=== PATIENT | male | born 1955 | race Caucasian/White ===

== ENCOUNTER 2016-11-12 13:46 | Inpatient (IN) | payer BC ==
[2016-11-12] VITALS (8 sets, daily range): BP systolic 92–170; BP diastolic 44–81; PULSE 72–101; RESP 16–20; TEMP 96.9–103.1; O2SAT 94–99
[~2016-11-12] VITALS: Ht 188 cm; Wt 92.4 kg
[~2016-11-12 13:46] MED LIST: ATEN50TA PO; GLIM2TAB PO; LISI10TA3 PO; LOVA20TA PO; METF500T PO
--- NOTE | 2016-11-12 14:11 | PD ---
HPI Chief Complaint: Skin Problem Time Seen by Provider: 13:58 Travel History International Travel<30 days: No Contact w/Intl Traveler<30days: No Traveled to known affect area: No History of Present Illness HPI This patient reports that 2 months ago he got a ulcer on the bottom of his right foot. Is trying to keep pressure off that so he started wearing boot. Unfortunately his boot rubbing against the side of his foot caused a breakdown. 4 days ago his right foot starting any hot red and swollen. He reports chills and fever subjectively. Moderately severe. No alleviating factors. He is type II diabetic not on insulin. PFSH Past Medical History Hx Anticoagulant Therapy: Yes Cardiovascular Problems: Yes (HTN ) High Cholesterol: Yes Diabetes: Yes Diminished Hearing: No Hypertension: Yes ?: Not Past Surgical History Ear Surgery: Yes (EYE LENS BILAT) Genitourinary Surgery: Yes (anal fissure x2) Other Surgery: Yes (CATERACT, RECTAL SURGERY X 2) Social History Alcohol Use: Yes (DAILY) Tobacco Use: Yes (OCC. CIGAR) Substance Use: No Allergies-Medications (Allergen,Severity, Reaction): Coded Allergies: *MDRO Multi-Drug Resistant Organism (Verified Adverse Reaction, Unknown, 02/24/16) MRSA elbow wound Reported Meds & Prescriptions Reported Meds & Active Scripts Active Reported Lisinopril 10 Mg Tab 10 Mg PO DAILY Glimepiride 2 Mg Tab 2 Mg PO BIDAC Metformin (Metformin HCl) 500 Mg Tab 500 Mg PO BIDPC With meals Atenolol 50 Mg Tab 50 Mg PO DAILY Review of Systems General / Constitutional: Positive: Fever, Chills Eyes: No: Visual changes HENT: No: Headaches Cardiovascular: No: Chest Pain or Discomfort Respiratory: No: Shortness of Breath Gastrointestinal: No: Abdominal Pain Genitourinary: No: Dysuria Musculoskeletal: Positive: Edema, Pain Skin: No Rash Neurologic: Positive: Sensory Disturbance, No: Weakness Psychiatric: No: Depression Endocrine: No: Polydipsia Hematologic/Lymphatic: No: Easy Bruising Physical Exam Narrative GENERAL: Well-nourished, well-developed patient with right foot swelling and redness. SKIN: Focused skin assessment reveals no rash and nodules. Skin is Warm and dry. HEAD: Atraumatic. Normocephalic. EYES: Pupils equal and round. No scleral icterus. No injection or drainage. ENT: No nasal bleeding or discharge. Mucous membranes pink and moist. NECK: Trachea midline. No JVD. CARDIOVASCULAR: Regular rate and rhythm. No murmur appreciated. RESPIRATORY: No accessory muscle use. Clear to auscultation. Breath sounds equal bilaterally. GASTROINTESTINAL: Abdomen soft, non-tender, nondistended. Hepatic and splenic margins not palpable. MUSCULOSKELETAL: No obvious deformities. No clubbing. No cyanosis. Patient has erythema and warmth and swelling over the dorsum of the right foot. Area of skin breakdown on the lateral aspect of the right foot. Also there is a ulcer underneath the metatarsal head. Serous drainage from that but no fluctuance or pus drainage. NEUROLOGICAL: Awake and alert. No obvious cranial nerve deficits. Motor grossly within normal limits. Normal speech. PSYCHIATRIC: Appropriate mood and affect; insight and judgment normal. Data Data Last Documented VS Vital Signs Date Time Temp Pulse Resp B/P Pulse Ox O2 Delivery O2 Flow Rate FiO2 11/12/16 14:50 102.7 97 16 163/81 96 Room Air Orders Iv Access Insert/Monitor (11/12/16 14:06) Complete Blood Count With Diff (11/12/16 14:06) Basic Metabolic Panel (Bmp) (11/12/16 14:06) Blood Glucose (11/12/16 14:06) Vancomycin Inj (Vancomycin Inj) (11/12/16 14:15) Foot, Limited (2vws) (11/12/16 ) Ondansetron Inj (Zofran Inj) (11/12/16 15:15) Acetaminophen (Tylenol) (11/12/16 15:15) Blood Culture (11/12/16 15:01) Prothrombin Time / Inr (Pt) (11/12/16 15:01) Act Partial Throm Time (Ptt) (11/12/16 15:01) Piperacil-Tazo 3.375 Gm Premix (Zosyn 3. (11/12/16 15:15) Admit Order (Ed Use Only) (11/12/16 15:14) Labs Laboratory Tests Test 11/12/16 14:43 White Blood Count 13.2 TH/MM3 Red Blood Count 3.58 MIL/MM3 Hemoglobin 11.2 GM/DL Hematocrit 32.7 % Mean Corpuscular Volume 91.4 FL Mean Corpuscular Hemoglobin 31.3 PG Mean Corpuscular Hemoglobin 34.2 % Concent Red Cell Distribution Width 12.1 % Platelet Count 367 TH/MM3 Mean Platelet Volume 7.9 FL Neutrophils (%) (Auto) 84.0 % Lymphocytes (%) (Auto) 5.3 % Monocytes (%) (Auto) 4.1 % Eosinophils (%) (Auto) 3.4 % Basophils (%) (Auto) 3.2 % Neutrophils # (Auto) 11.2 TH/MM3 Lymphocytes # (Auto) 0.7 TH/MM3 Monocytes # (Auto) 0.5 TH/MM3 Eosinophils # (Auto) 0.4 TH/MM3 Basophils # (Auto) 0.4 TH/MM3 CBC Comment DIFF FINAL Differential Comment Sodium Level 132 MEQ/L Potassium Level 4.3 MEQ/L Chloride Level 99 MEQ/L Carbon Dioxide Level 24.4 MEQ/L Anion Gap 9 MEQ/L Blood Urea Nitrogen 22 MG/DL Creatinine 1.40 MG/DL Estimat Glomerular Filtration 51 ML/MIN Rate Random Glucose 235 MG/DL Calcium Level 9.5 MG/DL [facility] Medical Decision Making Medical Screen Exam Complete: Yes Emergency Medical Condition: Yes Medical Record Reviewed: Yes Differential Diagnosis Diabetic foot infection, cellulitis, abscess Narrative Course I have reviewed the patient's electronic medical record. IV placed I gave him 1 g IV vancomycin CBC shows minimal leukocytosis and minimal anemia Metabolic profile shows nothing emergent, mild hyperglycemia I reviewed his right foot x-rays which show some bony destructive change at the fifth metatarsal head as well as suggestion of possible gas into issues. I also gave him a dose of IV Zosyn 2 blood cultures were drawn prior to antibiotic therapy Coagulation studies sent as well I gave him IV Zofran and a dose of Tylenol Temperature now 102 Patient will be requiring admission for IV antibiotics for diabetic foot infection with possible osteomyelitis of the fifth metatarsal head Call is placed to hospitalist to discuss Diagnosis Primary Impression: Diabetic infection of right foot Additional Impression: Osteomyelitis of ankle or foot, right, acute Admitting Information Admitting Physician Requests: Admit David Silva MD Nov 12, 2016 14:11
[2016-11-12] MEDS ORDERED: VANCOMYCIN INJ 1,000 MG in SODIUM CHLOR 0.9% 250 ML INJ 250 ML IV ONE (14:15)
--- NOTE | 2016-11-12 14:42 | RADRPT ---
EXAM DATE/TIME: 11/12/2016 14:16 [facility] COMPARISON: No previous studies available for comparison. INDICATIONS : Infected sores right foot MEDICAL HISTORY : Diabetes mellitus type II. SURGICAL HISTORY : None. ENCOUNTER: Initial ACUITY: 4 - 6 days PAIN SCORE: 4/10 LOCATION: Right foot FINDINGS: Patchy osteopenia and cortical thinning seen of the fifth metatarsal head. I believe there may be a s mall amount of gas within the fifth metatarsophalangeal joint. The surrounding soft tissues are swoll en. No acute bone destruction seen elsewhere. No fractures or subluxations. CONCLUSION: Early cortical destruction suspected of the fifth metatarsal head and potentially with some gas in th e fifth metatarsophalangeal joint concern for osteomyelitis/septic arthropathy. No definite acute bon y abnormality elsewhere.. Natalio Zhang MD on November 12, 2016 at 14:38 Board Certified Radiologist. This report was verified electronically.
[2016-11-12 15:01] LABS: POTASSIUM 4.3 MEQ/L (3.5-5.1)
[2016-11-12 15:05] LABS: AUTOMATED NEUTROPHIL # 11.2 TH/MM3 (1.8-7.7); BASOPHIL # 0.4 TH/MM3 (0-0.2); BASOPHIL % 3.2 % (0.0-2.0); BICARBONATE 24.4 MEQ/L (21.0-32.0); EOSINOPHIL # 0.4 TH/MM3 (0-0.4); EOSINOPHIL % 3.4 % (0.0-4.0); HEMATOCRIT 32.7 % (39.0-51.0); LYMPH % 5.3 % (9.0-44.0); LYMPHOCYTE # 0.7 TH/MM3 (1.0-4.8); MEAN CELL VOLUME 91.4 FL (80.0-100.0); MEAN CORPUSCULAR HEMOGLOBIN 31.3 PG (27.0-34.0); MEAN CORPUSCULAR HGB CONC 34.2 % (32.0-36.0); MONO % 4.1 % (0.0-8.0); PLATELET COUNT 367 TH/MM3 (150-450); RED BLOOD COUNT 3.58 MIL/MM3 (4.50-5.90); RED CELL DISTRIBUTION WIDTH 12.1 % (11.6-17.2); WHITE BLOOD COUNT 13.2 TH/MM3 (4.0-11.0)
[2016-11-12 15:11] LABS: HEMO FLAGS DIFF FINAL
[2016-11-12] MEDS ORDERED: ONDANSETRON HCL 4 MG/2 ML VIAL IVP ONE (15:15)
[2016-11-12] MEDS ORDERED: ACETAMINOPHEN 500 MG CPLT PO ONE (15:15)
[2016-11-12] MEDS ORDERED: PIPERACIL-TAZO 3.375 GM PREMIX 50 ML IV ONE ×2 (15:15→18:00)
[2016-11-12 15:23] LABS: APTT (PATIENT) 32.4 SEC (24.3-30.1); INTERNATIONAL NORMALIZED RATIO 0.9 RATIO; PROTHROMBIN TIME - PATIENT 10.3 SEC (9.8-11.6)
[2016-11-12] MEDS: SODIUM CHLOR 0.9% 1000 ML INJ 1,000 ML IV SCH (15:31)
[2016-11-12] MEDS ORDERED: Vancomycin Consult Pharmacy 1 EA OTHER SCH (15:45)
[2016-11-12] MEDS ORDERED: NALOXONE HCL 0.4 MG/ML AMP IV PRN (15:45)
[2016-11-12] MEDS ORDERED: DEXTROSE 50% IN WATER 50 ML VIAL(D50) IV PRN (15:45)
[2016-11-12] MEDS ORDERED: GLUCAGON 1 MG/ML VIAL OTHER PRN (15:45)
[2016-11-12] MEDS ORDERED: SODIUM CHLORIDE 0.9% FLUSH 10 ML FLUSH IV FLUSH PRN (15:45)
[2016-11-12] MEDS ORDERED: ONDANSETRON HCL 4 MG/2 ML VIAL IV PUSH ONE (16:00)
[2016-11-12] MEDS ORDERED: ACETAMINOPHEN 325 MG SUPP RECTAL ONE (16:00)
[2016-11-12] MEDS ORDERED: ACETAMINOPHEN 650 MG SUPP RECTAL ONE (16:00)
[2016-11-12] MEDS: INSULIN ASPART SUPPLEMENTAL SCALE SQ SCH ×2 (16:15→21:36)
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
[2016-11-12] MEDS ORDERED: VANCOMYCIN 1,000 MG/NS 250 ML IV ONE ×2 (17:00)
[2016-11-12] MEDS: GLIMEPIRIDE 2 MG TAB PO SCH (18:46)
--- NOTE | 2016-11-12 19:25 | MB ---
cc: JADEN LINK MD DATE OF CONSULTATION 11/12/[address] Ramos. REASON FOR CONSULTATION Infected diabetic foot ulcer. Likely osteo. HISTORY OF PRESENT ILLNESS This is a 61-year-old white male who has diabetes mellitus. The patient developed a blister at the underside of his right foot near the fifth toe approximately 2 months ago. He subsequently started wearing a boot to take the pressure of his foot. However he noted that the boot was rubbing against the side of his foot and it caused breakdown of the skin at the dorsal aspect of his right foot at the base of the fifth toe, and then he developed pain and redness and swelling. He also reported that he started getting fever and chills and nausea. He presented to emergency department and had temperature of 102.7 degrees earlier today. His white count was elevated at 13.2. An x-ray of the foot was performed and showed early cortical destruction suspected of the fifth metatarsal head and potentially with some gas in the fifth metatarsal phalangeal joint with concern for osteomyelitis and septic arthropathy. Currently the patient states that he feels a little better. His temperature however climbed to 103.1 degrees and on last measure approximately 1 hour ago it was 101 degrees. He tells me that he feels better now. Blood cultures were taken. Wound culture was also obtained. The results of these are pending. The patient has no other complaints. PAST MEDICAL HISTORY 1. Diabetes mellitus type 2. 2. Hypertension. ALLERGIES NO KNOWN DRUG ALLERGIES. MEDICATIONS 1. Vancomycin. 2. Piperacillin / tazobactam. 3. Tenormin. 4. Amaryl. 5. Supplemental sliding scale insulin. SOCIAL HISTORY The patient smokes cigars occasionally. Positive alcohol use daily. No illicit drugs. FAMILY HISTORY Noncontributory. REVIEW OF SYSTEMS Pertinent features mentioned in the history of present illness. Otherwise negative on 10-point review. PHYSICAL EXAMINATION GENERAL: This is a well-developed male who is in no acute distress. He is awake and alert and oriented. VITAL SIGNS: Vitals include temperature 101.3, BP 147/67, respirations 20, heart rate 96. HEENT: Head is atraumatic. Extraocular movements are grossly intact. Pupils reactive to light. No icterus. Oropharynx no visible lesions. NECK: Supple. No adenopathy. LUNGS: Clear breath sounds bilateral. However breath sounds are diminished. HEART: Regular rate and rhythm. No murmurs, rubs or gallops. ABDOMEN: Bowel sounds present, soft, no tenderness appreciated. RECTAL: Not performed. EXTREMITIES: The right foot has erythema at the base of the fifth toe where there is some superficial breakdown of skin at the dorsal aspect. The erythema extends to approximately mid foot at the lateral part of the foot. He also has an ulcer at the plantar aspect of the base of the fifth toe and it has purulent drainage and some bubbles visible on palpating the ulcerated area. The extremities have no edema. The other extremities have no clubbing or cyanosis or edema. SKIN: No rash. NEUROLOGIC: Nonfocal. PSYCHIATRIC: The patient is calm and pleasant and cooperative. LABORATORY DATA WBC 13.2, platelets 367, 84% neutrophils. Creatinine 1.40, BUN 22, sodium 132. IMPRESSION 1. Abscess of the right foot. 2. Cellulitis of the right foot. 3. Diabetic foot infection. 4. Probable osteomyelitis of the fifth metatarsal head. RECOMMENDATIONS 1. Continue the vancomycin. 2. Continue piperacillin. 3. Monitor wound culture. 4. Monitor blood cultures in this patient who had fever and chills and likely sepsis. 5. Incision and debridement to be determined by podiatry after their evaluation. 6. Monitor temperature. Thank you for this consultation. I will follow the patient's progress and make further recommendations upon followup. Jaden Link MD FD/KANWAL /6:04 PM /7:09 PM
[2016-11-12] MEDS ORDERED: MAGNESIUM HYDROXIDE SUSP 30 ML CUP PO PRN (21:00)
[2016-11-12] MEDS: DOCUSATE SODIUM 50 MG/SENNA 8.6 MG TAB PO SCH (21:00)
[2016-11-12] MEDS: HEPARIN SODIUM - SQ 10,000 UNITS/ML VIAL SQ SCH (21:30)
[2016-11-12] MEDS: SODIUM CHLORIDE 0.9% FLUSH 10 ML FLUSH IV FLUSH SCH (21:37)
[2016-11-12] MEDS ORDERED: ONDANSETRON HCL 4 MG/2 ML VIAL IVP PRN (22:00)
[2016-11-12] MEDS: PIPERACIL-TAZO 3.375 GM PREMIX 50 ML IV SCH (23:35)
[2016-11-13] VITALS: BP 92/44; PULSE 72; RESP 16; TEMP 96.9; O2SAT 97
[2016-11-13 04:00] VITALS: BP 111/56; PULSE 73; RESP 18; TEMP 96.5; O2SAT 95
[2016-11-13] MEDS: SODIUM CHLOR 0.9% 1000 ML INJ 1,000 ML IV SCH ×3 (04:11→20:47)
[2016-11-13] MEDS: GLIMEPIRIDE 2 MG TAB PO SCH ×2 (06:45→18:00)
[2016-11-13] MEDS: PIPERACIL-TAZO 3.375 GM PREMIX 50 ML IV SCH ×4 (06:45→23:34)
[2016-11-13] MEDS: INSULIN ASPART SUPPLEMENTAL SCALE SQ SCH ×4 (06:45→20:35)
[2016-11-13] MEDS: SODIUM CHLORIDE 0.9% FLUSH 10 ML FLUSH IV FLUSH SCH ×2 (07:49→20:37)
--- NOTE | 2016-11-13 08:26 | HHI.PR ---
Subjective History of Present Illness Patient have wound right foot Infectious disease input noted getting MRI of right foot on Antibiotic per ID Podiatry on board. Review of Systems Constitutional Constitutional: Fatigue, Weakness Integumentary Skin: Wounds Skin Remarks Right foot wound. Vitals/Results Intake & Output 11/12/16 11/12/16 11/13/16 15:00 23:00 07:00 Intake Total 199 ml Output Total 200 ml 0 ml Balance -200 ml 199 ml Intake IV Total 199 ml Output Urine Total 0 ml 0 ml Emesis 200 ml # Voids 1 # Bowel Movements 1 Vital Signs Vital Signs Date Time Temp Pulse Resp B/P Pulse Ox O2 Delivery O2 Flow Rate FiO2 11/13/16 04:00 96.5 73 18 111/56 95 11/13/16 00:00 96.9 72 16 92/44 97 11/12/16 23:37 96.9 72 16 92/44 11/12/16 22:00 98.8 91 20 105/56 94 11/12/16 20:00 98.8 91 20 105/56 94 11/12/16 17:00 101.3 96 20 147/67 95 11/12/16 15:49 103.1 11/12/16 15:22 101 18 170/75 98 Room Air 11/12/16 14:50 102.7 97 16 163/81 96 Room Air 11/12/16 13:50 99.1 95 18 149/67 99 CBC/BMP: 11/12/16 1443 11/12/16 1443 Lab Results Laboratory Tests Test 11/12/16 14:43 White Blood Count 13.2 TH/MM3 Red Blood Count 3.58 MIL/MM3 Hemoglobin 11.2 GM/DL Hematocrit 32.7 % Mean Corpuscular Volume 91.4 FL Mean Corpuscular Hemoglobin 31.3 PG Mean Corpuscular Hemoglobin 34.2 % Concent Red Cell Distribution Width 12.1 % Platelet Count 367 TH/MM3 Mean Platelet Volume 7.9 FL Neutrophils (%) (Auto) 84.0 % Lymphocytes (%) (Auto) 5.3 % Monocytes (%) (Auto) 4.1 % Eosinophils (%) (Auto) 3.4 % Basophils (%) (Auto) 3.2 % Neutrophils # (Auto) 11.2 TH/MM3 Lymphocytes # (Auto) 0.7 TH/MM3 Monocytes # (Auto) 0.5 TH/MM3 Eosinophils # (Auto) 0.4 TH/MM3 Basophils # (Auto) 0.4 TH/MM3 CBC Comment DIFF FINAL Differential Comment Prothrombin Time 10.3 SEC Prothromb Time International 0.9 RATIO Ratio Activated Partial 32.4 SEC Thromboplast Time Sodium Level 132 MEQ/L Potassium Level 4.3 MEQ/L Chloride Level 99 MEQ/L Carbon Dioxide Level 24.4 MEQ/L Anion Gap 9 MEQ/L Blood Urea Nitrogen 22 MG/DL Creatinine 1.40 MG/DL Estimat Glomerular Filtration 51 ML/MIN Rate Random Glucose 235 MG/DL Calcium Level 9.5 MG/DL Microbiology Microbiology 11/12/16 Aerobic Blood Culture, Received Pending 11/12/16 Anaerobic Blood Culture, Received Pending 11/12/16 Aerobic Blood Culture, Received Pending 11/12/16 Anaerobic Blood Culture, Received Pending 11/12/16 Gram Stain, Received Pending 11/12/16 Wound Culture, Received Pending Physical Exam General General Appearance: Well Developed, Well Nourished, No Acute Distress, Comfortable Eyes Eye Exam: Sclera White, Extraocular Movement Intact Throat Throat Exam: Oral Mucosa [place] & Moist, Oral Pharynx Normal Neck Neck Exam: Neck Supple, Trachea Midline Pulmonary Resp Exam: Clear Bilaterally, Breath Sounds Equal, No Distress Cardiology CV Exam: Regular, Normal Sinus Rhythm Gastrointestinal/Abdomen GI Exam: Soft, Non-Tender, Bowel Sounds Present Musculoskeletal MS Exam: Normal Tone Integumentary Skin Exam: Warm, Dry, Ulcer(s) Skin Remarks Right foot planter wound. Neurologic Neuro Exam: Alert, Awake, Oriented, Speech Clear, Moving All Extremities, No Focal Deficits Psychiatric Psych Exam: Appropriate Responses VTE Prophylaxis VTE Prophylaxis Meds: Heparin PUD Prophylasis PUD Prophylaxis: Protonix Assessment/Plan Assessment/Plan ASSESSMENT: 1. Cellulitis with infected ulcer in a patient with diabetes, likely osteomyelitis. 2. Uncontrolled diabetes. 3. Uncontrolled hypertension. PLAN: IV antibiotics. IV hydration. Sliding scale insulin coverage to manage insulin. Also manage sugar. Continue some of home medications. Monitor renal function. Monitor blood pressure and PRN medications for high blood pressure. Podiatry consultation. MRI of the right foot. Infectious disease input noted on Antibiotic per ID. recommendation. Blood cultures negative so far. Wound culture. Continue home medications as indicated. Further recommendations will follow as the patient progresses. Check CBC with diff CMP in AM. Discussed Condition with: Patient Iker Edmondson MD Nov 13, 2016 08:26
[2016-11-13 08:37] LABS: AUTOMATED NEUTROPHIL # 12.1 TH/MM3 (1.8-7.7); BASOPHIL % 0.3 % (0.0-2.0); EOSINOPHIL # 0.4 TH/MM3 (0-0.4); EOSINOPHIL % 2.8 % (0.0-4.0); HEMATOCRIT 30.2 % (39.0-51.0); LYMPH % 4.1 % (9.0-44.0); LYMPHOCYTE # 0.6 TH/MM3 (1.0-4.8); MEAN CELL VOLUME 90.8 FL (80.0-100.0); MEAN CORPUSCULAR HEMOGLOBIN 30.5 PG (27.0-34.0); MEAN CORPUSCULAR HGB CONC 33.6 % (32.0-36.0); MONO % 7.6 % (0.0-8.0); NEUT % 85.2 % (16.0-70.0); PLATELET COUNT 314 TH/MM3 (150-450); RED BLOOD COUNT 3.32 MIL/MM3 (4.50-5.90); WHITE BLOOD COUNT 14.2 TH/MM3 (4.0-11.0)
[2016-11-13] MEDS: HEPARIN SODIUM - SQ 10,000 UNITS/ML VIAL SQ SCH ×2 (08:37→20:37)
[2016-11-13] MEDS: DOCUSATE SODIUM 50 MG/SENNA 8.6 MG TAB PO SCH ×2 (08:37→20:37)
[2016-11-13 08:40] LABS: POTASSIUM 4.2 MEQ/L (3.5-5.1)
[2016-11-13 08:42] LABS: HEMO FLAGS DIFF FINAL
[2016-11-13 08:45] LABS: BICARBONATE 27.4 MEQ/L (21.0-32.0)
[2016-11-13] MEDS ORDERED: ATENOLOL 50 MG TAB PO SCH (09:00)
[2016-11-13 09:06] VITALS: BP_SYST 153; BP_SYST 158; BP_DIAS 105; BP_DIAS 71; PULSE 67; PULSE 80; RESP 16; TEMP 97.4; TEMP 97.7; O2SAT 97; O2SAT 99
[2016-11-13] MEDS ORDERED: GADODIAMIDE PF 287 MG/ML 5 ML VIAL (for RAD MRI) IV ONE (14:03)
--- NOTE | 2016-11-13 14:21 | RADRPT ---
EXAM DATE/TIME: 11/13/2016 13:06 [facility] COMPARISON: FOOT RIGHT LIMITED (2VWS), November 12, 2016, 14:16. INDICATIONS : Osteomyelitis. CONTRAST: 17 cc Omniscan (gadodiamide) IV MEDICAL HISTORY : Diabetes mellitus type 2. Hypertension. SURGICAL HISTORY : None. ENCOUNTER: Initial ACUITY: 2 months PAIN SCORE: 8/10 LOCATION: Right Forefoot by fifth toe. TECHNIQUE: Multiplanar, multisequence MRI examination was performed without contrast and after the intravenous a dministration of gadolinium. FINDINGS: BONE/CARTILAGE: Bone marrow edema with abnormal enhancement is identified involving the fifth proximal phalanx and th e fifth metatarsal. Destructive changes involving the distal fifth metatarsal are confirmed. There is focal cortical erosion and significant periarticular inflammation. TENDONS: The extensor tendons along the dorsum of the fifth metatarsal and phalanx is encased by inflammatory tissue. All other visualized tendons are intact. MISCELLANEOUS: Plantar aponeurosis is intact. Sinus tarsi is within normal limits. POST-CONTRAST: Significant soft tissue and bony enhancement is identified involving the proximal phalanx of the fift h toe and the fifth metatarsal. A complex fluid collection is identified along the dorsum of the fifth metatarsal. The collectio n extends from the metatarsal phalangeal joint to approximately the mid metatarsal shaft. It measures 4.7 cm in length by 2.1 and 2.4 cm in transverse dimension. Focal gas is identified within the colle ction. CONCLUSION: 1. Bone marrow edema, abnormal enhancement and destructive bone changes are identified in the fifth m etatarsal and proximal phalanx of the fifth toe indicative of osteomyelitis. 2. Organized complex abscess along the dorsum of the mid to distal fifth metatarsal. 3. Extensor tendon of the fifth toe is encased by inflammatory tissue. Malick Rosado MD on November 13, 2016 at 14:08 Board Certified Radiologist. This report was verified electronically.
[2016-11-13 16:00] VITALS: BP 157/69; PULSE 96; RESP 20; TEMP 98.3; O2SAT 97
[2016-11-13] MEDS ORDERED: VANCOMYCIN INJ 2,000 MG in SODIUM CHLORID 0.9% 500 ML INJ 500 ML IV SCH (17:00)
--- NOTE | 2016-11-13 18:38 | HHI.IDPN ---
Note Infectious Disease Note patient had some chills today. Feels better. Afebrile. Blood culture has group B strep. Wound culture pending. PAST MEDICAL HISTORY 1. Diabetes mellitus type 2. 2. Hypertension. ALLERGIES NO KNOWN DRUG ALLERGIES. ANTIBIOTICS 1. Vancomycin. 2. Piperacillin / tazobactam. OBJECTIVE: Vital Signs Date Time Temp Pulse Resp B/P Pulse Ox O2 Delivery O2 Flow Rate FiO2 11/13/16 16:00 98.3 96 20 157/69 97 11/13/16 09:06 97.7 80 16 153/71 97 11/13/16 04:00 96.5 73 18 111/56 95 11/13/16 00:00 96.9 72 16 92/44 97 11/12/16 23:37 96.9 72 16 92/44 11/12/16 22:00 98.8 91 20 105/56 94 11/12/16 20:00 98.8 91 20 105/56 94 Laboratory Tests Test 11/12/16 11/13/16 14:43 07:45 White Blood Count 13.2 TH/MM3 14.2 TH/MM3 Red Blood Count 3.58 MIL/MM3 3.32 MIL/MM3 Hemoglobin 11.2 GM/DL 10.1 GM/DL Hematocrit 32.7 % 30.2 % Mean Corpuscular Volume 91.4 FL 90.8 FL Mean Corpuscular Hemoglobin 31.3 PG 30.5 PG Mean Corpuscular Hemoglobin 34.2 % 33.6 % Concent Red Cell Distribution Width 12.1 % 12.0 % Platelet Count 367 TH/MM3 314 TH/MM3 Mean Platelet Volume 7.9 FL 7.9 FL Neutrophils (%) (Auto) 84.0 % 85.2 % Lymphocytes (%) (Auto) 5.3 % 4.1 % Monocytes (%) (Auto) 4.1 % 7.6 % Eosinophils (%) (Auto) 3.4 % 2.8 % Basophils (%) (Auto) 3.2 % 0.3 % Neutrophils # (Auto) 11.2 TH/MM3 12.1 TH/MM3 Lymphocytes # (Auto) 0.7 TH/MM3 0.6 TH/MM3 Monocytes # (Auto) 0.5 TH/MM3 1.1 TH/MM3 Eosinophils # (Auto) 0.4 TH/MM3 0.4 TH/MM3 Basophils # (Auto) 0.4 TH/MM3 0.0 TH/MM3 CBC Comment DIFF FINAL DIFF FINAL Differential Comment Laboratory Tests Test 11/12/16 11/13/16 14:43 07:45 Sodium Level 132 MEQ/L 137 MEQ/L Potassium Level 4.3 MEQ/L 4.2 MEQ/L Chloride Level 99 MEQ/L 102 MEQ/L Carbon Dioxide Level 24.4 MEQ/L 27.4 MEQ/L Anion Gap 9 MEQ/L 8 MEQ/L Blood Urea Nitrogen 22 MG/DL 24 MG/DL Creatinine 1.40 MG/DL 1.60 MG/DL Estimat Glomerular Filtration 51 ML/MIN 44 ML/MIN Rate Random Glucose 235 MG/DL 147 MG/DL Calcium Level 9.5 MG/DL 8.9 MG/DL Microbiology Date/Time Procedure Status Source Growth 11/12/16 14:45 Aerobic Blood Culture - Preliminary Resulted Blood Peripheral NO GROWTH IN 1 DAY 11/12/16 14:45 Anaerobic Blood Culture - Preliminary Resulted Blood Peripheral NO GROWTH IN 1 DAY 11/12/16 14:50 Aerobic Blood Culture - Preliminary Resulted Blood Peripheral NO GROWTH IN 1 DAY 11/12/16 14:50 Anaerobic Blood Culture - Preliminary Resulted Group B Beta Strep 11/12/16 16:39 Gram Stain - Final Resulted Wound Foot 11/12/16 16:39 Wound Culture - Preliminary Resulted Wound Foot IMAGING: Foot MRI 11/13/16 0000 Signed Impressions: Service Date/Time: Sunday, November 13, 2016 13:06 - CONCLUSION: 1. Bone marrow edema, abnormal enhancement and destructive bone changes are identified in the fifth metatarsal and proximal phalanx of the fifth toe indicative of osteomyelitis. 2. Organized complex abscess along the dorsum of the mid to distal fifth metatarsal. 3. Extensor tendon of the fifth toe is encased by inflammatory tissue. Malick Rosado MD Foot X-Ray 11/12/16 0000 Signed Impressions: Service Date/Time: Saturday, November 12, 2016 14:16 - CONCLUSION: Early cortical destruction suspected of the fifth metatarsal head and potentially with some gas in the fifth metatarsophalangeal joint concern for osteomyelitis/septic arthropathy. No definite acute bony abnormality elsewhere.. Natalio Zhang MD PHYSICAL EXAMINATION GENERAL: No acute distress. He is awake and alert and oriented. HEENT: No icterus. Oropharynx no visible lesions. NECK: Supple. No adenopathy. LUNGS: Clear breath sounds. HEART: Regular rate and rhythm. No murmurs, rubs or gallops. ABDOMEN: Bowel sounds present, soft, no tenderness. EXTREMITIES: The right foot has erythema at the base of the fifth toe where there is some superficial breakdown of skin at the dorsal aspect. The erythema extends to approximately mid foot at the lateral part of the foot. He also has an ulcer at the plantar aspect of the base of the fifth toe and it has purulent drainage and some bubbles visible on palpating the ulcerated area. The extremities have no edema. The other extremities have no clubbing or cyanosis or edema. SKIN: No rash. NEUROLOGIC: Nonfocal. PSYCHIATRIC: The patient is calm and pleasant and cooperative. IMPRESSION 1. Sepsis group B strep. 2. Abscess and osteo of the right foot. 3. Cellulitis of the right foot. 4. Diabetic foot infection. RECOMMENDATIONS 1. Stop vancomycin. 2. Continue piperacillin. 3. Monitor wound culture. 4. Incision and debridement to be determined by podiatry after their evaluation. Bg Bergeron MD Nov 13, 2016 18:38
[2016-11-13 20:00] VITALS: BP 136/60; PULSE 91; RESP 18; TEMP 101.4; O2SAT 93
[2016-11-13] MEDS: ACETAMINOPHEN 325 MG TAB PO PRN (20:36)
[2016-11-13] MEDS: ATENOLOL 25 MG TAB PO SCH (20:37)
[2016-11-14] VITALS (8 sets, daily range): BP systolic 155–178; BP diastolic 71–93; PULSE 64–89; RESP 16–20; TEMP 96.9–100.2; O2SAT 93–98
[2016-11-14 06:06] LABS: AUTOMATED NEUTROPHIL # 6.5 TH/MM3 (1.8-7.7); BASOPHIL # 0.1 TH/MM3 (0-0.2); BASOPHIL % 0.7 % (0.0-2.0); EOSINOPHIL # 0.3 TH/MM3 (0-0.4); EOSINOPHIL % 3.4 % (0.0-4.0); HEMATOCRIT 29.7 % (39.0-51.0); HEMO FLAGS DIFF FINAL; LYMPHOCYTE # 1.3 TH/MM3 (1.0-4.8); MEAN CELL VOLUME 91.7 FL (80.0-100.0); MEAN CORPUSCULAR HEMOGLOBIN 30.1 PG (27.0-34.0); MEAN CORPUSCULAR HGB CONC 32.8 % (32.0-36.0); MONO % 12.4 % (0.0-8.0); NEUT % 69.5 % (16.0-70.0); PLATELET COUNT 327 TH/MM3 (150-450); RED BLOOD COUNT 3.24 MIL/MM3 (4.50-5.90); RED CELL DISTRIBUTION WIDTH 12.1 % (11.6-17.2); WHITE BLOOD COUNT 9.4 TH/MM3 (4.0-11.0)
[2016-11-14] MEDS: PIPERACIL-TAZO 3.375 GM PREMIX 50 ML IV SCH ×4 (06:13→23:35)
[2016-11-14] MEDS: GLIMEPIRIDE 2 MG TAB PO SCH ×2 (06:13→16:00)
[2016-11-14 06:14] LABS: CHLORIDE 102 MEQ/L (98-107); POTASSIUM 3.7 MEQ/L (3.5-5.1); SODIUM (NA) 134 MEQ/L (136-145)
[2016-11-14 06:19] LABS: ANION GAP 8 MEQ/L (5-15); BICARBONATE 24.1 MEQ/L (21.0-32.0)
[2016-11-14] MEDS: SODIUM CHLOR 0.9% 1000 ML INJ 1,000 ML IV SCH ×2 (06:20→21:26)
[2016-11-14 06:41] LABS: ALKALINE PHOSPHATASE 127 U/L (45-117); ALT (GPT) 63 U/L (12-78); AST (GOT) 66 U/L (15-37); BLOOD UREA NITROGEN 24 MG/DL (7-18); GLOMERULAR FILTRATION RATE 41 ML/MIN (>89); TOTAL BILIRUBIN ADULT 0.4 MG/DL (0.2-1.0)
[2016-11-14] MEDS: DOCUSATE SODIUM 50 MG/SENNA 8.6 MG TAB PO SCH ×3 (07:57→21:24)
[2016-11-14] MEDS: INSULIN ASPART SUPPLEMENTAL SCALE SQ SCH ×4 (07:58→21:21)
[2016-11-14] MEDS: HEPARIN SODIUM - SQ 10,000 UNITS/ML VIAL SQ SCH ×2 (07:58→21:23)
[2016-11-14] MEDS: SODIUM CHLORIDE 0.9% FLUSH 10 ML FLUSH IV FLUSH SCH ×2 (07:58→21:25)
--- NOTE | 2016-11-14 08:31 | HHI.PR ---
Subjective History of Present Illness Patient have wound right foot Infectious disease input noted s/p MRI of right foot shows osteomylitis on Antibiotic per ID Podiatry on board. going for foot surgery today. d/w ANJALI Dugan. Wound culture...culture grows Group B beta strept. and Crystal Albican. Sepsis on admission blood culture grows Group B beta strept. Review of Systems Constitutional Constitutional: Fatigue, Weakness Integumentary Skin: Wounds Skin Remarks Right foot wound. Vitals/Results Intake & Output 11/13/16 11/13/16 11/14/16 15:00 23:00 07:00 Intake Total 875 ml 240 ml Balance 875 ml 240 ml Intake Oral 240 ml IV Total 875 ml # Voids 3 # Bowel Movements 1 Vital Signs Vital Signs Date Time Temp Pulse Resp B/P Pulse Ox O2 Delivery O2 Flow Rate FiO2 11/14/16 08:00 99.4 76 20 178/91 95 11/14/16 04:00 97.0 64 18 155/73 98 11/14/16 03:30 64 11/14/16 00:00 96.9 78 18 155/75 96 11/13/16 20:00 101.4 91 18 136/60 93 11/13/16 16:00 98.3 96 20 157/69 97 11/13/16 09:06 97.7 80 16 153/71 97 CBC/BMP: 11/14/16 0530 11/14/16 0530 Lab Results Laboratory Tests Test 11/14/16 05:30 White Blood Count 9.4 TH/MM3 Red Blood Count 3.24 MIL/MM3 Hemoglobin 9.8 GM/DL Hematocrit 29.7 % Mean Corpuscular Volume 91.7 FL Mean Corpuscular Hemoglobin 30.1 PG Mean Corpuscular Hemoglobin 32.8 % Concent Red Cell Distribution Width 12.1 % Platelet Count 327 TH/MM3 Mean Platelet Volume 7.7 FL Neutrophils (%) (Auto) 69.5 % Lymphocytes (%) (Auto) 14.0 % Monocytes (%) (Auto) 12.4 % Eosinophils (%) (Auto) 3.4 % Basophils (%) (Auto) 0.7 % Neutrophils # (Auto) 6.5 TH/MM3 Lymphocytes # (Auto) 1.3 TH/MM3 Monocytes # (Auto) 1.2 TH/MM3 Eosinophils # (Auto) 0.3 TH/MM3 Basophils # (Auto) 0.1 TH/MM3 CBC Comment DIFF FINAL Differential Comment Sodium Level 134 MEQ/L Potassium Level 3.7 MEQ/L Chloride Level 102 MEQ/L Carbon Dioxide Level 24.1 MEQ/L Anion Gap 8 MEQ/L Blood Urea Nitrogen 24 MG/DL Creatinine 1.70 MG/DL Estimat Glomerular Filtration 41 ML/MIN Rate Random Glucose 260 MG/DL Calcium Level 8.6 MG/DL Total Bilirubin 0.4 MG/DL Aspartate Amino Transf 66 U/L (AST/SGOT) Alanine Aminotransferase 63 U/L (ALT/SGPT) Alkaline Phosphatase 127 U/L Total Protein 6.7 GM/DL Albumin 2.2 GM/DL Microbiology Microbiology 11/14/16 Aerobic Blood Culture, Received Pending 11/14/16 Anaerobic Blood Culture, Received Pending 11/14/16 Aerobic Blood Culture, Received Pending 11/14/16 Anaerobic Blood Culture, Received Pending Physical Exam General General Appearance: Well Developed, Well Nourished, No Acute Distress, Comfortable Eyes Eye Exam: Sclera White, Extraocular Movement Intact Throat Throat Exam: Oral Mucosa [place] & Moist, Oral Pharynx Normal Neck Neck Exam: Neck Supple, Trachea Midline Pulmonary Resp Exam: Clear Bilaterally, Breath Sounds Equal, No Distress Cardiology CV Exam: Regular, Normal Sinus Rhythm Gastrointestinal/Abdomen GI Exam: Soft, Non-Tender, Bowel Sounds Present Musculoskeletal MS Exam: Normal Tone Integumentary Skin Exam: Warm, Dry, Ulcer(s) Skin Remarks Right foot planter wound. Neurologic Neuro Exam: Alert, Awake, Oriented, Speech Clear, Moving All Extremities, No Focal Deficits Psychiatric Psych Exam: Appropriate Responses VTE Prophylaxis VTE Prophylaxis Meds: Heparin PUD Prophylasis PUD Prophylaxis: Protonix Assessment/Plan Assessment/Plan ASSESSMENT: 1. Cellulitis with infected ulcer in a patient with diabetes, secondary to osteomyelitis. 2. Uncontrolled diabetes. 3. Uncontrolled hypertension...on home medicine. PLAN: IV antibiotics. IV hydration. Sliding scale insulin coverage to manage insulin. Also manage sugar. Continue some of home medications. Monitor renal function. Monitor blood pressure and PRN medications for high blood pressure. Podiatry input noted going for foot surgery. MRI of the right foot...shows osteomylitis. Infectious disease input noted on Antibiotic per ID. recommendation. Wound culture...culture grows Group B beta strept. and Crystal Albican. Continue home medications as indicated. Sepsis on admission blood culture grows Group B beta strept. Further recommendations will follow as the patient progresses. Check CBC with diff CMP in AM. Discussed Condition with: Patient Iker Edmondson MD Nov 14, 2016 08:31
[2016-11-14] MEDS: LISINOPRIL 10 MG TAB PO SCH (11:11)
[2016-11-14] MEDS ORDERED: PHENYLEPH/NS 1000 MCG/10 ML SYR IV ONE (12:00)
[2016-11-14] MEDS ORDERED: ONDANSETRON HCL 4 MG/2 ML VIAL IV PUSH ONE (12:00)
[2016-11-14] MEDS ORDERED: PROPOFOL 200 MG/20 ML AMP IV ONE (12:00)
[2016-11-14] MEDS ORDERED: LACTATED RINGER'S 1000 ML INJ 1,000 ML IV ONE (12:00)
[2016-11-14] MEDS ORDERED: NEOMYCIN/POLYMYXIN 1 ML G.U. IRRIGANT ONE (13:41)
[2016-11-14] MEDS ORDERED: BUPIVACAINE HCL PF 0.25% 30 ML VIAL ONE (13:42)
[2016-11-14] MEDS ORDERED: FAMOTIDINE 20 MG/2 ML VIAL ONE ×2 (16:20→16:24)
[2016-11-14] MEDS ORDERED: MIDAZOLAM HCL 2 MG/2 ML VIAL ONE (17:33)
[2016-11-14] MEDS ORDERED: fentaNYL CITRATE 250 MCG/5 ML AMP ONE (17:33)
--- NOTE | 2016-11-14 18:12 | RADRPT ---
EXAM DATE/TIME: 11/14/2016 17:53 [facility] COMPARISON: No previous studies available for comparison. INDICATIONS : Post op. MEDICAL HISTORY : Diabetes mellitus type II. Osteomyelitis. Hypertension. SURGICAL HISTORY : Right foot. ENCOUNTER: Initial ACUITY: 1 day PAIN SCORE: Non-responsive. LOCATION: Bilateral chest FINDINGS: Three view examination of the right foot demonstrates postoperative resection of the distal fifth met atarsal. No dislocation. No fractures are seen. CONCLUSION: 1. Postoperative resection of the distal fifth metatarsal. Timmy Hfof MD on November 14, 2016 at 17:59 Board Certified Radiologist. This report was verified electronically.
[2016-11-14] MEDS: ATENOLOL 25 MG TAB PO SCH (21:24)
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
[2016-11-15] VITALS (8 sets, daily range): BP systolic 119–185; BP diastolic 58–85; PULSE 76–93; RESP 18–20; TEMP 97.7–100.8; O2SAT 87–95
[2016-11-15] MEDS: SODIUM CHLOR 0.9% 1000 ML INJ 1,000 ML IV SCH ×2 (03:31→05:49)
[2016-11-15] MEDS: PIPERACIL-TAZO 3.375 GM PREMIX 50 ML IV SCH ×2 (05:50→12:10)
[2016-11-15] MEDS: GLIMEPIRIDE 2 MG TAB PO SCH ×3 (05:52→15:44)
[2016-11-15] MEDS: INSULIN ASPART SUPPLEMENTAL SCALE SQ SCH ×4 (06:33→21:00)
[2016-11-15 06:36] LABS: AUTOMATED NEUTROPHIL # 8.9 TH/MM3 (1.8-7.7); BASOPHIL % 0.4 % (0.0-2.0); EOSINOPHIL # 0.4 TH/MM3 (0-0.4); EOSINOPHIL % 3.2 % (0.0-4.0); HEMATOCRIT 28.9 % (39.0-51.0); HEMO FLAGS DIFF FINAL; LYMPH % 12.1 % (9.0-44.0); LYMPHOCYTE # 1.4 TH/MM3 (1.0-4.8); MEAN CELL VOLUME 90.3 FL (80.0-100.0); MEAN CORPUSCULAR HEMOGLOBIN 30.3 PG (27.0-34.0); MEAN CORPUSCULAR HGB CONC 33.5 % (32.0-36.0); MONO % 11.2 % (0.0-8.0); NEUT % 73.1 % (16.0-70.0); PLATELET COUNT 390 TH/MM3 (150-450)
[2016-11-15 06:44] LABS: CHLORIDE 103 MEQ/L (98-107); POTASSIUM 3.8 MEQ/L (3.5-5.1); SODIUM (NA) 137 MEQ/L (136-145)
[2016-11-15 06:50] LABS: ANION GAP 8 MEQ/L (5-15); BICARBONATE 25.9 MEQ/L (21.0-32.0)
[2016-11-15 07:00] LABS: ALKALINE PHOSPHATASE 132 U/L (45-117); ALT (GPT) 47 U/L (12-78); AST (GOT) 28 U/L (15-37); BLOOD UREA NITROGEN 16 MG/DL (7-18); GLOMERULAR FILTRATION RATE 47 ML/MIN (>89); TOTAL BILIRUBIN ADULT 0.6 MG/DL (0.2-1.0)
--- NOTE | 2016-11-15 08:29 | PQ ---
Physician Query Response Document PATIENT: DEIRDRE HERNANDEZ : 1955 ADMIT DATE: 11/12/2016 3:15 PM DISCH DATE: RESPONDING PROVIDER #: EAhmed QUERY TEXT: Sepsis Query Based on your medical judgement, can you further clarify the folowiin. Sepsis (SIRS due to an infection) 2. Sepsis with Organ Dysfunction 3. A localized Infection only 4. Another condition - please specify 5. Unable to determine - please explain. Depending on your selection above, please indicate one of the below if applicable: - Sepsis was present on Admission - Sepsis developed after admission The patient's Clinical Indicators include: diabetic foot ulcer w cellulitis abscess and osteo right foot PER ID SEPSIS GROUP B STREP T 102.7 HR 97 , WBC 13.2 Query created by: Lubna Powell on 11/14/2016 10:55 AM RESPONSE TEXT: Sepsis due to infection Electronically signed by: Iker Edmondson MD 11/15/2016 8:26 AM
--- NOTE | 2016-11-15 08:30 | HHI.PR ---
Subjective History of Present Illness Patient have wound right foot Infectious disease input noted s/p MRI of right foot shows osteomylitis on Antibiotic per ID Podiatry on board. S/P Right foot I&D, Right foot fifth metatarsal head amputation, Right foot wound closure. d/w ANJALI Dugan. Wound culture...culture grows Group B beta strept. and Crystal Albican. Sepsis on admission blood culture grows Group B beta strept. Review of Systems Constitutional Constitutional: Fatigue, Weakness Integumentary Skin: Wounds Skin Remarks Right foot wound. Vitals/Results Intake & Output 11/14/16 11/14/16 11/15/16 14:59 22:59 06:59 Intake Total 1713 ml 980 ml Output Total 350 ml 850 ml Balance 1363 ml 130 ml Intake Oral 300 ml 180 ml IV Total 863 ml 800 ml Other 550 ml Output Urine Total 350 ml 850 ml # Voids 3 # Bowel Movements 0 Vital Signs Vital Signs Date Time Temp Pulse Resp B/P Pulse Ox O2 Delivery O2 Flow Rate FiO2 11/15/16 08:00 100.1 84 18 148/71 95 11/15/16 04:00 99.9 80 20 185/79 90 11/15/16 00:30 87 21 11/15/16 00:00 93 Nasal Cannula 2.00 11/15/16 00:00 99.6 85 20 119/58 93 11/14/16 20:00 88 11/14/16 20:00 99.4 87 18 159/77 94 11/14/16 18:25 100.6 84 16 167/74 93 11/14/16 18:06 85 16 168/73 96 Room Air 11/14/16 17:45 85 16 171/72 96 11/14/16 17:30 100.2 95 16 146/63 100 Nasal Cannula 3 11/14/16 15:25 100.2 89 16 158/71 93 11/14/16 11:58 97.8 66 20 178/93 93 11/14/16 09:47 71 CBC/BMP: 11/15/16 0612 11/15/16 0612 Lab Results Laboratory Tests Test 11/15/16 06:12 White Blood Count 12.0 TH/MM3 Red Blood Count 3.20 MIL/MM3 Hemoglobin 9.7 GM/DL Hematocrit 28.9 % Mean Corpuscular Volume 90.3 FL Mean Corpuscular Hemoglobin 30.3 PG Mean Corpuscular Hemoglobin 33.5 % Concent Red Cell Distribution Width 12.0 % Platelet Count 390 TH/MM3 Mean Platelet Volume 7.5 FL Neutrophils (%) (Auto) 73.1 % Lymphocytes (%) (Auto) 12.1 % Monocytes (%) (Auto) 11.2 % Eosinophils (%) (Auto) 3.2 % Basophils (%) (Auto) 0.4 % Neutrophils # (Auto) 8.9 TH/MM3 Lymphocytes # (Auto) 1.4 TH/MM3 Monocytes # (Auto) 1.3 TH/MM3 Eosinophils # (Auto) 0.4 TH/MM3 Basophils # (Auto) 0.0 TH/MM3 CBC Comment DIFF FINAL Differential Comment Sodium Level 137 MEQ/L Potassium Level 3.8 MEQ/L Chloride Level 103 MEQ/L Carbon Dioxide Level 25.9 MEQ/L Anion Gap 8 MEQ/L Blood Urea Nitrogen 16 MG/DL Creatinine 1.50 MG/DL Estimat Glomerular Filtration 47 ML/MIN Rate Random Glucose 108 MG/DL Calcium Level 8.6 MG/DL Total Bilirubin 0.6 MG/DL Aspartate Amino Transf 28 U/L (AST/SGOT) Alanine Aminotransferase 47 U/L (ALT/SGPT) Alkaline Phosphatase 132 U/L Total Protein 7.0 GM/DL Albumin 2.4 GM/DL Microbiology Microbiology 11/14/16 Gram Stain, Received Pending 11/14/16 Wound Culture, Received Pending 11/14/16 Acid Fast Stain, Received Pending 11/14/16 Mycobacterial Culture, Received Pending 11/14/16 Fungal Smear, Received Pending 11/14/16 Fungal Culture, Received Pending Physical Exam General General Appearance: Well Developed, Well Nourished, No Acute Distress, Comfortable Eyes Eye Exam: Sclera White, Extraocular Movement Intact Throat Throat Exam: Oral Mucosa [place] & Moist, Oral Pharynx Normal Neck Neck Exam: Neck Supple, Trachea Midline Pulmonary Resp Exam: Clear Bilaterally, Breath Sounds Equal, No Distress Cardiology CV Exam: Regular, Normal Sinus Rhythm Gastrointestinal/Abdomen GI Exam: Soft, Non-Tender, Bowel Sounds Present Musculoskeletal MS Exam: Normal Tone Integumentary Skin Exam: Warm, Dry, Ulcer(s) Skin Remarks Right foot planter wound. Neurologic Neuro Exam: Alert, Awake, Oriented, Speech Clear, Moving All Extremities, No Focal Deficits Psychiatric Psych Exam: Appropriate Responses VTE Prophylaxis VTE Prophylaxis Meds: Heparin PUD Prophylasis PUD Prophylaxis: Protonix Assessment/Plan Assessment/Plan ASSESSMENT: 1. Cellulitis with infected ulcer in a patient with diabetes, secondary to osteomyelitis. 2. Uncontrolled diabetes. 3. Uncontrolled hypertension...on home medicine. PLAN S/P Right foot I & D Right foot fifth metatarsal head amputation Right foot wound closure IV antibiotics. IV hydration. Sliding scale insulin coverage to manage insulin. Also manage sugar. Continue some of home medications. Monitor renal function. Monitor blood pressure and PRN medications for high blood pressure. Podiatry input noted going for foot surgery. MRI of the right foot...shows osteomylitis. Infectious disease input noted on Antibiotic per ID. recommendation. Wound culture...culture grows Group B beta strept. and Crystal Albican. Continue home medications as indicated. Sepsis on admission blood culture grows Group B beta strept. Further recommendations will follow as the patient progresses. Check CBC with diff CMP in AM. Discussed Condition with: Patient Iker Edmondson MD Nov 15, 2016 08:30
[2016-11-15] MEDS: HEPARIN SODIUM - SQ 10,000 UNITS/ML VIAL SQ SCH ×2 (08:37→22:38)
[2016-11-15] MEDS: DOCUSATE SODIUM 50 MG/SENNA 8.6 MG TAB PO SCH ×2 (08:37→22:38)
[2016-11-15] MEDS: LISINOPRIL 10 MG TAB PO SCH (08:37)
[2016-11-15] MEDS: SODIUM CHLORIDE 0.9% FLUSH 10 ML FLUSH IV FLUSH SCH ×2 (08:37→21:00)
[2016-11-15] MEDS: ACETAMINOPHEN 325 MG TAB PO PRN (14:35)
--- NOTE | 2016-11-15 16:20 | MB ---
cc: BRI BURR DATE OF CONSULTATION 11/15/16 CHIEF COMPLAINT Right foot ulceration with cellulitis. HISTORY OF PRESENT ILLNESS Mr. Perry is a 61-year-old male patient with diabetic neuropathy. He states that he developed a blister underneath his right fifth digit approximately 2 months ago after walking on hot concrete. He obtained a Cam boot from a friend and was using that to ambulate but feels that this caused more issues as it was rubbing the side and the anterior aspect of the ankle. The patient noted increased redness and swelling and a temperature of 102.7 degrees and that is what prompted him to come to the emergency department where he was admitted and started on IV antibiotics. PAST MEDICAL HISTORY Includes diabetes mellitus, peripheral neuropathy and hypertension. ALLERGIES NO KNOWN DRUG ALLERGIES. MEDICATIONS Please see list. SOCIAL HISTORY The patient does drink alcohol on a daily basis but does not appear to have an addiction problem. No illicit drug use. Smokes cigars occasionally. He lives at home with a significant other and has a child in the nearby vicinity, an adult child. FAMILY HISTORY Noncontributory. VITAL SIGNS: T-max is 103.1, current temperature is 98.3, pulse 96, respiratory rate 20, blood pressure 157/69, pulse ox 97% O2 on room air. LABORATORY DATA White count is 14.3, hemoglobin 10.1, hematocrit 30.2, platelets 314, INR 0.9, sodium 137, chloride 102, carbon dioxide 27.4, BUN 24. Blood cultures, one tube is growing group B beta strep, the other is negative. Wound culture of the foot showed moderate white blood cells. IMAGING STUDIES X-rays negative for any gas in the soft tissues or cortical erosion. However, the MRI does show suspected osteomyelitis of the fifth digit as well as the distal 75% of the fifth metatarsal. There is also a large abscess noted on the MRI. PHYSICAL EXAMINATION DIRECTED EXAMINATION: On physical exam the patient does have palpable DP and PT pulses. Cap fill time is less than 3 seconds. Gross sensation is severely diminished. The left foot is unremarkable. The right foot has a plantar wound on the fifth metatarsal head, measuring 0.5 cm x 0.5 cm x 0.8 cm probing directed to bone and with copious amounts of purulent fluid draining from the wound. Dorsal laterally there is an area of ischemic tissue which has healed off what appears to be another possible wound. There is erythema to the lateral aspect of the foot extending to the level of the ankle. On the anterior aspect of the ankle there is a superficial abrasion. There is edema and malodor noted as well. ASSESSMENT/PLAN 1. Right fifth ray osteomyelitis with stage IV ulceration and cellulitis. - The patient strongly declined a partial fifth ray amputation at this time. He was agreeable to an I&D of the abscess and long-term outpatient IV antibiotics. He would like to exhaust this effort before agreeing to amputation of any bone. - We will plan for surgery tomorrow at 4:00 p.m. for an I&D and possible wound closure. - Patient will need repeat blood cultures in order to obtain a PICC line. - ID is following and I will try to obtain a bone biopsy intraoperatively to help guide their antibiotic choices. - Heel weightbearing only. - N.p.o. Sunday after 8:00 a.m. Thank you for this consultation. I look forward to helping in this patient's care. Bri AMADO/EO /8:18 PM /3:55 PM MTDFidelia
[2016-11-15] MEDS ORDERED: PHARMACY ORDERED LAB ONE (16:45)
--- NOTE | 2016-11-15 17:15 | HHI.IDPN ---
Note Infectious Disease Note Patient had some chills today. Feels better. Has low grade fever. Reports slight chill this am. Post resection partial 5th metatarsal head of right foot. Blood culture has group B strep. Wound culture has group B strep and ania. PAST MEDICAL HISTORY 1. Diabetes mellitus type 2. 2. Hypertension. ALLERGIES NO KNOWN DRUG ALLERGIES. ANTIBIOTICS Piperacillin / tazobactam. OBJECTIVE: Vital Signs Date Time Temp Pulse Resp B/P Pulse Ox O2 Delivery O2 Flow Rate FiO2 11/15/16 12:00 100.8 76 20 175/79 92 11/15/16 09:43 Nasal Cannula 2.00 11/15/16 08:00 94 Nasal Cannula 11/15/16 08:00 100.1 84 18 148/71 95 11/15/16 04:00 99.9 80 20 185/79 90 11/15/16 00:30 87 21 11/15/16 00:00 93 Nasal Cannula 2.00 11/15/16 00:00 99.6 85 20 119/58 93 11/14/16 20:00 88 11/14/16 20:00 99.4 87 18 159/77 94 11/14/16 18:25 100.6 84 16 167/74 93 11/14/16 18:06 85 16 168/73 96 Room Air 11/14/16 17:45 85 16 171/72 96 11/14/16 17:30 100.2 95 16 146/63 100 Nasal Cannula 3 11/14/16 11/14/16 11/15/16 15:00 23:00 07:00 Intake Total 1713 ml 980 ml Output Total 350 ml 850 ml Balance 1363 ml 130 ml Intake Oral 300 ml 180 ml IV Total 863 ml 800 ml Other 550 ml Output Urine Total 350 ml 850 ml # Voids 3 # Bowel Movements 0 Laboratory Tests Test 11/14/16 11/15/16 05:30 06:12 White Blood Count 9.4 TH/MM3 12.0 TH/MM3 Red Blood Count 3.24 MIL/MM3 3.20 MIL/MM3 Hemoglobin 9.8 GM/DL 9.7 GM/DL Hematocrit 29.7 % 28.9 % Mean Corpuscular Volume 91.7 FL 90.3 FL Mean Corpuscular Hemoglobin 30.1 PG 30.3 PG Mean Corpuscular Hemoglobin 32.8 % 33.5 % Concent Red Cell Distribution Width 12.1 % 12.0 % Platelet Count 327 TH/MM3 390 TH/MM3 Mean Platelet Volume 7.7 FL 7.5 FL Neutrophils (%) (Auto) 69.5 % 73.1 % Lymphocytes (%) (Auto) 14.0 % 12.1 % Monocytes (%) (Auto) 12.4 % 11.2 % Eosinophils (%) (Auto) 3.4 % 3.2 % Basophils (%) (Auto) 0.7 % 0.4 % Neutrophils # (Auto) 6.5 TH/MM3 8.9 TH/MM3 Lymphocytes # (Auto) 1.3 TH/MM3 1.4 TH/MM3 Monocytes # (Auto) 1.2 TH/MM3 1.3 TH/MM3 Eosinophils # (Auto) 0.3 TH/MM3 0.4 TH/MM3 Basophils # (Auto) 0.1 TH/MM3 0.0 TH/MM3 CBC Comment DIFF FINAL DIFF FINAL Differential Comment Laboratory Tests Test 11/14/16 11/15/16 05:30 06:12 Sodium Level 134 MEQ/L 137 MEQ/L Potassium Level 3.7 MEQ/L 3.8 MEQ/L Chloride Level 102 MEQ/L 103 MEQ/L Carbon Dioxide Level 24.1 MEQ/L 25.9 MEQ/L Anion Gap 8 MEQ/L 8 MEQ/L Blood Urea Nitrogen 24 MG/DL 16 MG/DL Creatinine 1.70 MG/DL 1.50 MG/DL Estimat Glomerular Filtration 41 ML/MIN 47 ML/MIN Rate Random Glucose 260 MG/DL 108 MG/DL Calcium Level 8.6 MG/DL 8.6 MG/DL Total Bilirubin 0.4 MG/DL 0.6 MG/DL Aspartate Amino Transf 66 U/L 28 U/L (AST/SGOT) Alanine Aminotransferase 63 U/L 47 U/L (ALT/SGPT) Alkaline Phosphatase 127 U/L 132 U/L Total Protein 6.7 GM/DL 7.0 GM/DL Albumin 2.2 GM/DL 2.4 GM/DL Microbiology Date/Time Procedure Status Source Growth 11/14/16 07:50 Aerobic Blood Culture - Preliminary Resulted Blood Peripheral NO GROWTH IN 1 DAY 11/14/16 07:50 Anaerobic Blood Culture - Preliminary Resulted Blood Peripheral NO GROWTH IN 1 DAY 11/14/16 08:00 Aerobic Blood Culture - Preliminary Resulted Blood Peripheral NO GROWTH IN 1 DAY 11/14/16 08:00 Anaerobic Blood Culture - Preliminary Resulted Blood Peripheral NO GROWTH IN 1 DAY 11/14/16 17:00 Gram Stain - Final Resulted Wound Foot 11/14/16 17:00 Wound Culture - Preliminary Resulted Group B Beta Strep 11/14/16 17:00 Acid Fast Stain Worksheet Wound Foot Pending 11/14/16 17:00 Mycobacterial Culture Worksheet Wound Foot Pending 11/14/16 17:00 Fungal Smear - Final Resulted Wound Foot NO FUNGAL ELEMENTS SEEN. 11/14/16 17:00 Fungal Culture Resulted Wound Foot Pending IMAGING: Foot MRI 11/13/16 0000 Signed Impressions: Service Date/Time: Sunday, November 13, 2016 13:06 - CONCLUSION: 1. Bone marrow edema, abnormal enhancement and destructive bone changes are identified in the fifth metatarsal and proximal phalanx of the fifth toe indicative of osteomyelitis. 2. Organized complex abscess along the dorsum of the mid to distal fifth metatarsal. 3. Extensor tendon of the fifth toe is encased by inflammatory tissue. Malick Rosado MD Foot X-Ray 11/12/16 0000 Signed Impressions: Service Date/Time: Saturday, November 12, 2016 14:16 - CONCLUSION: Early cortical destruction suspected of the fifth metatarsal head and potentially with some gas in the fifth metatarsophalangeal joint concern for osteomyelitis/septic arthropathy. No definite acute bony abnormality elsewhere.. Natalio Zhang MD PHYSICAL EXAMINATION GENERAL: No acute distress. He is awake and alert and oriented. HEENT: No icterus. Oropharynx no visible lesions. NECK: Supple. LUNGS: Clear decreased breath sounds. HEART: Regular rate and rhythm. No murmurs, rubs or gallops. ABDOMEN: Bowel sounds present, soft, no tenderness. EXTREMITIES: The right foot has surgical dressing in place. SKIN: No rash. NEUROLOGIC: Nonfocal. PSYCHIATRIC: The patient is calm and pleasant and cooperative. IMPRESSION 1. Sepsis group B strep. 2. Abscess and osteo of the right foot. GP B strep/Ania. 3. Cellulitis of the right foot. 4. Diabetic foot infection. 5. Acute vs chronic kidney disease. RECOMMENDATIONS 1. Change piperacillin/tazo to Ceftriaxone. 2. Add Diflucan PO for ania. 2. Monitor pathology of surgical bone specimen. 3. If he still has fever could be likely drug beta lactam antibiotic related. PIC line for IV antibiotics on discharge. If the bone pathology is positive he needs 6 weeks antibiotics. If the path is negative could give [address] Interiano will be following patient starting tomorrow for ID. Bg Bergeron MD Nov 15, 2016 17:15
[2016-11-15] MEDS: FLUCONAZOLE 200 MG TAB PO SCH (18:25)
[2016-11-15] MEDS: cefTRIAXone INJ 1,000 MG in SODIUM CHLORIDE 0.9% INJ 100 ML IV SCH (18:26)
[2016-11-15] MEDS: ATENOLOL 25 MG TAB PO SCH (22:36)
[2016-11-16] VITALS (10 sets, daily range): BP systolic 153–193; BP diastolic 67–89; PULSE 74–91; RESP 18–22; TEMP 97.3–100.4; O2SAT 90–95
[2016-11-16] MEDS: oxyCODONE/ACETAMINOPHEN 5 MG/325 MG TAB PO PRN ×2 (00:14→08:46)
[2016-11-16] MEDS: SODIUM CHLOR 0.9% 1000 ML INJ 1,000 ML IV SCH ×3 (00:38→19:31)
[2016-11-16 06:18] LABS: AUTOMATED NEUTROPHIL # 7.2 TH/MM3 (1.8-7.7); BASOPHIL # 0.1 TH/MM3 (0-0.2); BASOPHIL % 0.6 % (0.0-2.0); EOSINOPHIL # 0.5 TH/MM3 (0-0.4); EOSINOPHIL % 4.3 % (0.0-4.0); HEMATOCRIT 26.5 % (39.0-51.0); HEMO FLAGS DIFF FINAL; LYMPHOCYTE # 1.6 TH/MM3 (1.0-4.8); MEAN CELL VOLUME 90.6 FL (80.0-100.0); MEAN CORPUSCULAR HEMOGLOBIN 31.3 PG (27.0-34.0); MEAN CORPUSCULAR HGB CONC 34.5 % (32.0-36.0); MONO % 11.1 % (0.0-8.0); PLATELET COUNT 341 TH/MM3 (150-450); RED BLOOD COUNT 2.93 MIL/MM3 (4.50-5.90); RED CELL DISTRIBUTION WIDTH 12.1 % (11.6-17.2); WHITE BLOOD COUNT 10.6 TH/MM3 (4.0-11.0)
[2016-11-16 06:26] LABS: CHLORIDE 105 MEQ/L (98-107); POTASSIUM 3.3 MEQ/L (3.5-5.1); SODIUM (NA) 138 MEQ/L (136-145)
[2016-11-16 06:35] LABS: ALT (GPT) 43 U/L (12-78); ANION GAP 9 MEQ/L (5-15); AST (GOT) 30 U/L (15-37); BICARBONATE 23.8 MEQ/L (21.0-32.0); BLOOD UREA NITROGEN 15 MG/DL (7-18)
[2016-11-16 06:36] LABS: TOTAL BILIRUBIN ADULT 0.5 MG/DL (0.2-1.0)
[2016-11-16 06:38] LABS: ALKALINE PHOSPHATASE 160 U/L (45-117); GLOMERULAR FILTRATION RATE 51 ML/MIN (>89)
[2016-11-16] MEDS: INSULIN ASPART SUPPLEMENTAL SCALE SQ SCH ×4 (07:00→20:30)
--- NOTE | 2016-11-16 08:34 | HHI.PR ---
Subjective History of Present Illness Patient have wound right foot Infectious disease input noted s/p MRI of right foot shows osteomylitis on Antibiotic per ID Podiatry on board. S/P Right foot I & D, Right foot fifth metatarsal head amputation, Right foot wound closure. feel better no acute issue. Low potassium will replace and monitor. Review of Systems Constitutional Constitutional: Fatigue, Weakness Integumentary Skin: Wounds Skin Remarks Right foot wound. Vitals/Results Intake & Output 11/15/16 11/15/16 11/16/16 15:00 23:00 07:00 Intake Total 350 ml 120 ml 806 ml Output Total 1000 ml Balance 350 ml 120 ml -194 ml Intake Oral 350 ml 120 ml 480 ml IV Total 326 ml Output Urine Total 1000 ml # Voids 1 1 Vital Signs Vital Signs Date Time Temp Pulse Resp B/P Pulse Ox O2 Delivery O2 Flow Rate FiO2 11/16/16 08:27 97.6 87 19 165/85 90 11/16/16 04:00 98.7 74 20 153/67 93 11/16/16 00:00 100.4 91 22 183/84 92 11/15/16 20:45 90 Nasal Cannula 2.00 11/15/16 20:00 100.8 93 20 169/85 93 11/15/16 20:00 82 11/15/16 16:00 97.7 83 20 152/71 92 11/15/16 12:00 100.8 76 20 175/79 92 11/15/16 09:43 Nasal Cannula 2.00 CBC/BMP: 11/16/16 0550 11/16/16 0550 Lab Results Laboratory Tests Test 11/16/16 05:50 White Blood Count 10.6 TH/MM3 Red Blood Count 2.93 MIL/MM3 Hemoglobin 9.2 GM/DL Hematocrit 26.5 % Mean Corpuscular Volume 90.6 FL Mean Corpuscular Hemoglobin 31.3 PG Mean Corpuscular Hemoglobin 34.5 % Concent Red Cell Distribution Width 12.1 % Platelet Count 341 TH/MM3 Mean Platelet Volume 7.7 FL Neutrophils (%) (Auto) 69.0 % Lymphocytes (%) (Auto) 15.0 % Monocytes (%) (Auto) 11.1 % Eosinophils (%) (Auto) 4.3 % Basophils (%) (Auto) 0.6 % Neutrophils # (Auto) 7.2 TH/MM3 Lymphocytes # (Auto) 1.6 TH/MM3 Monocytes # (Auto) 1.2 TH/MM3 Eosinophils # (Auto) 0.5 TH/MM3 Basophils # (Auto) 0.1 TH/MM3 CBC Comment DIFF FINAL Differential Comment Sodium Level 138 MEQ/L Potassium Level 3.3 MEQ/L Chloride Level 105 MEQ/L Carbon Dioxide Level 23.8 MEQ/L Anion Gap 9 MEQ/L Blood Urea Nitrogen 15 MG/DL Creatinine 1.40 MG/DL Estimat Glomerular Filtration 51 ML/MIN Rate Random Glucose 83 MG/DL Calcium Level 8.0 MG/DL Total Bilirubin 0.5 MG/DL Aspartate Amino Transf 30 U/L (AST/SGOT) Alanine Aminotransferase 43 U/L (ALT/SGPT) Alkaline Phosphatase 160 U/L Total Protein 6.9 GM/DL Albumin 2.2 GM/DL Physical Exam General General Appearance: Well Developed, Well Nourished, No Acute Distress, Comfortable Eyes Eye Exam: Sclera White, Extraocular Movement Intact Throat Throat Exam: Oral Mucosa [place] & Moist, Oral Pharynx Normal Neck Neck Exam: Neck Supple, Trachea Midline Pulmonary Resp Exam: Clear Bilaterally, Breath Sounds Equal, No Distress Cardiology CV Exam: Regular, Normal Sinus Rhythm Gastrointestinal/Abdomen GI Exam: Soft, Non-Tender, Bowel Sounds Present Musculoskeletal MS Exam: Normal Tone Integumentary Skin Exam: Warm, Dry, Ulcer(s) Skin Remarks Right foot planter wound. Neurologic Neuro Exam: Alert, Awake, Oriented, Speech Clear, Moving All Extremities, No Focal Deficits Psychiatric Psych Exam: Appropriate Responses VTE Prophylaxis VTE Prophylaxis Meds: Heparin PUD Prophylasis PUD Prophylaxis: Protonix Assessment/Plan Assessment/Plan ASSESSMENT: 1. Cellulitis with infected ulcer in a patient with diabetes, secondary to osteomyelitis. 2. Uncontrolled diabetes. 3. Uncontrolled hypertension...on home medicine. 4. Leukocytosis resolved. PLAN S/P Right foot I & D Right foot fifth metatarsal head amputation Right foot wound closure IV antibiotics. IV hydration. Sliding scale insulin coverage to manage insulin. Also manage sugar. Continue some of home medications. Monitor renal function. Monitor blood pressure and PRN medications for high blood pressure. Podiatry input noted going for foot surgery. MRI of the right foot...shows osteomylitis. Infectious disease input noted on Antibiotic per ID. recommendation. Wound culture...culture grows Group B beta strept. and Crystal Albican. Continue home medications as indicated. Sepsis on admission blood culture grows Group B beta strept. Further recommendations will follow as the patient progresses. Low potassium will replace and monitor. Check CBC with diff CMP in AM. Discussed Condition with: Patient Iker Edmondson MD Nov 16, 2016 08:34
[2016-11-16] MEDS: LISINOPRIL 10 MG TAB PO SCH (08:45)
[2016-11-16] MEDS: HEPARIN SODIUM - SQ 10,000 UNITS/ML VIAL SQ SCH ×2 (08:45→20:24)
[2016-11-16] MEDS: FLUCONAZOLE 200 MG TAB PO SCH (08:45)
[2016-11-16] MEDS: DOCUSATE SODIUM 50 MG/SENNA 8.6 MG TAB PO SCH ×2 (08:45→20:24)
[2016-11-16] MEDS: GLIMEPIRIDE 2 MG TAB PO SCH ×2 (08:45→16:24)
[2016-11-16] MEDS: SODIUM CHLORIDE 0.9% FLUSH 10 ML FLUSH IV FLUSH SCH ×2 (09:00→20:24)
[2016-11-16] MEDS ORDERED: POTASSIUM CHLORIDE 10 MEQ CONTROLLED RELEASE TAB PO ONE (12:00)
[2016-11-16] MEDS: cefTRIAXone INJ 1,000 MG in SODIUM CHLORIDE 0.9% INJ 100 ML IV SCH (18:29)
--- NOTE | 2016-11-16 20:13 | PD.POD ---
Subjective Podiatric Problems s/p right foot I&D and 5th metatarsal head excision with partial wound closures. Pt states that he had been having fevers, but feels they have resolved. He denies any n/v/f/h/c/sob/pain. Past Med/Surg/Social History Social History Smoking Status: Former Smoker Objective Vital Signs Vital Signs Date Time Temp Pulse Resp B/P Pulse Ox O2 Delivery O2 Flow Rate FiO2 11/16/16 19:49 95 Nasal Cannula 2.00 11/16/16 16:22 97.3 79 19 193/88 95 11/16/16 12:19 99.1 80 19 174/79 91 11/16/16 09:00 95 Nasal Cannula 2.00 11/16/16 08:27 97.6 87 19 165/85 90 11/16/16 08:00 77 11/16/16 07:00 Nasal Cannula 2.00 11/16/16 04:00 98.7 74 20 153/67 93 11/16/16 00:00 100.4 91 22 183/84 92 11/15/16 20:45 90 Nasal Cannula 2.00 Coded Allergies: *MDRO Multi-Drug Resistant Organism (Verified Adverse Reaction, Unknown, 02/24/16) MRSA elbow wound Physical Exam Remarks Vasc/Bio/Neuro are unchanged Right foot plantar wound is now closed with well coapted sutures intact, no erythema, no drainage. Right foot dorsal incision is well coapted with sutures intact and central packing. Mild/mod serosanginous drainage. Erythema is decreased and only persists dorsally at the incision site. Mild malodor noted. No purulence seen. Assessment & Plan A/P 1) s/p right foot I&D, wound closures and met head excision -working with PT, heel WBing surgical shoe -daily packing and dressing change -pathology + for OM, PICC ordered, to see in AM -ok to d/c from podiatry standpoint once all arrangements are made Discharge Planning Will need 6 weeks of iv abx and HHC arranged prior to discharge. Bri Tate DPM Nov 16, 2016 20:13
--- NOTE | 2016-11-16 20:14 | HHI.FF ---
Face to Face Verification Diagnosis: (1) Osteomyelitis of ankle or foot, right, acute (2) Diabetic infection of right foot Home Health Nursing Order: Wound care and dressing changes (Daily dressing changes. 04/12 in plain packing to dorsal foot wound, adpatic to incision, secure with cast padding. ) I have seen patient Papi Perry on 11/16/16. My clinical findings support the need for the requested home health care services because: High risk of falls Infection w/ risk of complications I certify that my clinical findings support that this patient is homebound because: Unsafe to leave home unassisted Bri Tate DPM Nov 16, 2016 20:14
[2016-11-16] MEDS: ATENOLOL 25 MG TAB PO SCH (20:23)
[2016-11-17] VITALS (10 sets, daily range): BP systolic 161–190; BP diastolic 80–97; PULSE 62–81; RESP 16–20; TEMP 96.1–101.6; O2SAT 93–98
[2016-11-17] MEDS: oxyCODONE/ACETAMINOPHEN 5 MG/325 MG TAB PO PRN ×2 (04:22→22:12)
[2016-11-17] MEDS: SODIUM CHLOR 0.9% 1000 ML INJ 1,000 ML IV SCH ×2 (05:31→13:17)
[2016-11-17] MEDS: INSULIN ASPART SUPPLEMENTAL SCALE SQ SCH ×4 (06:04→21:06)
[2016-11-17 06:38] LABS: BASOPHIL % 0.4 % (0.0-2.0); EOSINOPHIL # 0.5 TH/MM3 (0-0.4); EOSINOPHIL % 5.6 % (0.0-4.0); HEMATOCRIT 26.5 % (39.0-51.0); HEMO FLAGS DIFF FINAL; LYMPH % 15.1 % (9.0-44.0); LYMPHOCYTE # 1.4 TH/MM3 (1.0-4.8); MEAN CELL VOLUME 90.3 FL (80.0-100.0); MEAN CORPUSCULAR HEMOGLOBIN 29.7 PG (27.0-34.0); MEAN CORPUSCULAR HGB CONC 32.9 % (32.0-36.0); MONO % 11.5 % (0.0-8.0); NEUT % 67.4 % (16.0-70.0); PLATELET COUNT 362 TH/MM3 (150-450); RED BLOOD COUNT 2.93 MIL/MM3 (4.50-5.90); RED CELL DISTRIBUTION WIDTH 12.2 % (11.6-17.2); WHITE BLOOD COUNT 8.9 TH/MM3 (4.0-11.0)
[2016-11-17 06:39] LABS: CHLORIDE 105 MEQ/L (98-107); POTASSIUM 3.8 MEQ/L (3.5-5.1); SODIUM (NA) 137 MEQ/L (136-145)
[2016-11-17 06:43] LABS: ANION GAP 8 MEQ/L (5-15); BICARBONATE 24.2 MEQ/L (21.0-32.0); BLOOD UREA NITROGEN 15 MG/DL (7-18)
[2016-11-17 06:46] LABS: ALT (GPT) 41 U/L (12-78)
[2016-11-17 06:47] LABS: AST (GOT) 28 U/L (15-37); GLOMERULAR FILTRATION RATE 56 ML/MIN (>89)
[2016-11-17 06:48] LABS: TOTAL BILIRUBIN ADULT 0.2 MG/DL (0.2-1.0)
[2016-11-17 06:49] LABS: ALKALINE PHOSPHATASE 158 U/L (45-117)
[2016-11-17] MEDS: GLIMEPIRIDE 2 MG TAB PO SCH ×2 (08:40→17:49)
[2016-11-17] MEDS: DOCUSATE SODIUM 50 MG/SENNA 8.6 MG TAB PO SCH ×2 (08:40→20:47)
[2016-11-17] MEDS: FLUCONAZOLE 200 MG TAB PO SCH (08:40)
[2016-11-17] MEDS: SODIUM CHLORIDE 0.9% FLUSH 10 ML FLUSH IV FLUSH SCH ×2 (08:40→22:23)
[2016-11-17] MEDS: LISINOPRIL 10 MG TAB PO SCH (08:40)
[2016-11-17] MEDS: HEPARIN SODIUM - SQ 10,000 UNITS/ML VIAL SQ SCH ×2 (08:42→21:01)
--- NOTE | 2016-11-17 11:10 | HHI.PR ---
Subjective History of Present Illness Patient have wound right foot Infectious disease input noted feel better no acute issue. getting PICC Line soon for retirement antibiotic. Low potassium resolved. Review of Systems Constitutional Constitutional: Fatigue, Weakness Integumentary Skin: Wounds Skin Remarks Right foot wound. Vitals/Results Intake & Output 11/16/16 11/16/16 11/17/16 15:00 23:00 07:00 Intake Total 640 ml 950 ml 1764 ml Balance 640 ml 950 ml 1764 ml Intake Oral 950 ml 480 ml IV Total 640 ml 1284 ml # Voids 4 3 # Bowel Movements 1 Vital Signs Vital Signs Date Time Temp Pulse Resp B/P Pulse Ox O2 Delivery O2 Flow Rate FiO2 11/17/16 08:24 96.7 80 19 189/97 97 11/17/16 08:18 74 11/17/16 08:00 97 Nasal Cannula 2.50 21 11/17/16 07:56 96 Nasal Cannula 2.50 11/17/16 04:00 99.3 80 18 161/80 93 11/17/16 00:00 101.6 81 20 163/87 93 11/16/16 20:25 78 11/16/16 20:00 99.6 79 18 189/89 92 11/16/16 19:49 95 Nasal Cannula 2.00 11/16/16 19:30 94 Nasal Cannula 2.00 11/16/16 16:22 97.3 79 19 193/88 95 11/16/16 12:19 99.1 80 19 174/79 91 CBC/BMP: 11/17/16 0540 11/17/16 0540 Lab Results Laboratory Tests Test 11/17/16 05:40 White Blood Count 8.9 TH/MM3 Red Blood Count 2.93 MIL/MM3 Hemoglobin 8.7 GM/DL Hematocrit 26.5 % Mean Corpuscular Volume 90.3 FL Mean Corpuscular Hemoglobin 29.7 PG Mean Corpuscular Hemoglobin 32.9 % Concent Red Cell Distribution Width 12.2 % Platelet Count 362 TH/MM3 Mean Platelet Volume 7.6 FL Neutrophils (%) (Auto) 67.4 % Lymphocytes (%) (Auto) 15.1 % Monocytes (%) (Auto) 11.5 % Eosinophils (%) (Auto) 5.6 % Basophils (%) (Auto) 0.4 % Neutrophils # (Auto) 6.0 TH/MM3 Lymphocytes # (Auto) 1.4 TH/MM3 Monocytes # (Auto) 1.0 TH/MM3 Eosinophils # (Auto) 0.5 TH/MM3 Basophils # (Auto) 0.0 TH/MM3 CBC Comment DIFF FINAL Differential Comment Sodium Level 137 MEQ/L Potassium Level 3.8 MEQ/L Chloride Level 105 MEQ/L Carbon Dioxide Level 24.2 MEQ/L Anion Gap 8 MEQ/L Blood Urea Nitrogen 15 MG/DL Creatinine 1.30 MG/DL Estimat Glomerular Filtration 56 ML/MIN Rate Random Glucose 109 MG/DL Calcium Level 8.1 MG/DL Total Bilirubin 0.2 MG/DL Aspartate Amino Transf 28 U/L (AST/SGOT) Alanine Aminotransferase 41 U/L (ALT/SGPT) Alkaline Phosphatase 158 U/L Total Protein 6.4 GM/DL Albumin 2.0 GM/DL Physical Exam General General Appearance: Well Developed, Well Nourished, No Acute Distress, Comfortable Eyes Eye Exam: Sclera White, Extraocular Movement Intact Throat Throat Exam: Oral Mucosa [place] & Moist, Oral Pharynx Normal Neck Neck Exam: Neck Supple, Trachea Midline Pulmonary Resp Exam: Clear Bilaterally, Breath Sounds Equal, No Distress Cardiology CV Exam: Regular, Normal Sinus Rhythm Gastrointestinal/Abdomen GI Exam: Soft, Non-Tender, Bowel Sounds Present Musculoskeletal MS Exam: Normal Tone Integumentary Skin Exam: Warm, Dry, Ulcer(s) Skin Remarks Right foot planter wound. Neurologic Neuro Exam: Alert, Awake, Oriented, Speech Clear, Moving All Extremities, No Focal Deficits Psychiatric Psych Exam: Appropriate Responses VTE Prophylaxis VTE Prophylaxis Meds: Heparin PUD Prophylasis PUD Prophylaxis: Protonix Assessment/Plan Assessment/Plan ASSESSMENT: 1. Cellulitis with infected ulcer in a patient with diabetes, secondary to osteomyelitis. 2. Uncontrolled diabetes. monitoring blood glucose. 3. Uncontrolled hypertension...on home medicine. monitoring BP. 4. Leukocytosis... resolved. PLAN S/P Right foot I & D Right foot fifth metatarsal head amputation Right foot wound closure IV antibiotics. IV hydration. Sliding scale insulin coverage to manage insulin. Also manage sugar. Continue some of home medications. Monitor renal function. Monitor blood pressure and PRN medications for high blood pressure. Podiatry input noted going for foot surgery. MRI of the right foot...shows osteomylitis. Infectious disease input noted on Antibiotic per ID. recommendation. Wound culture...culture grows Group B beta strept. and Crystal Albican. Sepsis on admission blood culture grows Group B beta strept. Low potassium resolved. 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 Further recommendations will follow as the patient progresses. Check CBC with diff CMP in AM. Discussed Condition with: Patient Iker Edmondson MD Nov 17, 2016 11:10
[2016-11-17] MEDS: cloNIDine HCL 0.1 MG TAB PO PRN ×2 (12:08→17:00)
[2016-11-17] MEDS: cefTRIAXone INJ 1,000 MG in SODIUM CHLORIDE 0.9% INJ 100 ML IV SCH (17:00)
--- NOTE | 2016-11-17 20:12 | HHI.IDPN ---
Subjective Subjective Remarks ID Xcover for Dr Reaves chart reviewed 62 yo with DFI, sepsis 2/2 DFI of R foot due to GBS and comfirmed osteomyelitis by path Feels better. no fever. sp Post resection partial 5th metatarsal head of right foot. Antibiotics CFTX Allergies: Coded Allergies: *MDRO Multi-Drug Resistant Organism (Verified Adverse Reaction, Unknown, 02/24/16) MRSA elbow wound Objective . Vital Signs Date Time Temp Pulse Resp B/P Pulse Ox O2 Delivery O2 Flow Rate FiO2 11/17/16 16:00 97.7 70 18 180/90 98 11/17/16 12:30 97.4 77 19 190/94 96 11/17/16 08:24 96.7 80 19 189/97 97 11/17/16 08:18 74 11/17/16 08:00 97 Nasal Cannula 2.50 21 11/17/16 07:56 96 Nasal Cannula 2.50 11/17/16 04:00 99.3 80 18 161/80 93 11/17/16 00:00 101.6 81 20 163/87 93 11/16/16 20:25 78 11/16/16 11/16/16 11/17/16 15:00 23:00 07:00 Intake Total 640 ml 950 ml 1764 ml Balance 640 ml 950 ml 1764 ml Intake Oral 950 ml 480 ml IV Total 640 ml 1284 ml # Voids 4 3 # Bowel Movements 1 . Laboratory Tests Test 11/16/16 11/17/16 05:50 05:40 White Blood Count 10.6 TH/MM3 8.9 TH/MM3 Red Blood Count 2.93 MIL/MM3 2.93 MIL/MM3 Hemoglobin 9.2 GM/DL 8.7 GM/DL Hematocrit 26.5 % 26.5 % Mean Corpuscular Volume 90.6 FL 90.3 FL Mean Corpuscular Hemoglobin 31.3 PG 29.7 PG Mean Corpuscular Hemoglobin 34.5 % 32.9 % Concent Red Cell Distribution Width 12.1 % 12.2 % Platelet Count 341 TH/MM3 362 TH/MM3 Mean Platelet Volume 7.7 FL 7.6 FL Neutrophils (%) (Auto) 69.0 % 67.4 % Lymphocytes (%) (Auto) 15.0 % 15.1 % Monocytes (%) (Auto) 11.1 % 11.5 % Eosinophils (%) (Auto) 4.3 % 5.6 % Basophils (%) (Auto) 0.6 % 0.4 % Neutrophils # (Auto) 7.2 TH/MM3 6.0 TH/MM3 Lymphocytes # (Auto) 1.6 TH/MM3 1.4 TH/MM3 Monocytes # (Auto) 1.2 TH/MM3 1.0 TH/MM3 Eosinophils # (Auto) 0.5 TH/MM3 0.5 TH/MM3 Basophils # (Auto) 0.1 TH/MM3 0.0 TH/MM3 CBC Comment DIFF FINAL DIFF FINAL Differential Comment Laboratory Tests Test 11/16/16 11/17/16 05:50 05:40 Sodium Level 138 MEQ/L 137 MEQ/L Potassium Level 3.3 MEQ/L 3.8 MEQ/L Chloride Level 105 MEQ/L 105 MEQ/L Carbon Dioxide Level 23.8 MEQ/L 24.2 MEQ/L Anion Gap 9 MEQ/L 8 MEQ/L Blood Urea Nitrogen 15 MG/DL 15 MG/DL Creatinine 1.40 MG/DL 1.30 MG/DL Estimat Glomerular Filtration 51 ML/MIN 56 ML/MIN Rate Random Glucose 83 MG/DL 109 MG/DL Calcium Level 8.0 MG/DL 8.1 MG/DL Total Bilirubin 0.5 MG/DL 0.2 MG/DL Aspartate Amino Transf 30 U/L 28 U/L (AST/SGOT) Alanine Aminotransferase 43 U/L 41 U/L (ALT/SGPT) Alkaline Phosphatase 160 U/L 158 U/L Total Protein 6.9 GM/DL 6.4 GM/DL Albumin 2.2 GM/DL 2.0 GM/DL Imaging Last Impressions Foot X-Ray 11/14/16 0000 Signed Impressions: Service Date/Time: Monday, November 14, 2016 17:53 - CONCLUSION: 1. Postoperative resection of the distal fifth metatarsal. Timmy Hoff MD Foot MRI 11/13/16 0000 Signed Impressions: Service Date/Time: Sunday, November 13, 2016 13:06 - CONCLUSION: 1. Bone marrow edema, abnormal enhancement and destructive bone changes are identified in the fifth metatarsal and proximal phalanx of the fifth toe indicative of osteomyelitis. 2. Organized complex abscess along the dorsum of the mid to distal fifth metatarsal. 3. Extensor tendon of the fifth toe is encased by inflammatory tissue. Malick Rosado MD Physical Exam GENERAL: No acute distress. He is awake and alert and oriented. HEENT: No icterus. Oropharynx no visible lesions. NECK: Supple. LUNGS: Clear decreased breath sounds. HEART: Regular rate and rhythm. No murmurs, rubs or gallops. ABDOMEN: Bowel sounds present, soft, no tenderness. EXTREMITIES: The right foot has dressing in place. Intact SKIN: No rash. NEUROLOGIC: Nonfocal. PSYCHIATRIC: The patient is calm and pleasant and cooperative. Assessment & Plan Remarks IMPRESSION 1. Sepsis group B strep 2/2 R foot DFI, osteo - repeat blood clx are negative 2. Abscess and osteo of the right foot. GP B strep/Ania. sp surgery 3. Cellulitis of the right foot. 4. Acute vs chronic kidney disease. RECOMMENDATIONS 1. Cont Ceftriaxone 2 gm 2. cont Diflucan PO for ania. 3. Pt needs 6 weeks antibiotics. Ok for PICC Nena Interiano MD Nov 17, 2016 20:12
[2016-11-17] MEDS: ATENOLOL 25 MG TAB PO SCH (22:12)
[2016-11-17] MEDS: cefTRIAXone INJ 2,000 MG in SODIUM CHLORIDE 0.9% INJ 100 ML IV SCH (22:23)
[2016-11-18 00:36] VITALS: BP 197/95; PULSE 60; RESP 16; TEMP 98.2; O2SAT 95
[2016-11-18 04:41] VITALS: BP 196/94; PULSE 64; RESP 14; TEMP 96.9; O2SAT 97
[2016-11-18] MEDS: GLIMEPIRIDE 2 MG TAB PO SCH ×2 (06:56→16:49)
[2016-11-18] MEDS: INSULIN ASPART SUPPLEMENTAL SCALE SQ SCH ×4 (07:00→22:30)
[2016-11-18 08:00] VITALS: BP 189/94; PULSE 70; RESP 17; TEMP 97.5; O2SAT 93; O2SAT 97
[2016-11-18] MEDS: SODIUM CHLORIDE 0.9% FLUSH 10 ML FLUSH IV FLUSH SCH ×2 (08:42→21:00)
[2016-11-18] MEDS: DOCUSATE SODIUM 50 MG/SENNA 8.6 MG TAB PO SCH ×2 (08:42→21:00)
[2016-11-18] MEDS: HEPARIN SODIUM - SQ 10,000 UNITS/ML VIAL SQ SCH ×2 (08:42→22:17)
[2016-11-18] MEDS: LISINOPRIL 10 MG TAB PO SCH (08:42)
[2016-11-18] MEDS: FLUCONAZOLE 200 MG TAB PO SCH (08:42)
[2016-11-18] MEDS: cloNIDine HCL 0.1 MG TAB PO PRN (08:42)
--- NOTE | 2016-11-18 11:07 | RADRPT ---
EXAM DATE/TIME: 11/18/2016 10:51 [facility] COMPARISON: CHEST SINGLE AP, March 15, 2015, 22:36. INDICATIONS : PICC line placement. Infection. MEDICAL HISTORY : None. SURGICAL HISTORY : None. ENCOUNTER: Subsequent ACUITY: 3 days PAIN SCORE: 4/10 LOCATION: Bilateral chest FINDINGS: A single AP erect portable view of the chest was obtained. The study is Midinspiratory with crowding of the lung vasculature and hazy opacity in both lungs. There is been interval placement of a right-s ided PICC line with the tip projected over the superior vena cava. The heart size is within normal li mits. The left costophrenic angle is not well-visualized. There are multiple overlying electrocardiog jair leads. CONCLUSION: 1. Interval placement of right-sided PICC line. 2. Midinspiratory exam chronic lung vasculature and hazy opacity in both lungs which may be artifactu al. 3. Left costophrenic angle is not well-visualized and may be blunted. This could indicate a small eff usion. Gualberto Wood MD on November 18, 2016 at 11:04 Board Certified Radiologist. This report was verified electronically.
--- NOTE | 2016-11-18 11:28 | HHI.PR ---
Subjective History of Present Illness Patient have wound right foot Infectious disease input noted feel better no acute issue. 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 ok to discharge home today with HHC if ok with ID. Review of Systems Constitutional Constitutional: Fatigue, Weakness Integumentary Skin: Wounds Skin Remarks Right foot wound. Vitals/Results Intake & Output 11/17/16 11/17/16 11/18/16 15:00 23:00 07:00 Intake Total 1000 ml 640 ml 100 ml Balance 1000 ml 640 ml 100 ml Intake Oral 300 ml 540 ml IV Total 700 ml 100 ml 100 ml # Voids 3 2 Vital Signs Vital Signs Date Time Temp Pulse Resp B/P Pulse Ox O2 Delivery O2 Flow Rate FiO2 11/18/16 10:55 Room Air 11/18/16 08:00 93 Nasal Cannula 2.00 11/18/16 08:00 97.5 70 17 189/94 97 11/18/16 04:41 96.9 64 14 196/94 97 11/18/16 00:36 98.2 60 16 197/95 95 11/17/16 20:18 96.1 65 16 190/88 97 11/17/16 20:00 62 11/17/16 20:00 Nasal Cannula 2.00 11/17/16 19:56 97 Nasal Cannula 2.00 11/17/16 16:00 97.7 70 18 180/90 98 11/17/16 12:30 97.4 77 19 190/94 96 CBC/BMP: 11/17/16 0540 11/17/16 0540 Physical Exam General General Appearance: Well Developed, Well Nourished, No Acute Distress, Comfortable Eyes Eye Exam: Sclera White, Extraocular Movement Intact Throat Throat Exam: Oral Mucosa [place] & Moist, Oral Pharynx Normal Neck Neck Exam: Neck Supple, Trachea Midline Pulmonary Resp Exam: Clear Bilaterally, Breath Sounds Equal, No Distress Cardiology CV Exam: Regular, Normal Sinus Rhythm Gastrointestinal/Abdomen GI Exam: Soft, Non-Tender, Bowel Sounds Present Musculoskeletal MS Exam: Normal Tone Integumentary Skin Exam: Warm, Dry, Ulcer(s) Skin Remarks Right foot planter wound. Neurologic Neuro Exam: Alert, Awake, Oriented, Speech Clear, Moving All Extremities, No Focal Deficits Psychiatric Psych Exam: Appropriate Responses VTE Prophylaxis VTE Prophylaxis Meds: Heparin PUD Prophylasis PUD Prophylaxis: Protonix Assessment/Plan Assessment/Plan ASSESSMENT: 1. Cellulitis with infected ulcer in a patient with diabetes, secondary to osteomyelitis. 2. Uncontrolled diabetes. monitoring blood glucose. 3. Uncontrolled hypertension...on home medicine. monitoring BP. 4. Leukocytosis... resolved. PLAN S/P Right foot I & D Right foot fifth metatarsal head amputation Right foot wound closure IV antibiotics. IV hydration. Sliding scale insulin coverage to manage insulin. Also manage sugar. Continue some of home medications. Monitor renal function. Monitor blood pressure and PRN medications for high blood pressure. Podiatry input noted going for foot surgery. MRI of the right foot...shows osteomylitis. Infectious disease input noted on Antibiotic per ID. recommendation. Wound culture...culture grows Group B beta strept. and Crystal Albican. Sepsis on admission blood culture grows Group B beta strept. Low potassium resolved. getting PICC Line soon for vermin exterminator antibiotic. ok to discharge home today with HHC if ok with ID. f/u with PCP/Podiatry/Infectious disease 1 week. Discussed Condition with: Patient Iker Edmondson MD Nov 18, 2016 11:28
[2016-11-18] MEDS ORDERED: SODIUM CHLORIDE 0.9% FLUSH 10 ML FLUSH IV FLUSH PRN (11:30)
--- NOTE | 2016-11-18 11:34 | HHI.FF ---
Face to Face Verification Diagnosis: (1) Diabetic infection of right foot (2) Osteomyelitis of ankle or foot, right, acute Physical Therapy Order: Evaluate and Treat, Improve ambulation Home Health Nursing Order: Medical education Medication education-adverse effect I have seen patient Papi Perry on 11/18/16. My clinical findings support the need for the requested home health care services because: Ltd mobility - disease progression Limited ability to care for self Infection w/ risk of complications Injectable med education/admin I certify that my clinical findings support that this patient is homebound because: Post-op weakness Iker Edmondson MD Nov 18, 2016 11:34
[2016-11-18 12:00] VITALS: BP 185/87; PULSE 74; RESP 19; TEMP 97.6; O2SAT 95
--- NOTE | 2016-11-18 12:35 | HHI.FF ---
Infusion Therapy Location of Infusion Therapy: Home Health Care IV Infusion Order Patient Information Patient Weight 95 kg Diagnosis: (1) Diabetic infection of right foot Coded Allergies: *MDRO Multi-Drug Resistant Organism (Verified Adverse Reaction, Unknown, 02/24/16) MRSA elbow wound Administer Medication Ceftriaxone 2 grams IV q 24 hours Start Treatment: Nov 18, 2016 Stop Treatment: Dec 30, 2016 Additional Information Venous access: PICC Line Additional Instructions [x] Peripheral flush and dressing changes per protocol [x] Implanted port and central line maintainer section: * Implanted port: 10 ml Normal Saline followed by 5 ml Heparin 100 units/ml Heparin flush after each use and monthly to maintain. [] May leave port accessed during therapy. [] May leave peripheral site accessed for duration of therapy. [x] If patient has SOB or respiratory distress, check oxygen saturation. If less than 90% or clinical signs of respiratory distress, administer oxygen at 2 L/min. via nasal cannula and notify physician. [x] Anaphylaxis/Reaction orders: * Stop infusion. * Keep IV line open with saline flush. * Notify physician. * Monitor vital signs every 15 minutes until symptoms resolve. * Check Oxygen saturation; Oxygen at 2 L/min. via nasal cannula if less than 90% or clinical signs of respiratory distress. * Administer diphenhydramine (Benadryl) 25 mg IV STAT, (unless patient has received as pre-med). May repeat once, if necessary. * Solu-Cortef 250 mg IVP over 30-60 seconds, use 100 mg vials for each dissolution. * Epinephrine (1mg/1 ml) 0.3 mg subcutaneously or IVP now with any signs of respiratory distress. * Check with physician for new additional pre-med orders if patient is re- challenged or re-treated. [x] May remove PICC line when treatment complete, after confirming with Physician. [x] If the patient is admitted to the hospital, the ED, or transferred via [facility] , complete transfer form including medication reconciliation order sheet. Laboratory Tests Weekly Labs: CBC w/diff, Creatinine, CRP, LFT's (Hepatic function test), SED Rate Nena Interiano MD Nov 18, 2016 12:35
--- NOTE | 2016-11-18 12:38 | HHI.PR ---
Addendum to Inpatient Note Additional Information cultures reviewed ania, not typically involved in those kind of infections and only present on uperficial culture, abscent on path specimen -likely represent colonisation - No need to con diflucan - cont 26 weeks of IV Rocephin dw Dr Ani gould RN OK to dc home with PICC, IV abx and HHC fu with claim clinician HHC form and IV Rocephin script filled out Nena Interiano MD Nov 18, 2016 12:38
[2016-11-18] MEDS ORDERED: EPIN1INJ21 SQ (12:40)
[2016-11-18] MEDS ORDERED: CEFT2INJ IM (12:40)
[2016-11-18] MEDS ORDERED: SOLU250I IV PUSH (12:40)
[2016-11-18] MEDS ORDERED: EPIN1INJ21 IV PUSH (12:40)
[2016-11-18 16:00] VITALS: BP 177/89; PULSE 69; RESP 18; TEMP 97.6; O2SAT 98
[2016-11-18 20:23] VITALS: BP 190/99; PULSE 79; RESP 14; TEMP 96.6; O2SAT 96
[2016-11-18] MEDS: cefTRIAXone INJ 2,000 MG in SODIUM CHLORIDE 0.9% INJ 100 ML IV SCH (22:15)
[2016-11-18] MEDS: ATENOLOL 25 MG TAB PO SCH (22:16)
[2016-11-18] MEDS: oxyCODONE/ACETAMINOPHEN 5 MG/325 MG TAB PO PRN (23:21)
[2016-11-19 00:23] VITALS: BP 180/80; PULSE 63; RESP 16; TEMP 97.6; O2SAT 92
[2016-11-19] MEDS: GLIMEPIRIDE 2 MG TAB PO SCH (06:16)
[2016-11-19] MEDS: INSULIN ASPART SUPPLEMENTAL SCALE SQ SCH ×2 (07:00→11:00)
[2016-11-19 08:00] VITALS: BP 178/92; PULSE 78; RESP 19; TEMP 97.8; O2SAT 97
[2016-11-19] MEDS: HEPARIN SODIUM - SQ 10,000 UNITS/ML VIAL SQ SCH (09:00)
[2016-11-19] MEDS ORDERED: SODIUM CHLORIDE 0.9% FLUSH 10 ML FLUSH IV FLUSH SCH (09:00)
[2016-11-19] MEDS: DOCUSATE SODIUM 50 MG/SENNA 8.6 MG TAB PO SCH (09:00)
[2016-11-19] MEDS: LISINOPRIL 10 MG TAB PO SCH (09:00)
[2016-11-19] MEDS: SODIUM CHLORIDE 0.9% FLUSH 10 ML FLUSH IV FLUSH SCH (09:00)
[2016-11-19] MEDS: FLUCONAZOLE 200 MG TAB PO SCH (09:00)
--- NOTE | 2016-11-19 11:44 | HHI.PR ---
Subjective History of Present Illness Patient have wound right foot Infectious disease input noted feel better no acute issue.s/p PICC Line today for exterminator antibiotic. ok to discharge home today. d/w ANJALI Dugan. Review of Systems Constitutional Constitutional: Fatigue, Weakness Integumentary Skin: Wounds Skin Remarks Right foot wound. Vitals/Results Intake & Output 11/18/16 11/18/16 11/19/16 15:00 23:00 07:00 Intake Total 100 ml Balance 100 ml IV Total 100 ml # Voids 2 1 Vital Signs Vital Signs Date Time Temp Pulse Resp B/P Pulse Ox O2 Delivery O2 Flow Rate FiO2 11/19/16 08:00 97.8 78 19 178/92 97 11/19/16 00:23 97.6 63 16 180/80 92 11/18/16 20:23 96.6 79 14 190/99 96 11/18/16 16:00 97.6 69 18 177/89 98 11/18/16 12:00 97.6 74 19 185/87 95 CBC/BMP: 11/17/16 0540 11/17/16 0540 Physical Exam General General Appearance: Well Developed, Well Nourished, No Acute Distress, Comfortable Eyes Eye Exam: Sclera White, Extraocular Movement Intact Throat Throat Exam: Oral Mucosa [place] & Moist, Oral Pharynx Normal Neck Neck Exam: Neck Supple, Trachea Midline Pulmonary Resp Exam: Clear Bilaterally, Breath Sounds Equal, No Distress Cardiology CV Exam: Regular, Normal Sinus Rhythm Gastrointestinal/Abdomen GI Exam: Soft, Non-Tender, Bowel Sounds Present Musculoskeletal MS Exam: Normal Tone Integumentary Skin Exam: Warm, Dry, Ulcer(s) Skin Remarks Right foot planter wound. Neurologic Neuro Exam: Alert, Awake, Oriented, Speech Clear, Moving All Extremities, No Focal Deficits Psychiatric Psych Exam: Appropriate Responses VTE Prophylaxis VTE Prophylaxis Meds: Heparin PUD Prophylasis PUD Prophylaxis: Protonix Assessment/Plan Assessment/Plan ASSESSMENT: 1. Cellulitis with infected ulcer in a patient with diabetes, secondary to osteomyelitis. 2. Uncontrolled diabetes. monitoring blood glucose. 3. Uncontrolled hypertension...on home medicine. monitoring BP. 4. Leukocytosis... resolved. PLAN S/P Right foot I & D Right foot fifth metatarsal head amputation Right foot wound closure IV antibiotics. IV hydration. Sliding scale insulin coverage to manage insulin. Also manage sugar. Continue some of home medications. Monitor renal function. Monitor blood pressure and PRN medications for high blood pressure. Podiatry input noted going for foot surgery. MRI of the right foot...shows osteomylitis. Infectious disease input noted on Antibiotic per ID. recommendation. Wound culture...culture grows Group B beta strept. and Crystal Albican. Sepsis on admission blood culture grows Group B beta strept. Low potassium resolved. getting PICC Line soon for exterminator antibiotic. ok to discharge home today with [facility]. f/u with PCP/Podiatry/Infectious disease 1 week. Discussed Condition with: Patient Iker Edmondson MD Nov 19, 2016 11:44
[2016-11-19 12:00] VITALS: BP_SYST 200; BP_SYST 203; BP_SYST 212; BP_DIAS 103; BP_DIAS 97; BP_DIAS 98; PULSE 69; RESP 18; TEMP 97.3; O2SAT 96
[2016-11-19] MEDS ORDERED: cefTRIAXone 2,000 MG/NS 100 ML IV ONE ×2 (13:00)
[2016-11-19] MEDS: cloNIDine HCL 0.1 MG TAB PO PRN (13:33)
== END 2016-11-19 14:35 | disposition home health service (06) | DRG 854 ==
LOC: PHED 13:46 → PHEDA 15:15 → PH3A 16:43
PROVIDERS: ADMIT Family Medicine; ATTEND Family Medicine
PROC: 0JBQ0ZZ Excision of Right Foot Subcutaneous Tissue and Fascia, Open Approach (ICD-10-PCS; 2016-11-14)
PROC: 0H9MXZX Drainage of Right Foot Skin, External Approach, Diagnostic (ICD-10-PCS; 2016-11-14)
PROC: 0Y6M0ZF Detachment at Right Foot, Partial 5th Ray, Open Approach (ICD-10-PCS; principal; 2016-11-14 16:29)
PROC: 02HV33Z Insertion of Infusion Device into Superior Vena Cava, Percutaneous Approach (ICD-10-PCS; 2016-11-18)
DX: A40.1 Sepsis due to streptococcus, group B (principal); L02.611 Cutaneous abscess of right foot; E11.42 Type 2 diabetes mellitus with diabetic polyneuropathy; M86.171 Other acute osteomyelitis, right ankle and foot; E11.621 Type 2 diabetes mellitus with foot ulcer; L03.115 Cellulitis of right lower limb; E11.69 Type 2 diabetes mellitus with other specified complication; E11.65 Type 2 diabetes mellitus with hyperglycemia; I10 Essential (primary) hypertension; L97.519 Non-pressure chronic ulcer of other part of right foot with unspecified severity; E11.628 Type 2 diabetes mellitus with other skin complications; Z72.0 Tobacco use; Z79.84 Long term (current) use of oral hypoglycemic drugs; Z86.14 Personal history of Methicillin resistant Staphylococcus aureus infection
CPT/HCPCS: 36569; 71010; 73620; 73630; 73720; 76937; 80048; 80053; 82948; 85025; 85610; 85730; 86403; 87015; 87040; 87070; 87102; 87116; 87184; 87186; 87205; 87206; 88304; 88307; 88311; 96374; 96375; A9579; J0696; J1642; J1644; J1815; J2250; J2370; J2405; J2543; J3010; J3370; J7030; J7040; J7050; J7120; L3260

== ENCOUNTER 2017-12-18 12:24 | Observation (INO) ==
[2017-12-18] MEDS ORDERED: Pantoprazole Inj 40 MG Vial IV.PUSH ONE (16:36)
--- NOTE | 2017-12-18 17:06 | ED ---
HPI General Chief Complaint: Recheck/Abnormal Lab/Rx Stated Complaint: Poss Blood Transfusion Time Seen by Provider: 12/18/17 16:04 Source: patient Mode of arrival: ambulatory Limitations: no limitations History of Present Illness HPI narrative: 62-year-old male the presents to the ED via private vehicle for evaluation of possible low hemoglobin. Per patient he has been having increased lowering of his hemoglobin for the past year. Per patient he was seen at [facility] and found to have a hemoglobin of 7.2. He was found to have a hematocrit positive as well. The time they started him on iron and recommended follow-up outpatient. Per patient he has an appointment with a GI doctor but not until January that their lives they can see him. He states that he has been compliant with iron since. Per patient he feels very tired with exertion. Per patient he feels very somnolent on occasion. He did has noted that he feels more pale. He has a history of a fistula that was repaired 2 last surgery 3 years ago. Per patient never got fixed and now is still draining. Per patient he has not noticed any blood on his stool. He denies any history of cancer. Per patient his primary care doctor evaluated him and found that he had a hemoglobin of 7.4 and recommended that he comes here for possible transfusion. He denies any pain alert and bloating to his abdomen. Per patient he has been taking a lot of Gas-X for this. Per patient his had diarrhea for about 6 months and he got better after starting the iron but now since yesterday's become more liquidy again. Pain per patient is 4 out of 10. Related Data Home Medications Medication Instructions Recorded Confirmed atenolol 12/06/17 glipizide 10 mg PO DAILY 12/06/17 12/18/17 lisinopril 12/06/17 lovastatin 12/06/17 metformin 500 mg PO BID 12/06/17 12/18/17 atenolol 50 mg PO DAILY 12/18/17 12/18/17 ferrous sulfate mg PO BID 12/18/17 glimepiride 2 mg PO QAM 12/18/17 12/18/17 lisinopril 10 mg PO DAILY 12/18/17 12/18/17 lovastatin 20 mg PO BID 12/18/17 12/18/17 Allergies Allergy/AdvReac Type Severity Reaction Status Date / Time No Known Allergies Allergy Verified 12/06/17 18:04 Review of Systems ROS: all other systems reviewed are negative [facility] Medical History Medical History Anal fissure and fistula (Acute) Diabetes (Acute) High cholesterol (Acute) Hyperlipidemia (Acute) Hypertension (Acute) Right foot infection (Acute) Social History Social History Substance History: No History of Abuse Second Hand Smoke Exposure: No Smoking Status: Never smoker Tobacco Type: Cigarettes How Often Do You Have a Drink Containing Alcohol: Never Recent Travel in [facility] within the Last 8 Weeks: No Recent Out of Country Travel within the Last 8 Weeks: No Immunization History Tetanus Immunization: Unsure Hx Influenza Vaccine This Season: No Exam Narrative Exam Narrative: GENERAL: Well appearing SKIN: Focused skin assessment warm/dry. HEAD: Atraumatic. Normocephalic. EYES: Pupils equal and round. No scleral icterus. No injection or drainage. Pale conjunctiva. ENT: No nasal bleeding or discharge. Mucous membranes pink and moist. Tongue is midline. No uvula deviation. NECK: Trachea midline. No JVD. CARDIOVASCULAR: Regular rate and rhythm. No murmur appreciated. RESPIRATORY: No accessory muscle use. Clear to auscultation. Breath sounds equal bilaterally. GASTROINTESTINAL: Abdomen soft, non-tender, nondistended. Hepatic and splenic margins not palpable. Rectal exam: The with female nurse present. Patient does have what appears to be a fistula that is leaking yellowish brownish discharge. Patient does appear to have no sign of hemorrhoids on the rectum itself. Rectum itself appears to be irritated. Hemoccult was done and was found to be positive for occult blood. Minimal however. Only some spots of the stool appear to come positive and blue. MUSCULOSKELETAL: No obvious deformities. No clubbing. No cyanosis. No edema. Full range of motion of the upper and lower extremities bilaterally. 2+ pulses bilaterally. NEUROLOGICAL: Awake and alert. No obvious cranial nerve deficits. Motor grossly within normal limits. Normal speech. PSYCHIATRIC: Appropriate mood and affect; insight and judgment normal. Procedures Hemaprompt Stool Procedural Steps Taken: specimen placed in appropriate test area, developer placed on specimen and control areas and controls appropriately positive and negative Hemaprompt Stool Result: positive Course Initial Documented Vital Signs Temperature 97.9 F 12/18/17 12:41 Pulse Rate 90 12/18/17 12:41 Respiratory Rate 17 12/18/17 12:41 Blood Pressure 122/58 L 12/18/17 12:41 Pulse Oximetry 100 12/18/17 12:41 Last Documented Vital Signs Temperature 97.9 F 12/18/17 12:41 Pulse Rate 94 H 12/18/17 12:45 Respiratory Rate 18 12/18/17 12:45 Blood Pressure 148/68 H 12/18/17 12:45 Pulse Oximetry 100 12/18/17 12:45 Medical Decision Making MDM Narrative Medical decision making narrative: 62-year-old male the presents to the ED for evaluation of low hemoglobin. Patient was properly examined and was found to have signs and symptoms consistent with appears to be anemia. The review the medical records. Patient did have positive Hemoccult as well as a low hemoglobin at that time. Patient was started on iron. He has not had any colonoscopies or EGDs ever. He is never really had any blood transfusions in the past. He states that he is very symptomatic and gets very exerted with any movement in on his physical exam does appear to be very pale. hemocult positive here. Labs and imaging order. Started on protonix. labs and imaging showed positive for 7.3 hemoglobin. Patient is symptomatic and pale. My attending Dr Arriola made aware of plan. He recommends admission for further evaluation and blood transfusion. 2 units per my attending. This was ordered. Case discussed with my Dr Eng who agrees with admission. Medical Screen Exam Complete: Yes Emergency Medical Condition: Yes Differential Diagnosis Differential Diagnosis: GI bleed versus symptomatic anemia versus anemia versus weakness Medical Records Medical records reviewed: Yes I reviewed the patient's medical records. Lab Data Lab results reviewed: Yes I reviewed the patient's lab results. Result diagrams: 12/18/17 16:41 12/18/17 16:41 Lab Results 12/18/17 12/18/17 12/18/17 Range/Units 16:41 16:41 16:41 WBC 11.6 H (4.0-11.0) th/mm3 RBC 2.87 L (4.50-5.90) mil/mm3 Hgb 7.3 L (13.0-17.0) gm/dL Hct 22.7 L (39.0-51.0) % MCV 79.0 L (80.0-100.0) fL MCH 25.4 L (27.0-34.0) pg MCHC 32.2 (32.0-36.0) % RDW 18.5 H (11.6-17.2) % Plt Count 531 H (150-450) th/mm3 MPV 7.1 (7.0-11.0) fL Neut % (Auto) 67.4 (16.0-70.0) % Lymph % (Auto) 14.4 (9.0-44.0) % [place] % (Auto) 12.2 H (0.0-8.0) % Eos % (Auto) 5.6 H (0.0-4.0) % Baso % (Auto) 0.4 (0.0-2.0) % Neut # (Auto) 7.8 H (1.8-7.7) th/mm3 Lymph # (Auto) 1.7 (1.0-4.8) th/mm3 [place] # (Auto) 1.4 H (0.0-0.9) th/mm3 Eos # (Auto) 0.7 H (0.0-0.4) th/mm3 Baso # (Auto) 0.1 (0.0-0.2) th/mm3 WBC Differential . Differential Comment Auto diff final PT (9.8-11.6) sec INR Ratio APTT (24.3-30.1) sec Sodium 137 (136-145) meq/L Potassium 4.2 (3.5-5.1) meq/L Chloride 106 (98-107) meq/L Carbon Dioxide 21.1 (21.0-32.0) meq/L Anion Gap 10 (5-15) meq/L BUN 24 H (7-18) mg/dL Creatinine 1.69 H (0.60-1.30) mg/dL Estimated GFR 41 L (>89) mL/min Random Glucose 136 H (74-106) mg/dL Calcium 8.7 (8.5-10.1) mg/dL Total Bilirubin 0.2 (0.2-1.0) mg/dL AST 10 L (15-37) U/L ALT 13 (12-78) U/L Alkaline Phosphatase 67 (45-117) U/L Total Protein 7.3 (6.4-8.2) g/dL Albumin 3.0 L (3.4-5.0) g/dL Blood Type O Negative Blood Type Recheck Required Antibody Screen Negative MTS Gel Crossmatch 12/18/17 12/18/17 Range/Units 16:41 16:45 WBC (4.0-11.0) th/mm3 RBC (4.50-5.90) mil/mm3 Hgb (13.0-17.0) gm/dL Hct (39.0-51.0) % MCV (80.0-100.0) fL MCH (27.0-34.0) pg MCHC (32.0-36.0) % RDW (11.6-17.2) % Plt Count (150-450) th/mm3 MPV (7.0-11.0) fL Neut % (Auto) (16.0-70.0) % Lymph % (Auto) (9.0-44.0) % Armstrong % (Auto) (0.0-8.0) % Eos % (Auto) (0.0-4.0) % Baso % (Auto) (0.0-2.0) % Neut # (Auto) (1.8-7.7) th/mm3 Lymph # (Auto) (1.0-4.8) th/mm3 [place] # (Auto) (0.0-0.9) th/mm3 Eos # (Auto) (0.0-0.4) th/mm3 Baso # (Auto) (0.0-0.2) th/mm3 WBC Differential Differential Comment PT 10.0 (9.8-11.6) sec INR 1.0 Ratio APTT 28.4 (24.3-30.1) sec Sodium (136-145) meq/L Potassium (3.5-5.1) meq/L Chloride (98-107) meq/L Carbon Dioxide (21.0-32.0) meq/L Anion Gap (5-15) meq/L BUN (7-18) mg/dL Creatinine (0.60-1.30) mg/dL Estimated GFR (>89) mL/min Random Glucose (74-106) mg/dL Calcium (8.5-10.1) mg/dL Total Bilirubin (0.2-1.0) mg/dL AST (15-37) U/L ALT (12-78) U/L Alkaline Phosphatase (45-117) U/L Total Protein (6.4-8.2) g/dL Albumin (3.4-5.0) g/dL Blood Type Blood Type Recheck Antibody Screen MTS Gel Crossmatch See Detail Discharge Plan Physicians Team ED Provider: Dave Arriola ED Midlevel Provider: Constantin Cevallos Primary Care Provider: Ryan Kuhn Rxs /Orders / Referrals /Forms Prescriptions: No Action metformin 500 mg Tablet 500 mg PO BID RF: 0 glipizide 10 mg Tablet 10 mg PO DAILY RF: 0 atenolol RF: 0 lisinopril RF: 0 lovastatin RF: 0 glimepiride 2 mg Tablet 2 mg PO QAM RF: 0 lisinopril 10 mg Tablet 10 mg PO DAILY RF: 0 lovastatin 20 mg Tablet 20 mg PO BID RF: 0 atenolol 50 mg Tablet 50 mg PO DAILY RF: 0 ferrous sulfate 250 mg (50 mg iron) tablet extended release PO BID RF: 0 Discharge Interventions Interventions: Vital Signs Last Done: 12/18/17 12:45 Status ED Status: With Doctor
[2017-12-18 17:11] LABS: Baso # (Auto) 0.1 th/mm3 (0.0-0.2); Baso % (Auto) 0.4 % (0.0-2.0); Eos # (Auto) 0.7 th/mm3 (0.0-0.4); Eos % (Auto) 5.6 % (0.0-4.0); Hematocrit 22.7 % (39.0-51.0); Hemoglobin 7.3 gm/dL (13.0-17.0); Lymph # (Auto) 1.7 th/mm3 (1.0-4.8); Lymph % (Auto) 14.4 % (9.0-44.0); Mean Corpuscular HGB Conc 32.2 % (32.0-36.0); Mean Corpuscular Hemoglobin 25.4 pg (27.0-34.0); Mean Platelet Volume 7.1 fL (7.0-11.0); Mono # (Auto) 1.4 th/mm3 (0.0-0.9); Mono % (Auto) 12.2 % (0.0-8.0); Neut # (Auto) 7.8 th/mm3 (1.8-7.7); Neut % (Auto) 67.4 % (16.0-70.0); Platelet Count 531 th/mm3 (150-450); Red Blood Count 2.87 mil/mm3 (4.50-5.90); Red Cell Distribution Width 18.5 % (11.6-17.2); White Blood Count 11.6 th/mm3 (4.0-11.0)
[2017-12-18 17:26] LABS: Activated Partial Thrombo Time 28.4 sec (24.3-30.1)
[2017-12-18 17:31] LABS: Anion Gap 10 meq/L (5-15); Aspartate Aminotransferase 10 U/L (15-37); Blood Urea Nitrogen 24 mg/dL (7-18); Calcium 8.7 mg/dL (8.5-10.1); Carbon Dioxide 21.1 meq/L (21.0-32.0); Chloride 106 meq/L (98-107); Glomerular Filtration Rate 41 mL/min (>89); Glucose,Random 136 mg/dL (74-106); Potassium 4.2 meq/L (3.5-5.1); Sodium 137 meq/L (136-145)
[2017-12-18 17:32] LABS: Alanine Aminotransferase 13 U/L (12-78)
[2017-12-18 17:34] LABS: Alkaline Phosphatase 67 U/L (45-117); Total Protein 7.3 g/dL (6.4-8.2)
[2017-12-18] MEDS ORDERED: Acetaminophen 325 MG Tablet PO PRN (19:33)
[2017-12-18] MEDS ORDERED: Bisacodyl 10 MG Supp RECTAL PRN (19:33)
[2017-12-18] MEDS: Senna/Docusate Sodium 8.6/50 MG Tablet PO SCH (20:47)
[2017-12-18] MEDS: Sod Chloride 0.9% Inj 1,000 ML IV.CONT SCH (21:24)
[2017-12-18] MEDS: Pantoprazole Inj 40 MG Vial IV.PUSH SCH (21:25)
[2017-12-18] MEDS: Atenolol 50 MG Tablet PO SCH (21:59)
[2017-12-18] MEDS: Glimepiride 2 MG Tablet PO SCH (22:01)
--- NOTE | 2017-12-18 22:33 | P.HPIM ---
History of Present Illness Primary Care Physician: Ryan Kuhn MD Chief Complaint: Anemia History of Present Illness: 62-year-old male with a history of hypertension, diabetes and hyperlipidemia presented to the ED after being told his hemoglobin was low outpatient. Patient states 1 week ago he had a hemoglobin of 7.4 and was placed on iron tablets, and had a recheck today of 7.3. Patient states he has never been referred to a GI doctor and is never had a colonoscopy or endoscopy before. He states he was Hemoccult +1 week ago but states he does not see any dark colored or blood in his stools. Per ER physician he was Hemoccult positive today. He denies any associated chest pain, shortness of breath, abdominal pain. Review of Systems All other systems reviewed negative except as stated in HPI PMF - History History Provided By: Patient - Medical History Medical History: Medical History (Last Reviewed 12/18/17 @ 22:26 by TESSA Hayward) High cholesterol Anal fissure and fistula Diabetes Hyperlipidemia Hypertension Right foot infection - Surgical History Surgical History: Surgical History (Last Reviewed 12/18/17 @ 22:26 by TESSA Hayward) H/O eye surgery H/O foot surgery - Family History Family History: Family History (Last Reviewed 12/18/17 @ 22:26 by TESSA [place]ward) Father Lung cancer - Social History I have reviewed the patient's Social History: Yes - Tobacco History Second Hand Smoke Exposure: No Tobacco Use In Past 30 Days: No Smoking Status: Never smoker Tobacco Type: Cigarettes - Alcohol History How Often Do You Have a Drink Containing Alcohol: Never - Substance Use History Substance History: No History of Abuse - Travel History Recent Travel in the [place] Within the Last 8 Weeks: No Recent Travel Out of the Country Within the Last 8 Weeks: No - Immunization History Tetanus Immunization: Unsure Hx Influenza Vaccine This Season: No Medications and Allergies Active Medications: Active Medications Acetaminophen (Tylenol) 650 mg PO Q4H PRN PRN Reason: Temp > 100.4 Al Hydroxide/Mg Hydroxide (Milk Of Magnesia Liq) 30 ml PO Q12H PRN PRN Reason: Mild Constipation Atenolol (Tenormin) 50 mg PO HS [facility] Last Admin: 12/18/17 21:59 Dose: 50 mg Bisacodyl (Dulcolax Supp) 10 mg RECTAL DAILY PRN PRN Reason: SEVERE CONSITIPATION Ferrous Sulfate (Ferrrous Sulfate Liq) 250 mg PO BID [facility] Glimepiride (Amaryl) 2 mg PO BID [facility] Last Admin: 12/18/17 22:01 Dose: 2 mg Sodium Chloride (Ns Inj) 1,000 mls @ 100 mls/hr IV.CONT .Q10H [facility] Last Admin: 12/18/17 21:24 Dose: 100 mls/hr Lactulose (Lactulose Liq) 30 ml PO DAILY PRN PRN Reason: SEVERE CONSITIPATION Lisinopril (Prinivil) 10 mg PO DAILY [facility] Last Admin: 12/18/17 21:59 Dose: 500 mg Ondansetron HCl (Zofran Inj) 4 mg IV.PUSH Q6H PRN PRN Reason: NAUSEA OR VOMITING Pantoprazole Sodium (Protonix Inj) 40 mg IV.PUSH Q12H [facility] Last Admin: 12/18/17 21:25 Dose: 40 mg Pravastatin Sodium (Pravachol) 20 mg PO [facility] Last Admin: 12/18/17 21:25 Dose: Not Given Senna/Docusate Sodium (Shazia-Colace) 1 tab PO BID [facility] Last Admin: 12/18/17 20:47 Dose: Not Given Sennosides (Senokot) 17.2 mg PO Q12H PRN PRN Reason: Moderate Constipation Allergies Allergy/AdvReac Type Severity Reaction Status Date / Time No Known Allergies Allergy Verified 12/18/17 20:06 Home Medications Medication Instructions Recorded Confirmed Type metformin 500 mg PO BID 12/06/17 12/18/17 History atenolol 50 mg PO HS 12/18/17 12/18/17 History ferrous sulfate 250 mg PO BID 12/18/17 12/18/17 History glimepiride 2 mg PO QAM 12/18/17 12/18/17 History lisinopril 10 mg PO DAILY 12/18/17 12/18/17 History lovastatin 20 mg PO BID 12/18/17 12/18/17 History Exam Vital signs: Vital Signs 12/18/17 12:41 12/18/17 12:45 12/18/17 19:26 Temperature 97.9 F Pulse Rate 90 94 H 89 Respiratory Rate 17 18 17 Blood Pressure 122/58 L 148/68 H 139/63 Pulse Oximetry 100 100 12/18/17 20:00 12/18/17 22:02 Temperature 98.5 F 98.7 F Pulse Rate 92 H 91 H Respiratory Rate 20 16 Blood Pressure 136/61 145/67 H Pulse Oximetry Intake & Output 12/18/17 12/18/17 12/19/17 06:59 18:59 06:59 Intake Total 0 / 0 Balance 0 / 0 Weight 84.368 kg Intake: Intake (Blood Product) Amt 0 / 0 Rbc As-3 Leukoreduced Unit 0 / 0 [id number] Other: Date of Last Bowel Movement 12/18/17 Narrative: GENERAL: This is a well-nourished, well-developed patient, in no apparent distress. SKIN: Warm, dry, intact, no ecchymosis or open lesions EYES: Pupils equal round and reactive, no scleral edema or drainage CARDIOVASCULAR: Regular rate and rhythm without murmurs, gallops, or rubs. RESPIRATORY: Clear to auscultation. Breath sounds equal bilaterally. No wheezes , rales, or rhonchi. GASTROINTESTINAL: Abdomen soft, non-tender, nondistended. Normal active bowel sounds MUSCULOSKELETAL: Extremities without clubbing, cyanosis, or edema. NEURO: Alert & Oriented x4 to person, place, time, situation. Moves all ext x4 Results - Labs CBC & Chem 7: 12/18/17 16:41 12/18/17 16:41 Labs: Short CBC 12/18/17 Range/Units 16:41 WBC 11.6 H (4.0-11.0) th/mm3 Hgb 7.3 L (13.0-17.0) gm/dL Hct 22.7 L (39.0-51.0) % Plt Count 531 H (150-450) th/mm3 BMP 12/18/17 16:41 Sodium 137 Potassium 4.2 Chloride 106 Carbon Dioxide 21.1 BUN 24 H Creatinine 1.69 H Calcium 8.7 Liver Function 12/18/17 Range/Units 16:41 Total Bilirubin 0.2 (0.2-1.0) mg/dL AST 10 L (15-37) U/L ALT 13 (12-78) U/L Alkaline Phosphatase 67 (45-117) U/L Albumin 3.0 L (3.4-5.0) g/dL Caprini VTE Risk Assessment Caprini VTE Risk Assessment: No/Low Risk (score <= 1) VTE Pharmacological Exception Reason: Active bleeding Caprini Risk Assessment Model: Point Value = 1 Point Value = 2 Point Value = 3 Point Value = 5 Age 41-60 Minor surgery BMI > 25 kg/m2 Swollen legs Varicose veins or History of unexplained or recurrent spontaneous Oral contraceptives or hormone replacement Sepsis (< 1 month) Serious lung disease, including pneumonia (< 1 month) Abnormal pulmonary function Acute myocardial infarction Congestive heart failure (< 1 month) History of inflammatory bowel disease Medical patient at bed rest Age 61-74 Arthroscopic surgery Major open surgery (> 45 min) Laparoscopic surgery (> 45 min) Malignancy Confined to bed (> 72 hours) Immobilizing plaster cast Central venous access Age >= 75 History of VTE Family history of VTE Factor V Leiden Prothrombin [id number] Lupus anticoagulant Anticardiolipin antibodies Elevated serum homocysteine Heparin-induced thrombocytopenia Other congenital or acquired thrombophilia Stroke (< 1 month) Elective arthroplasty Hip, pelvis, or leg fracture Acute spinal cord injury (< 1 month) Prophylaxis Regimen: Total Risk Factor Score Risk Level Prophylaxis Regimen 0-1 Low Early ambulation 2 Moderate Order ONE of the following: *Sequential Compression Device (SCD) *Heparin 5000 units SQ BID 3-4 Higher Order ONE of the following medications: *Heparin 5000 units SQ TID *Enoxaparin/Lovenox 40 mg SQ daily (WT < 150 kg, CrCl > 30 mL/min) *Enoxaparin/Lovenox 30 mg SQ daily (WT < 150 kg, CrCl > 10-29 mL/min) *Enoxaparin/Lovenox 30 mg SQ BID (WT < 150 kg, CrCl > 30 mL/min) AND/OR *Sequential Compression Device (SCD) 5 or more Highest Order ONE of the following medications: *Heparin 5000 units SQ TID (Preferred with Epidurals) *Enoxaparin/Lovenox 40 mg SQ daily (WT < 150 kg, CrCl > 30 mL/min) *Enoxaparin/Lovenox 30 mg SQ daily (WT < 150 kg, CrCl > 10-29 mL/min) *Enoxaparin/Lovenox 30 mg SQ BID (WT < 150 kg, CrCl > 30 mL/min) AND *Sequential Compression Device (SCD) Assessment and Plan - Plan Anemia, hemoglobin 7.3, RDW 18.5, likely iron deficiency, r/o GI bleed, Hemoccult positive 2 units packed cells ordered by ER physician Labs in a.m. Consult gastroenterology for evaluation Resume iron tablets PO Protonix IV BID Hypertension, chronic Resume atenolol p.o., monitor vitals Diabetes, chronic Resume glipizide, Accu-Cheks with sliding scale insulin Resume diabetic diet when no longer n.p.o. Hyperlipidemia, chronic Resume home medications DVT prophylaxis: SCDs, hold chemical due to possible GI bleed Discussed Condition With: Patient and RN
[2017-12-19] MEDS ORDERED: Glimepiride 2 MG Tablet PO SCH (07:00)
[2017-12-19 07:29] LABS: Baso # (Auto) 0.1 th/mm3 (0.0-0.2); Baso % (Auto) 0.6 % (0.0-2.0); Eos # (Auto) 0.6 th/mm3 (0.0-0.4); Eos % (Auto) 6.8 % (0.0-4.0); Hematocrit 26.9 % (39.0-51.0); Hemoglobin 8.7 gm/dL (13.0-17.0); Lymph # (Auto) 1.4 th/mm3 (1.0-4.8); Lymph % (Auto) 14.8 % (9.0-44.0); Mean Corpuscular HGB Conc 32.5 % (32.0-36.0); Mean Corpuscular Hemoglobin 26.7 pg (27.0-34.0); Mean Corpuscular Volume 82.2 fL (80.0-100.0); Mean Platelet Volume 7.3 fL (7.0-11.0); Mono # (Auto) 1.2 th/mm3 (0.0-0.9); Mono % (Auto) 12.5 % (0.0-8.0); Neut # (Auto) 6.1 th/mm3 (1.8-7.7); Neut % (Auto) 65.3 % (16.0-70.0); Platelet Count 426 th/mm3 (150-450); Red Blood Count 3.27 mil/mm3 (4.50-5.90); Red Cell Distribution Width 18.5 % (11.6-17.2); White Blood Count 9.4 th/mm3 (4.0-11.0)
[2017-12-19 07:52] LABS: Alanine Aminotransferase 13 U/L (12-78); Albumin 2.6 g/dL (3.4-5.0); Anion Gap 8 meq/L (5-15); Aspartate Aminotransferase 10 U/L (15-37); Blood Urea Nitrogen 21 mg/dL (7-18); Calcium 8.3 mg/dL (8.5-10.1); Carbon Dioxide 22.5 meq/L (21.0-32.0); Chloride 111 meq/L (98-107); Glomerular Filtration Rate 47 mL/min (>89); Glucose,Random 74 mg/dL (74-106); Potassium 4.3 meq/L (3.5-5.1); Sodium 141 meq/L (136-145)
[2017-12-19 07:54] LABS: Alkaline Phosphatase 65 U/L (45-117); Total Protein 6.8 g/dL (6.4-8.2)
[2017-12-19] MEDS: Lisinopril 10 MG Tablet PO SCH (08:33)
[2017-12-19] MEDS: Ferrrous Sulfate 300 MG/5 ML UDC PO SCH ×2 (08:33→20:44)
[2017-12-19] MEDS: Pantoprazole Inj 40 MG Vial IV.PUSH SCH ×2 (08:34→20:45)
[2017-12-19] MEDS: Senna/Docusate Sodium 8.6/50 MG Tablet PO SCH ×2 (08:35→20:44)
[2017-12-19] MEDS: Glimepiride 2 MG Tablet PO SCH ×2 (08:35→20:44)
[2017-12-19] MEDS ORDERED: Atenolol 50 MG Tablet PO SCH (09:00)
[2017-12-19] MEDS ORDERED: glipiZIDE 10 MG Tablet PO SCH (09:00)
--- NOTE | 2017-12-19 09:28 | P.CONGI ---
History of Present Illness Consult date: 12/19/17 Consult reason: anemia/heme (+) stools Chief complaint: Symptomatic anemia, GI bleed History of Present Illness: This is a 62 yo M who presented to the ER with complaints of worsening fatigue. Pt was seen at [facility] on December 06, diagnosed with anemia, discharged home on iron supplements and advised to follow up with paralegal secretary. Pt reports he has been taking the ferrous Sulfate as prescribed. Pt reports that his fatigue has been getting worse and that he has little energy to do things. Denies any shortness of breath with exertion, chest pain, and dizziness. Pt does report multiple GI symptoms. States that he has been having diarrhea for the past 6-7 months but that it has recently been improving since changing his diet about three weeks ago. He has been trying to eat more vegetables and stopped drinking soda. He still reports three BMs yesterday but states they are more formed. Denies any fecal incontinence or urgency. Denies hematochezia and melena. Denies nausea, vomiting, abdominal pain. Does report having bad heartburn for multiple months, was taking Tums as needed, but that this has been improving as well. Complaining of abdominal bloating after meals and more flatus. Denies unintentional weight loss, has lost 4 lbs since changing his diet. Has never had EGD or colonoscopy. States his father had some type of cancer, not colon but that it did originate in his GI tract. Denies ETOH, quit 2-3 weeks ago, was previously drinking one beer or glass of wine daily. Denies smoking and illicit drug use. Of note, takes Ibuprofen at night to help him sleep, states 2-3 pills a night. Denies taking blood thinners. Pt has history of anal fistula, previous surgery about 5 years ago, states the tract has not closed. <Leonor Wong - Last Filed: 12/19/17 09:29> Review of Systems Constitutional: Reports fatigue, Reports lack of energy, Denies chills, Denies fever(s) Cardiovascular: Denies chest pain Respiratory: Denies shortness of breath with activity Gastrointestinal: Reports bloating, Reports heartburn, Reports loose stools, Denies abdominal pain, Denies black, tarry stools, Denies bright, red blood in stools, Denies difficulty swallowing, Denies incontinent of stools, Denies nausea, Denies pain with swallowing, Denies vomiting <Leonor Wong - Last Filed: 12/19/17 09:29> PMFSH - History History Provided By: Patient - Medical History Medical History: Medical History (Last Reviewed 12/19/17 @ 08:47 by Ti Nye) High cholesterol Anal fissure and fistula Diabetes Hyperlipidemia Hypertension Right foot infection - Surgical History Surgical History: Surgical History (Last Reviewed 12/19/17 @ 08:48 by Ti Nye) H/O eye surgery H/O foot surgery - Family History Family History: Family History (Last Reviewed 12/18/17 @ 22:26 by TESSA Hayward) Father Lung cancer - Tobacco History Second Hand Smoke Exposure: No Tobacco Use In Past 30 Days: No Smoking Status: Never smoker Tobacco Type: Cigarettes - Alcohol History How Often Do You Have a Drink Containing Alcohol: Never - Substance Use History Substance History: No History of Abuse - Travel History Recent Travel in the [place] Within the Last 8 Weeks: No Recent Travel Out of the Country Within the Last 8 Weeks: No - Immunization History Tetanus Immunization: Unsure Hx Influenza Vaccine This Season: No <Leonor Wong - Last Filed: 12/19/17 09:29> - Medical History Medical History: Medical History (Last Reviewed 12/19/17 @ 08:47 by Ti Nye) High cholesterol Anal fissure and fistula Diabetes Hyperlipidemia Hypertension Right foot infection - Surgical History Surgical History: Surgical History (Last Reviewed 12/19/17 @ 08:48 by Ti Nye) H/O eye surgery H/O foot surgery - Family History Family History: Family History (Last Reviewed 12/18/17 @ 22:26 by TESSA Hayward) Father Lung cancer <Daryn Morin - Last Filed: 12/19/17 16:09> Medications and Allergies Active Medications: Active Medications Acetaminophen (Tylenol) 650 mg PO Q4H PRN PRN Reason: Temp > 100.4 Al Hydroxide/Mg Hydroxide (Milk Of Magnesia Liq) 30 ml PO Q12H PRN PRN Reason: Mild Constipation Atenolol (Tenormin) 50 mg PO HS [facility] Last Admin: 12/18/17 21:59 Dose: 50 mg Bisacodyl (Dulcolax Supp) 10 mg RECTAL DAILY PRN PRN Reason: SEVERE CONSITIPATION Ferrous Sulfate (Ferrrous Sulfate Liq) 250 mg PO BID [facility] Last Admin: 12/19/17 08:33 Dose: 250 mg Glimepiride (Amaryl) 2 mg PO BID [facility] Last Admin: 12/19/17 08:35 Dose: Not Given Sodium Chloride (Ns Inj) 1,000 mls @ 100 mls/hr IV.CONT .Q10H [facility] Last Infusion: 12/19/17 04:43 Dose: 100 mls/hr Lactulose (Lactulose Liq) 30 ml PO DAILY PRN PRN Reason: SEVERE CONSITIPATION Lisinopril (Prinivil) 10 mg PO DAILY [facility] Last Admin: 12/19/17 08:33 Dose: 10 mg [facility] Admin: 12/19/17 08:35 Dose: Not Given Ondansetron HCl (Zofran Inj) 4 mg IV.PUSH Q6H PRN PRN Reason: NAUSEA OR VOMITING Pantoprazole Sodium (Protonix Inj) 40 mg IV.PUSH Q12H [facility] Last Admin: 12/19/17 08:34 Dose: 40 mg Pravastatin Sodium (Pravachol) 20 mg PO [facility] Last Admin: 12/18/17 21:25 Dose: Not Given Senna/Docusate Sodium (Shazia-Colace) 1 tab PO BID [facility] Last Admin: 12/19/17 08:35 Dose: Not Given Sennosides (Senokot) 17.2 mg PO Q12H PRN PRN Reason: Moderate Constipation <Leonor Wong - Last Filed: 12/19/17 09:29> Active Medications: Active Medications Acetaminophen (Tylenol) 650 mg PO Q4H PRN PRN Reason: Temp > 100.4 Al Hydroxide/Mg Hydroxide (Milk Of Magnesia Liq) 30 ml PO Q12H PRN PRN Reason: Mild Constipation Atenolol (Tenormin) 50 mg PO [facility] Last Admin: 12/18/17 21:59 Dose: 50 mg Bisacodyl (Dulcolax Supp) 10 mg RECTAL DAILY PRN PRN Reason: SEVERE CONSITIPATION Ferrous Sulfate (Ferrrous Sulfate Liq) 250 mg PO BID [facility] Last Admin: 12/19/17 08:33 Dose: 250 mg Glimepiride (Amaryl) 2 mg PO BID [facility] Last Admin: 12/19/17 08:35 Dose: Not Given Sodium Chloride (Ns Inj) 1,000 mls @ 100 mls/hr IV.CONT .Q10H [facility] Last Admin: 12/19/17 15:52 Dose: Not Given Lactulose (Lactulose Liq) 30 ml PO DAILY PRN PRN Reason: SEVERE CONSITIPATION Lisinopril (Prinivil) 10 mg PO DAILY [facility] Last Admin: 12/19/17 08:33 Dose: 10 mg [facility] Admin: 12/19/17 08:35 Dose: Not Given Ondansetron HCl (Zofran Inj) 4 mg IV.PUSH Q6H PRN PRN Reason: NAUSEA OR VOMITING Pantoprazole Sodium (Protonix Inj) 40 mg IV.PUSH Q12H [facility] Last Admin: 12/19/17 08:34 Dose: 40 mg Pravastatin Sodium (Pravachol) 20 mg PO [facility] Last Admin: 12/18/17 21:25 Dose: Not Given Senna/Docusate Sodium (Shazia-Colace) 1 tab PO BID [facility] Last Admin: 12/19/17 08:35 Dose: Not Given Sennosides (Senokot) 17.2 mg PO Q12H PRN PRN Reason: Moderate Constipation <Daryn Morin A - Last Filed: 12/19/17 16:09> Allergies Allergy/AdvReac Type Severity Reaction Status Date / Time No Known Allergies Allergy Verified 12/18/17 20:06 Home Medications Medication Instructions Recorded Confirmed Type metformin 500 mg PO BID 12/06/17 12/18/17 History atenolol 50 mg PO HS 12/18/17 12/18/17 History ferrous sulfate 250 mg PO BID 12/18/17 12/18/17 History glimepiride 2 mg PO QAM 12/18/17 12/18/17 History lisinopril 10 mg PO DAILY 12/18/17 12/18/17 History lovastatin 20 mg PO BID 12/18/17 12/18/17 History Exam Vital signs: Vital Signs 12/18/17 12:41 12/18/17 12:45 12/18/17 19:26 Temperature 97.9 F Pulse Rate 90 94 H 89 Respiratory Rate 17 18 17 Blood Pressure 122/58 L 148/68 H 139/63 Pulse Oximetry 100 100 12/18/17 20:00 12/18/17 22:02 12/18/17 22:26 Temperature 98.5 F 98.7 F 98.8 F Pulse Rate 92 H 91 H 88 Respiratory Rate 20 16 15 Blood Pressure 136/61 145/67 H 142/67 H Pulse Oximetry 100 12/19/17 01:44 12/19/17 01:48 12/19/17 02:15 Temperature 98.7 F 98.7 F 99 F Pulse Rate 79 79 78 Respiratory Rate 15 15 15 Blood Pressure 125/59 L 125/59 L 121/58 L Pulse Oximetry 99 99 12/19/17 03:53 12/19/17 08:00 Temperature 98.3 F 98.4 F Pulse Rate 75 80 Respiratory Rate 20 16 Blood Pressure 132/62 148/67 H Pulse Oximetry 100 98 Intake & Output 12/18/17 12/19/17 12/19/17 18:59 06:59 18:59 Intake Total 600 / 600 Balance 600 / 600 Weight 84.368 kg Intake: IV 200 / 200 NS Inj 1,000 ML @ 100 mls/hr IV 200 / 200 .CONT .Q10H [facility] Rx#:[id number] Intake (Blood Product) Amt 400 / 400 Rbc As-3 Leukoreduced Unit 0 / 0 [id number] Rbc As-3 Leukoreduced Unit 400 / 400 [id number] Other: Date of Last Bowel Movement 12/18/17 - Constitutional no acute distress - Routine HEENT Exam Head: Present: normocephalic, atraumatic - Routine Respiratory Exam Absent: accessory muscle use - Routine Cardiovascular Exam Present: RRR - Routine Abdominal Exam Present: soft, normoactive bowel sounds. Absent: tenderness, distended - Routine Skin Exam Present: dry, warm - Routine Neurological Exam Present: alert, oriented X3 <Leonor Wong - Last Filed: 12/19/17 09:29> Vital signs: Vital Signs 12/18/17 19:26 12/18/17 20:00 12/18/17 22:02 Temperature 98.5 F 98.7 F Pulse Rate 89 92 H 91 H Respiratory Rate 17 20 16 Blood Pressure 139/63 136/61 145/67 H Pulse Oximetry 12/18/17 22:26 12/19/17 01:44 12/19/17 01:48 Temperature 98.8 F 98.7 F 98.7 F Pulse Rate 88 79 79 Respiratory Rate 15 15 15 Blood Pressure 142/67 H 125/59 L 125/59 L Pulse Oximetry 100 99 99 12/19/17 02:15 12/19/17 03:53 12/19/17 08:00 Temperature 99 F 98.3 F 98.4 F Pulse Rate 78 75 77 Respiratory Rate 15 20 16 Blood Pressure 121/58 L 132/62 148/67 H Pulse Oximetry 100 98 12/19/17 11:52 12/19/17 15:39 Temperature 98.6 F 98.2 F Pulse Rate 76 76 Respiratory Rate 16 16 Blood Pressure 123/57 L 159/70 H Pulse Oximetry 98 99 Intake & Output 12/18/17 12/19/17 12/19/17 18:59 06:59 18:59 Intake Total 600 / 600 800 / 800 Balance 600 / 600 800 / 800 Weight 84.368 kg Intake: IV 200 / 200 800 / 800 NS Inj 1,000 ML @ 100 mls/hr IV 200 / 200 800 / 800 .CONT .Q10H [facility] Rx#:[id number] Intake (Blood Product) Amt 400 / 400 Rbc As-3 Leukoreduced Unit 0 / 0 [id number] Rbc As-3 Leukoreduced Unit 400 / 400 [id number] Other: Date of Last Bowel Movement 12/18/17 12/19/17 <Daryn Morin - Last Filed: 12/19/17 16:09> Results - Labs CBC & Chem 7: 12/19/17 06:21 12/19/17 06:21 Labs: Laboratory Results - last 24 hr 12/18/17 12/18/17 12/18/17 16:41 16:41 16:41 WBC 11.6 H RBC 2.87 L Hgb 7.3 L Hct 22.7 L MCV 79.0 L MCH 25.4 L MCHC 32.2 RDW 18.5 H Plt Count 531 H MPV 7.1 Neut % (Auto) 67.4 Lymph % (Auto) 14.4 Guthrie % (Auto) 12.2 H Eos % (Auto) 5.6 H Baso % (Auto) 0.4 Neut # (Auto) 7.8 H Lymph # (Auto) 1.7 Guthrie # (Auto) 1.4 H Eos # (Auto) 0.7 H Baso # (Auto) 0.1 WBC Differential . Differential Comment Auto diff final PT INR APTT Sodium 137 Potassium 4.2 Chloride 106 Carbon Dioxide 21.1 Anion Gap 10 BUN 24 H Creatinine 1.69 H Estimated GFR 41 L POC Glucose Random Glucose 136 H Calcium 8.7 Total Bilirubin 0.2 AST 10 L ALT 13 Alkaline Phosphatase 67 Total Protein 7.3 Albumin 3.0 L Blood Type O Negative Blood Type Recheck Required Antibody Screen Negative MTS Gel Crossmatch 12/18/17 12/18/17 12/19/17 16:41 16:45 03:43 WBC RBC Hgb Hct MCV MCH MCHC RDW Plt Count MPV Neut % (Auto) Lymph % (Auto) Guthrie % (Auto) Eos % (Auto) Baso % (Auto) Neut # (Auto) Lymph # (Auto) Guthrie # (Auto) Eos # (Auto) Baso # (Auto) WBC Differential Differential Comment PT 10.0 INR 1.0 APTT 28.4 Sodium Potassium Chloride Carbon Dioxide Anion Gap BUN Creatinine Estimated GFR POC Glucose 88 Random Glucose Calcium Total Bilirubin AST ALT Alkaline Phosphatase Total Protein Albumin Blood Type Blood Type Recheck Antibody Screen MTS Gel Crossmatch See Detail 12/19/17 12/19/17 12/19/17 06:21 06:21 07:56 WBC 9.4 RBC 3.27 L Hgb 8.7 L Hct 26.9 L MCV 82.2 MCH 26.7 L MCHC 32.5 RDW 18.5 H Plt Count 426 MPV 7.3 Neut % (Auto) 65.3 Lymph % (Auto) 14.8 Guthrie % (Auto) 12.5 H Eos % (Auto) 6.8 H Baso % (Auto) 0.6 Neut # (Auto) 6.1 Lymph # (Auto) 1.4 Guthrie # (Auto) 1.2 H Eos # (Auto) 0.6 H Baso # (Auto) 0.1 WBC Differential . Differential Comment Auto diff final PT INR APTT Sodium 141 Potassium 4.3 Chloride 111 H Carbon Dioxide 22.5 Anion Gap 8 BUN 21 H Creatinine 1.51 H Estimated GFR 47 L POC Glucose 70 Random Glucose 74 Calcium 8.3 L Total Bilirubin 0.7 AST 10 L ALT 13 Alkaline Phosphatase 65 Total Protein 6.8 Albumin 2.6 L Blood Type Blood Type Recheck Antibody Screen MTS Gel Crossmatch <Leonor Wong - Last Filed: 12/19/17 09:29> - Labs CBC & Chem 7: 12/19/17 06:21 12/19/17 06:21 Labs: Laboratory Results - last 24 hr 12/18/17 12/18/17 12/18/17 16:41 16:41 16:41 WBC 11.6 H RBC 2.87 L Hgb 7.3 L Hct 22.7 L MCV 79.0 L MCH 25.4 L MCHC 32.2 RDW 18.5 H Plt Count 531 H MPV 7.1 Neut % (Auto) 67.4 Lymph % (Auto) 14.4 Guthrie % (Auto) 12.2 H Eos % (Auto) 5.6 H Baso % (Auto) 0.4 Neut # (Auto) 7.8 H Lymph # (Auto) 1.7 Guthrie # (Auto) 1.4 H Eos # (Auto) 0.7 H Baso # (Auto) 0.1 WBC Differential . Differential Comment Auto diff final PT INR APTT Sodium 137 Potassium 4.2 Chloride 106 Carbon Dioxide 21.1 Anion Gap 10 BUN 24 H Creatinine 1.69 H Estimated GFR 41 L POC Glucose Random Glucose 136 H Calcium 8.7 Total Bilirubin 0.2 AST 10 L ALT 13 Alkaline Phosphatase 67 Total Protein 7.3 Albumin 3.0 L Stl C.difficile Tox PCR St C. diff Tox Epid 027 Blood Type O Negative Blood Type Recheck Required Antibody Screen Negative MTS Gel Crossmatch 12/18/17 12/18/17 12/19/17 16:41 16:45 03:43 WBC RBC Hgb Hct MCV MCH MCHC RDW Plt Count MPV Neut % (Auto) Lymph % (Auto) Guthrie % (Auto) Eos % (Auto) Baso % (Auto) Neut # (Auto) Lymph # (Auto) G[place]rie # (Auto) Eos # (Auto) Baso # (Auto) WBC Differential Differential Comment PT 10.0 INR 1.0 APTT 28.4 Sodium Potassium Chloride Carbon Dioxide Anion Gap BUN Creatinine Estimated GFR POC Glucose 88 Random Glucose Calcium Total Bilirubin AST ALT Alkaline Phosphatase Total Protein Albumin Stl C.difficile Tox PCR St C. diff Tox Epid 027 Blood Type Blood Type Recheck Antibody Screen MTS Gel Crossmatch See Detail 12/19/17 12/19/17 12/19/17 06:21 06:21 07:56 WBC 9.4 RBC 3.27 L Hgb 8.7 L Hct 26.9 L MCV 82.2 MCH 26.7 L MCHC 32.5 RDW 18.5 H Plt Count 426 MPV 7.3 Neut % (Auto) 65.3 Lymph % (Auto) 14.8 Guthrie % (Auto) 12.5 H Eos % (Auto) 6.8 H Baso % (Auto) 0.6 Neut # (Auto) 6.1 Lymph # (Auto) 1.4 Guthrie # (Auto) 1.2 H Eos # (Auto) 0.6 H Baso # (Auto) 0.1 WBC Differential . Differential Comment Auto diff final PT INR APTT Sodium 141 Potassium 4.3 Chloride 111 H Carbon Dioxide 22.5 Anion Gap 8 BUN 21 H Creatinine 1.51 H Estimated GFR 47 L POC Glucose 70 Random Glucose 74 Calcium 8.3 L Total Bilirubin 0.7 AST 10 L ALT 13 Alkaline Phosphatase 65 Total Protein 6.8 Albumin 2.6 L Stl C.difficile Tox PCR St C. diff Tox Epid 027 Blood Type Blood Type Recheck Antibody Screen MTS Gel Crossmatch 12/19/17 12/19/17 13:01 13:19 WBC RBC Hgb Hct MCV MCH MCHC RDW Plt Count MPV Neut % (Auto) Lymph % (Auto) Guthrie % (Auto) Eos % (Auto) Baso % (Auto) Neut # (Auto) Lymph # (Auto) G[place]rie # (Auto) Eos # (Auto) Baso # (Auto) WBC Differential Differential Comment PT INR APTT Sodium Potassium Chloride Carbon Dioxide Anion Gap BUN Creatinine Estimated GFR POC Glucose 71 Random Glucose Calcium Total Bilirubin AST ALT Alkaline Phosphatase Total Protein Albumin Stl C.difficile Tox PCR Negative St C. diff Tox Epid 027 Negative Blood Type Blood Type Recheck Antibody Screen MTS Gel Crossmatch <Daryn Morin - Last Filed: 12/19/17 16:09> Assessment and Plan - Plan Assessment: - Anemia with Hemoccult positive stools GI symptoms: States that he has been having diarrhea for the past 6-7 months but that it has recently been improving since changing his diet about three weeks ago. He has been trying to eat more vegetables and stopped drinking soda. He still reports three BMs yesterday but states they are more formed. Denies any fecal incontinence or urgency. Does report having bad heartburn for multiple months, was taking Tums as needed, but that this has been improving as well. Complaining of abdominal bloating after meals and more flatus. Denies: unintentional weight loss, has lost 4 lbs since changing his diet. Denies nausea, vomiting, abdominal pain. Has never had EGD or colonoscopy. States his father had some type of cancer, not colon but that it did originate in his GI tract. Denies ETOH, quit 2-3 weeks ago, was previously drinking one beer or glass of wine daily. Denies smoking and illicit drug use. Of note, takes Ibuprofen at night to help him sleep, states 2-3 pills a night. Denies taking blood thinners. Pt has history of anal fistula, previous surgery about 5 years ago, states the tract has not closed. Plan: EGD/colonoscopy tomorrow Obtain consent Clear liquids today Golytely prep NPO after MN Monitor H/H Transfuse as needed Protonix Stool studies Further recommendations to follow Pt has been seen and examined by myself and Mikel Pro and this note is written on his behalf <Leonor Wong - Last Filed: 12/19/17 09:29> - Attending Attestation Seen and examined, plan as above. Discussed with him the need for EGD and Colonoscopy. Consent obtain for tomorrow. Will start bowel prep. Thank you for the consult. <Daryn Morin - Last Filed: 12/19/17 16:09>
[2017-12-19] MEDS: Sod Chloride 0.9% Inj 1,000 ML IV.CONT SCH ×2 (13:59→15:52)
[2017-12-19] MEDS ORDERED: PEG 3350/E-Lyte Soln 4000 ML Bottle PO ONE (16:00)
--- NOTE | 2017-12-19 17:42 | P.PN ---
Subjective Interval history: Patient is seen lying in bed eating a popsicle. He tells me he has not had any nausea or vomiting. He does still have a lot of stomach distention and bloating. No chest pain or shortness of breath. No fever or chills. He is urinating normally. Physical Exam Vital signs: Vital Signs 12/18/17 19:26 12/18/17 20:00 12/18/17 22:02 Temperature 98.5 F 98.7 F Pulse Rate 89 92 H 91 H Respiratory Rate 17 20 16 Blood Pressure 139/63 136/61 145/67 H Pulse Oximetry 12/18/17 22:26 12/19/17 01:44 12/19/17 01:48 Temperature 98.8 F 98.7 F 98.7 F Pulse Rate 88 79 79 Respiratory Rate 15 15 15 Blood Pressure 142/67 H 125/59 L 125/59 L Pulse Oximetry 100 99 99 12/19/17 02:15 12/19/17 03:53 12/19/17 08:00 Temperature 99 F 98.3 F 98.4 F Pulse Rate 78 75 77 Respiratory Rate 15 20 16 Blood Pressure 121/58 L 132/62 148/67 H Pulse Oximetry 100 98 12/19/17 11:52 12/19/17 15:39 Temperature 98.6 F 98.2 F Pulse Rate 76 76 Respiratory Rate 16 16 Blood Pressure 123/57 L 159/70 H Pulse Oximetry 98 99 Intake & Output 12/18/17 12/19/17 12/19/17 18:59 06:59 18:59 Intake Total 600 / 600 800 / 800 Balance 600 / 600 800 / 800 Weight 84.368 kg Intake: IV 200 / 200 800 / 800 NS Inj 1,000 ML @ 100 mls/hr IV 200 / 200 800 / 800 .CONT .Q10H [facility] Rx#:[id number] Intake (Blood Product) Amt 400 / 400 Rbc As-3 Leukoreduced Unit 0 / 0 [id number] Rbc As-3 Leukoreduced Unit 400 / 400 [id number] Other: Date of Last Bowel Movement 12/18/17 12/19/17 Narrative: GENERAL: Well-nourished, well-developed adult male in no obvious distress. SKIN: Warm and dry. HEAD: Atraumatic. Normocephalic. CARDIOVASCULAR: Regular rate and rhythm. RESPIRATORY: No accessory muscle use. Clear to auscultation. Breath sounds equal bilaterally. GASTROINTESTINAL: Abdomen soft, non-tender, distended. Positive bowel sounds. MUSCULOSKELETAL: Extremities without clubbing, cyanosis, or edema. No obvious deformities. NEUROLOGICAL: Awake and alert. No obvious cranial nerve deficits. Motor grossly within normal limits. Normal speech. PSYCHIATRIC: Appropriate mood and affect; insight and judgment good Results - Labs CBC & Chem 7: 12/19/17 06:21 12/19/17 06:21 Laboratory Results - last 24 hr 12/18/17 12/18/17 12/19/17 16:41 16:45 03:43 WBC RBC Hgb Hct MCV MCH MCHC RDW Plt Count MPV Neut % (Auto) Lymph % (Auto) Norman % (Auto) Eos % (Auto) Baso % (Auto) Neut # (Auto) Lymph # (Auto) [place] # (Auto) Eos # (Auto) Baso # (Auto) WBC Differential Differential Comment Sodium Potassium Chloride Carbon Dioxide Anion Gap BUN Creatinine Estimated GFR POC Glucose 88 Random Glucose Calcium Total Bilirubin AST ALT Alkaline Phosphatase Total Protein Albumin Stl C.difficile Tox PCR St C. diff Tox Epid 027 Blood Type O Negative Blood Type Recheck Required Antibody Screen Negative MTS Gel Crossmatch See Detail 12/19/17 12/19/17 12/19/17 06:21 06:21 07:56 WBC 9.4 RBC 3.27 L Hgb 8.7 L Hct 26.9 L MCV 82.2 MCH 26.7 L MCHC 32.5 RDW 18.5 H Plt Count 426 MPV 7.3 Neut % (Auto) 65.3 Lymph % (Auto) 14.8 Norman % (Auto) 12.5 H Eos % (Auto) 6.8 H Baso % (Auto) 0.6 Neut # (Auto) 6.1 Lymph # (Auto) 1.4 Norman # (Auto) 1.2 H Eos # (Auto) 0.6 H Baso # (Auto) 0.1 WBC Differential . Differential Comment Auto diff final Sodium 141 Potassium 4.3 Chloride 111 H Carbon Dioxide 22.5 Anion Gap 8 BUN 21 H Creatinine 1.51 H Estimated GFR 47 L POC Glucose 70 Random Glucose 74 Calcium 8.3 L Total Bilirubin 0.7 AST 10 L ALT 13 Alkaline Phosphatase 65 Total Protein 6.8 Albumin 2.6 L Stl C.difficile Tox PCR St C. diff Tox Epid 027 Blood Type Blood Type Recheck Antibody Screen MTS Gel Crossmatch 12/19/17 12/19/17 12/19/17 13:01 13:19 17:10 WBC RBC Hgb Hct MCV MCH MCHC RDW Plt Count MPV Neut % (Auto) Lymph % (Auto) Norman % (Auto) Eos % (Auto) Baso % (Auto) Neut # (Auto) Lymph # (Auto) Norman # (Auto) Eos # (Auto) Baso # (Auto) WBC Differential Differential Comment Sodium Potassium Chloride Carbon Dioxide Anion Gap BUN Creatinine Estimated GFR POC Glucose 71 101 Random Glucose Calcium Total Bilirubin AST ALT Alkaline Phosphatase Total Protein Albumin Stl C.difficile Tox PCR Negative St C. diff Tox Epid 027 Negative Blood Type Blood Type Recheck Antibody Screen MTS Gel Crossmatch Assessment and Plan - Plan Patient is a 62-year-old male with a past medical history of hypertension, diabetes and hyperlipidemia who presented to the emergency room after having a low hemoglobin of 7.4 outpatient. He was being treated with p.o. iron. Hemoccult positive in ED. No history of prior colonoscopy or endoscopy. Anemia, hemoglobin 7.3, RDW 18.5, likely iron deficiency, r/o GI bleed, Hemoccult positive 2 units packed cells given in ED Consult gastroenterology for evaluation -planned EGD and colonoscopy 12/20. Resume iron tablets PO Protonix IV BID Hypertension, chronic Resume atenolol p.o., monitor vitals Diabetes, chronic Resume glipizide, Accu-Cheks with sliding scale insulin Resume diabetic diet when no longer n.p.o. Hyperlipidemia, chronic Resume home medications DVT prophylaxis: SCDs, hold chemical due to possible GI bleed
[2017-12-19] MEDS: Atenolol 50 MG Tablet PO SCH (20:45)
[2017-12-20] MEDS: Sod Chloride 0.9% Inj 1,000 ML IV.CONT SCH (01:45)
[2017-12-20 07:33] LABS: Baso % (Auto) 0.4 % (0.0-2.0); Eos # (Auto) 0.5 th/mm3 (0.0-0.4); Eos % (Auto) 4.7 % (0.0-4.0); Hematocrit 27.1 % (39.0-51.0); Hemoglobin 8.5 gm/dL (13.0-17.0); Lymph % (Auto) 9.2 % (9.0-44.0); Mean Corpuscular HGB Conc 31.6 % (32.0-36.0); Mean Corpuscular Volume 82.4 fL (80.0-100.0); Mean Platelet Volume 7.4 fL (7.0-11.0); Mono # (Auto) 1.3 th/mm3 (0.0-0.9); Mono % (Auto) 12.1 % (0.0-8.0); Neut # (Auto) 7.7 th/mm3 (1.8-7.7); Neut % (Auto) 73.6 % (16.0-70.0); Platelet Count 414 th/mm3 (150-450); Red Blood Count 3.29 mil/mm3 (4.50-5.90); Red Cell Distribution Width 18.9 % (11.6-17.2); White Blood Count 10.5 th/mm3 (4.0-11.0)
[2017-12-20] MEDS ORDERED: Dextrose 5%/NaCl 0.9% Inj 1,000 ML IV.CONT SCH (07:45)
[2017-12-20 07:58] LABS: Alanine Aminotransferase 11 U/L (12-78); Albumin 2.5 g/dL (3.4-5.0); Alkaline Phosphatase 57 U/L (45-117); Anion Gap 11 meq/L (5-15); Aspartate Aminotransferase 10 U/L (15-37); Blood Urea Nitrogen 14 mg/dL (7-18); Carbon Dioxide 21.4 meq/L (21.0-32.0); Chloride 112 meq/L (98-107); Glomerular Filtration Rate 60 mL/min (>89); Glucose,Random 52 mg/dL (74-106); Potassium 3.4 meq/L (3.5-5.1); Sodium 144 meq/L (136-145); Total Protein 6.1 g/dL (6.4-8.2)
[2017-12-20] MEDS: Glimepiride 2 MG Tablet PO SCH ×2 (09:01→20:37)
[2017-12-20] MEDS: Senna/Docusate Sodium 8.6/50 MG Tablet PO SCH ×2 (09:02→20:37)
[2017-12-20] MEDS: Ferrrous Sulfate 300 MG/5 ML UDC PO SCH ×2 (09:12→20:36)
[2017-12-20] MEDS: Pantoprazole Inj 40 MG Vial IV.PUSH SCH ×2 (09:13→20:35)
[2017-12-20] MEDS: Lisinopril 10 MG Tablet PO SCH (09:13)
[2017-12-20] MEDS ORDERED: Dextrose 50% in Water Syringe 50 ML ONE (13:28)
[2017-12-20] MEDS: WATER IV.SIG SCH ×4 (13:35→16:00)
[2017-12-20] MEDS: LACTATED RINGER S IV.SIG SCH ×4 (13:35→16:00)
[2017-12-20] MEDS: DEXTROSE 50% IV.SIG SCH ×4 (13:35→16:00)
[2017-12-20] MEDS ORDERED: Metoprolol Tartrate 25 MG Tablet PO ONE (14:38)
[2017-12-20] MEDS ORDERED: Chlorhexidine Gluconate 2% 1 Pack (2 Cloths) TOPICAL ONE (14:38)
[2017-12-20] MEDS ORDERED: Sodium Chlor 0.9% Inj 500 ML IV.SIG SCH (15:00)
--- NOTE | 2017-12-20 15:25 | GIPROC ---
[facility] [address] [facility]. [facility] [place], [address] EGD PROCEDURE REPORT EXAM DATE: 12/20/2017 PATIENT NAME: Papi Perry MR #: [id number] BIRTHDATE: 1955 ATTENDING: Daryn Morin MD ORDER #: [id number] DIRECTOR OF ARCHITECTURE: Alice Chaidez and Mirian Pena STATUS: inpatient INDICATIONS: The patient is a 62 yr old male here for an EGD due to anemia and occult blood positive PROCEDURE PERFORMED: EGD w/ biopsy MEDICATIONS: None and Per Anesthesia. TOPICAL ANESTHETIC: none CONSENT: The patient understands the risks and benefits of the procedure and understands that these risks include, but are not limited to: sedation, allergic reaction, infection, perforation and/or bleeding. Alternative means of evaluation and treatment include, among others: physical exam, x-rays, and/or surgical intervention. The patient elects to proceed with this endoscopic procedure. medical equipment was checked for proper function. Hand hygiene and appropriate measures for infection prevention was taken. After the risks, benefits and alternatives of the procedure were thoroughly explained, Informed consent was verified, confirmed and timeout was successfully executed by the treatment team. The patient was anesthetized with topical anesthesia and the EC-3490Li (Pedi C) endoscope was introduced through the mouth and advanced to the second portion of the duodenum. Retroflexion was performed and was normal The gastroscope was then slowly withdrawn and removed. ESOPHAGUS: The esophagus was otherwise normal. STOMACH: Multiple small round and shallow erosions were found in the gastric antrum. A biopsy was performed using cold forceps. Sample sent for histology. DUODENUM: The duodenal mucosa appeared normal in the 2nd part of the duodenum and duodenal bulb. ADVERSE EVENTS: There were no complications. IMPRESSIONS: 1. The esophagus was otherwise normal 2. Multiple small erosions were found in the gastric antrum; biopsy was performed 3. Normal duodenal mucosa in the 2nd part of the duodenum and duodenal bulb 4. Retroflexion was performed and was normal RECOMMENDATIONS: 1. Await biopsy results. Biopsy results will not be ready for 7-10 days. If you don't hear from us in two weeks, call our office for biopsy results. 2. Continue PPI PATIENT CONDITION: stable DISPOSITION: Observation REPEAT EXAM: NONE Daryn Morin MD eSigned: Daryn Morin MD 12/20/2017 3:24 PM cc: PATIENT NAME: Papi Perry MR#: [id number]
--- NOTE | 2017-12-20 15:33 | GIPROC ---
[facility] [address] [facility]. [facility], [address] SIGMOIDOSCOPY PROCEDURE REPORT EXAM DATE: 12/20/2017 PATIENT NAME: Papi Perry MR #: [id number] BIRTHDATE: 1955 ENDOSCOPIST: Daryn Morin MD ORDER #: [id number] BLENDING KETTLE TENDER: Mirian Pena and Alice Chaidez STATUS: inpatient INDICATIONS: The patient is a 62 yr old male here for a colonoscopy due to anemia, non-specific and heme-positive stool PROCEDURE PERFORMED: Sigmoidoscopy, biopsy MEDICATIONS: None and Per Anesthesia. PREP QUALITY: poor PREP TYPE:GoLytely ESTIMATED BLOOD LOSS: None CONSENT: The patient understands the risks and benefits of the procedure and understands that these risks include, but are not limited to: sedation, allergic reaction, infection, perforation and/or bleeding. Alternative means of evaluation and treatment include, among others: physical exam, x-rays, and/or surgical intervention. The patient elects to proceed with this endoscopic procedure. medical equipment was checked for proper function. Hand hygiene and appropriate measures for infection prevention was taken. After the risks, benefits and alternatives of the procedure were thoroughly explained, Informed consent was verified, confirmed and timeout was successfully executed by the treatment team. A digital exam revealed no abnormalities of the rectum The Pentax EC-3490Li endoscope was introduced through the anus and advanced to the sigmoid colon. The instrument was then slowly withdrawn as the colon was fully examined. COLON FINDINGS: A circumferential smooth and ulcerated mass was found in the sigmoid colon. Multiple biopsies were performed using cold forceps. Retroflexion was not performed due to a narrow rectal vault The scope was then completely withdrawn from the patient and the procedure terminated. PROCEDURE WITHDRAWAL TIME:8minutes ADVERSE EVENTS: There were no complications. IMPRESSIONS: Circumferential mass was found in the sigmoid colon; 22 CM from anal verge, multiple biopsies were performed using cold forceps, scope could not pass beyond that secondary to lesion size and poor prep. RECOMMENDATIONS: Await biopsy results. Biopsy results will not be ready for 7-10 days. If you don't hear from us in two weeks, call our office for results. RECALL: Colonoscopy, pending biopsy results Daryn Morin MD eSigned: Daryn Morin MD 12/20/2017 3:33 PM cc:
--- NOTE | 2017-12-20 17:21 | P.PN ---
Subjective Interval history: Patient is seen lying in bed waiting for procedure. No overnight changes. Continues to have abdominal bloating and discomfort. No nausea or vomiting. No chest pain or shortness of breath. Physical Exam Vital signs: Vital Signs 12/19/17 20:00 12/20/17 00:00 12/20/17 08:23 Temperature 97.7 F 98.2 F Pulse Rate 85 85 87 Respiratory Rate 16 16 20 Blood Pressure 158/71 H 128/69 140/77 Pulse Oximetry 100 98 100 12/20/17 08:59 12/20/17 12:00 12/20/17 15:33 Temperature 98.1 F 99.0 F 98.0 F Pulse Rate 76 73 Respiratory Rate 18 16 Blood Pressure 167/70 H 117/58 L Pulse Oximetry 99 Intake & Output 12/19/17 12/20/17 12/20/17 18:59 06:59 18:59 Intake Total 1760 / 1760 3000 / 3000 900 / 900 Balance 1760 / 1760 3000 / 3000 900 / 900 Weight 84.368 kg Intake: IV 800 / 800 1000 / 1000 600 / 600 NS Inj 1,000 ML @ 100 mls/hr IV 800 / 800 1000 / 1000 600 / 600 .CONT .Q10H [facility] Rx#:[id number] Oral 960 / 960 1999 / 1999 Anesthesia Amount 300 / 300 Other: # Voids 4 Date of Last Bowel Movement 12/19/17 12/19/17 # Bowel Movements 3 Narrative: GENERAL: Well-nourished, well-developed adult male in no obvious distress. SKIN: Warm and dry. HEAD: Atraumatic. Normocephalic. CARDIOVASCULAR: Regular rate and rhythm. RESPIRATORY: No accessory muscle use. Clear to auscultation. Breath sounds equal bilaterally. GASTROINTESTINAL: Abdomen soft, non-tender, distended. Positive bowel sounds. MUSCULOSKELETAL: Extremities without clubbing, cyanosis, or edema. No obvious deformities. NEUROLOGICAL: Awake and alert. No obvious cranial nerve deficits. Motor grossly within normal limits. Normal speech. PSYCHIATRIC: Appropriate mood and affect; insight and judgment good Results - Labs CBC & Chem 7: 12/20/17 06:45 12/20/17 06:45 Laboratory Results - last 24 hr 12/20/17 12/20/17 12/20/17 06:38 06:45 06:45 WBC 10.5 RBC 3.29 L Hgb 8.5 L Hct 27.1 L MCV 82.4 MCH 26.0 L MCHC 31.6 L RDW 18.9 H Plt Count 414 MPV 7.4 Neut % (Auto) 73.6 H Lymph % (Auto) 9.2 [place] % (Auto) 12.1 H Eos % (Auto) 4.7 H Baso % (Auto) 0.4 Neut # (Auto) 7.7 Lymph # (Auto) 1.0 [place] # (Auto) 1.3 H Eos # (Auto) 0.5 H Baso # (Auto) 0.0 WBC Differential . Differential Comment Auto diff final Sodium 144 Potassium 3.4 L D Chloride 112 H Carbon Dioxide 21.4 Anion Gap 11 BUN 14 Creatinine 1.22 Estimated GFR 60 L POC Glucose 60 L Random Glucose 52 L Calcium 8.0 L Total Bilirubin 0.4 AST 10 L ALT 11 L Alkaline Phosphatase 57 Total Protein 6.1 L D Albumin 2.5 L 12/20/17 12/20/17 12/20/17 11:49 13:22 14:20 WBC RBC Hgb Hct MCV MCH MCHC RDW Plt Count MPV Neut % (Auto) Lymph % (Auto) [place] % (Auto) Eos % (Auto) Baso % (Auto) Neut # (Auto) Lymph # (Auto) [place] # (Auto) Eos # (Auto) Baso # (Auto) WBC Differential Differential Comment Sodium Potassium Chloride Carbon Dioxide Anion Gap BUN Creatinine Estimated GFR POC Glucose 62 L 55 L 70 Random Glucose Calcium Total Bilirubin AST ALT Alkaline Phosphatase Total Protein Albumin 12/20/17 12/20/17 12/20/17 15:46 16:05 16:52 WBC RBC Hgb Hct MCV MCH MCHC RDW Plt Count MPV Neut % (Auto) Lymph % (Auto) [place] % (Auto) Eos % (Auto) Baso % (Auto) Neut # (Auto) Lymph # (Auto) [place]ill # (Auto) Eos # (Auto) Baso # (Auto) WBC Differential Differential Comment Sodium Potassium Chloride Carbon Dioxide Anion Gap BUN Creatinine Estimated GFR POC Glucose 69 62 L 88 Random Glucose Calcium Total Bilirubin AST ALT Alkaline Phosphatase Total Protein Albumin Assessment and Plan - Plan Patient is a 62-year-old male with a past medical history of hypertension, diabetes and hyperlipidemia who presented to the emergency room after having a low hemoglobin of 7.4 outpatient. He was being treated with p.o. iron. Hemoccult positive in ED. No history of prior colonoscopy or endoscopy. Anemia, hemoglobin 7.3, RDW 18.5, likely iron deficiency, r/o GI bleed, Hemoccult positive 2 units packed cells given in ED Consult gastroenterology for evaluation -; EGD done 12/20 showed gastritis. Colonoscopy done 12/20 showed sigmoid mass; biopsy sent; unable to evaluate remainder of colon due to poor prep and inability to get past mass. Resume iron tablets PO Protonix IV BID Hypertension, chronic Resume atenolol p.o., monitor vitals Diabetes, chronic Resume glipizide, Accu-Cheks with sliding scale insulin Resume diabetic diet when no longer n.p.o. Hyperlipidemia, chronic Resume home medications DVT prophylaxis: SCDs, hold chemical due to possible GI bleed Discharge planning: Will discharge when cleared by GI
[2017-12-20] MEDS: Atenolol 50 MG Tablet PO SCH (20:36)
[2017-12-20 21:13] VITALS: RESP 16
--- NOTE | 2017-12-21 07:55 | ECG ---
Date Performed: 12/20/2017 Time Performed: 14:10:28 PTAGE: 62 years EKG: Sinus rhythm NORMAL ECG Since the PREVIOUS TRACING , no significant change noted PREVIOUS TRACIN02/24/2016 13.01 DOCTOR: Fish Interiano Interpretating Date/Time 12/21/2017 07:53:21
[2017-12-21 08:12] VITALS: BP 144/66; PULSE 82; TEMP 98; O2SAT 97
--- NOTE | 2017-12-21 08:13 | P.PNGI ---
Subjective Interval history: Patient is awake resting in the bed states he is hungry and has no nausea or vomiting states normal soft BM this a.m. no diarrhea discussed again the results of his EGD and colonoscopy, no abdominal pain <Elizabeth Ervin - Last Filed: 12/21/17 09:10> Physical Exam Vital signs: Vital Signs 12/20/17 08:23 12/20/17 08:59 12/20/17 12:00 Temperature 98.1 F 99.0 F Pulse Rate 87 76 Respiratory Rate 20 18 Blood Pressure 140/77 167/70 H Pulse Oximetry 100 99 12/20/17 15:33 12/20/17 16:00 12/20/17 20:00 Temperature 98.0 F 98.7 F 98.2 F Pulse Rate 73 74 65 Respiratory Rate 16 18 16 Blood Pressure 117/58 L 167/75 H 114/53 L Pulse Oximetry 100 99 12/21/17 00:00 12/21/17 03:56 Temperature 99.1 F 98.5 F Pulse Rate 84 71 Respiratory Rate 16 16 Blood Pressure 135/63 131/63 Pulse Oximetry 98 99 Intake & Output 12/20/17 12/21/17 12/21/17 18:59 06:59 18:59 Intake Total 1100 / 1100 1170 / 1170 Balance 1100 / 1100 1170 / 1170 Intake: IV 600 / 600 1050 / 1050 D5W/Normal Saline Inj 1,000 ML 1000 / 1000 @ 75 mls/hr IV.CONT .[id number] [facility] Rx#:[id number] NS Inj 1,000 ML @ 100 mls/hr IV 600 / 600 .CONT .Q10H [facility] Rx#:[id number] Oral 200 / 200 120 / 120 Anesthesia Amount 300 / 300 Other: # Voids 1 Date of Last Bowel Movement 12/19/17 - Constitutional no acute distress (Pale) - Routine HEENT Exam Head: Present: normocephalic ENT: Present: mucous membranes moist - Routine Neck Exam Present: supple - Routine Respiratory Exam Present: accessory muscle use (Even, unlabored) - Routine Cardiovascular Exam Present: S1, S2 - Routine Abdominal Exam Present: soft (Round, no obvious distention soft bowel sounds) - Routine Skin Exam Present: intact, pallor <Elizabeth Ervin - Last Filed: 12/21/17 09:10> Vital signs: Vital Signs 12/20/17 15:33 12/20/17 16:00 12/20/17 20:00 Temperature 98.0 F 98.7 F 98.2 F Pulse Rate 73 74 65 Respiratory Rate 16 18 16 Blood Pressure 117/58 L 167/75 H 114/53 L Pulse Oximetry 100 99 12/21/17 00:00 12/21/17 03:56 12/21/17 08:00 Temperature 99.1 F 98.5 F 98.0 F Pulse Rate 84 71 82 Respiratory Rate 16 16 16 Blood Pressure 135/63 131/63 144/66 H Pulse Oximetry 98 99 97 Intake & Output 12/20/17 12/21/17 12/21/17 18:59 06:59 18:59 Intake Total 1100 / 1100 1170 / 1170 Balance 1100 / 1100 1170 / 1170 Intake: IV 600 / 600 1050 / 1050 D5W/Normal Saline Inj 1,000 ML 1000 / 1000 @ 75 mls/hr IV.CONT .[id number] [facility] Rx#:[id number] NS Inj 1,000 ML @ 100 mls/hr IV 600 / 600 .CONT .Q10H [facility] Rx#:[id number] Oral 200 / 200 120 / 120 Anesthesia Amount 300 / 300 Other: # Voids 1 Date of Last Bowel Movement 12/19/17 12/19/17 <Daryn Morin A - Last Filed: 12/21/17 13:34> Results - Labs CBC & Chem 7: 12/20/17 06:45 12/20/17 06:45 Laboratory Results - last 24 hr 12/20/17 12/20/17 12/20/17 11:49 13:22 14:20 POC Glucose 62 L 55 L 70 12/20/17 12/20/17 12/20/17 15:46 16:05 16:52 POC Glucose 69 62 L 88 12/20/17 12/20/17 12/21/17 18:41 23:24 00:24 POC Glucose 121 H 74 106 12/21/17 12/21/17 06:34 07:29 POC Glucose 89 76 <Elizabeth Ervin - Last Filed: 12/21/17 09:10> - Labs CBC & Chem 7: 12/20/17 06:45 12/20/17 06:45 Laboratory Results - last 24 hr 12/20/17 12/20/17 12/20/17 14:20 15:46 16:05 POC Glucose 70 69 62 L 12/20/17 12/20/17 12/20/17 16:52 18:41 23:24 POC Glucose 88 121 H 74 12/21/17 12/21/17 12/21/17 00:24 06:34 07:29 POC Glucose 106 89 76 Microbiology 12/19/17 13:19 Stool Enteric Pathogens (PCR) - Final <Daryn Morin - Last Filed: 12/21/17 13:34> Assessment and Plan - Plan Assessment: - Anemia with Hemoccult positive stools GI symptoms: States that he has been having diarrhea for the past 6-7 months but that it has recently been improving since changing his diet about three weeks ago. He has been trying to eat more vegetables and stopped drinking soda. He still reports three BMs yesterday but states they are more formed. Denies any fecal incontinence or urgency. Does report having bad heartburn for multiple months, was taking Tums as needed, but that this has been improving as well. Complaining of abdominal bloating after meals and more flatus. Denies: unintentional weight loss, has lost 4 lbs since changing his diet. Denies nausea, vomiting, abdominal pain. Has never had EGD or colonoscopy. States his father had some type of cancer, not colon but that it did originate in his GI tract. Denies ETOH, quit 2-3 weeks ago, was previously drinking one beer or glass of wine daily. Denies smoking and illicit drug use. Of note, takes Ibuprofen at night to help him sleep, states 2-3 pills a night. Denies taking blood thinners. Pt has history of anal fistula, previous surgery about 5 years ago, states the tract has not closed. 12/21/17, S/P EKG/Colonoscopy on 12/20/2017. Findings include esophagus normal Multiple small erosions were found in the gastric antrum, Normal duodenal mucosa in the 2nd part of the duodenum and duodenal bulb Circumferential mass was found in the sigmoid colon; 22 CM from anal verge, multiple biopsies were performed using cold forceps, scope could not pass beyond that secondary to lesion size and poor prep. Stool studies show C. difficile negative. Other stool studies are pending Discussed with patient again the findings of his EGD and colonoscopy and the need to follow up with GI in the office in approximately 2 weeks for results of biopsies if we have not received before than patient will need further evaluation after biopsies are complete.. Discussed with patient the need for bowel regimen stool softeners and/or MiraLAX as needed to make sure he has a bowel movement every 1-3 days. Discussed no greasy fatty foods, and monitor eating late at night. Patient is hungry this a.m. and is planning to eat solid soft diabetic food. Patient is stable from a GI standpoint. Plan: Diet diabetic and increased hydration as tolerated Avoid NSAIDs Monitor for any acute rectal bleeding or hematemesis Await biopsy results monitor labs and transfuse as needed Protonix Patient was seen per myself and Dr. Morin, note was written on his behalf <Elizabeth Ervin - Last Filed: 12/21/17 09:10> - Attending Attestation Agree with above assessment and plan. Will need as outpatient follow up. <Daryn Morin - Last Filed: 12/21/17 13:34>
[2017-12-21] MEDS: Ferrrous Sulfate 300 MG/5 ML UDC PO SCH (08:56)
[2017-12-21] MEDS: Lisinopril 10 MG Tablet PO SCH (08:57)
[2017-12-21] MEDS: Senna/Docusate Sodium 8.6/50 MG Tablet PO SCH (08:57)
--- NOTE | 2017-12-21 09:14 | P.PN ---
Subjective Interval history: Patient is seen lying in bed. His daughter is at bedside. Patient tells me he is ready to go home. He has not had any nausea or vomiting. He did have an episode of diarrhea. He has been tolerating solid food and is in fact hungry right now. Discussed results of colonoscopy including the finding of a mass and stressed the importance of follow-up with GI-he and his daughter indicated understanding. Physical Exam Vital signs: Vital Signs 12/20/17 12:00 12/20/17 15:33 12/20/17 16:00 Temperature 99.0 F 98.0 F 98.7 F Pulse Rate 76 73 74 Respiratory Rate 18 16 18 Blood Pressure 167/70 H 117/58 L 167/75 H Pulse Oximetry 99 100 12/20/17 20:00 12/21/17 00:00 12/21/17 03:56 Temperature 98.2 F 99.1 F 98.5 F Pulse Rate 65 84 71 Respiratory Rate 16 16 16 Blood Pressure 114/53 L 135/63 131/63 Pulse Oximetry 99 98 99 12/21/17 08:00 Temperature 98.0 F Pulse Rate 82 Respiratory Rate 16 Blood Pressure 144/66 H Pulse Oximetry 97 Intake & Output 12/20/17 12/21/17 12/21/17 18:59 06:59 18:59 Intake Total 1100 / 1100 1170 / 1170 Balance 1100 / 1100 1170 / 1170 Intake: IV 600 / 600 1050 / 1050 D5W/Normal Saline Inj 1,000 ML 1000 / 1000 @ 75 mls/hr IV.CONT .[id number] [facility] Rx#:[id number] NS Inj 1,000 ML @ 100 mls/hr IV 600 / 600 .CONT .Q10H [facility] Rx#:[id number] Oral 200 / 200 120 / 120 Anesthesia Amount 300 / 300 Other: # Voids 1 Date of Last Bowel Movement 12/19/17 Narrative: GENERAL: Well-nourished, well-developed adult male in no obvious distress. SKIN: Warm and dry. HEAD: Atraumatic. Normocephalic. CARDIOVASCULAR: Regular rate and rhythm. RESPIRATORY: No accessory muscle use. Clear to auscultation. Breath sounds equal bilaterally. GASTROINTESTINAL: Abdomen soft, non-tender, distended. Positive bowel sounds. MUSCULOSKELETAL: Extremities without clubbing, cyanosis, or edema. No obvious deformities. NEUROLOGICAL: Awake and alert. No obvious cranial nerve deficits. Motor grossly within normal limits. Normal speech. PSYCHIATRIC: Appropriate mood and affect; insight and judgment good Results - Labs CBC & Chem 7: 12/20/17 06:45 12/20/17 06:45 Laboratory Results - last 24 hr 12/20/17 12/20/17 12/20/17 11:49 13:22 14:20 POC Glucose 62 L 55 L 70 12/20/17 12/20/17 12/20/17 15:46 16:05 16:52 POC Glucose 69 62 L 88 12/20/17 12/20/17 12/21/17 18:41 23:24 00:24 POC Glucose 121 H 74 106 12/21/17 12/21/17 06:34 07:29 POC Glucose 89 76 Assessment and Plan - Plan Patient is a 62-year-old male with a past medical history of hypertension, diabetes and hyperlipidemia who presented to the emergency room after having a low hemoglobin of 7.4 outpatient. He was being treated with p.o. iron. Hemoccult positive in ED. No history of prior colonoscopy or endoscopy. Anemia, hemoglobin 7.3, RDW 18.5, likely iron deficiency, r/o GI bleed, Hemoccult positive 2 units packed cells given in ED Consult gastroenterology for evaluation -; EGD done 12/20 showed gastritis. Colonoscopy done 12/20 showed sigmoid mass; biopsy sent; unable to evaluate remainder of colon due to poor prep and inability to get past mass. Patient to follow-up outpatient. Resume iron tablets PO; continue stool softeners daily and laxatives as needed. Protonix IV BID Hypertension, chronic Resume atenolol p.o., monitor vitals Diabetes, chronic Resume glipizide, Accu-Cheks with sliding scale insulin Resume diabetic diet when no longer n.p.o. Hyperlipidemia, chronic Resume home medications DVT prophylaxis: SCDs, hold chemical due to possible GI bleed Discharge planning: Will discharge when cleared by GI
--- NOTE | 2017-12-21 09:15 | P.DS ---
Date of admission: 12/18/17 18:03 Primary care physician: Ryan Kuhn MD Attending physician on discharge: Chung Mcelroy Anticipated date of discharge: 12/21/17 Brief History from admission: 62-year-old male with a history of hypertension, diabetes and hyperlipidemia presented to the ED after being told his hemoglobin was low outpatient. Patient states 1 week ago he had a hemoglobin of 7.4 and was placed on iron tablets, and had a recheck today of 7.3. Patient states he has never been referred to a GI doctor and is never had a colonoscopy or endoscopy before. He states he was Hemoccult +1 week ago but states he does not see any dark colored or blood in his stools. Per ER physician he was Hemoccult positive today. He denies any associated chest pain, shortness of breath, abdominal pain. DS: Diagnosis - Discharge Diagnosis (1) Colonic mass Status: Acute (2) GI bleed Status: Acute (3) Symptomatic anemia Status: Acute DS: Summary Hospital Course: Patient is a 62-year-old male with a past medical history of hypertension, diabetes and hyperlipidemia who presented to the emergency room after having a low hemoglobin of 7.4 outpatient. He was being treated with p.o. iron. Hemoccult positive in ED. No history of prior colonoscopy or endoscopy. 2 units packed cells given in ED. Consult gastroenterology for evaluation. EGD done 12/20 showed gastritis. Colonoscopy done 12/20 showed sigmoid mass; biopsy sent; unable to evaluate remainder of colon due to poor prep and inability to get past mass. Patient to follow-up outpatient. Resume iron tablets PO; continue stool softeners daily and laxatives as needed. - Time Spent with Patient Total time spent providing and/or coordinating discharge services: Less than 30 minutes Exam Vital signs: Vital Signs 12/20/17 12:00 12/20/17 15:33 12/20/17 16:00 Temperature 99.0 F 98.0 F 98.7 F Pulse Rate 76 73 74 Respiratory Rate 18 16 18 Blood Pressure 167/70 H 117/58 L 167/75 H Pulse Oximetry 99 100 12/20/17 20:00 12/21/17 00:00 12/21/17 03:56 Temperature 98.2 F 99.1 F 98.5 F Pulse Rate 65 84 71 Respiratory Rate 16 16 16 Blood Pressure 114/53 L 135/63 131/63 Pulse Oximetry 99 98 99 12/21/17 08:00 Temperature 98.0 F Pulse Rate 82 Respiratory Rate 16 Blood Pressure 144/66 H Pulse Oximetry 97 Intake & Output 12/20/17 12/21/17 12/21/17 18:59 06:59 18:59 Intake Total 1100 / 1100 1170 / 1170 Balance 1100 / 1100 1170 / 1170 Intake: IV 600 / 600 1050 / 1050 D5W/Normal Saline Inj 1,000 ML 1000 / 1000 @ 75 mls/hr IV.CONT .[id number] [facility] Rx#:[id number] NS Inj 1,000 ML @ 100 mls/hr IV 600 / 600 .CONT .Q10H [facility] Rx#:[id number] Oral 200 / 200 120 / 120 Anesthesia Amount 300 / 300 Other: # Voids 1 Date of Last Bowel Movement 12/19/17 Narrative: GENERAL: Well-nourished, well-developed adult male in no obvious distress. SKIN: Warm and dry. HEAD: Atraumatic. Normocephalic. CARDIOVASCULAR: Regular rate and rhythm. RESPIRATORY: No accessory muscle use. Clear to auscultation. Breath sounds equal bilaterally. GASTROINTESTINAL: Abdomen soft, non-tender, distended. Positive bowel sounds. MUSCULOSKELETAL: Extremities without clubbing, cyanosis, or edema. No obvious deformities. NEUROLOGICAL: Awake and alert. No obvious cranial nerve deficits. Motor grossly within normal limits. Normal speech. PSYCHIATRIC: Appropriate mood and affect; insight and judgment good Results Procedures completed during hospitalization: EGD 12/20/17 -IMPRESSIONS: 1. The esophagus was otherwise normal 2. Multiple small erosions were found in the gastric antrum; biopsy was performed 3. Normal duodenal mucosa in the 2nd part of the duodenum and duodenal bulb 4. Retroflexion was performed and was normal COLONOSCOPY 12/20/17 -IMPRESSIONS: Circumferential mass was found in the sigmoid colon; 22 CM from anal verge, multiple biopsies were performed using cold forceps, scope could not pass beyond that secondary to lesion size and poor prep. Pending studies at discharge: Pending at discharge 12/20/17 16:33 Surgical [PTH] Urgent Labs on day of discharge: Labs from last 24 hours 12/21/17 12/21/17 12/21/17 07:29 06:34 00:24 POC Glucose 76 89 106 12/20/17 12/20/17 12/20/17 23:24 18:41 16:52 POC Glucose 74 121 H 88 12/20/17 12/20/17 12/20/17 16:05 15:46 14:20 POC Glucose 62 L 69 70 12/20/17 12/20/17 13:22 11:49 POC Glucose 55 L 62 L Discharge Plan - Discharge Disposition Patient Disposition: 01 Discharge Home - Discharge Condition Condition: Stable - Discharge Order Discharge Orders: Discharge Order (Routine); Ordered 12/21/17 Ordered By: Clarisa Adler - Physicians Team Primary Care Provider: Ryan Kuhn Attending Provider: Chung Mcelroy Other Providers: Daryn Morin MD
== END 2017-12-21 10:43 | disposition home or self-care (01) ==
LOC: NEDA 12:24 → NEPE 12:24 → NEPGCP 20:18
PROVIDERS: ADMIT Hospitalist; ATTEND Hospitalist
PROC: COLONOS (2017-12-20 14:55)
PROC: PANENDO (2017-12-20 14:55)

== ENCOUNTER 2018-01-25 21:10 | Inpatient (IN) ==
--- NOTE | 2018-01-25 23:24 | ED ---
HPI General Chief Complaint: Abdominal Pain Stated Complaint: dr cárdenas Time Seen by Provider: 01/25/18 22:55 Source: patient and family Mode of arrival: ambulatory Limitations: no limitations History of Present Illness HPI narrative: Patient is a 62-year-old male presenting to the emergency department for evaluation of abdominal bloating, pain and constipation. Patient states he has a colonic mass, he was advised to return to the emergency department by his colorectal surgeon Dr. Girard if his symptoms began to worsen. Patient was diagnosed with this mass 2 weeks ago. He is supposed to have surgery on 28 January. He denies any nausea, vomiting, fever, chills. Past medical history significant for type 2 diabetes, hypertension, anemia, anal fistula. Patient reports his pain is a 3 out of 10. Pain is worse when the gas bubbles move around. MD complaint: Reports abdominal pain Onset (ago): week(s) Pain Consistency: colicky Location: Reports diffuse Severity: mild Quality: Reports fullness Relieving factors: nothing Exacerbating factors: eating Context: Reports history of similar episodes Associated symptoms: Reports constipation Treatments prior to arrival: Reports other (Miralax) Related Data Home Medications Medication Instructions Recorded Confirmed metformin 500 mg PO BID 12/06/17 01/25/18 atenolol 50 mg PO HS 12/18/17 01/25/18 ferrous sulfate 250 mg PO BID 12/18/17 01/25/18 glimepiride 2 mg PO BID 12/18/17 01/25/18 lisinopril 10 mg PO DAILY 12/18/17 01/25/18 lovastatin 20 mg PO DAILY 12/18/17 01/25/18 Allergies Allergy/AdvReac Type Severity Reaction Status Date / Time No Known Allergies Allergy Verified 01/25/18 21:36 Review of Systems ROS: all other systems reviewed are negative [facility] Medical History Medical History Anal fissure and fistula (Acute) Diabetes (Acute) High cholesterol (Acute) Hyperlipidemia (Acute) Hypertension (Acute) Malignant tumor of sigmoid colon (Acute) Right foot infection (Acute) Stage 3 chronic kidney disease (Acute) Surgical History Surgical History H/O eye surgery (Acute) H/O foot surgery (Acute) Family History Family History Father Lung cancer Social History Social History Substance History: No History of Abuse Second Hand Smoke Exposure: No Smoking Status: Former smoker Tobacco Type: Cigarettes How Often Do You Have a Drink Containing Alcohol: Never Recent Travel in [facility] within the Last 8 Weeks: No Recent Out of Country Travel within the Last 8 Weeks: No Immunization History Tetanus Immunization: Unsure Exam Narrative Exam Narrative: GENERAL: Well-developed, well-nourished, alert male. Resting comfortably in no acute distress. SKIN: Focused skin assessment warm/dry. HEAD: Atraumatic. Normocephalic. EYES: Pupils equal and round. No scleral icterus. No injection or drainage. ENT: No nasal bleeding or discharge. Mucous membranes pink and moist. NECK: Trachea midline. No JVD. CARDIOVASCULAR: Regular rate and rhythm. No murmur appreciated. RESPIRATORY: No accessory muscle use. Clear to auscultation. Breath sounds equal bilaterally. GASTROINTESTINAL: Abdomen distended, mildly tender, hyperactive bowel sounds throughout. Hepatic and splenic margins not palpable. MUSCULOSKELETAL: No obvious deformities. No clubbing. No cyanosis. No edema. NEUROLOGICAL: Awake and alert. No obvious cranial nerve deficits. Motor grossly within normal limits. Normal speech. PSYCHIATRIC: Appropriate mood and affect; insight and judgment normal. Course Consultations Consultation #1: Spoke with Dr. Jordan. 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 Time: 00:45 Initial Documented Vital Signs Temperature 98.4 F 01/25/18 21:29 Pulse Rate 89 01/25/18 21:29 Respiratory Rate 16 01/25/18 21:29 Blood Pressure 142/75 H 01/25/18 21:29 Pulse Oximetry 98 01/25/18 21:29 Last Documented Vital Signs Temperature 98.4 F 01/25/18 21:29 Pulse Rate 80 01/25/18 23:10 Respiratory Rate 18 01/25/18 23:10 Blood Pressure 159/65 H 01/25/18 23:10 Pulse Oximetry 96 01/25/18 23:11 Medical Decision Making JULIUS Attestation JULIUS supervised visit: Yes Attestation: The history, exam, and medical decision-making in the associated mid-level provider note were completed with my assistance. I reviewed and agree with the findings presented. I attest that I had a [id number] encounter with the patient on the same day, and personally performed and documented my assessment and findings in the medical record. *My assessment and Findings: 62-year-old man, recent diagnosis of partially obstructing circumferential distal colon mass. Seen by Dr. Ortega. Due for surgery in the next 2-3 days. Comes back in with worsening pain cramping loose stools. Will repeat exam, CT , discussed with colorectal surgery, likely admission. MDM Narrative Medical Screen Exam Complete: Yes Emergency Medical Condition: Yes Differential Diagnosis Differential Diagnosis: Obstruction versus worsening tumor burden versus metabolic abnormality versus other Medical Records Medical records reviewed: Yes I reviewed the patient's medical records. Lab Data Lab results reviewed: Yes I reviewed the patient's lab results. Result diagrams: 01/25/18 23:19 01/25/18 23:19 Lab Results 01/25/18 01/25/18 01/25/18 Range/Units 23:19 23:19 23:19 WBC 9.3 (4.0-11.0) th/mm3 RBC 3.22 L (4.50-5.90) mil/mm3 Hgb 8.5 L (13.0-17.0) gm/dL Hct 26.4 L (39.0-51.0) % MCV 82.0 (80.0-100.0) fL MCH 26.5 L (27.0-34.0) pg MCHC 32.3 (32.0-36.0) % RDW 19.5 H (11.6-17.2) % Plt Count 331 (150-450) th/mm3 MPV 7.6 (7.0-11.0) fL Prelim Diff (Auto) Slide review pending Neut % (Auto) 60.7 (16.0-70.0) % Lymph % (Auto) 16.3 (9.0-44.0) % Rowan % (Auto) 12.3 H (0.0-8.0) % Eos % (Auto) 10.0 H (0.0-4.0) % Baso % (Auto) 0.7 (0.0-2.0) % Neut # (Auto) 5.7 (1.8-7.7) th/mm3 Lymph # (Auto) 1.5 (1.0-4.8) th/mm3 Rowan # (Auto) 1.1 H (0.0-0.9) th/mm3 Eos # (Auto) 0.9 H (0.0-0.4) th/mm3 Baso # (Auto) 0.1 (0.0-0.2) th/mm3 WBC Differential . Diff Scan Auto diff confirmed Differential Comment . Platelet Estimate Normal (Normal) Platelet Morphology Normal (Normal) Ovalocytes 1+ H (None) Acanthocytes (Spur) Occ H (None) Keratocytes Occ H (None) PT 10.6 (9.8-11.6) sec INR 1.0 Ratio APTT 30.8 H (24.3-30.1) sec Sodium 136 (136-145) meq/L Potassium 4.0 (3.5-5.1) meq/L Chloride 103 (98-107) meq/L Carbon Dioxide 25.4 (21.0-32.0) meq/L Anion Gap 8 (5-15) meq/L BUN 20 H (7-18) mg/dL Creatinine 1.56 H (0.60-1.30) mg/dL Estimated GFR 45 L (>89) mL/min Random Glucose 136 H (74-106) mg/dL Calcium 8.0 L (8.5-10.1) mg/dL Magnesium 2.0 (1.5-2.5) mg/dL Total Bilirubin 0.2 (0.2-1.0) mg/dL AST 15 (15-37) U/L ALT 17 (12-78) U/L Alkaline Phosphatase 68 (45-117) U/L Total Protein 6.9 (6.4-8.2) g/dL Albumin 2.8 L (3.4-5.0) g/dL Discharge Plan Discharge Disposition Patient Disposition: 30 Still Patient Physicians Team ED Provider: Dave Arriola ED Midlevel Provider: Mirlande Olsen Primary Care Provider: Ryan Kuhn Attending Provider: Natalio Ortega Discharge Interventions Interventions: Vital Signs Last Done: 01/25/18 23:10 Status ED Status: Admitted Patient
[2018-01-25 23:33] LABS: Baso # (Auto) 0.1 th/mm3 (0.0-0.2); Baso % (Auto) 0.7 % (0.0-2.0); Eos # (Auto) 0.9 th/mm3 (0.0-0.4); Hematocrit 26.4 % (39.0-51.0); Hemoglobin 8.5 gm/dL (13.0-17.0); Lymph # (Auto) 1.5 th/mm3 (1.0-4.8); Lymph % (Auto) 16.3 % (9.0-44.0); Mean Corpuscular HGB Conc 32.3 % (32.0-36.0); Mean Corpuscular Hemoglobin 26.5 pg (27.0-34.0); Mean Platelet Volume 7.6 fL (7.0-11.0); Mono # (Auto) 1.1 th/mm3 (0.0-0.9); Mono % (Auto) 12.3 % (0.0-8.0); Neut # (Auto) 5.7 th/mm3 (1.8-7.7); Neut % (Auto) 60.7 % (16.0-70.0); Platelet Count 331 th/mm3 (150-450); Red Blood Count 3.22 mil/mm3 (4.50-5.90); Red Cell Distribution Width 19.5 % (11.6-17.2); White Blood Count 9.3 th/mm3 (4.0-11.0)
[2018-01-25 23:40] LABS: Activated Partial Thrombo Time 30.8 sec (24.3-30.1); Prothrombin Time 10.6 sec (9.8-11.6)
[2018-01-25 23:49] LABS: Albumin 2.8 g/dL (3.4-5.0); Anion Gap 8 meq/L (5-15); Aspartate Aminotransferase 15 U/L (15-37); Blood Urea Nitrogen 20 mg/dL (7-18); Carbon Dioxide 25.4 meq/L (21.0-32.0); Chloride 103 meq/L (98-107); Glomerular Filtration Rate 45 mL/min (>89); Glucose,Random 136 mg/dL (74-106); Sodium 136 meq/L (136-145)
[2018-01-25 23:50] LABS: Alanine Aminotransferase 17 U/L (12-78)
[2018-01-25 23:52] LABS: Alkaline Phosphatase 68 U/L (45-117); Total Protein 6.9 g/dL (6.4-8.2)
[2018-01-26 00:31] LABS: Acanthocytes Occ; Ovalocytes 1+; Platelet Estimate Normal (Normal); Platelet Morphology Normal (Normal)
[2018-01-26] MEDS ORDERED: Morphine Inj 4 MG/ML Vial IV.PUSH PRN (00:36)
--- NOTE | 2018-01-26 01:07 | CT ---
EXAM DATE: 01/26/2018 12:36 AM EDT AGE/SEX: 62 years / Male INDICATIONS: Abdominal pain and distention. CLINICAL DATA: This is the patient's initial encounter. Patient reports that signs and symptoms have been present for 1 day and indicates a pain score of 7/10. MEDICAL/SURGICAL HISTORY: Diabetes. Hypertension. Malignant tumor of the sigmoid colon. Chroni c kidney disease. None. ORAL CONTRAST: No oral contrast ingested. RADIATION DOSE: 7.31 CTDI (mGy) COMPARISON: [facility] [place], CT ABDOMEN & PELVIS W CONTRAST, 01/11/2018. . TECHNIQUE: Multiple contiguous axial images were obtained through the abdomen and pelvis following b olus infusion of 80 ml Omnipaque 350 (iohexol) nonionic water-soluble contrast as a single exam dos e. No oral contrast ingested. Using automated exposure control and adjustment of the mA and/or kV ac cording to patient size, radiation dose was kept as low as reasonably achievable to obtain optimal di agnostic quality images. DICOM format image data is available electronically for review and comparis on. FINDINGS: Lower Lungs: The visualized lower lungs are clear. Liver: The liver has a homogeneous density with the exception of a 3.5 cm low-density lesion towards the central dome of the liver. Cholelithiasis. There is no dilation of the biliary tree. There are so me lymph nodes within the karina hepatis region. Spleen: Homogeneous density without enlargement. Pancreas: Unremarkable without mass or calcification. Kidneys: Normal in size and shape. No evidence of mass or hydronephrosis. Adrenal Glands: Unremarkable. Aorta: The aorta and proximal iliac vessels are grossly unremarkable without aneurysmal dilation. Bowel/Mesentery: Gaseous distention of the colon. There is an area of wall thickening within the sig moid colon with possible narrowing. Prominent lymph node in the right lower quadrant mesentery measur es 2.9 x 2.1 cm. Lymph node is also seen distal to the bifurcation as seen on previous study measurin g 3.3 x 2.2 cm. Abdominal Wall: Intact. Retroperitoneum: No evidence of adenopathy in the retrocrural, para-aortic, or deep pelvic regions. Bladder: Contours are smooth. Reproductive Organs: No abnormal masses or calcifications seen. Inguinal: The inguinal region is unremarkable without evidence of adenopathy. Bony Structures: Unremarkable. CONCLUSION: 1. Wall thickening and narrowing of the sigmoid colon with partial obstruction. This is consistent w ith malignancy. 2. Metastatic lymphadenopathy in the retroperitoneum and mesentery. 3. Cholelithiasis. Electronically signed by: Gregg Ludwig MD 01/26/2018 1:06 AM EDT
[2018-01-26] MEDS: KCL 20 mEq/D5W/LR Inj 1,000 ML IV.CONT SCH ×3 (09:00→20:38)
[2018-01-26] MEDS: Lisinopril 10 MG Tablet PO SCH (09:05)
[2018-01-26] MEDS ORDERED: Magnesium Citrate Liq 300 ML Bottle PO ONE ×2 (12:22→20:00)
[2018-01-26] MEDS ORDERED: Dextrose 50% in Water 50 ML Vial IV.PUSH PRN (12:23)
--- NOTE | 2018-01-26 12:33 | P.PNCS ---
Subjective Interval history: Pt admitted this AM with worsening diarrhea and bloating. Not much pain. Objective Result Diagrams: 01/25/18 23:19 01/25/18 23:19 Objective Remarks: Abd: soft,mild colonic distention,non tender Assessment and Plan - Plan Slow Bowel prep IVs CLD Follow blood glucose
--- NOTE | 2018-01-26 12:55 | MH ---
cc: Natalio Ortega MD DATE OF ADMISSION: 01/26/2018 CHIEF COMPLAINT: Increasing diarrhea and abdominal discomfort. HISTORY OF PRESENT ILLNESS: This patient is known to me for the last 2 weeks. I saw him on 01/10/2018 in my office and he was referred to me with a near-obstructing sigmoid colon carcinoma. Subsequent CT scan showed what appeared to be a liver metastasis 3.4 cm in diameter in the right lobe of the liver. He also had multiple areas of adenopathy as well as a wall thickening with the sigmoid colon carcinoma. He also was found to have cholelithiasis. We attempted to get the patient scheduled for surgery; however, he did not have insurance and was trying to obtain patient assistance. Nevertheless, he was tentatively scheduled for surgery on 01/28/2018. He came to the emergency department last evening with worsening distention and diarrhea. PAST MEDICAL HISTORY, FAMILY HISTORY, SOCIAL HISTORY, REVIEW OF SYSTEMS: Otherwise negative. PHYSICAL EXAMINATION: GENERAL: Well-developed, well-nourished male, in no acute distress. SKIN: Warm and dry. HEENT: Extraocular muscles intact. NECK: Supple. CHEST: Clear. HEART: S1, S2 was heard. No murmurs or gallops. ABDOMEN: Mildly distended, but very soft, nontender. No masses. RECTAL: Exam was not repeated today. EXTREMITIES: Range of motion within normal limits. NEUROLOGIC: Grossly normal. IMPRESSION: Sigmoid colon carcinoma with high-grade narrowing and near obstruction. PLAN: We are planning on a slow to 2-day bowel prep since he is in the hospital and surgery on 01/28/2018. We are planning on a sigmoid colectomy, low anterior resection with anastomosis if possible. I think that there is about a 20% chance of a diverting colostomy or ileostomy based on the high-grade obstruction. I went over all the risks, benefits, and alternatives of the surgery with him previously, but I have reviewed them again today. MD NOHEMI Lopez/dali , 12:22 PM , 12:27 PM
[2018-01-26] MEDS: Insulin NovoLIN Regular Correctional Sugar Inj SQ SCH (18:01)
[2018-01-26] MEDS: Atenolol 50 MG Tablet PO SCH (20:37)
[2018-01-27] MEDS: Insulin NovoLIN Regular Correctional Sugar Inj SQ SCH ×4 (00:51→18:00)
[2018-01-27] MEDS: KCL 20 mEq/D5W/LR Inj 1,000 ML IV.CONT SCH ×2 (04:56→09:00)
[2018-01-27] MEDS ORDERED: PEG 3350/E-Lyte Soln 4000 ML Bottle PO ONE (07:07)
--- NOTE | 2018-01-27 07:34 | P.PNCS ---
Subjective Interval history: Continues with loose brown BMs. Will start Colyte today. Surgery 2 PM tomorrow Objective Result Diagrams: 01/25/18 23:19 01/25/18 23:19 Objective Remarks: Abd: soft,mild colonic distention,non tender. Unchanged Assessment and Plan - Plan Slow Bowel prep IVs CLD. NPO after MN Follow blood glucose
[2018-01-27] MEDS: Lisinopril 10 MG Tablet PO SCH (08:02)
[2018-01-27 11:28] LABS: Hematocrit 32.1 % (39.0-51.0); Hemoglobin 10.4 gm/dL (13.0-17.0); Mean Corpuscular HGB Conc 32.5 % (32.0-36.0); Mean Corpuscular Hemoglobin 26.3 pg (27.0-34.0); Mean Platelet Volume 8.3 fL (7.0-11.0); Platelet Count 396 th/mm3 (150-450); Red Blood Count 3.96 mil/mm3 (4.50-5.90); Red Cell Distribution Width 19.9 % (11.6-17.2); White Blood Count 9.5 th/mm3 (4.0-11.0)
[2018-01-27 11:58] LABS: Calcium 9.1 mg/dL (8.5-10.1); Carbon Dioxide 32.3 meq/L (21.0-32.0); Potassium 5.2 meq/L (3.5-5.1)
[2018-01-27] MEDS: Atenolol 50 MG Tablet PO SCH (20:42)
[2018-01-28] MEDS ORDERED: Chlorhexidine Gluconate 2% 1 Pack (2 Cloths) TOPICAL ONE (00:39)
[2018-01-28] MEDS ORDERED: Sodium Chlor 0.9% Inj 500 ML IV.SIG SCH (01:00)
[2018-01-28] MEDS: Insulin NovoLIN Regular Correctional Sugar Inj SQ SCH ×4 (03:05→18:49)
[2018-01-28] MEDS: Lisinopril 10 MG Tablet PO SCH (08:59)
--- NOTE | 2018-01-28 13:42 | P.PNCS ---
Subjective Interval history: Pt seen preop. Fairly good prep. Feels like fluid remains, but only liquid stool now. Objective Result Diagrams: 01/27/18 10:35 01/27/18 10:35 Objective Remarks: Abd: soft, no distention. Assessment and Plan - Plan Sigmoid colectomy,LAR if possible. Colostomy or Ileostomy only if needed.Intra op colonoscopy, and possible anal fistulotomy of chronic anal fistula. Risks,benefits and alternatives discussed with patient numerous times.
[2018-01-28] MEDS ORDERED: Phenylephrine/NS 1000 MCG/10ML Syringe IV.PUSH ONE (13:49)
[2018-01-28] MEDS ORDERED: Lidocaine PF 1% Inj 5 ML Syringe OTHER ONE (13:49)
[2018-01-28] MEDS ORDERED: Labetalol HCl Inj 100 MG/20 ML Vial IV.CONT ONE (13:49)
[2018-01-28] MEDS ORDERED: ceFAZolin 2 GM Premix Inj 2 GM/50 ML PIGGYBACK IV.SIG ONE (14:27)
--- NOTE | 2018-01-28 16:42 | ECG ---
Date Performed: 01/28/2018 Time Performed: 07:54:41 PTAGE: 62 years EKG: Sinus rhythm Since the previous tracing, no significant change noted NORMAL ECG PREVIOUS TRACING : 12/20/2017 14.10 DOCTOR: Keisha Gee Interpretating Date/Time 01/28/2018 16:39:00
[2018-01-28] MEDS ORDERED: fentaNYL Citrate Inj 100 MCG/2 ML Ampul ONE ×3 (16:53→17:50)
[2018-01-28] MEDS ORDERED: Potassium Chlor 20 mEq Premix 20 MEQ/100 ML PIGGYBACK IV.SIG PRN (17:29)
[2018-01-28] MEDS ORDERED: Potassium Chlor 40 mEq Premix 40 MEQ/100 ML PIGGYBACK IV.SIG PRN (17:29)
[2018-01-28] MEDS ORDERED: Zolpidem Tartrate 5 MG Tablet PO PRN (17:31)
[2018-01-28] MEDS ORDERED: Naloxone Inj 0.4 MG/ML Vial IV.PUSH PRN (17:38)
[2018-01-28] MEDS ORDERED: Morphine Inj 4 MG/ML Vial ONE (17:51)
[2018-01-28] MEDS ORDERED: Sugammadex Inj 200 MG/2 ML Vial IV.PUSH ONE (17:51)
[2018-01-28] MEDS ORDERED: *morphine SULFATE 10 MG/ML PERIprocedure ONLY ONE ×2 (17:52→18:01)
[2018-01-28] MEDS ORDERED: *Ondansetron Inj 4 MG/2 ML Vial PERIprocedural Use ONLY ONE (17:53)
[2018-01-28] MEDS: KCL 20 mEq/D5W/LR Inj 1,000 ML IV.CONT SCH (18:00)
[2018-01-28] MEDS ORDERED: Morphine Inj 30 MG/30 ML PCA.VIAL PCA ONE (18:02)
[2018-01-28 18:16] LABS: Baso # (Auto) 0.1 th/mm3 (0.0-0.2); Baso % (Auto) 0.4 % (0.0-2.0); Eos # (Auto) 0.3 th/mm3 (0.0-0.4); Eos % (Auto) 1.9 % (0.0-4.0); Hematocrit 35.9 % (39.0-51.0); Hemoglobin 11.9 gm/dL (13.0-17.0); Lymph # (Auto) 1.1 th/mm3 (1.0-4.8); Lymph % (Auto) 7.4 % (9.0-44.0); Mean Corpuscular Hemoglobin 26.8 pg (27.0-34.0); Mean Corpuscular Volume 81.2 fL (80.0-100.0); Mono # (Auto) 0.6 th/mm3 (0.0-0.9); Mono % (Auto) 3.9 % (0.0-8.0); Neut # (Auto) 12.7 th/mm3 (1.8-7.7); Neut % (Auto) 86.4 % (16.0-70.0); Platelet Count 354 th/mm3 (150-450); Red Blood Count 4.43 mil/mm3 (4.50-5.90); Red Cell Distribution Width 18.4 % (11.6-17.2); White Blood Count 14.7 th/mm3 (4.0-11.0)
[2018-01-28] MEDS ORDERED: *HYDROmorphone PF Inj 1 MG/ML Ampul PERIprocedural Use ONLY ONE (18:18)
[2018-01-28 18:47] LABS: Carbon Dioxide 25.9 meq/L (21.0-32.0); Potassium 4.3 meq/L (3.5-5.1)
[2018-01-28] MEDS: Morphine Inj 30 MG/30 ML PCA.VIAL PCA PRN (18:52)
[2018-01-28 19:01] LABS: Total Protein 5.6 g/dL (6.4-8.2)
--- NOTE | 2018-01-28 19:35 | MP ---
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 OPERATIVE PROCEDURE: 1. Sigmoid colectomy with low anterior resection. 2. Small bowel resection with anastomosis. 3. Intraoperative colonoscopy. 4. Anal fistulotomy. ANESTHESIA: General endotracheal. SURGEON: Natalio Ortega MD FUR TAILOR: Ernesto Montalvo MD ESTIMATED BLOOD LOSS: 50 mL. OPERATING TIME: 2 hours and 40 minutes. OPERATIVE FINDINGS: This patient was referred to me a couple of weeks ago with a near obstructing sigmoid colon carcinoma. He came into the emergency department about 3 days ago with increasing symptoms of bloating, diarrhea, distention. These symptoms have been chronic for weeks to a month to months. Nevertheless, we were able to do a slow bowel prep over the last couple of days and he had brown fluid draining with no particulate matter. At surgery, he was found to have a 3-4 cm liver metastasis in the right lobe of the liver just to the right of the falciform ligament up at the level of the diaphragm on the dome of the right lobe. No other metastases were palpated. The gallbladder was palpably normal, as was the stomach. The small bowel was all dilated mainly with air. It was edematous. The distal ileum just above the ileocecal valve was stuck down to the tumor, as was another loop of ileum just above this and they were both resected en bloc with the sigmoid. After the specimen was opened, it was noted that there was a large ileosigmoid fistula present. Also, the patient had a lot of adenopathy right distal to the takeoff of the inferior mesenteric artery vessels. The colon was chronically dilated and the descending colon, transverse colon, ascending colon were full of air. There was some fluid present. This was aspirated clean at colonoscopy during the case. The sigmoid colon was chronically dilated and edematous as well. Therefore, a resection was done with a colorectal anastomosis using a 33 EEA and a small bowel resection was done in the distal ileum. Because of the edematous nature of the bowel and the chronic dilation, we decided to do a diverting ileostomy above all of the anastomoses. OPERATIVE TECHNIQUE: The patient was placed on the table in the supine position. After adequate general endotracheal anesthesia, the legs were placed in the perineal lithotomy position and the abdomen and perineum were prepped and draped in the usual manner. A transverse infraumbilical skin incision was made and carried down through the subcutaneous tissue and the rectus muscles and the peritoneal cavity was entered with the above-mentioned findings. There was a small amount of ascites present in the abdomen and this was aspirated free. The cecum was mobilized up out of the abdominal cavity, but the terminal ileum was tethered to the tumor. Therefore, the terminal ileum was divided with an Ethicon ANNA green staple height stapler. Next, the bowel proximal to these 2 attachments to the sigmoid colon cancer was divided as well and the small bowel mesentery was clamped, cut and ligated. Next, the sigmoid colon was mobilized and the inferior mesenteric artery was clamped, cut and doubly ligated with 0 Vicryl ligatures and then the sigmoid and rectum were fully mobilized down into the pelvis toward the pelvic floor. There was a large amount of fibrosis right under the inferior mesenteric vessels up out of the true pelvis, but this was peeled off of the upper part of the sacrum and felt to be cleanly removed. Both ureters were identified and protected at all times. The rectum was then cleared of its mesorectum in the upper portion with electrocautery and then the pursestring stapling device was placed and the rectum was divided. A point was chosen in the upper sigmoid colon and the mesocolon was clamped, cut and ligated after clamping, cutting and ligating the inferior mesenteric vein. The pursestring suturing device was placed on the sigmoid colon and the anvil of the 33 EEA was placed in the proximal bowel and the pursestring was tied. Dr. Montalvo then went below, placed the EEA instrument transanally and the distal pursestring was tied and the EEA was connected, closed and fired, creating the circular anastomosis. Dr. Montalvo then did an intraoperative colonoscopy, aspirating the air and fluid from the colon. The prep was not excellent, but there were no lesions seen in the proximal colon. We then opened the corners of the proximal and distal small bowel and both the colon and the small bowel were decompressed with suction and then the anastomosis along the antimesenteric border of the small bowel was done with an Ethicon ANNA 70 green staple height stapler. The enterotomy was closed with a TX 60 green staple height stapler and the mesentery was approximated with running 3-0 Vicryl suture. An mesenteric opening was made proximal to this for the loop ileostomy and a stoma site was made in the right upper quadrant in the mid portion of the rectus muscle. The small bowel was brought out through this site. The abdominal cavity was irrigated thoroughly with 4 liters of saline solution and aspirated dry. Dr. Ritter duenas tested the anastomosis with air insufflation with the colonoscope in the rectum with saline solution in the pelvis and no air leaks were identified. The blood supply was excellent. There was no tension on the anastomosis. A drain was placed through a separate stab wound in the right lower quadrant and placed in the retrorectal space and the abdominal cavity was closed in layers using double-stranded #1 PDS for the posterior rectus sheath. The rectus muscle layer was irrigated thoroughly with a liter of saline solution and the anterior rectus sheath was closed with double-stranded #1 PDS as well. The subcutaneous tissue was irrigated thoroughly with a liter of saline solution, aspirated dry and the skin was closed with running 3-0 Vicryl subcuticular suture and a dressing was applied. The ileostomy was matured with interrupted 3-0 Vicryl sutures in a end Livia manner and a 57 mm appliance was applied. Next, the anal fistulotomy was done in the posterior portion of the anal canal by placing a probe in the anal fistula in the posterior midline and the internal opening was identified and the fistulotomy was done with electrocautery. There was a small accessory tract next to this which was excised and granulation tissue was cleaned out. Next, Monsel solution was placed and dressings were applied. Sponge, needle and instrument counts were reported as correct. The estimated blood loss was 50 mL for the whole procedure. The patient tolerated the procedure well and left the operating room in good condition. MD NOHEMI Lopez/jarad , 06:01 PM , 06:15 PM
[2018-01-28] MEDS: ceFAZolin 2 GM Premix Inj 2 GM/50 ML PIGGYBACK IV.SIG SCH (20:11)
[2018-01-28] MEDS: Atenolol 50 MG Tablet PO SCH (20:12)
[2018-01-29] MEDS: Insulin NovoLIN Regular Correctional Sugar Inj SQ SCH ×4 (00:03→19:50)
[2018-01-29] MEDS: KCL 20 mEq/D5W/LR Inj 1,000 ML IV.CONT SCH ×2 (00:15→05:26)
[2018-01-29] MEDS: ceFAZolin 2 GM Premix Inj 2 GM/50 ML PIGGYBACK IV.SIG SCH ×2 (05:24→13:14)
[2018-01-29 05:47] LABS: Baso % (Auto) 0.1 % (0.0-2.0); Eos % (Auto) 0.1 % (0.0-4.0); Hematocrit 39.2 % (39.0-51.0); Hemoglobin 12.5 gm/dL (13.0-17.0); Lymph # (Auto) 0.4 th/mm3 (1.0-4.8); Lymph % (Auto) 2.6 % (9.0-44.0); Mean Corpuscular HGB Conc 31.8 % (32.0-36.0); Mean Corpuscular Hemoglobin 26.3 pg (27.0-34.0); Mean Corpuscular Volume 82.8 fL (80.0-100.0); Mean Platelet Volume 8.4 fL (7.0-11.0); Mono # (Auto) 1.1 th/mm3 (0.0-0.9); Mono % (Auto) 7.7 % (0.0-8.0); Neut # (Auto) 12.5 th/mm3 (1.8-7.7); Neut % (Auto) 89.5 % (16.0-70.0); Platelet Count 353 th/mm3 (150-450); Red Blood Count 4.73 mil/mm3 (4.50-5.90); Red Cell Distribution Width 18.7 % (11.6-17.2); White Blood Count 13.9 th/mm3 (4.0-11.0)
[2018-01-29] MEDS: Morphine Inj 30 MG/30 ML PCA.VIAL PCA PRN (05:58)
[2018-01-29 06:20] LABS: Calcium 7.6 mg/dL (8.5-10.1); Potassium 4.3 meq/L (3.5-5.1)
[2018-01-29] MEDS: Lisinopril 10 MG Tablet PO SCH (09:53)
[2018-01-29] MEDS: Pantoprazole Inj 40 MG Vial IV.PUSH SCH (09:56)
--- NOTE | 2018-01-29 14:37 | P.DIET ---
Nutritional Evaluation Type of nutrition evaluation: initial Nutrition screening: Weight Loss > 10 lbs Subjective Subjective Comments: PO intake of full lquids today: B- 50%, L-25% Objective - Diagnosis Obstructing Large Bowel Malignancy - Objective Body Mass Index: 25.6 % IBW: 106 (IBW = 178#) Energy Needs - Lower Range (kCal/kg): 25 Energy Needs - Upper Range (kCal/kg): 30 Lower Limit kCal/kg (kCals): 2,143 Upper Limit kCal/kg (kCals): 2,571 Lower Limit Protein Factor (Grams per Kg): 1.0 Upper Limit Protein Factor (Grams per Kg): 1.5 Lower Protein Needs (Protein): 86 Upper Protein Needs (Protein): 129 Fluid Factor (ml/kg): 30 Estimated Fluid Needs (ml): 2,571 Dietitian Reviewed in Medical Record: Current diet, Curent medications, Intake & Output, Labs, Medical history Diet Order: Full Liquid Objective Comments: GLU 302 Assessment Assessment: Pt is s/p sigmoid colectomy, low anterior resection, ileostomy, intra-operative colonoscopy and fistulotomy (01/28) and diet has been advanced as far as a full liquid diet. RD will monitor diet advance and assess the need of supplements. Recommendations: Diet advance per Surgery Recommend [address] following Dietitian to Monitor: Lab values, Glucose level, Intake & Output, Diet tolerance , Weight change, PO Intake, Diet advancement, Medical course
--- NOTE | 2018-01-29 15:05 | P.PNWCN ---
Wound Care Nurse Consult Description: Consult for New Ostomy Teaching RUQ ileostomy teaching. Communicated with: Patient Viraj RN Recommendation: Empty pouch of effluent when 1/3-1/2 full Change wafer and pouch Q3-5D and PRN for leaking Use 2 1/4" moldable wafer and pouch Additional information: Patient seen on [facility] for ostomy assessment and teaching. Bowel Diversion Stoma - Bowel Stoma Right Lower Abdomen Stoma Edema: Yes Stoma Appearance: Protruding, Round (red, moist, functioning ) Collection Device: Two-piece, Moldable Wafer Drainage Description: Liquid, Brown Wafer Size: 2 1/4 Moldable - Additional Information Additional Information: Appointment for Sunday to meet with patient and his daughter for further teaching and to answer any questions they may have.
--- NOTE | 2018-01-29 16:32 | P.PNCS ---
Subjective Colorectal Surgery Post Op Day #: 1 Interval history: Pt moving well. Pain controlled. No N or V. No BMs Objective Result Diagrams: 01/29/18 03:35 01/29/18 03:35 Objective Remarks: Abd: soft, dressing dry, stoma pink. Assessment and Plan - Plan Transfer to [address] [place] [address]. CLD today,FLD tomorrow OOB in chair Decrease IVs
[2018-01-29] MEDS: Atenolol 50 MG Tablet PO SCH (21:00)
[2018-01-30] MEDS: Insulin NovoLIN Regular Correctional Sugar Inj SQ SCH ×4 (00:21→16:59)
[2018-01-30 06:14] LABS: Baso % (Auto) 0.2 % (0.0-2.0); Eos # (Auto) 0.2 th/mm3 (0.0-0.4); Eos % (Auto) 1.2 % (0.0-4.0); Hematocrit 35.7 % (39.0-51.0); Hemoglobin 11.7 gm/dL (13.0-17.0); Lymph # (Auto) 1.2 th/mm3 (1.0-4.8); Mean Corpuscular HGB Conc 32.6 % (32.0-36.0); Mean Corpuscular Hemoglobin 26.9 pg (27.0-34.0); Mean Corpuscular Volume 82.3 fL (80.0-100.0); Mean Platelet Volume 8.3 fL (7.0-11.0); Mono # (Auto) 1.4 th/mm3 (0.0-0.9); Mono % (Auto) 10.3 % (0.0-8.0); Neut # (Auto) 10.5 th/mm3 (1.8-7.7); Neut % (Auto) 79.3 % (16.0-70.0); Platelet Count 382 th/mm3 (150-450); Red Blood Count 4.34 mil/mm3 (4.50-5.90); Red Cell Distribution Width 18.8 % (11.6-17.2); White Blood Count 13.2 th/mm3 (4.0-11.0)
[2018-01-30 06:52] LABS: Calcium 8.2 mg/dL (8.5-10.1); Carbon Dioxide 32.5 meq/L (21.0-32.0); Potassium 4.6 meq/L (3.5-5.1)
[2018-01-30] MEDS: Pantoprazole Inj 40 MG Vial IV.PUSH SCH (08:35)
[2018-01-30] MEDS: Lisinopril 10 MG Tablet PO SCH (08:36)
--- NOTE | 2018-01-30 08:42 | P.PNCS ---
Subjective Colorectal Surgery Post Op Day #: 2 Interval history: No N or V. Stooling Objective Result Diagrams: 01/30/18 04:58 01/30/18 04:58 Objective Remarks: Abd: soft, dressing dry, stoma pink,some mild ischemia but viable Assessment and Plan - Plan Transfer to [address] [place] [address]. FLD D/C [employer]IDENT Reve law and dressing
[2018-01-30] MEDS: KCL 20 mEq/D5W/LR Inj 1,000 ML IV.CONT SCH (10:06)
--- NOTE | 2018-01-30 11:32 | P.PNWCN ---
Wound Care Nurse Consult Description: Consult for New Ostomy Teaching RUQ ileostomy teaching. Communicated with: Patient ANJALI Hernandez Recommendation: Empty pouch of effluent when 1/3-1/2 full Change wafer and pouch Q3-5D and PRN for leaking Use 2 1/4" moldable wafer and pouch Additional information: Patient seen earlier this morning around 0900 for ostomy assessment, teaching, and to answer patient questions. Bowel Diversion Stoma - Bowel Stoma Right Upper Abdomen Stoma Edema: Yes Stoma Diameter: 38 (mm) Stoma Appearance: Protruding, Round (red, moist, functioning) Collection Device: Two-piece, Moldable Wafer Drainage Description: Liquid, Brown Wafer Size: 2 1/4 Moldable Shazia-Stomal Surrounding Tissue Sensation Description: No Symptoms - Additional Information Additional Information: Late entry. Patient seen earlier this morning for ostomy assessment and teaching. Patient had questions regarding supplies, output, changing appliances, showering, diet, surgery, skin care, noises, all of which were answered or deferred to Dr Ortega for follow up. Supplies were ordered for patient to go home with upon discharge which is pending for tomorrow January 31 or the . Either way, patient will be followed up on by commercial attache prior to discharge for appliance change. Verbal consent was obtained for patient to receive a starter kit from [facility].
--- NOTE | 2018-01-30 15:54 | P.PNWCN ---
Wound Care Nurse Consult Description: Consult for New Ostomy Teaching RUQ ileostomy teaching. Communicated with: Patient Patient brother at bedside that flew in from [place] Recommendation: Empty pouch of effluent when 1/3-1/2 full Change wafer and pouch Q3-5D and PRN for leaking Use 2 1/4" moldable wafer and pouch Additional information: Patient seen on 2nd floor [facility] for delivery of supplies ordered. Met patients brother who had questions regarding ileostomy that were answered at this time. Communicated to Serena GONZALES, who will be seeing patient on , for follow up of patients needs prior to discharge. Some of the supplies ordered for patient to go home with were not available from [facility]. Other supplies were then ordered for patient to take home upon discharge. Bowel Diversion Stoma - Additional Information Additional Information: Patient will be seen on prior to discharge for ostomy appliance change with teaching.
[2018-01-30] MEDS: Atenolol 50 MG Tablet PO SCH (20:58)
[2018-01-30 22:58] LABS: % Iron Saturation 10.4 % (20-50); Carcinoembryonic Antigen 3.7 ng/mL (0.2-5.0); Folate 15.5 ng/mL (3.1-17.5)
[2018-01-31] MEDS: Insulin NovoLIN Regular Correctional Sugar Inj SQ SCH ×5 (00:13→23:47)
--- NOTE | 2018-01-31 06:57 | MB ---
cc: Wendy Ho MD,Natalio Kuhn Dr. DATE: 01/30/2018 REASON FOR CONSULTATION: Consult requested by Dr. Ortega for evaluation and management of colon cancer. HISTORY OF PRESENT ILLNESS: Papi is a pleasant 62-year-old male. He is under the care of primary physician, Dr. Kuhn. The patient states that last month he was found to have severe anemia with hemoglobin around 7. He was advised to go to the emergency room for blood transfusion. On 12/18/2017, patient came to the emergency room and his hemoglobin was 7.3. He had received 2 units of blood transfusion. GI was consulted. He underwent colonoscopy. A sigmoid mass was noted. The chip person was unable to pass the scope beyond the sigmoid mass. The pathology report showed a tubular adenoma with severe glandular dysplasia. The patient was discharged to home. He subsequently was referred to colorectal surgeon, Dr. Ortega. The patient came into the emergency room on 01/11/2018, for abdominal pain. He had a CT scan of the abdomen and pelvis, which showed partial colonic obstruction related to distal colonic mass. Also, extensive metastatic lymphadenopathy noted in the pelvic and abdominal area and also to the liver. The patient was discharged to home and was advised to followup with Dr. Ortega. The patient came back to the emergency room last week, 01/25/2018, complaining of abdominal pain again. He was complaining of severe constipation and abdominal bloating. A CT scan of the abdomen and pelvis was done and that showed wall thickening and narrowing of the sigmoid colon with partial obstruction. Also, metastatic lymphadenopathy noted in the retroperitoneum and mesentery. There is also a solitary 3.5 cm isolated liver metastasis noted. The patient was admitted to Dr. Ortega's service. The patient underwent surgery 2 days ago on 01/28/2018. 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 He underwent sigmoid colectomy with low anterior resection, small bowel resection with anastomosis, and intraoperative colonoscopy. He also had anal fistulectomy by Dr. Ortega. He also has a diverting ileostomy. I have been asked to see the patient for further evaluation. The patient has tolerated the surgery well. He has ileostomy bag, which is functioning well. The patient is complaining of anorexia, unknown weight loss. He says that he has been anemic for quite some time. He had a blood transfusion last month. The rest of the review of systems is negative. PAST MEDICAL HISTORY: Diabetes mellitus, hypercholesterolemia, hypertension. PAST SURGICAL HISTORY: Cataract, foot surgery, anal fistula surgery twice at [facility]. He could not remember the name of the surgeon. ALLERGIES: None. MEDICATIONS: Prior to coming to the hospital are atenolol, metformin, lisinopril. FAMILY HISTORY: Father from kidney cancer. Mother is alive with no history of cancer. The patient has 1 brother, no sister, 1 son, and 1 daughter, all alive and well. SOCIAL HISTORY: The patient is . He lives by himself. Does not smoke cigarettes. Occasionally drinks alcohol. 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 He has been exposed to chemicals. He has been working in that capacity since 1976. PHYSICAL EXAMINATION: GENERAL: Reveals a well-developed, well-nourished, white male in no apparent distress. VITAL SIGNS: Temperature 97.6, heart rate is 68, blood pressure is 155/75. HEENT: PERRLA. EOMI, anicteric. No oral lesions noted. NECK: No lymphadenopathy noted. LUNGS: Clear. No wheezing, rhonchi, or rales. CARDIOVASCULAR: Regular rate and rhythm. ABDOMEN: Soft, tender from recent surgery. A diverting ileostomy bag noted in the right lower quadrant. EXTREMITIES: No pedal edema. NEUROLOGIC: Awake, alert, oriented x 3. SKIN: No significant lesions are noted. ASSESSMENT: 1. Sigmoid colon cancer with metastasis to retroperitoneal, mesenteric, and karina hepatis lymph nodes. Also, he has a solitary liver metastasis. This is stage IV colon cancer. 2. Anemia, most likely due to iron deficiency from gastrointestinal bleeding. 3. History of anal fistula, status post surgery twice before. He underwent anal fistulectomy 2 days ago when he was operated for colon cancer. 4. Diabetes mellitus. 5. Hypertension. 6. Hypercholesterolemia. PLAN: I have reviewed his available records and had an extensive discussion with the patient and his daughter regarding the pathology report. We discussed that he has invasive moderately differentiated adenocarcinoma of the sigmoid colon. The cancer has perforated through the small intestinal wall and involving the paul-intestinal soft tissue. One out of 22 pericolonic lymph nodes are positive for metastatic adenocarcinoma. The resection margins are negative. The tumor extends to within less than 1 mm of the colonic radial resection margin in the area of small intestinal perforation. The size of the tumor is 7 cm in the sigmoid colon. Macroscopic tumor perforation was noted. It is moderately differentiated grade 2 cancer. The tumor directly invades to adjacent structures such as small intestine. There was no lymphovascular invasion noted. There is no perineural invasion noted. There were tumor deposits noted as well. He has T4b pN1a M1, stage IV colon cancer. We discussed diagnosis, staging, natural history, and treatment of colon cancer. I have recommended palliative chemotherapy with Avastin and FOLFOX as an outpatient. We discussed that the chemotherapy will be given once every 2 weeks. After completion of 12 cycles, we will assess the liver metastasis. Given that he has solitary liver metastasis and if he has any residual disease left behind after 12 cycles, we will see if he would be a candidate for any local therapy such as microwave ablation or radiofrequency ablation or cryoablation or TACE procedure or stereotactic radiosurgery. Multiple options are available once he completes the systemic palliative chemotherapy. I advised the patient that once he is discharged to home, then he needs to come to the office where I will arrange him for the chemotherapy. We will start chemotherapy 3-4 weeks from the surgery, which was done 2 days ago. His daughter was tearful when she heard that he has stage IV colon cancer. I tried to sympathize with them and reassure her that we will do our best to get him better. I will check CEA, iron studies, B12, and folate. Further recommendations based on his hospital stay. Thank you, Dr. Ortega, for asking my opinion. MD BHAVIK Jaime/marti , 12:11 AM , 12:38 AM ARTIE
[2018-01-31] MEDS ORDERED: Hold Metfromin until further notice OTHER ONE (09:46)
[2018-01-31] MEDS: Lisinopril 10 MG Tablet PO SCH (09:58)
[2018-01-31] MEDS: Pantoprazole Inj 40 MG Vial IV.PUSH SCH (10:03)
--- NOTE | 2018-01-31 11:10 | CT ---
EXAM DATE: 01/31/2018 10:19 AM EDT AGE/SEX: 62 years / Male INDICATIONS: Rule out metastasis from colon. CLINICAL DATA: This is the patient's initial encounter. Patient reports that signs and symptoms have been present for 1 day and indicates a pain score of 4/10. MEDICAL/SURGICAL HISTORY: Hypertension. Diabetes. Malignant tumor of sigmoid colon, chronic kidney disease. . Tumor of sigmoid colon removed. RADIATION DOSE: 8.29 CTDI (mGy) COMPARISON: [facility], CT ABDOMEN & PELVIS W CONTRAST, 01/26/2018. . TECHNIQUE: Multiple contiguous axial images were obtained through the chest during bolus infusion of 75 ml Omnipaque 350 (iohexol) nonionic water-soluble contrast as a single exam dose. Images were obtained in suspended respiration using multiple row detector helical technique. Using automated exp osure control and adjustment of the mA and/or kV according to patient size, radiation dose was kept a s low as reasonably achievable to obtain optimal diagnostic quality images. DICOM format image data is available electronically for review and comparison. FINDINGS: Lungs: The lungs are symmetrically aerated. No infiltrates or nodular densities are seen. Mediastinum: There is good visualization of the great vessels of the middle mediastinum. No evidenc e of mediastinal or hilar adenopathy/mass. Pleurae: No evidence of focal thickening or pleural effusion. Axillae: Unremarkable. Bony Structures: Unremarkable. Miscellaneous: Pneumoperitoneum in this patient that underwent laparotomy 01/28/2018. See the CT the abdomen or pelvis reported separately on 01/26/2018.. CONCLUSION: 1. Pneumoperitoneum in this patient that is postoperative. 2. No CT evidence to suggest metastatic disease to the chest. Electronically signed by: Vincent Kamara MD 01/31/2018 11:08 AM EDT
--- NOTE | 2018-01-31 13:13 | P.PNONC ---
Subjective Interval history: Patient feels better Denies any new complaint Objective Vital Signs/Intake & Output: Vital Signs 01/30/18 15:40 01/30/18 15:43 01/30/18 20:45 Temperature 97.6 F 97.2 F L Pulse Rate 68 64 Respiratory Rate 18 16 18 Blood Pressure 155/75 H 174/78 H Pulse Oximetry 100 99 01/30/18 23:03 01/31/18 00:05 01/31/18 03:08 Temperature 97.9 F Pulse Rate 63 Respiratory Rate 18 18 16 Blood Pressure 149/74 H Pulse Oximetry 100 01/31/18 04:50 01/31/18 08:28 01/31/18 11:14 Temperature 97.7 F 97.8 F Pulse Rate 69 89 Respiratory Rate 18 16 Blood Pressure 172/87 H 163/78 H Pulse Oximetry 99 98 99 01/31/18 12:16 Temperature 98.5 F Pulse Rate 77 Respiratory Rate Blood Pressure 125/72 Pulse Oximetry 97 Intake & Output 01/30/18 01/31/18 01/31/18 18:59 06:59 18:59 Intake Total 4130 / 4130 1310 / 1310 1010 / 1010 Output Total 2029 Balance 2099 / 2099 1285 / 1285 1010 / 1010 Weight 78.7 kg Intake: IV 3170 / 3170 1010 / 1010 1010 / 1010 KCl Inj 20 MEQ In LR 1000 mL 2019 1010 / 1010 1010 / 1010 Inj 1,000 ML @ 75 mls/hr IV. CONT .[id number] [facility] Rx#:[id number] Oral 960 / 960 300 / 300 Output: Urine 950 / 950 Stool Amount (Stoma) 1050 / 1050 Right Upper Abdomen 1050 / 1050 Wound Drainage # 1 Right Lower Abdomen CRISTIANA Drain Other: Date of Last Bowel Movement 01/29/18 Result Diagrams: 01/30/18 04:58 01/30/18 04:58 Laboratory Results: Laboratory Results - last 24 hr 01/30/18 01/30/18 01/31/18 16:46 21:49 00:03 POC Glucose 133 H 137 H Iron 20 L TIBC 193 L % Saturation 10.4 L Ferritin 57 Carcinoembryonic Ag 3.7 Vitamin B12 467 Folate 15.5 01/31/18 01/31/18 05:19 11:33 POC Glucose 117 H 245 H Iron TIBC % Saturation Ferritin Carcinoembryonic Ag Vitamin B12 Folate Imaging Studies: Impressions Chest CT 01/31/18 00:00 CONCLUSION: 1. Pneumoperitoneum in this patient that is postoperative. 2. No CT evidence to suggest metastatic disease to the chest. Medications: Active Medications Generic Name Dose Route Start Last Admin Trade Name Freq PRN Reason Stop Dose Admin Hydrocodone Bitart/Acetaminophen 1 tab 01/28/18 17:31 01/31/18 06:34 [place] 5/325 PO 1 tab Q4H PRN Administration PAIN SCALE 1 TO 4 Hydrocodone Bitart/Acetaminophen 2 tab 01/28/18 17:31 01/30/18 15:07 [place] 5/325 PO 2 tab Q4H PRN Administration PAIN SCALE 5 TO 10 Alvimopan 12 mg 01/29/18 09:00 01/31/18 09:55 Entereg PO 02/04/18 21:01 12 mg BID CHHAYA Administration Atenolol 50 mg 01/26/18 21:00 01/30/18 20:58 Tenormin PO 50 mg HS CHHAYA Administration Enalaprilat 1.25 mg 01/28/18 17:31 01/30/18 04:14 Vasotec Inj IV.PUSH 1.25 mg Q4H PRN Administration SBP > 160 mmHg Sodium Chloride 500 mls @ 30 mls/hr 01/28/18 01:00 01/30/18 10:07 Ns Inj IV.SIG Not Given .Q10H CHHAYA Potassium Chloride 20 meq/ 1,010 mls @ 75 mls/hr 01/29/18 09:00 01/31/18 09: 56 Lactated Ringer's IV.CONT 125 mls/hr .[id number] CHHAYA Administration Insulin Human Regular 0 units 01/26/18 18:00 01/31/18 12:18 Novolin R Correctional Sugar Inj SQ 10 units Q6HR CHHAYA Administration Protocol Lisinopril 10 mg 01/26/18 09:00 01/31/18 09:58 Prinivil PO 10 mg DAILY CHHAYA Administration Metoclopramide HCl 5 mg 01/28/18 18:00 01/31/18 12:23 Reglan Inj IV.PUSH 5 mg Q6HR CHHAYA Administration Protocol Pantoprazole Sodium 40 mg 01/29/18 09:00 01/31/18 10:03 Protonix Inj IV.PUSH 40 mg DAILY CHHAYA Administration Pravastatin Sodium 20 mg 01/26/18 09:00 01/31/18 09:55 Pravachol PO 20 mg DAILY CHHAYA Administration Sodium Chloride 2 ml 01/28/18 21:00 01/31/18 10:03 Ns Flush IV.FLUSH Not Given BID CHHAYA Objective Remarks: GENERAL: Well-nourished, well-developed patient. SKIN: Warm and dry. HEAD: Normocephalic. EYES: No scleral icterus. No injection or drainage. NECK: Supple, trachea midline. No JVD or lymphadenopathy. LYMPHATIC: No adenopathy. CARDIOVASCULAR: Regular rate and rhythm without murmurs. RESPIRATORY: Breath sounds equal bilaterally. No accessory muscle use. GASTROINTESTINAL: Abdomen soft, non-tender, nondistended. Ileostomy bag EXTREMITIES: No cyanosis, or edema. MUSCULOSKELETAL: Adequate muscle tone. NEUROLOGICAL: No obvious focal deficit. Awake, alert, and oriented x3. PSYCHIATRIC: Appropriate mood and affect; insight and judgment normal. Assessment/Plan - Plan I have again discussed with the patient regarding the colon cancer. His brother wants to talk to me over the phone which I did it, I have answer his questions Case discussed with Dr. Jordan.. Agreed to get CAT scan of the chest with IV contrast to evaluate for any lung metastasis. CEA is normal Patient is okay to be discharged from my standpoint I will see the patient next week in my office and will arrange for the chemotherapy. My nurse practitioner Lindsay will make arrangement for appointment next week Sign off on the case and available as needed
--- NOTE | 2018-01-31 14:22 | P.PNCS ---
Subjective Colorectal Surgery Post Op Day #: 3 Interval history: Doing well.CT chest normal.Will D/C tomorrow and check Creatinine since IV contrast given Objective Result Diagrams: 01/30/18 04:58 01/30/18 04:58 Objective Remarks: Abd: soft, dressing dry, stoma pink,some mild ischemia but viable. Drain removed by me Assessment and Plan - Plan Transfer to [address] [place] [address]. Diabetic diet. D/C in AM
--- NOTE | 2018-01-31 16:52 | P.PNWCN ---
Wound Care Nurse Consult Description: Patient seen for follow up of new ileostomy teaching Communicated with: ANJALI Collazo [facility] and patient Recommendation: Empty pouch of effluent when 1/3-1/2 full Change wafer and pouch Q3-5D and PRN for leaking Use 2 1/4" moldable wafer and pouch Has one piece on right now from coloplast with drainable spout closure. Patient instructed to change ostomy appliance if burning or tingling sensation is felt to peristomal skin, which could indicate a leak. Bowel Diversion Stoma - Additional Information Additional Information: Patient was seen today for follow up ostomy teaching and illeostomy appliance change. Assisted patient with step by step verbal instruction and hands on instruction when needed with ostomy appliance change. Patient changed appliance to one piece from Coloplast with drainable spout. Patient instructed on all supplies left in room.Stoma is dark red in color, well protruding and measures 1 1/2 inches or 38 mm in diameter.Emptied 50 ml of brown/ green liquid effluent from pouch before changing appliance.
[2018-01-31] MEDS: Atenolol 50 MG Tablet PO SCH (20:55)
[2018-02-01] MEDS: Insulin NovoLIN Regular Correctional Sugar Inj SQ SCH (05:26)
[2018-02-01] MEDS: Lisinopril 10 MG Tablet PO SCH (08:39)
[2018-02-01] MEDS: Pantoprazole Inj 40 MG Vial IV.PUSH SCH (08:39)
--- NOTE | 2018-02-01 09:45 | P.DCO ---
- Diagnosis (1) Colonic mass Status: Acute - Case Management Consult Yes - Certification I have seen patient Papi Perry on 02/01/18. My clinical findings support the need for the requested home health care services because: Limited mobility due to disease progression, Deconditioned with increased weakness I certify that my clinical findings support that this patient is homebound because: Post-op weakness, Unsafe to leave home unassisted (stoma care)
[2018-02-01 10:47] VITALS: BP 157/78; PULSE 63; RESP 18; TEMP 98.2; O2SAT 99
--- NOTE | 2018-02-01 16:38 | P.PNCS ---
Subjective Colorectal Surgery Post Op Day #: 4 Interval history: afebrile, VSS UO good alisson PO Objective Result Diagrams: 01/30/18 04:58 01/30/18 04:58 Objective Remarks: Abd: soft, dressing dry, stoma pink,some mild ischemia but viable. Drain removed by me wound dry Assessment and Plan - Assessment (1) Colonic mass Code(s): K63.9 - Disease of intestine, unspecified Status: Acute - Plan Diabetic diet. D/C in AM - home health prn RT Dr Ortega 1 - 2 weeks
== END 2018-02-01 11:00 | disposition home health service (06) ==
LOC: NEPE 21:10 → NEDA 01-26 00:36 → N06 01-26 02:10 → HCIS 01-28 17:52 → HCPC 01-28 20:14 → HCIS 01-30 11:11
PROVIDERS: ADMIT Colon & Rectal Surgery; ATTEND Colon & Rectal Surgery

== ENCOUNTER 2018-02-21 10:22 | Inpatient (IN) ==
[2018-02-21] MEDS ORDERED: Sod Chloride 0.9% Inj 1,000 ML IV.SIG ONE ×2 (11:05→12:35)
--- NOTE | 2018-02-21 11:15 | ED ---
HPI General Chief complaint: Abdominal Pain Stated complaint: Medical Time Seen by Provider: 02/21/18 10:59 Source: patient and old records reviewed Mode of arrival: ambulatory Limitations: no limitations History of Present Illness HPI narrative: The patient is a 62-year-old male status post colon resection due to malignant neoplasm of the sigmoid colon and Ileostomy presenting with complaint of discomfort around the stoma and multiple other complaints that include feeling generalized malaise weakness poor appetite loss of weight. Patient's daughter is with him and reports that he has been feeling very weak. Denies fever or chills. No nausea or vomiting. There is no increased output from the Ileostomy at this time Onset (ago): day(s) (1) Treatments prior to arrival: Reports none Related Data Home Medications Medication Instructions Recorded Confirmed metformin 500 mg PO BID 12/06/17 02/21/18 atenolol 50 mg PO HS 12/18/17 02/21/18 ferrous sulfate 250 mg PO BID 12/18/17 02/21/18 glimepiride 2 mg PO BID 12/18/17 02/21/18 lisinopril 10 mg PO DAILY 12/18/17 02/21/18 lovastatin 20 mg PO DAILY 12/18/17 02/21/18 oxycodone-acetaminophen 1 tab PO Q4-6H PRN 02/21/18 02/21/18 Previous Rx's Medication Instructions Recorded hydrocodone-acetaminophen 1 tab PO Q4H PRN tab 01/31/18 Allergies Allergy/AdvReac Type Severity Reaction Status Date / Time No Known Allergies Allergy Verified 02/21/18 10:25 Review of Systems Constitutional Reports body ache(s), Reports fatigue, Denies fever(s), Denies headache(s), Reports malaise, Reports poor appetite, Reports weakness and Reports weight loss PMFSH Medical History Medical History Anal fissure and fistula (Acute) Diabetes (Acute) High cholesterol (Acute) Hyperlipidemia (Acute) Hypertension (Acute) Malignant tumor of sigmoid colon (Acute) Right foot infection (Acute) Stage 3 chronic kidney disease (Acute) Surgical History Surgical History H/O eye surgery (Acute) H/O foot surgery (Acute) Family History Family History Father Lung cancer Social History Social History Substance History: No History of Abuse Second Hand Smoke Exposure: No Smoking Status: Former smoker Tobacco Type: Cigarettes How Often Do You Have a Drink Containing Alcohol: Never Recent Travel in [facility] within the Last 8 Weeks: No Recent Out of Country Travel within the Last 8 Weeks: No Immunization History Tetanus Immunization: Unsure Exam Narrative Exam Narrative: GENERAL: Alert and oriented in no distress. SKIN: Focused skin assessment warm/dry. Poor turgor HEAD: Atraumatic. Normocephalic. EYES: Pupils equal and round. No scleral icterus. No injection or drainage. ENT: No nasal bleeding or discharge. Mucous membranes dry NECK: Trachea midline. No JVD. CARDIOVASCULAR: Regular rate and rhythm. No murmur appreciated. RESPIRATORY: No accessory muscle use. Clear to auscultation. Breath sounds equal bilaterally. GASTROINTESTINAL: Abdomen soft, non-tender, nondistended. Skin irritation around the stoma. No signs of cellulitis. No rebound tenderness. No peritoneal signs. Hepatic and splenic margins not palpable. Ileostomy bag with minimal stool. MUSCULOSKELETAL: No obvious deformities. No clubbing. No cyanosis. No edema. NEUROLOGICAL: Awake and alert. No obvious cranial nerve deficits. Motor grossly within normal limits. Normal speech. PSYCHIATRIC: Appropriate mood and affect; insight and judgment normal. Course Reevaluation(s) Reevaluation #1: Glucose is trending down again we will repeat the dose of D50. Time: 13:31 Initial Documented Vital Signs Temperature 97.2 F L 02/21/18 10:23 Pulse Rate 68 02/21/18 10:23 Respiratory Rate 20 02/21/18 10:23 Blood Pressure 95/61 L 02/21/18 10:23 Pulse Oximetry 100 02/21/18 10:23 Last Documented Vital Signs Temperature 98.2 F 02/22/18 12:00 Pulse Rate 90 02/22/18 14:00 Respiratory Rate 20 02/22/18 14:00 Blood Pressure 159/78 H 02/22/18 14:00 Pulse Oximetry 100 02/22/18 14:00 Critical Care Time Critical Care Time: Yes Total Critical Care Time: 45 Attestation: Aggregate critical care time was 45 minutes. Time to perform other separately billable procedures was not included in the critical care time. My time did not include minutes spent treating any other patients simultaneously or on activities that did not directly contribute to the patient's treatment. The services I provided to this patient were to treat and/or prevent clinically significant deterioration that could result in: I provided critical care services requiring my management, as noted below: Chart data review, documentation time, medication orders and management, vital sign assessments/reviewing monitor data, ordering and reviewing lab tests, ordering and interpreting/reviewing x-rays and diagnostic studies, care of the patient and discussion of the patient with the admitting physicians. Medical Decision Making MDM Narrative Medical decision making narrative: Patient with a hyperkalemia of 7.6 and a markedly elevated creatinine over 6 likely from severe dehydration secondary to high output ileostomy. Treated with insulin and D50. No laxatives were used due to diarrhea. Patient was hydrated. Hemodynamically stable in the ED. Had several episodes of hypoglycemia that were dressed with D50. Dr Ortega was consulted and saw and evaluated the patient at bedside. Medical Screen Exam Complete: Yes Emergency Medical Condition: Yes Lab Data Result diagrams: 02/22/18 05:52 02/22/18 05:52 Lab Results 02/21/18 02/21/18 02/21/18 Range/Units 11:20 11:20 11:20 WBC 17.2 H (4.0-11.0) th/mm3 RBC 4.56 (4.50-5.90) mil/mm3 Hgb 12.3 L (13.0-17.0) gm/dL Hct 38.0 L (39.0-51.0) % MCV 83.3 (80.0-100.0) fL MCH 26.9 L (27.0-34.0) pg MCHC 32.3 (32.0-36.0) % RDW 18.6 H (11.6-17.2) % Plt Count 415 (150-450) th/mm3 MPV 8.5 (7.0-11.0) fL Neut % (Auto) 84.9 H (16.0-70.0) % Lymph % (Auto) 5.3 L (9.0-44.0) % [place] % (Auto) 8.7 H (0.0-8.0) % Eos % (Auto) 0.9 (0.0-4.0) % Baso % (Auto) 0.2 (0.0-2.0) % Neut # (Auto) 14.6 H (1.8-7.7) th/mm3 Lymph # (Auto) 0.9 L (1.0-4.8) th/mm3 [place] # (Auto) 1.5 H (0.0-0.9) th/mm3 Eos # (Auto) 0.2 (0.0-0.4) th/mm3 Baso # (Auto) 0.0 (0.0-0.2) th/mm3 WBC Differential . Differential Comment Auto diff final Sodium 132 L (136-145) meq/L Potassium 7.6 H* (3.5-5.1) meq/L Chloride 101 (98-107) meq/L Carbon Dioxide 16.7 L (21.0-32.0) meq/L Anion Gap 14 (5-15) meq/L BUN 87 H (7-18) mg/dL Creatinine 6.56 H (0.60-1.30) mg/dL Estimated GFR 9 L (>89) mL/min POC Glucose (68-110) mg/dl Random Glucose 42 L* (74-106) mg/dL Lactic Acid 1.4 (0.4-2.0) mmol/L Calcium 9.7 (8.5-10.1) mg/dL Magnesium 2.7 H (1.5-2.5) mg/dL Total Bilirubin 0.3 (0.2-1.0) mg/dL AST 33 (15-37) U/L ALT 61 (12-78) U/L Alkaline Phosphatase 217 H (45-117) U/L Troponin I Less than 0.02 L (0.02-0.05) ng/mL C-Reactive Protein 9.60 H (0.00-0.30) mg/dL Total Protein 8.6 H (6.4-8.2) g/dL Albumin 3.2 L (3.4-5.0) g/dL Lipase 508 H (73-393) U/L Urine Color (Yellw/Straw) Urine Clarity (Clear) Urine pH (5.0-8.5) Ur Specific [place] (1.002-1.035) Urine Protein (Neg-Trace) mg/dL Urine Glucose (UA) (Negative) mg/dL Urine Ketones (Negative) mg/dL Urine Occult Blood (Negative) Urine Nitrate (Negative) Urine Bilirubin (Negative) Urine Urobilinogen (Less than 2) mg/dL Ur Leukocyte Esterase (Negative) Urine RBC (0-3) /hpf Urine WBC (0-5) /hpf Urine WBC Clumps (None) Ur Squamous Epith Cells (0-5) /hpf Urine Bacteria (None) /hpf Hyaline Casts (0-3) /lpf Urine Mucus (Occasional) /lpf Micro UA Comment Ur Microscopic Review Urine Culture Comments Nasal Screen MRSA (PCR) (Negative) 02/21/18 02/21/18 02/21/18 Range/Units 14:35 16:32 19:30 WBC (4.0-11.0) th/mm3 RBC (4.50-5.90) mil/mm3 Hgb (13.0-17.0) gm/dL Hct (39.0-51.0) % MCV (80.0-100.0) fL MCH (27.0-34.0) pg MCHC (32.0-36.0) % RDW (11.6-17.2) % Plt Count (150-450) th/mm3 MPV (7.0-11.0) fL Neut % (Auto) (16.0-70.0) % Lymph % (Auto) (9.0-44.0) % [place] % (Auto) (0.0-8.0) % Eos % (Auto) (0.0-4.0) % Baso % (Auto) (0.0-2.0) % Neut # (Auto) (1.8-7.7) th/mm3 Lymph # (Auto) (1.0-4.8) th/mm3 [place] # (Auto) (0.0-0.9) th/mm3 Eos # (Auto) (0.0-0.4) th/mm3 Baso # (Auto) (0.0-0.2) th/mm3 WBC Differential Differential Comment Sodium 136 (136-145) meq/L Potassium 6.7 H* D (3.5-5.1) meq/L Chloride 111 H D (98-107) meq/L Carbon Dioxide 16.5 L (21.0-32.0) meq/L Anion Gap 9 (5-15) meq/L BUN 81 H (7-18) mg/dL Creatinine 5.38 H (0.60-1.30) mg/dL Estimated GFR 11 L (>89) mL/min POC Glucose (68-110) mg/dl Random Glucose 43 L* (74-106) mg/dL Lactic Acid (0.4-2.0) mmol/L Calcium 8.4 L D (8.5-10.1) mg/dL Magnesium (1.5-2.5) mg/dL Total Bilirubin (0.2-1.0) mg/dL AST (15-37) U/L ALT (12-78) U/L Alkaline Phosphatase (45-117) U/L Troponin I (0.02-0.05) ng/mL C-Reactive Protein (0.00-0.30) mg/dL Total Protein (6.4-8.2) g/dL Albumin (3.4-5.0) g/dL Lipase (73-393) U/L Urine Color Yellow (Yellw/Straw) Urine Clarity Cloudy H (Clear) Urine pH 5.0 (5.0-8.5) Ur Specific [place] 1.012 (1.002-1.035) Urine Protein 30 H (Neg-Trace) mg/dL Urine Glucose (UA) Negative (Negative) mg/dL Urine Ketones Negative (Negative) mg/dL Urine Occult Blood Small H (Negative) Urine Nitrate Negative (Negative) Urine Bilirubin Negative (Negative) Urine Urobilinogen Less than 2 (Less than 2) mg/dL Ur Leukocyte Esterase Large H (Negative) Urine RBC 11 H (0-3) /hpf Urine WBC 143 H (0-5) /hpf Urine WBC Clumps Few H (None) Ur Squamous Epith Cells 2 (0-5) /hpf Urine Bacteria Few H (None) /hpf Hyaline Casts 27 (0-3) /lpf Urine Mucus Few H (Occasional) /lpf Micro UA Comment Culture indicated Ur Microscopic Review Not Reportable Urine Culture Comments Culture indicated Nasal Screen MRSA (PCR) Not detected (Negative) 11/15/18 11/15/18 11/15/18 Range/Units 20:50 22:26 22:51 WBC (4.0-11.0) th/mm3 RBC (4.50-5.90) mil/mm3 Hgb (13.0-17.0) gm/dL Hct (39.0-51.0) % MCV (80.0-100.0) fL MCH (27.0-34.0) pg MCHC (32.0-36.0) % RDW (11.6-17.2) % Plt Count (150-450) th/mm3 MPV (7.0-11.0) fL Neut % (Auto) (16.0-70.0) % Lymph % (Auto) (9.0-44.0) % [place] % (Auto) (0.0-8.0) % Eos % (Auto) (0.0-4.0) % Baso % (Auto) (0.0-2.0) % Neut # (Auto) (1.8-7.7) th/mm3 Lymph # (Auto) (1.0-4.8) th/mm3 [place] # (Auto) (0.0-0.9) th/mm3 Eos # (Auto) (0.0-0.4) th/mm3 Baso # (Auto) (0.0-0.2) th/mm3 WBC Differential Differential Comment Sodium 139 (136-145) meq/L Potassium 6.6 H* (3.5-5.1) meq/L Chloride 114 H (98-107) meq/L Carbon Dioxide 16.2 L (21.0-32.0) meq/L Anion Gap 9 (5-15) meq/L BUN 72 H (7-18) mg/dL Creatinine 4.60 H (0.60-1.30) mg/dL Estimated GFR 13 L (>89) mL/min POC Glucose 57 L 54 L (68-110) mg/dl Random Glucose 65 L (74-106) mg/dL Lactic Acid (0.4-2.0) mmol/L Calcium 8.1 L (8.5-10.1) mg/dL Magnesium (1.5-2.5) mg/dL Total Bilirubin (0.2-1.0) mg/dL AST (15-37) U/L ALT (12-78) U/L Alkaline Phosphatase (45-117) U/L Troponin I (0.02-0.05) ng/mL C-Reactive Protein (0.00-0.30) mg/dL Total Protein (6.4-8.2) g/dL Albumin (3.4-5.0) g/dL Lipase (73-393) U/L Urine Color (Yellw/Straw) Urine Clarity (Clear) Urine pH (5.0-8.5) Ur Specific [place] (1.002-1.035) Urine Protein (Neg-Trace) mg/dL Urine Glucose (UA) (Negative) mg/dL Urine Ketones (Negative) mg/dL Urine Occult Blood (Negative) Urine Nitrate (Negative) Urine Bilirubin (Negative) Urine Urobilinogen (Less than 2) mg/dL Ur Leukocyte Esterase (Negative) Urine RBC (0-3) /hpf Urine WBC (0-5) /hpf Urine WBC Clumps (None) Ur Squamous Epith Cells (0-5) /hpf Urine Bacteria (None) /hpf Hyaline Casts (0-3) /lpf Urine Mucus (Occasional) /lpf Micro UA Comment Ur Microscopic Review Urine Culture Comments Nasal Screen MRSA (PCR) (Negative) 02/21/18 02/22/18 02/22/18 Range/Units 23:13 00:30 03:56 WBC (4.0-11.0) th/mm3 RBC (4.50-5.90) mil/mm3 Hgb (13.0-17.0) gm/dL Hct (39.0-51.0) % MCV (80.0-100.0) fL MCH (27.0-34.0) pg MCHC (32.0-36.0) % RDW (11.6-17.2) % Plt Count (150-450) th/mm3 MPV (7.0-11.0) fL Neut % (Auto) (16.0-70.0) % Lymph % (Auto) (9.0-44.0) % [place] % (Auto) (0.0-8.0) % Eos % (Auto) (0.0-4.0) % Baso % (Auto) (0.0-2.0) % Neut # (Auto) (1.8-7.7) th/mm3 Lymph # (Auto) (1.0-4.8) th/mm3 [place] # (Auto) (0.0-0.9) th/mm3 Eos # (Auto) (0.0-0.4) th/mm3 Baso # (Auto) (0.0-0.2) th/mm3 WBC Differential Differential Comment Sodium 140 (136-145) meq/L Potassium 6.7 H* (3.5-5.1) meq/L Chloride 116 H (98-107) meq/L Carbon Dioxide 15.4 L (21.0-32.0) meq/L Anion Gap 9 (5-15) meq/L BUN 69 H (7-18) mg/dL Creatinine 4.24 H (0.60-1.30) mg/dL Estimated GFR 14 L (>89) mL/min POC Glucose 162 H 81 (68-110) mg/dl Random Glucose 67 L (74-106) mg/dL Lactic Acid (0.4-2.0) mmol/L Calcium 8.2 L (8.5-10.1) mg/dL Magnesium (1.5-2.5) mg/dL Total Bilirubin (0.2-1.0) mg/dL AST (15-37) U/L ALT (12-78) U/L Alkaline Phosphatase (45-117) U/L Troponin I (0.02-0.05) ng/mL C-Reactive Protein (0.00-0.30) mg/dL Total Protein (6.4-8.2) g/dL Albumin (3.4-5.0) g/dL Lipase (73-393) U/L Urine Color (Yellw/Straw) Urine Clarity (Clear) Urine pH (5.0-8.5) Ur Specific [place] (1.002-1.035) Urine Protein (Neg-Trace) mg/dL Urine Glucose (UA) (Negative) mg/dL Urine Ketones (Negative) mg/dL Urine Occult Blood (Negative) Urine Nitrate (Negative) Urine Bilirubin (Negative) Urine Urobilinogen (Less than 2) mg/dL Ur Leukocyte Esterase (Negative) Urine RBC (0-3) /hpf Urine WBC (0-5) /hpf Urine WBC Clumps (None) Ur Squamous Epith Cells (0-5) /hpf Urine Bacteria (None) /hpf Hyaline Casts (0-3) /lpf Urine Mucus (Occasional) /lpf Micro UA Comment Ur Microscopic Review Urine Culture Comments Nasal Screen MRSA (PCR) (Negative) 02/22/18 02/22/18 02/22/18 Range/Units 05:52 05:52 09:18 WBC 8.0 D (4.0-11.0) th/mm3 RBC 3.67 L (4.50-5.90) mil/mm3 Hgb 9.9 L D (13.0-17.0) gm/dL Hct 30.2 L (39.0-51.0) % MCV 82.1 (80.0-100.0) fL MCH 26.9 L (27.0-34.0) pg MCHC 32.7 (32.0-36.0) % RDW 18.8 H (11.6-17.2) % Plt Count 262 D (150-450) th/mm3 MPV 8.9 (7.0-11.0) fL Neut % (Auto) 71.5 H (16.0-70.0) % Lymph % (Auto) 11.0 (9.0-44.0) % [place] % (Auto) 14.3 H (0.0-8.0) % Eos % (Auto) 3.0 (0.0-4.0) % Baso % (Auto) 0.2 (0.0-2.0) % Neut # (Auto) 5.7 (1.8-7.7) th/mm3 Lymph # (Auto) 0.9 L (1.0-4.8) th/mm3 [place] # (Auto) 1.1 H (0.0-0.9) th/mm3 Eos # (Auto) 0.2 (0.0-0.4) th/mm3 Baso # (Auto) 0.0 (0.0-0.2) th/mm3 WBC Differential . Differential Comment Auto diff final Sodium 141 (136-145) meq/L Potassium 6.1 H (3.5-5.1) meq/L Chloride 114 H (98-107) meq/L Carbon Dioxide 16.8 L (21.0-32.0) meq/L Anion Gap 10 (5-15) meq/L BUN 62 H (7-18) mg/dL Creatinine 3.80 H (0.60-1.30) mg/dL Estimated GFR 16 L (>89) mL/min POC Glucose 138 H (68-110) mg/dl Random Glucose 102 (74-106) mg/dL Lactic Acid (0.4-2.0) mmol/L Calcium 8.1 L (8.5-10.1) mg/dL Magnesium (1.5-2.5) mg/dL Total Bilirubin 0.3 (0.2-1.0) mg/dL AST 21 (15-37) U/L ALT 40 (12-78) U/L Alkaline Phosphatase 159 H (45-117) U/L Troponin I (0.02-0.05) ng/mL C-Reactive Protein (0.00-0.30) mg/dL Total Protein 6.6 D (6.4-8.2) g/dL Albumin 2.4 L D (3.4-5.0) g/dL Lipase (73-393) U/L Urine Color (Yellw/Straw) Urine Clarity (Clear) Urine pH (5.0-8.5) Ur Specific [place] (1.002-1.035) Urine Protein (Neg-Trace) mg/dL Urine Glucose (UA) (Negative) mg/dL Urine Ketones (Negative) mg/dL Urine Occult Blood (Negative) Urine Nitrate (Negative) Urine Bilirubin (Negative) Urine Urobilinogen (Less than 2) mg/dL Ur Leukocyte Esterase (Negative) Urine RBC (0-3) /hpf Urine WBC (0-5) /hpf Urine WBC Clumps (None) Ur Squamous Epith Cells (0-5) /hpf Urine Bacteria (None) /hpf Hyaline Casts (0-3) /lpf Urine Mucus (Occasional) /lpf Micro UA Comment Ur Microscopic Review Urine Culture Comments Nasal Screen MRSA (PCR) (Negative) 02/22/18 02/22/18 Range/Units 11:48 18:27 WBC (4.0-11.0) th/mm3 RBC (4.50-5.90) mil/mm3 Hgb (13.0-17.0) gm/dL Hct (39.0-51.0) % MCV (80.0-100.0) fL MCH (27.0-34.0) pg MCHC (32.0-36.0) % RDW (11.6-17.2) % Plt Count (150-450) th/mm3 MPV (7.0-11.0) fL Neut % (Auto) (16.0-70.0) % Lymph % (Auto) (9.0-44.0) % [place] % (Auto) (0.0-8.0) % Eos % (Auto) (0.0-4.0) % Baso % (Auto) (0.0-2.0) % Neut # (Auto) (1.8-7.7) th/mm3 Lymph # (Auto) (1.0-4.8) th/mm3 [place] # (Auto) (0.0-0.9) th/mm3 Eos # (Auto) (0.0-0.4) th/mm3 Baso # (Auto) (0.0-0.2) th/mm3 WBC Differential Differential Comment Sodium (136-145) meq/L Potassium (3.5-5.1) meq/L Chloride (98-107) meq/L Carbon Dioxide (21.0-32.0) meq/L Anion Gap (5-15) meq/L BUN (7-18) mg/dL Creatinine (0.60-1.30) mg/dL Estimated GFR (>89) mL/min POC Glucose 217 H 332 H (68-110) mg/dl Random Glucose (74-106) mg/dL Lactic Acid (0.4-2.0) mmol/L Calcium (8.5-10.1) mg/dL Magnesium (1.5-2.5) mg/dL Total Bilirubin (0.2-1.0) mg/dL AST (15-37) U/L ALT (12-78) U/L Alkaline Phosphatase (45-117) U/L Troponin I (0.02-0.05) ng/mL C-Reactive Protein (0.00-0.30) mg/dL Total Protein (6.4-8.2) g/dL Albumin (3.4-5.0) g/dL Lipase (73-393) U/L Urine Color (Yellw/Straw) Urine Clarity (Clear) Urine pH (5.0-8.5) Ur Specific Etters (1.002-1.035) Urine Protein (Neg-Trace) mg/dL Urine Glucose (UA) (Negative) mg/dL Urine Ketones (Negative) mg/dL Urine Occult Blood (Negative) Urine Nitrate (Negative) Urine Bilirubin (Negative) Urine Urobilinogen (Less than 2) mg/dL Ur Leukocyte Esterase (Negative) Urine RBC (0-3) /hpf Urine WBC (0-5) /hpf Urine WBC Clumps (None) Ur Squamous Epith Cells (0-5) /hpf Urine Bacteria (None) /hpf Hyaline Casts (0-3) /lpf Urine Mucus (Occasional) /lpf Micro UA Comment Ur Microscopic Review Urine Culture Comments Nasal Screen MRSA (PCR) (Negative) Imaging Data Radiologist's impression: Abdomen/Bladder Ultrasound 02/21/18 14:39 CONCLUSION: 1. Right lower pole renal cyst measuring 1.6 x 1.4 x 1.6 cm. 2. Echogenic kidneys consistent with probable medical renal disease. 3. No solid mass or hydronephrosis. ECG Data Attestation: I personally reviewed and interpreted this ECG as follows: Interpretation: EKG obtained at 11:30 AM revealed sinus rhythm with a ventricular rate of 63 bpm MA interval 183 ms QTC of 371 ms. Normal axis. Nonspecific ST-T wave abnormalities. Peak T waves on precordial leads. no signs of acute ischemia Discharge Plan Discharge Disposition Patient Disposition: 30 Still Patient Discharge Condition Condition: Serious Discharge Details Diagnosis: Acute hyperkalemia, Acute dehydration, DAMON (acute kidney injury) Physicians Team ED Provider: Trey Mays Primary Care Provider: UNKNOWN, Attending Provider: Foster Kelly Other Providers: Natalio Ortega Abdul Status ED Status: Left Department Discharge Information Discharge Date/Time: 02/21/18 19:41
[2018-02-21 11:37] LABS: Baso % (Auto) 0.2 % (0.0-2.0); Eos # (Auto) 0.2 th/mm3 (0.0-0.4); Eos % (Auto) 0.9 % (0.0-4.0); Hemoglobin 12.3 gm/dL (13.0-17.0); Lymph # (Auto) 0.9 th/mm3 (1.0-4.8); Lymph % (Auto) 5.3 % (9.0-44.0); Mean Corpuscular HGB Conc 32.3 % (32.0-36.0); Mean Corpuscular Hemoglobin 26.9 pg (27.0-34.0); Mean Corpuscular Volume 83.3 fL (80.0-100.0); Mean Platelet Volume 8.5 fL (7.0-11.0); Mono # (Auto) 1.5 th/mm3 (0.0-0.9); Mono % (Auto) 8.7 % (0.0-8.0); Neut # (Auto) 14.6 th/mm3 (1.8-7.7); Neut % (Auto) 84.9 % (16.0-70.0); Platelet Count 415 th/mm3 (150-450); Red Blood Count 4.56 mil/mm3 (4.50-5.90); Red Cell Distribution Width 18.6 % (11.6-17.2); White Blood Count 17.2 th/mm3 (4.0-11.0)
[2018-02-21 12:17] LABS: Alanine Aminotransferase 61 U/L (12-78); Albumin 3.2 g/dL (3.4-5.0); Alkaline Phosphatase 217 U/L (45-117); Anion Gap 14 meq/L (5-15); Aspartate Aminotransferase 33 U/L (15-37); Blood Urea Nitrogen 87 mg/dL (7-18); Calcium 9.7 mg/dL (8.5-10.1); Carbon Dioxide 16.7 meq/L (21.0-32.0); Chloride 101 meq/L (98-107); Glomerular Filtration Rate 9 mL/min (>89); Lipase 508 U/L (73-393); Magnesium 2.7 mg/dL (1.5-2.5); Sodium 132 meq/L (136-145); Total Protein 8.6 g/dL (6.4-8.2)
[2018-02-21 12:29] LABS: Potassium 7.6 meq/L (3.5-5.1)
[2018-02-21 12:30] LABS: Glucose,Random 42 mg/dL (74-106)
--- NOTE | 2018-02-21 13:19 | P.HP ---
History of Present Illness Primary Care Physician: UNKNOWN Chief Complaint: Abdominal Pain History of Present Illness: This is a pleasant 62 y/o Male with status post colon resection due to malignant neoplasm of the sigmoid colon and colostomy presenting with complaint of discomfort around the stoma and multiple other complaints that include feeling generalized malaise weakness poor appetite loss of weight. Patient's daughter is with him and reports that he has been feeling very weak. Denies fever or chills. No nausea or vomiting. There is no increase of the colostomy output, he has DM II, Hypertension, Iron deficiency anemia, Hyperlipidemia, Chronic pain syndrome. ECG sinus rhythm, Seen in Emergency room in the presence of nurse and ER physician, the patient is stable with chills, no fever, his potassium level 7.6, given Dextrose 50 grams and insulin, also giving Kayexalate IV fluids and following BMP at 1600 hours. Review of Systems All other systems reviewed negative except as stated in [facility] - History History Provided By: Patient - Medical History Medical History: Medical History (Last Reviewed 02/21/18 @ 10:24 by Cydney Jenkins) Anal fissure and fistula Diabetes High cholesterol Hyperlipidemia Hypertension Malignant tumor of sigmoid colon Right foot infection Stage 3 chronic kidney disease - Surgical History Surgical History: Surgical History (Last Reviewed 02/21/18 @ 10:24 by Cydney Jenkins) H/O eye surgery H/O foot surgery - Family History Family History: Family History (Last Reviewed 01/25/18 @ 23:26 by TESSA Andres) Father Lung cancer - Tobacco History Second Hand Smoke Exposure: No Tobacco Use In Past 30 Days: No Smoking Status: Former smoker Tobacco Type: Cigarettes - Alcohol History How Often Do You Have a Drink Containing Alcohol: Never - Substance Use History Substance History: No History of Abuse - Travel History Recent Travel in the [place] Within the Last 8 Weeks: No Recent Travel Out of the Country Within the Last 8 Weeks: No - Immunization History Tetanus Immunization: Unsure Medications and Allergies Allergies Allergy/AdvReac Type Severity Reaction Status Date / Time No Known Allergies Allergy Verified 02/21/18 10:25 Home Medications Medication Instructions Recorded Confirmed Type metformin 500 mg PO BID 12/06/17 02/21/18 History atenolol 50 mg PO HS 12/18/17 02/21/18 History ferrous sulfate 250 mg PO BID 12/18/17 02/21/18 History glimepiride 2 mg PO BID 12/18/17 02/21/18 History lisinopril 10 mg PO DAILY 12/18/17 02/21/18 History lovastatin 20 mg PO DAILY 12/18/17 02/21/18 History oxycodone-acetaminophen 1 tab PO Q4-6H PRN 02/21/18 02/21/18 History Exam Vital signs: Vital Signs 02/21/18 10:23 02/21/18 10:57 Temperature 97.2 F L Pulse Rate 68 62 Respiratory Rate 20 14 Blood Pressure 95/61 L 102/52 L Pulse Oximetry 100 99 Intake & Output 02/20/18 02/21/18 02/21/18 18:59 06:59 18:59 Weight 72.575 kg Narrative: GENERAL: Cachectic, well-developed patient, in no apparent distress. CARDIOVASCULAR: Regular rate and rhythm without murmurs, gallops, or rubs. RESPIRATORY: Clear to auscultation. Breath sounds equal bilaterally. No wheezes , rales, or rhonchi. GASTROINTESTINAL: Abdomen soft, non-tender, nondistended. Normal active bowel sounds MUSCULOSKELETAL: Extremities without clubbing, cyanosis, or edema. NEURO: Alert & Oriented x4 to person, place, time, situation. Moves all ext x4 Results - Labs CBC & Chem 7: 02/21/18 11:20 02/21/18 11:20 Labs: Laboratory Results - last 24 hr 02/21/18 02/21/18 02/21/18 11:20 11:20 11:20 WBC 17.2 H RBC 4.56 Hgb 12.3 L Hct 38.0 L MCV 83.3 MCH 26.9 L MCHC 32.3 RDW 18.6 H Plt Count 415 MPV 8.5 Neut % (Auto) 84.9 H Lymph % (Auto) 5.3 L Bartholomew % (Auto) 8.7 H Eos % (Auto) 0.9 Baso % (Auto) 0.2 Neut # (Auto) 14.6 H Lymph # (Auto) 0.9 L Bartholomew # (Auto) 1.5 H Eos # (Auto) 0.2 Baso # (Auto) 0.0 WBC Differential . Differential Comment Auto diff final Sodium 132 L Potassium 7.6 H* Chloride 101 Carbon Dioxide 16.7 L Anion Gap 14 BUN 87 H Creatinine 6.56 H Estimated GFR 9 L Random Glucose 42 L* Lactic Acid 1.4 Calcium 9.7 Magnesium 2.7 H Total Bilirubin 0.3 AST 33 ALT 61 Alkaline Phosphatase 217 H Troponin I Less than 0.02 L C-Reactive Protein 9.60 H Total Protein 8.6 H Albumin 3.2 L Lipase 508 H Caprini VTE Risk Assessment Caprini VTE Risk Assessment: Moderate/High Risk (score >= 2) Caprini Risk Assessment Model: Point Value = 1 Point Value = 2 Point Value = 3 Point Value = 5 Age 41-60 Minor surgery BMI > 25 kg/m2 Swollen legs Varicose veins or History of unexplained or recurrent spontaneous Oral contraceptives or hormone replacement Sepsis (< 1 month) Serious lung disease, including pneumonia (< 1 month) Abnormal pulmonary function Acute myocardial infarction Congestive heart failure (< 1 month) History of inflammatory bowel disease Medical patient at bed rest Age 61-74 Arthroscopic surgery Major open surgery (> 45 min) Laparoscopic surgery (> 45 min) Malignancy Confined to bed (> 72 hours) Immobilizing plaster cast Central venous access Age >= 75 History of VTE Family history of VTE Factor V Leiden Prothrombin [id number] Lupus anticoagulant Anticardiolipin antibodies Elevated serum homocysteine Heparin-induced thrombocytopenia Other congenital or acquired thrombophilia Stroke (< 1 month) Elective arthroplasty Hip, pelvis, or leg fracture Acute spinal cord injury (< 1 month) Prophylaxis Regimen: Total Risk Factor Score Risk Level Prophylaxis Regimen 0-1 Low Early ambulation 2 Moderate Order ONE of the following: *Sequential Compression Device (SCD) *Heparin 5000 units SQ BID 3-4 Higher Order ONE of the following medications: *Heparin 5000 units SQ TID *Enoxaparin/Lovenox 40 mg SQ daily (WT < 150 kg, CrCl > 30 mL/min) *Enoxaparin/Lovenox 30 mg SQ daily (WT < 150 kg, CrCl > 10-29 mL/min) *Enoxaparin/Lovenox 30 mg SQ BID (WT < 150 kg, CrCl > 30 mL/min) AND/OR *Sequential Compression Device (SCD) 5 or more Highest Order ONE of the following medications: *Heparin 5000 units SQ TID (Preferred with Epidurals) *Enoxaparin/Lovenox 40 mg SQ daily (WT < 150 kg, CrCl > 30 mL/min) *Enoxaparin/Lovenox 30 mg SQ daily (WT < 150 kg, CrCl > 10-29 mL/min) *Enoxaparin/Lovenox 30 mg SQ BID (WT < 150 kg, CrCl > 30 mL/min) AND *Sequential Compression Device (SCD) Assessment and Plan - Plan 1. 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 status post sigmoid Colectomy with Low anterior resection, Small bowel resection with anastomosis, intraoperative colonoscopy Anal Fistulotomy, by Doctor Natalio Ortega and Doctor Ernesto Montalvo, He was discharged on Post operative day #4, followed by master lay out specialist Doctor Sisi Ho, his relatives asking for his primary managing team asked for Doctor Ortega and Doctor Ho. 2. Weakness the patient is not been eating and drinking properly, giving IV fluids and will continue diet as tolerated add Protein shakes. following specialist recommendations. 3. DM II on hold Home medicines, patient will continue Regular diet at this time due to hypoglycemia. 4. Hypertension controlled will continue home medicines once blood pressure starts to increase 5. Iron deficiency anemia by history 6. Hyperlipidemia to continue Home medicines. 7. Chronic pain syndrome continue home pain medicines. 8. Acute Kidney Injury probable pre renal asked for renal US and following on IV fluids, get new BMP at 1600 hours now 9. Hyperkalemia probable artifact due to Hypovolemia, patient dehydrated and with Hypoglycemia will follow with IV fluids started on Dextrose 5% in NS and following closely. DVT prophylaxis with Heparin Code Status: Full code. Discussed Condition With: Patient and ER physician Discharge Planning: once cleared by specialists.
[2018-02-21] MEDS ORDERED: Acetaminophen 325 MG Tablet PO PRN (13:20)
[2018-02-21] MEDS ORDERED: Dextrose 5%/NaCl 0.9% Inj 1,000 ML IV.CONT SCH (13:30)
[2018-02-21] MEDS ORDERED: Sodium Chloride 0.9% 2 ML Flush PRN IV.FLUSH (14:05)
[2018-02-21] MEDS ORDERED: Bisacodyl 10 MG Supp RECTAL PRN (15:00)
[2018-02-21] MEDS ORDERED: Sodium Polystyrene Sulfonate/Sorbitol Liq 15 GM/60 ML UDC PO ONE (15:00)
[2018-02-21] MEDS ORDERED: Sod Chloride 0.9% Inj 1,000 ML IV.SIG SCH (15:40)
[2018-02-21 15:44] LABS: Bacteria,Urine Few /hpf; Bilirubin,Urine Negative (Negative); Clarity,Urine Cloudy (Clear); Color,Urine Yellow (Yellw/Straw); Glucose,Urine (UA) Negative (Negative); Hyaline Casts,Urine 27 /lpf (0-3); Leukocyte Esterase,Urine Large (Negative); Mucus,Urine Few /lpf (Occasional); Nitrite,Urine Negative (Negative); Specific Gravity,Urine 1.012 (1.002-1.035); Squamous Epithelial Cell,Urine 2 /hpf (0-5)
--- NOTE | 2018-02-21 15:44 | US ---
EXAM DATE: 02/21/2018 3:37 PM EST AGE/SEX: 62 years / Male INDICATIONS: Acute kidney injury. CLINICAL DATA: This is the patient's initial encounter. Patient reports that signs and symptoms have been present for 1 day and indicates a pain score of 0/10. MEDICAL/SURGICAL HISTORY: Diabetes. Hypercholesterolemia. Hypertension. Malignant tumor of t he sigmoid colon. Anal fissure and fistula. Chronic kidney disease - Stage III Colon resection. Ey e surgery. Foot surgery. COMPARISON: [facility] [place] PELVIS W CONTRAST, 01/26/2018. . MEASUREMENTS: Right Kidney:__11.6 x 6.2 x 6.4 cm Left Kidney:__10.9 x 5.1 x 6.8 cm FINDINGS: Right Kidney: Increased echotexture. No solid mass or hydronephrosis. Simple cyst is noted within the lower pole of the right kidney measuring 1.6 x 1.4 x 1.6 cm. Left Kidney: Increased echotexture. No solid mass or hydronephrosis. Bladder: Within normal limits given the degree of distension. Other: None. CONCLUSION: 1. Right lower pole renal cyst measuring 1.6 x 1.4 x 1.6 cm. 2. Echogenic kidneys consistent with probable medical renal disease. 3. No solid mass or hydronephrosis. Electronically signed by: Faraz Shelley MD 02/21/2018 3:42 PM EST
[2018-02-21] MEDS: Insulin NovoLOG Aspart Correctional Sugar Inj SQ SCH ×2 (16:18→22:49)
[2018-02-21] MEDS: Dextrose 5%/NaCl 0.9% Inj 1,000 ML IV.CONT SCH ×3 (16:35→22:50)
--- NOTE | 2018-02-21 18:01 | MB ---
cc: Natalio Ortega MD, John T MD Sanchez Delacruz, Guillermo MD Papandreou, Stavros D DO DATE: 02/21/2018 CHIEF COMPLAINT: Nausea, vomiting, weakness, dehydration. HISTORY OF PRESENT ILLNESS: This patient is well known to me. I saw him with a near obstructing lesion of his sigmoid colon. The patient did not have any insurance, but presented to the hospital about 3 weeks ago with partial obstruction of his sigmoid colon. He underwent a semi-emergent sigmoid colectomy with a diverting loop ileostomy on 01/28/2018. Postoperatively, he did well. He went home from the hospital in 4 days' time on 02/01/2018. I saw him in the office about a week later, on 02/07/2018, and he was doing well. I saw him with his brother. I counseled him about measuring his ileostomy outputs and he did so, but did not seem that he was having high output from his ileostomy. Apparently, he became more weak yesterday and then developed nausea, vomiting and we instructed him to go to the emergency department for probable dehydration. He presented to the emergency department and his blood pressure was 95/61, his pulse was 68, his temperature was 97.2, respiratory rate was 20 per minute. He was 100% saturated on room air. The patient was given 2 immediate liters of saline solution in the emergency department. LABORATORY DATA: Showed that his white blood cell count was elevated at 17,200, his hemoglobin 12.3, hematocrit 38. His chemistries showed that his sodium was decreased at 132, potassium was elevated at 7.6, chloride was 101 and total CO2 was 16.7. BUN was elevated to 87, creatinine to 6.56. His glucose was decreased at 42; however, he was awake and alert. His magnesium was elevated at 2.7. Alkaline phosphatase, lipase, albumin, and protein were all elevated due to volume contraction. The patient tells me that he is nonoliguric that he is urinating a lot of urine every day, and he is not having any pain other than peristomal pain from irritation. He has not had home health nursing since he went home because of lack of insurance. However, I was following him in the office and try to instruct him on appliance usage and possibilities of dehydration. His brother Nino was helping him, but he left about 2 weeks ago and the patient was being assisted by his daughter. Past medical history, family history, social history, review of systems otherwise negative. PHYSICAL EXAMINATION: GENERAL: Well-developed, well-nourished male complaining of nausea. SKIN: Warm and dry. HEENT: Extraocular muscles intact. Mouth is dry. Mucous membranes are all dry. NECK: Supple. CHEST: Clear. CARDIOVASCULAR: S1, S2 is heard. No murmurs or gallops. ABDOMEN: Flat, soft, nontender, no masses. He is cutting his ileostomy appliance much too wide and therefore he has peristomal skin irritation. This present appliance needs to be changed at this time. I discussed it with nursing. We will consult enterostomal nursing; if they cannot change and I will have the nurses in the emergency department change it. RECTAL: Exam was not done. EXTREMITIES: Range of motion with intervention. NEUROLOGIC: Grossly normal. IMPRESSION: Profound dehydration from high outputs from his ileostomy. PLAN: He has gotten 2 liters of fluid and his present IV is running at 125 an hour. I have taken the liberty of increasing the IV to 500 mL an hour for the next 8 hours and then decreasing it to 250 mL. I am taking the liberty of stopping his laxatives that were ordered. Specifically, the senna, milk of magnesia and Dulcolax. He also was ordered Kayexalate because of his high potassium, but with an ileostomy, I have also discontinued this. Also, I am going to hold his lactulose, as he does not need further diarrhea. His potassium should improve with hydration as well as insulin usage. I have discussed this with the ER physician and also his nurses. Also discussed with the patient and his daughter, as well as his brother in [place]. I will continue to follow with you. If you have questions or concerns, please contact me. MD NOHEMI Lopez/orly , 04:30 PM , 04:52 PM
[2018-02-21 18:08] LABS: Calcium 8.4 mg/dL (8.5-10.1); Carbon Dioxide 16.5 meq/L (21.0-32.0)
[2018-02-21 18:26] LABS: Potassium 6.7 meq/L (3.5-5.1)
[2018-02-21] MEDS: Heparin - SQ 10,000 UNITS/ML Vial SQ SCH (19:18)
[2018-02-21] MEDS ORDERED: Ferrous Sulfate 325 MG Tablet PO SCH (21:00)
[2018-02-21 21:54] LABS: Calcium 8.1 mg/dL (8.5-10.1); Carbon Dioxide 16.2 meq/L (21.0-32.0)
[2018-02-21 22:09] LABS: Potassium 6.6 meq/L (3.5-5.1)
[2018-02-21] MEDS: Sodium Chloride 0.9% 2 ML Flush BID IV.FLUSH SCH (22:49)
[2018-02-21] MEDS ORDERED: Dextrose 50% in Water 50 ML Vial IV.PUSH PRN (23:21)
[2018-02-22 01:04] LABS: Calcium 8.2 mg/dL (8.5-10.1); Carbon Dioxide 15.4 meq/L (21.0-32.0)
[2018-02-22 01:09] LABS: Potassium 6.7 meq/L (3.5-5.1)
[2018-02-22] MEDS ORDERED: Sodium Polystyrene Sulfonate/Sorbitol Liq 15 GM/60 ML UDC PO ONE ×2 (01:25→09:32)
[2018-02-22] MEDS ORDERED: Dextrose 50% in Water 50 ML Vial IV.PUSH ONE (01:25)
[2018-02-22] MEDS ORDERED: Calcium Gluconate Inj 1 GM in Sodium Chlor 0.9% Inj 100 ML IV.SIG ONE (01:25)
[2018-02-22] MEDS: Dextrose 5%/NaCl 0.45% Inj 1,000 ML IV.CONT SCH ×5 (01:41→20:28)
[2018-02-22] MEDS: Dextrose 5%/NaCl 0.9% Inj 1,000 ML IV.CONT SCH (02:00)
[2018-02-22] MEDS: Insulin NovoLOG Aspart Correctional Sugar Inj SQ SCH ×5 (03:58→22:04)
[2018-02-22] MEDS ORDERED: Chlorhexidine Gluconate 2% 1 Pack (2 Cloths) TOPICAL PRN (04:00)
[2018-02-22] MEDS: Heparin - SQ 10,000 UNITS/ML Vial SQ SCH ×2 (06:04→18:00)
[2018-02-22] MEDS: Chlorhexidine Gluconate 2% 1 Pack (2 Cloths) TOPICAL SCH (06:04)
[2018-02-22 07:06] LABS: Baso % (Auto) 0.2 % (0.0-2.0); Eos # (Auto) 0.2 th/mm3 (0.0-0.4); Hematocrit 30.2 % (39.0-51.0); Hemoglobin 9.9 gm/dL (13.0-17.0); Lymph # (Auto) 0.9 th/mm3 (1.0-4.8); Mean Corpuscular HGB Conc 32.7 % (32.0-36.0); Mean Corpuscular Hemoglobin 26.9 pg (27.0-34.0); Mean Corpuscular Volume 82.1 fL (80.0-100.0); Mean Platelet Volume 8.9 fL (7.0-11.0); Mono # (Auto) 1.1 th/mm3 (0.0-0.9); Mono % (Auto) 14.3 % (0.0-8.0); Neut # (Auto) 5.7 th/mm3 (1.8-7.7); Neut % (Auto) 71.5 % (16.0-70.0); Platelet Count 262 th/mm3 (150-450); Red Blood Count 3.67 mil/mm3 (4.50-5.90); Red Cell Distribution Width 18.8 % (11.6-17.2)
[2018-02-22 07:52] LABS: Alanine Aminotransferase 40 U/L (12-78); Albumin 2.4 g/dL (3.4-5.0); Alkaline Phosphatase 159 U/L (45-117); Anion Gap 10 meq/L (5-15); Aspartate Aminotransferase 21 U/L (15-37); Blood Urea Nitrogen 62 mg/dL (7-18); Calcium 8.1 mg/dL (8.5-10.1); Carbon Dioxide 16.8 meq/L (21.0-32.0); Chloride 114 meq/L (98-107); Glomerular Filtration Rate 16 mL/min (>89); Glucose,Random 102 mg/dL (74-106); Potassium 6.1 meq/L (3.5-5.1); Sodium 141 meq/L (136-145); Total Protein 6.6 g/dL (6.4-8.2)
[2018-02-22] MEDS: Sodium Chloride 0.9% 2 ML Flush BID IV.FLUSH SCH ×2 (09:27→22:00)
--- NOTE | 2018-02-22 09:33 | P.PN ---
Subjective Interval history: This is a pleasant 62 y/o Male with status post colon resection due to malignant neoplasm of the sigmoid colon and colostomy presenting with complaint of discomfort around the stoma and multiple other complaints that include feeling generalized malaise weakness poor appetite loss of weight. Patient's daughter is with him and reports that he has been feeling very weak. Denies fever or chills. No nausea or vomiting. There is no increase of the colostomy output, he has DM II, Hypertension, Iron deficiency anemia, Hyperlipidemia, Chronic pain syndrome. ECG sinus rhythm, Seen in Emergency room in the presence of nurse and ER physician, the patient is stable with chills, no fever, his potassium level 7.6, given Dextrose 50 grams and insulin, also giving Kayexalate IV fluids and following BMP at 1600 hours. 02/22: Seen in intensive care unit, already seen by Colon and rectal capacity management specialist, improving his condition at this time with his Daughter, Potassium still elevated, recommend to give at least one dose of Kayexalate to improve his Potassium level. not decreasing as supposed with IV fluids, continue high rate of IV fluids as recommended by Doctor Ortega. high ostomy output as per his Primary specialist. Physical Exam Vital signs: Vital Signs 02/21/18 10:23 02/21/18 10:57 02/21/18 13:20 Temperature 97.2 F L Pulse Rate 68 62 84 Respiratory Rate 20 14 20 Blood Pressure 95/61 L 102/52 L 110/56 L Pulse Oximetry 100 99 100 02/21/18 18:51 02/21/18 20:00 02/21/18 20:34 Temperature 98.7 F 98.4 F Pulse Rate 84 79 75 Respiratory Rate 17 16 15 Blood Pressure 105/53 L 134/61 Pulse Oximetry 99 99 02/21/18 21:00 02/21/18 21:30 02/21/18 22:00 Temperature Pulse Rate 79 78 74 Respiratory Rate 15 17 16 Blood Pressure 129/60 116/57 L 117/56 L Pulse Oximetry 100 98 100 02/21/18 22:30 02/21/18 23:00 02/21/18 23:30 Temperature Pulse Rate 78 81 83 Respiratory Rate 26 H 31 H 19 Blood Pressure 123/71 127/85 145/66 H Pulse Oximetry 100 100 100 02/22/18 00:00 02/22/18 00:01 02/22/18 00:30 Temperature 97.4 F L Pulse Rate 96 H 88 80 Respiratory Rate 46 H 24 16 Blood Pressure 126/77 126/57 L Pulse Oximetry 91 L 100 98 02/22/18 01:00 02/22/18 01:13 02/22/18 01:31 Temperature Pulse Rate 80 77 76 Respiratory Rate 20 17 16 Blood Pressure 98/54 L 138/59 L Pulse Oximetry 97 100 100 02/22/18 02:00 02/22/18 03:00 02/22/18 03:04 Temperature Pulse Rate 78 80 79 Respiratory Rate 30 H 20 17 Blood Pressure 145/94 H 94/57 L Pulse Oximetry 100 100 99 02/22/18 04:00 02/22/18 05:00 Temperature 98.7 F Pulse Rate 79 78 Respiratory Rate 21 18 Blood Pressure Pulse Oximetry 100 100 Intake & Output 02/21/18 02/22/18 02/22/18 18:59 06:59 18:59 Intake Total 5000 / 5000 1240 / 1240 Output Total 50 / 50 2160 / 2160 Balance 4950 / 4950 -920 / -920 Weight 72.575 kg 81.1 kg Intake: IV 5000 / 5000 1000 / 1000 D5W/1/2 NS Inj 1,000 ML @ 250 1000 / 1000 mls/hr IV.CONT .Q4H [facility] Rx#: [id number] D5W/Normal Saline Inj 1,000 ML 2000 / 2000 @ 500 mls/hr IV.CONT .Q2H [facility] Rx#:[id number] NS Inj 1,000 ML @ 1000 mls/hr 3000 / 3000 IV.SIG BOLUS [facility] Rx#:[id number] Oral 240 / 240 Output: Urine 50 / 50 1850 / 1850 Stool 60 / 60 Stool Amount (Stoma) 250 / 250 Pre-Hospital: 250 / 250 Other: Date of Last Bowel Movement 02/22/18 # Bowel Movements 2 Weight On Admission 79.5 kg Narrative: GENERAL: well-developed patient, in no apparent distress. CARDIOVASCULAR: Regular rate and rhythm without murmurs, gallops, or rubs. RESPIRATORY: Clear to auscultation. Breath sounds equal bilaterally. No wheezes , rales, or rhonchi. GASTROINTESTINAL: Abdomen soft, non-tender, nondistended. Ostomy in place. MUSCULOSKELETAL: Extremities without clubbing, cyanosis, or edema. NEURO: Alert & Oriented x4 to person, place, time, situation. Moves all ext x4 Results - Labs CBC & Chem 7: 02/22/18 05:52 02/22/18 05:52 Laboratory Results - last 24 hr 02/21/18 02/21/18 02/21/18 11:20 11:20 11:20 WBC 17.2 H RBC 4.56 Hgb 12.3 L Hct 38.0 L MCV 83.3 MCH 26.9 L MCHC 32.3 RDW 18.6 H Plt Count 415 MPV 8.5 Neut % (Auto) 84.9 H Lymph % (Auto) 5.3 L [place] % (Auto) 8.7 H Eos % (Auto) 0.9 Baso % (Auto) 0.2 Neut # (Auto) 14.6 H Lymph # (Auto) 0.9 L [place] # (Auto) 1.5 H Eos # (Auto) 0.2 Baso # (Auto) 0.0 WBC Differential . Differential Comment Auto diff final Sodium 132 L Potassium 7.6 H* Chloride 101 Carbon Dioxide 16.7 L Anion Gap 14 BUN 87 H Creatinine 6.56 H Estimated GFR 9 L POC Glucose Random Glucose 42 L* Lactic Acid 1.4 Calcium 9.7 Magnesium 2.7 H Total Bilirubin 0.3 AST 33 ALT 61 Alkaline Phosphatase 217 H Troponin I Less than 0.02 L C-Reactive Protein 9.60 H Total Protein 8.6 H Albumin 3.2 L Lipase 508 H Urine Color Urine Clarity Urine pH Ur Specific [place] Urine Protein Urine Glucose (UA) Urine Ketones Urine Occult Blood Urine Nitrate Urine Bilirubin Urine Urobilinogen Ur Leukocyte Esterase Urine RBC Urine WBC Urine WBC Clumps Ur Squamous Epith Cells Urine Bacteria Hyaline Casts Urine Mucus Micro UA Comment Ur Microscopic Review Urine Culture Comments Nasal Screen MRSA (PCR) 02/21/18 02/21/18 02/21/18 14:35 16:32 19:30 WBC RBC Hgb Hct MCV MCH MCHC RDW Plt Count MPV Neut % (Auto) Lymph % (Auto) [place] % (Auto) Eos % (Auto) Baso % (Auto) Neut # (Auto) Lymph # (Auto) [place] # (Auto) Eos # (Auto) Baso # (Auto) WBC Differential Differential Comment Sodium 136 Potassium 6.7 H* D Chloride 111 H D Carbon Dioxide 16.5 L Anion Gap 9 BUN 81 H Creatinine 5.38 H Estimated GFR 11 L POC Glucose Random Glucose 43 L* Lactic Acid Calcium 8.4 L D Magnesium Total Bilirubin AST ALT Alkaline Phosphatase Troponin I C-Reactive Protein Total Protein Albumin Lipase Urine Color Yellow Urine Clarity Cloudy H Urine pH 5.0 Ur Specific [place] 1.012 Urine Protein 30 H Urine Glucose (UA) Negative Urine Ketones Negative Urine Occult Blood Small H Urine Nitrate Negative Urine Bilirubin Negative Urine Urobilinogen Less than 2 Ur Leukocyte Esterase Large H Urine RBC 11 H Urine WBC 143 H Urine WBC Clumps Few H Ur Squamous Epith Cells 2 Urine Bacteria Few H Hyaline Casts 27 Urine Mucus Few H Micro UA Comment Culture indicated Ur Microscopic Review Not Reportable Urine Culture Comments Culture indicated Nasal Screen MRSA (PCR) Not detected 02/21/18 02/21/18 02/21/18 20:50 22:26 22:51 WBC RBC Hgb Hct MCV MCH MCHC RDW Plt Count MPV Neut % (Auto) Lymph % (Auto) [place] % (Auto) Eos % (Auto) Baso % (Auto) Neut # (Auto) Lymph # (Auto) [place] # (Auto) Eos # (Auto) Baso # (Auto) WBC Differential Differential Comment Sodium 139 Potassium 6.6 H* Chloride 114 H Carbon Dioxide 16.2 L Anion Gap 9 BUN 72 H Creatinine 4.60 H Estimated GFR 13 L POC Glucose 57 L 54 L Random Glucose 65 L Lactic Acid Calcium 8.1 L Magnesium Total Bilirubin AST ALT Alkaline Phosphatase Troponin I C-Reactive Protein Total Protein Albumin Lipase Urine Color Urine Clarity Urine pH Ur Specific [place] Urine Protein Urine Glucose (UA) Urine Ketones Urine Occult Blood Urine Nitrate Urine Bilirubin Urine Urobilinogen Ur Leukocyte Esterase Urine RBC Urine WBC Urine WBC Clumps Ur Squamous Epith Cells Urine Bacteria Hyaline Casts Urine Mucus Micro UA Comment Ur Microscopic Review Urine Culture Comments Nasal Screen MRSA (PCR) 02/21/18 02/22/18 02/22/18 23:13 00:30 03:56 WBC RBC Hgb Hct MCV MCH MCHC RDW Plt Count MPV Neut % (Auto) Lymph % (Auto) [place] % (Auto) Eos % (Auto) Baso % (Auto) Neut # (Auto) Lymph # (Auto) [place] # (Auto) Eos # (Auto) Baso # (Auto) WBC Differential Differential Comment Sodium 140 Potassium 6.7 H* Chloride 116 H Carbon Dioxide 15.4 L Anion Gap 9 BUN 69 H Creatinine 4.24 H Estimated GFR 14 L POC Glucose 162 H 81 Random Glucose 67 L Lactic Acid Calcium 8.2 L Magnesium Total Bilirubin AST ALT Alkaline Phosphatase Troponin I C-Reactive Protein Total Protein Albumin Lipase Urine Color Urine Clarity Urine pH Ur Specific [place] Urine Protein Urine Glucose (UA) Urine Ketones Urine Occult Blood Urine Nitrate Urine Bilirubin Urine Urobilinogen Ur Leukocyte Esterase Urine RBC Urine WBC Urine WBC Clumps Ur Squamous Epith Cells Urine Bacteria Hyaline Casts Urine Mucus Micro UA Comment Ur Microscopic Review Urine Culture Comments Nasal Screen MRSA (PCR) 02/22/18 02/22/18 02/22/18 05:52 05:52 09:18 WBC 8.0 D RBC 3.67 L Hgb 9.9 L D Hct 30.2 L MCV 82.1 MCH 26.9 L MCHC 32.7 RDW 18.8 H Plt Count 262 D MPV 8.9 Neut % (Auto) 71.5 H Lymph % (Auto) 11.0 [place] % (Auto) 14.3 H Eos % (Auto) 3.0 Baso % (Auto) 0.2 Neut # (Auto) 5.7 Lymph # (Auto) 0.9 L [place] # (Auto) 1.1 H Eos # (Auto) 0.2 Baso # (Auto) 0.0 WBC Differential . Differential Comment Auto diff final Sodium 141 Potassium 6.1 H Chloride 114 H Carbon Dioxide 16.8 L Anion Gap 10 BUN 62 H Creatinine 3.80 H Estimated GFR 16 L POC Glucose 138 H Random Glucose 102 Lactic Acid Calcium 8.1 L Magnesium Total Bilirubin 0.3 AST 21 ALT 40 Alkaline Phosphatase 159 H Troponin I C-Reactive Protein Total Protein 6.6 D Albumin 2.4 L D Lipase Urine Color Urine Clarity Urine pH Ur Specific [place] Urine Protein Urine Glucose (UA) Urine Ketones Urine Occult Blood Urine Nitrate Urine Bilirubin Urine Urobilinogen Ur Leukocyte Esterase Urine RBC Urine WBC Urine WBC Clumps Ur Squamous Epith Cells Urine Bacteria Hyaline Casts Urine Mucus Micro UA Comment Ur Microscopic Review Urine Culture Comments Nasal Screen MRSA (PCR) - Imaging Impressions Abdomen/Bladder Ultrasound 02/21/18 14:39 CONCLUSION: 1. Right lower pole renal cyst measuring 1.6 x 1.4 x 1.6 cm. 2. Echogenic kidneys consistent with probable medical renal disease. 3. No solid mass or hydronephrosis. - Procedures None Assessment and Plan - Plan 1. 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 status post sigmoid Colectomy with Low anterior resection, Small bowel resection with anastomosis, intraoperative colonoscopy Anal Fistulotomy, by Doctor Natalio Ortega and Doctor Ernesto Montalvo, He was discharged on Post operative day #4, followed by content specialist Doctor Sisi Ho, his relatives asking for his primary managing team asked for Doctor Ortega and Doctor Ho. Improved his abdominal pain today. 2. Weakness the patient is not been eating and drinking properly, giving IV fluids and will continue diet as tolerated Forming Machine Tender to follow. 3. DM II on hold Home medicines, patient will continue Regular diet at this time due to hypoglycemia. continue sliding scale continue Hydration with Dextrose due to hypoglycemia. 4. Hypertension Uncontrolled re started Home medicines and Clonidine as needed for Hypertension. 5. Iron deficiency anemia by history 6. Hyperlipidemia to continue Home medicines. 7. Chronic pain syndrome continue home pain medicines. 8. Acute Kidney Injury Improving on IV fluids. Kidney Ultrasound 1. Right lower pole renal cyst measuring 1.6 x 1.4 x 1.6 cm. 2. Echogenic kidneys consistent with probable medical renal disease. 3. No solid mass or hydronephrosis. 9. Hyperkalemia probable artifact due to Hypovolemia, patient dehydrated and with Hypoglycemia will follow with IV fluids started on Dextrose 5% in NS and following closely. given Kayexalate due to that continue elevated even given one dose. DVT prophylaxis with Heparin Code Status: Full code. Discussed Condition With: Patient, his nurse Miss Joya and his Daughter Discharge Planning: once cleared by specialists.
--- NOTE | 2018-02-22 15:09 | ECG ---
Date Performed: 02/21/2018 Time Performed: 11:30:06 PTAGE: 62 years EKG: Sinus rhythm NORMAL ECG PREVIOUS TRACING : 01/28/2018 07.54 Compared to previous tracing, the patient has developed yulia e peaking of the T-waves with narrow base. Hyperkalenia shoul be excluded clinically. There is otherw ise no serial change. DOCTOR: Keisha Gee Interpretating Date/Time 02/22/2018 15:08:14
--- NOTE | 2018-02-22 16:53 | P.PNCS ---
Subjective Interval history: No N or V. Loose stools after Kayexalate. Feels better Objective Result Diagrams: 02/22/18 05:52 02/22/18 05:52 Objective Remarks: Abd: benign. Stoma with loose stools Assessment and Plan - Plan Stable. Improving Would recommend no more Kayexalate. K+ at 6.1 is not critical. Will come down slowly with hydration and Insulin.Will worsen Bicarb losses with further high outputs from Ileostomy. Continue hydration with D5.45%. Will decrease to 150/hr. Pt has received 9-10 liters thus far. Transfer to floor when K+ normal.
--- NOTE | 2018-02-22 18:35 | P.PNWCN ---
Wound Care Nurse Consult Description: Received Ostomy teaching consult from Doctor Ortega Communicated with: ANJALI Joya Mario Recommendation: 1.Please encrust peristomal skin during appliance changes as follows: Cleanse Peristomal skin with warm water and soft cloths gently and pat dry. Apply stoma powder to peristomal skin and wipe off excess Spay with Cavilon skin barrier film repeat one time. 2.Seal any creases around the stoma that would allow for leaks with rolanda seal. Apply 1 3/[address] ost[address] and hold pressure for 30 to 60 seconds for better adhesion to skin. 3.Change for leaks or every 3 to 5 days. 4. Empty ostomy pouch when /3 to 1/2 full. Bowel Diversion Stoma - Bowel Stoma Right Lower Abdomen Stoma Edema: No Loop Supporting [place]: No Collection Device: Two-piece Drainage Description: Liquid, Brown Wafer Size: 1 3/4 Moldable 45mm Shazia-Stomal Surrounding Tissue Sensation Description: Painful - Additional Information Additional Information: Patient given ostomy resource guide for obtaining supplies. Patient does not want ostomy appliance changed at this time.He has had multiple changes and this appliance has been on for 24 hours. Supplies were left in patient's room for encrusting for peristomal skin irritation and break down also rolanda seal or coloplast barrer ring was left at bedside to seal leaks before next appliance is applied.
--- NOTE | 2018-02-22 19:02 | MB ---
cc: Wendy Ho MD DATE: 02/22/2018 REASON FOR CONSULTATION: Consult requested by the hospitalists for evaluation and management of colon cancer. HISTORY OF PRESENT ILLNESS: Papi is a 62-year-old male. He was evaluated by me last month, about 3 weeks ago, when he underwent surgery for near obstructive colon cancer with liver metastasis. The patient had a diverting ileostomy. He had a sigmoid colon resection, small bowel resection with anastomosis. He also had an anal fistulectomy by Dr. Ortega and Dr. Montalvo. I saw the patient in the hospital. I had recommended palliative chemotherapy as an outpatient. He was given an appointment to come to our office. The patient states that he does have an appointment with me for next week. However, he came into the hospital complaining of not feeling well. He was complaining of abdominal pain, especially near the ileostomy bag site. He was also complaining of a poor appetite, weight loss. The blood workup showed hyperkalemia. The patient was given insulin, glucose and Kayexalate. Subsequently, the patient had massive diarrhea during the Kayexalate. His potassium has improved. The patient is in the intensive care unit. I have been asked to see the patient for further evaluation. The patient is complaining of extreme weakness, fatigue. His ileostomy bag was changed today. He is being evaluated by Dr. Ortega. The rest of the review of systems is negative. PAST MEDICAL HISTORY: Diabetes mellitus, hypercholesterolemia, hypertension. PAST SURGICAL HISTORY: Cataract, foot surgery, anal fistula surgery and sigmoid colon resection with diverting ileostomy. ALLERGIES: NONE. MEDICATIONS: 1. Atenolol. 2. Metformin. 3. Lisinopril. FAMILY HISTORY: Father from kidney cancer. Mother is alive with no cancer. He has 1 brother, no sisters, 1 son and 1 daughter, all alive and well. SOCIAL HISTORY: The patient is . He does not smoke cigarettes. Occasionally drinks alcohol. 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 PHYSICAL EXAMINATION: GENERAL: This is an elderly, cachectic-appearing white male in no apparent distress. VITAL SIGNS: Temperature 98.2, heart rate 83, blood pressure 124/68, O2 saturation 100%. HEENT: Bitemporal wasting noted. NECK: No lymphadenopathy. LUNGS: Clear. No wheezing, rhonchi or rales. CARDIOVASCULAR: Regular rate and rhythm. ABDOMEN: Soft. Diffuse tenderness noted. Ileostomy bag, which was just changed. EXTREMITIES: No pedal edema. NEUROLOGIC: Awake, alert and oriented x 3. SKIN: No significant lesions noted. ASSESSMENT: 1. Sigmoid colon cancer with liver metastasis. 2. Hyperkalemia. 3. Severe diarrhea from Kayexalate. 4. Acute renal failure with a creatinine of 6.56 due to probably high output in ileostomy and unable to eat or drink fluid. PLAN: I have reviewed his available records and I have discussed with the patient regarding his blood test results. The patient came in with acute renal failure and hyperkalemia with a potassium of 7.6. The patient had received insulin, glucose, Kayexalate and hydration. His potassium is coming down and now it is 6.1. His creatinine is also improving and now it is 3.8. On admission, it was 6.56. His stool is negative for C. diff. We discussed that he is not a candidate for chemotherapy at this point. He has acute renal failure. He is unable to eat or drink that much. His appetite is poor. He gets very liquid stools in the bag. He has not had any solid stool as yet. He understands that he has a diverting ileostomy. He is wondering whether this could be reversed. I will discuss with Dr. Ortega whether he is a candidate for reversal of the ileostomy now or a little bit later. It is going to be very difficult to give him palliative chemotherapy, which can cause severe diarrhea as well. He understands the risks involved. I will wait for him to get better and will discuss with Dr. Ortega. Thank you for asking my opinion. MD BHAVIK Jaime/jarad , 06:03 PM , 06:22 PM ARTIE
[2018-02-22] MEDS: Atenolol 50 MG Tablet PO SCH (20:28)
[2018-02-23] MEDS: Dextrose 5%/NaCl 0.45% Inj 1,000 ML IV.CONT SCH ×2 (03:10→09:08)
[2018-02-23] MEDS: Insulin NovoLOG Aspart Correctional Sugar Inj SQ SCH ×5 (03:41→20:41)
[2018-02-23] MEDS: Heparin - SQ 10,000 UNITS/ML Vial SQ SCH ×2 (03:42→15:55)
[2018-02-23] MEDS: Chlorhexidine Gluconate 2% 1 Pack (2 Cloths) TOPICAL SCH (07:18)
[2018-02-23] MEDS: Sodium Chloride 0.9% 2 ML Flush BID IV.FLUSH SCH ×2 (09:08→20:40)
--- NOTE | 2018-02-23 10:06 | P.PNONC ---
Subjective Interval history: Afebrile Reports making plenty of urine Denies any abdominal pain Work with physical therapy yesterday Objective Vital Signs/Intake & Output: Vital Signs 02/22/18 11:00 02/22/18 12:00 02/22/18 12:08 Temperature 98.2 F Pulse Rate 81 83 97 H Respiratory Rate 29 H 19 24 Blood Pressure 124/68 Pulse Oximetry 100 100 98 02/22/18 12:30 02/22/18 13:00 02/22/18 13:01 Temperature Pulse Rate 82 87 94 H Respiratory Rate 14 21 30 H Blood Pressure 137/63 165/74 H Pulse Oximetry 100 100 99 02/22/18 13:30 02/22/18 14:00 02/22/18 14:30 Temperature Pulse Rate 83 90 84 Respiratory Rate 21 20 17 Blood Pressure 150/69 H 159/78 H 167/72 H Pulse Oximetry 100 100 100 02/22/18 15:00 02/22/18 15:30 02/22/18 16:00 Temperature Pulse Rate 84 90 93 H Respiratory Rate 33 H 17 31 H Blood Pressure 188/79 H 147/65 H Pulse Oximetry 100 100 99 02/22/18 16:30 02/22/18 17:00 02/22/18 17:30 Temperature Pulse Rate 85 88 86 Respiratory Rate 20 27 H 23 Blood Pressure 162/70 H 165/76 H 161/72 H Pulse Oximetry 100 100 100 02/22/18 18:00 02/22/18 18:30 02/22/18 19:00 Temperature Pulse Rate 86 85 84 Respiratory Rate 23 17 17 Blood Pressure 160/70 H 156/68 H 154/65 H Pulse Oximetry 100 100 98 02/22/18 19:30 02/22/18 20:00 02/22/18 20:01 Temperature 98.7 F Pulse Rate 93 H 93 H 92 H Respiratory Rate 19 26 H 22 Blood Pressure 159/70 H 152/68 H Pulse Oximetry 98 98 99 02/22/18 20:30 02/22/18 21:00 02/22/18 21:30 Temperature Pulse Rate 91 H 84 82 Respiratory Rate 34 H 24 19 Blood Pressure 134/63 139/63 141/64 H Pulse Oximetry 99 98 99 02/22/18 22:00 02/22/18 22:30 02/22/18 23:00 Temperature Pulse Rate 81 74 80 Respiratory Rate 24 18 18 Blood Pressure 145/67 H 154/65 H 138/61 Pulse Oximetry 99 98 97 02/22/18 23:30 02/23/18 00:00 02/23/18 00:30 Temperature 98.7 F Pulse Rate 76 75 70 Respiratory Rate 20 20 18 Blood Pressure 136/60 133/58 L 130/60 Pulse Oximetry 97 99 98 02/23/18 01:00 02/23/18 01:30 02/23/18 02:00 Temperature Pulse Rate 68 64 68 Respiratory Rate 20 18 17 Blood Pressure 138/79 121/63 129/58 L Pulse Oximetry 100 100 99 02/23/18 02:30 02/23/18 03:00 02/23/18 03:30 Temperature Pulse Rate 67 73 67 Respiratory Rate 17 23 22 Blood Pressure 141/61 H 144/65 H 152/66 H Pulse Oximetry 99 100 98 02/23/18 04:00 02/23/18 04:30 02/23/18 05:00 Temperature 99.0 F Pulse Rate 62 65 68 Respiratory Rate 20 16 18 Blood Pressure 156/66 H 154/67 H 168/76 H Pulse Oximetry 99 100 100 02/23/18 05:30 02/23/18 06:00 02/23/18 06:30 Temperature Pulse Rate 65 73 71 Respiratory Rate 20 18 18 Blood Pressure 165/69 H 137/60 147/63 H Pulse Oximetry 100 99 99 Intake & Output 02/22/18 02/23/18 02/23/18 18:59 06:59 18:59 Intake Total 1999 3654 / 3654 Output Total 2790 / 2790 Balance 1999 864 / 864 Weight 183 lb 13.848 oz Intake: IV 1999 2454 / 2454 D5W/1/2 NS Inj 1,000 ML @ 150 1999 2454 / 2454 mls/hr IV.CONT .Q6H40M [facility] Rx#: [id number] Oral 1200 / 1200 Output: Urine 2450 / 2450 Stool 100 / 100 Stool Amount (Stoma) 240 / 240 Pre-Hospital: 240 / 240 Other: Date of Last Bowel Movement 02/22/18 02/22/18 # Bowel Movements 2 Result Diagrams: 02/22/18 05:52 02/23/18 14:21 Laboratory Results: Laboratory Results - last 24 hr 02/21/18 02/22/18 02/22/18 14:35 11:48 18:27 POC Glucose 217 H 332 H Urine Color Yellow Urine Clarity Cloudy H Urine pH 5.0 Ur Specific Cunningham 1.012 Urine Protein 30 H Urine Glucose (UA) Negative Urine Ketones Negative Urine Occult Blood Small H Urine Nitrate Negative Urine Bilirubin Negative Urine Urobilinogen Less than 2 Ur Leukocyte Esterase Large H Urine RBC 11 H Urine WBC 143 H Urine WBC Clumps Few H Ur Squamous Epith Cells 2 Urine Bacteria Few H Hyaline Casts 27 Urine Mucus Few H Micro UA Comment Culture indicated Urine Culture Comments Culture indicated 02/22/18 02/23/18 02/23/18 22:01 03:34 08:54 POC Glucose 276 H 269 H 169 H Urine Color Urine Clarity Urine pH Ur Specific Cunningham Urine Protein Urine Glucose (UA) Urine Ketones Urine Occult Blood Urine Nitrate Urine Bilirubin Urine Urobilinogen Ur Leukocyte Esterase Urine RBC Urine WBC Urine WBC Clumps Ur Squamous Epith Cells Urine Bacteria Hyaline Casts Urine Mucus Micro UA Comment Urine Culture Comments Culture Results: Microbiology 02/21/18 14:35 Urine Culture - Preliminary Clean Catch Urine gram negative rods 02/21/18 11:20 Aerobic Blood Culture - Preliminary Blood - Peripheral No growth in 1 day Anaerobic Blood Culture - Preliminary No growth in 1 day 02/21/18 11:30 Aerobic Blood Culture - Preliminary Blood - Peripheral No growth in 1 day Anaerobic Blood Culture - Preliminary No growth in 1 day Medications: Active Medications Generic Name Dose Route Start Last Admin Trade Name Freq PRN Reason Stop Dose Admin Hydrocodone Bitart/Acetaminophen 1 tab 02/21/18 16:00 02/22/18 22:05 Holden 5/325 PO 1 tab Q4H PRN Administration Pain Scale 1 To 4 Atenolol 50 mg 02/22/18 21:00 02/22/18 20:28 Tenormin PO 50 mg HS CHHAYA Administration Chlorhexidine Gluconate 3 pack 02/22/18 04:00 02/23/18 07:18 Chlorhexidine 2% Cloth TOPICAL 02/27/18 03:59 Not Given DAILY@0400 [facility] Heparin Sodium (Porcine) 5,000 units 02/21/18 16:00 02/23/18 03:42 Heparin Inj SQ 5,000 units Q12H [facility] Administration Dextrose/Sodium Chloride 1,000 mls @ 150 mls/hr 02/22/18 02:00 02/23/18 09:08 D5w/1/2 Ns Inj IV.CONT Not Given .Q6H40M [facility] Insulin Aspart 0 unit 02/21/18 17:00 02/23/18 09:07 Novolog Insulin Correctional Sugar Inj SQ 1 unit 08,12,17,21,03 CHHAYA Administration Protocol Pravastatin Sodium 20 mg 02/22/18 09:00 02/23/18 09:08 Pravachol PO 20 mg DAILY CHHAYA Administration Sodium Chloride 2 ml 02/21/18 21:00 02/23/18 09:08 Ns Flush IV.FLUSH 2 ml BID CHHAYA Administration Objective Remarks: GENERAL: Older male resting in bed in no acute distress SKIN: Warm and dry. HEAD: Normocephalic. EYES: No scleral icterus. No injection or drainage. NECK: Supple, trachea midline. No JVD or lymphadenopathy. CARDIOVASCULAR: Regular rate and rhythm without murmurs. RESPIRATORY: Breath sounds equal bilaterally. No accessory muscle use. GASTROINTESTINAL: Abdomen soft, nontender. Ileostomy to right lower quadrant with liquid brown stool noted. Stoma pink. EXTREMITIES: No cyanosis, or edema. MUSCULOSKELETAL: Adequate muscle tone. NEUROLOGICAL: No obvious focal deficit. Awake, alert, and oriented x3. Assessment/Plan - Plan 62-year-old male who was recently diagnosed with metastatic colon cancer with liver metastasis. He has a diverting ileostomy. He had a sigmoid colon resection, small bowel resection with anastomosis. He also had anal fistulectomy by Dr. Ortega and Dr. Montalvo. Recommendation is for palliative chemotherapy from our standpoint. He has appointment next week in our office. Unfortunately he developed abdominal pain, poor appetite and was admitted with acute renal failure. His creatinine was 6.56 on admission. Hematology/ oncology was consulted for recommendations. 1. Continue supportive care. The patient will follow up in clinic once discharged. Palliative chemotherapy will be on hold until he has recovered from the acute renal failure. We did review that the palliative chemotherapy side effect would also likely include diarrhea which will need to be monitored closely. Continue to follow kidney function.
--- NOTE | 2018-02-23 10:09 | P.PNCS ---
Subjective Interval history: afebrile, VSS UO good alisson PO Objective Result Diagrams: 02/22/18 05:52 02/22/18 05:52 Objective Remarks: Abd: benign. Stoma with loose stools Assessment and Plan - Plan Stable. Improving Would recommend no more Kayexalate. K+ at 6.1 is not critical. Will come down slowly with hydration and Insulin.Will worsen Bicarb losses with further high outputs from Ileostomy. Continue hydration with D5.45%. Will decrease to 75/hr. Pt has received 9-10 liters thus far. Transfer to floor when K+ normal.
--- NOTE | 2018-02-23 13:44 | P.PN ---
Subjective Interval history: This is a pleasant 62 y/o Male with status post colon resection due to malignant neoplasm of the sigmoid colon and colostomy presenting with complaint of discomfort around the stoma and multiple other complaints that include feeling generalized malaise weakness poor appetite loss of weight. Patient's daughter is with him and reports that he has been feeling very weak. Denies fever or chills. No nausea or vomiting. There is no increase of the colostomy output, he has DM II, Hypertension, Iron deficiency anemia, Hyperlipidemia, Chronic pain syndrome. ECG sinus rhythm, Seen in Emergency room in the presence of nurse and ER physician, the patient is stable with chills, no fever, his potassium level 7.6, given Dextrose 50 grams and insulin, also giving Kayexalate IV fluids and following BMP at 1600 hours. 02/22: Seen in intensive care unit, already seen by Colon and rectal rheumatology specialist, improving his condition at this time with his Daughter, Potassium still elevated, recommend to give at least one dose of Kayexalate to improve his Potassium level. not decreasing as supposed with IV fluids, continue high rate of IV fluids as recommended by Doctor Shannon. high ostomy output as per his Primary specialist. 02/23: Seen in his bedroom stable asked for BMP stat and discussed with nurse to get it soon, he was transferred by Ariel rectal surgeon to the Medical and surgical floor. no nausea, vomit or diarrhea. Physical Exam Vital signs: Vital Signs 02/22/18 14:00 02/22/18 14:30 02/22/18 15:00 Temperature Pulse Rate 90 84 84 Respiratory Rate 20 17 33 H Blood Pressure 159/78 H 167/72 H 188/79 H Pulse Oximetry 100 100 100 02/22/18 15:30 02/22/18 16:00 02/22/18 16:30 Temperature Pulse Rate 90 93 H 85 Respiratory Rate 17 31 H 20 Blood Pressure 147/65 H 162/70 H Pulse Oximetry 100 99 100 02/22/18 17:00 02/22/18 17:30 02/22/18 18:00 Temperature Pulse Rate 88 86 86 Respiratory Rate 27 H 23 23 Blood Pressure 165/76 H 161/72 H 160/70 H Pulse Oximetry 100 100 100 02/22/18 18:30 02/22/18 19:00 02/22/18 19:30 Temperature Pulse Rate 85 84 93 H Respiratory Rate 17 17 19 Blood Pressure 156/68 H 154/65 H 159/70 H Pulse Oximetry 100 98 98 02/22/18 20:00 02/22/18 20:01 02/22/18 20:30 Temperature 98.7 F Pulse Rate 93 H 92 H 91 H Respiratory Rate 26 H 22 34 H Blood Pressure 152/68 H 134/63 Pulse Oximetry 98 99 99 02/22/18 21:00 02/22/18 21:30 02/22/18 22:00 Temperature Pulse Rate 84 82 81 Respiratory Rate 24 19 24 Blood Pressure 139/63 141/64 H 145/67 H Pulse Oximetry 98 99 99 02/22/18 22:30 02/22/18 23:00 02/22/18 23:30 Temperature Pulse Rate 74 80 76 Respiratory Rate 18 18 20 Blood Pressure 154/65 H 138/61 136/60 Pulse Oximetry 98 97 97 02/23/18 00:00 02/23/18 00:30 02/23/18 01:00 Temperature 98.7 F Pulse Rate 75 70 68 Respiratory Rate 20 18 20 Blood Pressure 133/58 L 130/60 138/79 Pulse Oximetry 99 98 100 02/23/18 01:30 02/23/18 02:00 02/23/18 02:30 Temperature Pulse Rate 64 68 67 Respiratory Rate 18 17 17 Blood Pressure 121/63 129/58 L 141/61 H Pulse Oximetry 100 99 99 02/23/18 03:00 02/23/18 03:30 02/23/18 04:00 Temperature 99.0 F Pulse Rate 73 67 62 Respiratory Rate 23 22 20 Blood Pressure 144/65 H 152/66 H 156/66 H Pulse Oximetry 100 98 99 02/23/18 04:30 02/23/18 05:00 02/23/18 05:30 Temperature Pulse Rate 65 68 65 Respiratory Rate 16 18 20 Blood Pressure 154/67 H 168/76 H 165/69 H Pulse Oximetry 100 100 100 02/23/18 06:00 02/23/18 06:30 02/23/18 07:00 Temperature Pulse Rate 73 71 66 Respiratory Rate 18 18 16 Blood Pressure 137/60 147/63 H 150/63 H Pulse Oximetry 99 99 99 02/23/18 07:30 02/23/18 08:00 02/23/18 08:02 Temperature 98.2 F Pulse Rate 69 71 70 Respiratory Rate 19 24 19 Blood Pressure 145/59 H 145/108 H 158/73 H Pulse Oximetry 99 100 100 02/23/18 08:30 02/23/18 09:00 02/23/18 09:56 Temperature Pulse Rate 56 L 80 79 Respiratory Rate 16 19 16 Blood Pressure 177/82 H 158/71 H 179/79 H Pulse Oximetry 100 100 100 02/23/18 10:00 02/23/18 10:30 02/23/18 10:31 Temperature Pulse Rate 72 63 Respiratory Rate 17 16 Blood Pressure 162/76 H 203/79 H Pulse Oximetry 100 99 02/23/18 12:00 Temperature 98.3 F Pulse Rate 71 Respiratory Rate 18 Blood Pressure 169/76 H Pulse Oximetry 99 Intake & Output 02/22/18 02/23/18 02/23/18 18:59 06:59 18:59 Intake Total 1999 3654 / 3654 546 / 546 Output Total 2790 / 2790 1150 / 1150 Balance 1999 864 / 864 -604 / -604 Weight 83.4 kg Intake: IV 1999 2454 / 2454 546 / 546 D5W/1/2 NS Inj 1,000 ML @ 75 1999 2454 / 2454 546 / 546 mls/hr IV.CONT .[id number] [facility] Rx# :[id number] Oral 1200 / 1200 Output: Urine 2450 / 2450 800 / 800 Stool 100 / 100 Stool Amount (Stoma) 240 / 240 350 / 350 Pre-Hospital: 240 / 240 Right Lower Abdomen 350 / 350 Other: Date of Last Bowel Movement 02/22/18 02/22/18 02/22/18 # Bowel Movements 2 Narrative: GENERAL: well-developed patient, in no apparent distress. CARDIOVASCULAR: Regular rate and rhythm without murmurs, gallops, or rubs. RESPIRATORY: Clear to auscultation. Breath sounds equal bilaterally. No wheezes , rales, or rhonchi. GASTROINTESTINAL: Abdomen soft, non-tender, nondistended. Ostomy in place. MUSCULOSKELETAL: Extremities without clubbing, cyanosis, or edema. NEURO: Alert & Oriented x4 to person, place, time, situation. Moves all ext x4 Results - Labs CBC & Chem 7: 02/22/18 05:52 02/22/18 05:52 Laboratory Results - last 24 hr 02/22/18 02/22/18 02/23/18 18:27 22:01 03:34 POC Glucose 332 H 276 H 269 H 02/23/18 02/23/18 08:54 13:27 POC Glucose 169 H 236 H Microbiology 02/21/18 11:20 Blood - Peripheral Aerobic Blood Culture - Preliminary No growth in 2 days 02/21/18 11:20 Blood - Peripheral Anaerobic Blood Culture - Preliminary No growth in 2 days 02/21/18 11:30 Blood - Peripheral Aerobic Blood Culture - Preliminary No growth in 2 days 02/21/18 11:30 Blood - Peripheral Anaerobic Blood Culture - Preliminary No growth in 2 days 02/21/18 14:35 Clean Catch Urine Urine Culture - Final Enterobacter cloacae Klebsiella pneumoniae - Imaging Abdomen/Bladder Ultrasound 02/21/18 14:39 CONCLUSION: 1. Right lower pole renal cyst measuring 1.6 x 1.4 x 1.6 cm. 2. Echogenic kidneys consistent with probable medical renal disease. 3. No solid mass or hydronephrosis. - Procedures None Assessment and Plan - Plan 1. 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 status post sigmoid Colectomy with Low anterior resection, Small bowel resection with anastomosis, intraoperative colonoscopy Anal Fistulotomy, by Doctor Natalio Ortgea and Doctor Ernesto Montalvo, He was discharged on Post operative day #4, followed by travel specialist Doctor Sisi Ho, his relatives asking for his primary managing team asked for Doctor Ortega and Doctor Ho. Improved his abdominal pain 2. Weakness the patient is not been eating and drinking properly, giving IV fluids and will continue diet as tolerated It Support Analyst to follow. 3. DM II on hold Home medicines, patient will continue Regular diet at this time due to hypoglycemia. continue sliding scale at this time with high blood sugar level removed D5 and continued on low 75 ml per hour of IV fluids as per Colon and rectal surgery. 4. Hypertension Uncontrolled re started Home medicines and Clonidine as needed for Hypertension. 5. Iron deficiency anemia by history 6. Hyperlipidemia to continue Home medicines. 7. Chronic pain syndrome continue home pain medicines. 8. Acute Kidney Injury Improving on IV fluids. Kidney Ultrasound 1. Right lower pole renal cyst measuring 1.6 x 1.4 x 1.6 cm. 2. Echogenic kidneys consistent with probable medical renal disease. 3. No solid mass or hydronephrosis. awaiting BMP for today 9. Hyperkalemia probable artifact due to Hypovolemia, patient dehydrated and with Hypoglycemia will follow with IV fluids started on Dextrose 5% in NS and following closely. given Kayexalate due to that continue elevated even given one dose. DVT prophylaxis with Heparin Code Status: Full code. Discussed Condition With: Patient and Nurse Miss Donaldson Discharge Planning: once cleared by specialists.
[2018-02-23 15:16] LABS: Calcium 8.1 mg/dL (8.5-10.1); Carbon Dioxide 22.4 meq/L (21.0-32.0); Potassium 5.6 meq/L (3.5-5.1)
[2018-02-23] MEDS: Sod Chloride 0.9% Inj 1,000 ML IV.CONT SCH (15:52)
[2018-02-23] MEDS: Atenolol 50 MG Tablet PO SCH (20:40)
[2018-02-24] MEDS: Insulin NovoLOG Aspart Correctional Sugar Inj SQ SCH ×5 (03:10→21:00)
[2018-02-24] MEDS: Sod Chloride 0.9% Inj 1,000 ML IV.CONT SCH ×2 (03:15→17:25)
[2018-02-24] MEDS: Chlorhexidine Gluconate 2% 1 Pack (2 Cloths) TOPICAL SCH (03:15)
[2018-02-24] MEDS: Heparin - SQ 10,000 UNITS/ML Vial SQ SCH ×2 (03:16→17:25)
[2018-02-24 07:48] LABS: Calcium 8.3 mg/dL (8.5-10.1); Carbon Dioxide 20.9 meq/L (21.0-32.0); Potassium 5.7 meq/L (3.5-5.1)
[2018-02-24] MEDS: Sodium Chloride 0.9% 2 ML Flush BID IV.FLUSH SCH ×2 (08:46→21:00)
--- NOTE | 2018-02-24 09:14 | P.DIET ---
Nutritional Evaluation Type of nutrition evaluation: initial Nutrition consult regarding: Diet Evaluation Nutrition screening: [facility] [place] (colon cancer) Objective - Diagnosis hyperkalemia, renal failure, pancreatitis - Objective Body Mass Index: 25.1 % IBW: 104 (IBW= 178lb) Body Weight Used for Calculations: Actual Energy Needs - Lower Range (kCal/kg): 22 Energy Needs - Upper Range (kCal/kg): 28 Lower Limit kCal/kg (kCals): 1,844 Upper Limit kCal/kg (kCals): 2,346 Lower Limit Protein Factor (Grams per Kg): 1.1 Upper Limit Protein Factor (Grams per Kg): 1.3 Lower Protein Needs (Protein): 92 Upper Protein Needs (Protein): 109 Dietitian Reviewed in Medical Record: Current diet, Curent medications, Intake & Output, Labs, Medical history Diet Order: regular adult Oral Diet Intake Amount: Good 75-90% Objective Comments: PMH: anal fissure and fistula, DM, high chol, HLD, HTN, malignant tumor of sigmoid colon, R foot infection s/p colon resection Labs: BUN 19, Cr 1.58, GFR 44, POC glucose 113, random glucose 135, Ca+ 8.3 Assessment Assessment: Pt has good UOP, no GI symptoms. Pt consuming around 75% of most meals and tolerating well. RD to recommend Glucerna TID as PO supplement. Monitor renal labs and PO intake. Labs reviewed, dietitian following. Recommendations: 1.RD to recommend Glucerna TID as PO supplement 2. Monitor renal labs and PO intake 3. Dietitian following Dietitian to Monitor: Lab values, Renal labs, Supplement acceptance, Intake & Output, PO Intake
--- NOTE | 2018-02-24 09:32 | P.PN ---
Subjective Interval history: This is a pleasant 62 y/o Male with status post colon resection due to malignant neoplasm of the sigmoid colon and colostomy presenting with complaint of discomfort around the stoma and multiple other complaints that include feeling generalized malaise weakness poor appetite loss of weight. Patient's daughter is with him and reports that he has been feeling very weak. Denies fever or chills. No nausea or vomiting. There is no increase of the colostomy output, he has DM II, Hypertension, Iron deficiency anemia, Hyperlipidemia, Chronic pain syndrome. ECG sinus rhythm, Seen in Emergency room in the presence of nurse and ER physician, the patient is stable with chills, no fever, his potassium level 7.6, given Dextrose 50 grams and insulin, also giving Kayexalate IV fluids and following BMP at 1600 hours. 02/22: Seen in intensive care unit, already seen by Colon and rectal neurosurgery spine physician, improving his condition at this time with his Daughter, Potassium still elevated, recommend to give at least one dose of Kayexalate to improve his Potassium level. not decreasing as supposed with IV fluids, continue high rate of IV fluids as recommended by Doctor Shannon. high ostomy output as per his Primary specialist. 02/23: Seen in his bedroom stable asked for BMP stat and discussed with nurse to get it soon, he was transferred by [place] rectal surgeon to the Medical and surgical floor. 02/24: Stable in his bedroom, no new issues reported, improving condition awaiting for his primary surgeon for discharge. Physical Exam Vital signs: Vital Signs 02/23/18 09:56 02/23/18 10:00 02/23/18 10:30 Temperature Pulse Rate 79 72 63 Respiratory Rate 16 17 16 Blood Pressure 179/79 H 162/76 H Pulse Oximetry 100 100 99 02/23/18 10:31 02/23/18 12:00 02/23/18 16:00 Temperature 98.3 F 98.3 F Pulse Rate 71 64 Respiratory Rate 18 18 Blood Pressure 203/79 H 169/76 H 184/77 H Pulse Oximetry 99 99 02/23/18 16:12 02/23/18 20:00 02/24/18 00:00 Temperature 98.5 F 97.8 F Pulse Rate 84 71 Respiratory Rate 18 18 18 Blood Pressure 166/77 H 169/73 H Pulse Oximetry 99 100 02/24/18 08:00 Temperature 98.0 F Pulse Rate 68 Respiratory Rate 17 Blood Pressure 160/71 H Pulse Oximetry 99 Intake & Output 02/23/18 02/24/18 02/24/18 18:59 06:59 18:59 Intake Total 2446 / 2446 2210 / 2210 Output Total 1950 / 1950 2099 / 2100 Balance 496 / 496 110 / 110 Weight 83.8 kg Intake: IV 1646 / 1646 2210 / 2210 D5W/1/2 NS Inj 1,000 ML @ 75 546 / 546 mls/hr IV.CONT .[id number] [facility] Rx# :[id number] NS Inj 1,000 ML @ 75 mls/hr IV. 1100 / 1100 CONT .[id number] [facility] Rx#:[id number] Rocephin Inj 1,000 MG In NS Inj 100 / 100 100 ML @ 200 mls/hr IV.SIG Q24H [facility] Rx#:[id number] Oral 800 / 800 Output: Urine 1500 / 1500 1500 / 1500 Stool 600 / 600 Stool Amount (Stoma) 450 / 450 Right Lower Abdomen 450 / 450 Other: Date of Last Bowel Movement 02/22/18 02/23/18 Narrative: GENERAL: well-developed patient, in no apparent distress. CARDIOVASCULAR: Regular rate and rhythm without murmurs, gallops, or rubs. RESPIRATORY: Clear to auscultation. Breath sounds equal bilaterally. No wheezes , rales, or rhonchi. GASTROINTESTINAL: Abdomen soft, non-tender, nondistended. Ostomy in place. MUSCULOSKELETAL: Extremities without clubbing, cyanosis, or edema. NEURO: Alert & Oriented x4 to person, place, time, situation. Moves all ext x4 Results - Labs CBC & Chem 7: 02/22/18 05:52 02/24/18 05:40 Laboratory Results - last 24 hr 02/23/18 02/23/18 02/23/18 13:27 14:21 17:37 Sodium 136 Potassium 5.6 H Chloride 109 H Carbon Dioxide 22.4 Anion Gap 5 BUN 27 H Creatinine 1.79 H Estimated GFR 38 L POC Glucose 236 H 274 H Random Glucose 251 H D Calcium 8.1 L 02/23/18 02/24/18 02/24/18 19:29 03:06 05:40 Sodium 137 Potassium 5.7 H Chloride 111 H Carbon Dioxide 20.9 L Anion Gap 5 BUN 19 H Creatinine 1.58 H Estimated GFR 44 L POC Glucose 288 H 164 H Random Glucose 135 H D Calcium 8.3 L 02/24/18 07:51 Sodium Potassium Chloride Carbon Dioxide Anion Gap BUN Creatinine Estimated GFR POC Glucose 113 H Random Glucose Calcium Microbiology 02/21/18 11:20 Blood - Peripheral Aerobic Blood Culture - Preliminary No growth in 2 days 02/21/18 11:20 Blood - Peripheral Anaerobic Blood Culture - Preliminary No growth in 2 days 02/21/18 11:30 Blood - Peripheral Aerobic Blood Culture - Preliminary No growth in 2 days 02/21/18 11:30 Blood - Peripheral Anaerobic Blood Culture - Preliminary No growth in 2 days 02/21/18 14:35 Clean Catch Urine Urine Culture - Final Enterobacter cloacae Klebsiella pneumoniae - Imaging Abdomen/Bladder Ultrasound 02/21/18 14:39 CONCLUSION: 1. Right lower pole renal cyst measuring 1.6 x 1.4 x 1.6 cm. 2. Echogenic kidneys consistent with probable medical renal disease. 3. No solid mass or hydronephrosis. - Procedures None Assessment and Plan - Plan 1. 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 status post sigmoid Colectomy with Low anterior resection, Small bowel resection with anastomosis, intraoperative colonoscopy Anal Fistulotomy, by Doctor Natalio Ortega and Doctor Ernesto Montalvo, He was discharged on Post operative day #4, followed by drilling field specialist Doctor Sisi Ho, his relatives asking for his primary managing team asked for Doctor Ortega and Doctor Ho. Improved his abdominal pain 2. Weakness the patient is not been eating and drinking properly, giving IV fluids and will continue diet as tolerated Academic Administrator to follow. 3. DM II on hold Home medicines, patient will continue Regular diet at this time due to hypoglycemia. continue sliding scale at this time with high blood sugar level removed D5 and continued on low 75 ml per hour of IV fluids as per Colon and rectal surgery. Now came back to increase will continue ADA diet and follow on sliding scale. 4. Hypertension Uncontrolled added Amlodipine 5 mg daily. continue Clonidine PRN 5. Iron deficiency anemia by history 6. Hyperlipidemia to continue Home medicines. 7. Chronic pain syndrome continue home pain medicines. 8. Acute Kidney Injury on CKD III Improving on IV fluids. Kidney Ultrasound 1. Right lower pole renal cyst measuring 1.6 x 1.4 x 1.6 cm. 2. Echogenic kidneys consistent with probable medical renal disease. 3. No solid mass or hydronephrosis. At baseline now. 9. Hyperkalemia probable artifact due to Hypovolemia, Improving. DVT prophylaxis with Heparin Code Status: Full code. Discussed Condition With: Patient and Nurse. Discharge Planning: once cleared by specialists.
[2018-02-24] MEDS: amLODIPine 5 MG Tablet PO SCH (10:25)
--- NOTE | 2018-02-24 10:59 | P.PNCS ---
Subjective Interval history: afebrile, VSS UO good alisson PO stoma liq output Objective Result Diagrams: 02/22/18 05:52 02/24/18 05:40 Objective Remarks: Abd: benign. Stoma with loose stools no tympany urine - 2 bacteria Assessment and Plan - Plan Stable. Improving Would recommend no more Kayexalate. K+ at 6.1 is not critical. Will come down slowly with hydration and Insulin.Will worsen Bicarb losses with further high outputs from Ileostomy. taper IVF if PO good Ab's for UTI Transfer to floor when K+ normal. DC plans
[2018-02-24] MEDS: Ciprofloxacin 500 MG Tablet PO SCH ×2 (12:15→21:00)
[2018-02-24] MEDS: Atenolol 50 MG Tablet PO SCH (21:00)
[2018-02-25] MEDS: Insulin NovoLOG Aspart Correctional Sugar Inj SQ SCH ×5 (03:15→21:20)
[2018-02-25] MEDS: Sod Chloride 0.9% Inj 1,000 ML IV.CONT SCH ×3 (04:46→21:19)
[2018-02-25] MEDS: Heparin - SQ 10,000 UNITS/ML Vial SQ SCH ×2 (04:46→15:23)
[2018-02-25] MEDS: Chlorhexidine Gluconate 2% 1 Pack (2 Cloths) TOPICAL SCH (04:47)
--- NOTE | 2018-02-25 09:05 | P.PNCS ---
Subjective Interval history: Pt feels well. Higher outputs(1650) from Ileostomy yesterday. Imodium started this AM and electrolytes ordered. Bacteria in urine on admit most likely contaminant with low colony count. Will recheck U/A this AM. Objective Result Diagrams: 02/22/18 05:52 02/24/18 05:40 Objective Remarks: Abd: benign,loose stools from Ileostomy.(Imodium started this AM) Assessment and Plan - Plan Stable. Improving Plan: Recheck U/A and Lytes Ask ET nursing for more pouching instructions and supplies(wafer falling off this AM) Needs HHC. He never had HHC on last D/C because of no insurance.
--- NOTE | 2018-02-25 10:22 | P.PN ---
Subjective Interval history: This is a pleasant 62 y/o Male with status post colon resection due to malignant neoplasm of the sigmoid colon and colostomy presenting with complaint of discomfort around the stoma and multiple other complaints that include feeling generalized malaise weakness poor appetite loss of weight. Patient's daughter is with him and reports that he has been feeling very weak. Denies fever or chills. No nausea or vomiting. There is no increase of the colostomy output, he has DM II, Hypertension, Iron deficiency anemia, Hyperlipidemia, Chronic pain syndrome. ECG sinus rhythm, Seen in Emergency room in the presence of nurse and ER physician, the patient is stable with chills, no fever, his potassium level 7.6, given Dextrose 50 grams and insulin, also giving Kayexalate IV fluids and following BMP at 1600 hours. 02/22: Seen in intensive care unit, already seen by Colon and rectal management development specialist, improving his condition at this time with his Daughter, Potassium still elevated, recommend to give at least one dose of Kayexalate to improve his Potassium level. not decreasing as supposed with IV fluids, continue high rate of IV fluids as recommended by Doctor Shannon. high ostomy output as per his Primary specialist. 02/23: Seen in his bedroom stable asked for BMP stat and discussed with nurse to get it soon, he was transferred by [place] rectal surgeon to the Medical and surgical floor. 02/24: Stable in his bedroom, no new issues reported, improving condition awaiting for his primary surgeon for discharge. 02/25: Seen in his bedroom, no new issues, reported awaiting final by Colon and Rectal surgery for discharge, has high output through his ostomy area. Physical Exam Vital signs: Vital Signs 02/24/18 12:00 02/24/18 16:00 02/24/18 20:00 Temperature 97.3 F L 98.1 F 98.1 F Pulse Rate 76 70 76 Respiratory Rate 17 17 15 Blood Pressure 150/68 H 146/63 H 167/77 H Pulse Oximetry 100 99 100 02/25/18 00:00 02/25/18 08:00 Temperature 98.3 F 97.7 F Pulse Rate 69 76 Respiratory Rate 13 17 Blood Pressure 124/60 158/72 H Pulse Oximetry 98 99 Intake & Output 02/24/18 02/25/18 02/25/18 18:59 06:59 18:59 Intake Total 1000 / 1000 1280 / 1280 Output Total 2049 1550 / 1550 Balance -1050 / -1050 -270 / -270 Weight 59.3 kg Intake: IV 1000 / 1000 800 / 800 NS Inj 1,000 ML @ 75 mls/hr IV. 1000 / 1000 800 / 800 CONT .[id number] [facility] Rx#:[id number] Oral 480 / 480 Output: Urine 1200 / 1200 750 / 750 Stool Amount (Stoma) 850 / 850 800 / 800 Right Lower Abdomen 850 / 850 800 / 800 Other: Date of Last Bowel Movement 02/23/18 02/24/18 Narrative: GENERAL: well-developed patient, in no apparent distress. CARDIOVASCULAR: Regular rate and rhythm without murmurs, gallops, or rubs. RESPIRATORY: Clear to auscultation. Breath sounds equal bilaterally. No wheezes , rales, or rhonchi. GASTROINTESTINAL: Abdomen soft, non-tender, nondistended. Ostomy in place. MUSCULOSKELETAL: Extremities without clubbing, cyanosis, or edema. NEURO: Alert & Oriented x4 to person, place, time, situation. Moves all ext x4 Results - Labs CBC & Chem 7: 02/22/18 05:52 02/25/18 09:27 Laboratory Results - last 24 hr 02/24/18 02/24/18 02/24/18 11:55 16:51 19:56 POC Glucose 216 H 196 H 217 H 02/25/18 02/25/18 03:10 08:32 POC Glucose 130 H 143 H Microbiology 02/21/18 11:20 Blood - Peripheral Aerobic Blood Culture - Preliminary No growth in 3 days 02/21/18 11:20 Blood - Peripheral Anaerobic Blood Culture - Preliminary No growth in 3 days 02/21/18 11:30 Blood - Peripheral Aerobic Blood Culture - Preliminary No growth in 3 days 02/21/18 11:30 Blood - Peripheral Anaerobic Blood Culture - Preliminary No growth in 3 days - Imaging Abdomen/Bladder Ultrasound 02/21/18 14:39 CONCLUSION: 1. Right lower pole renal cyst measuring 1.6 x 1.4 x 1.6 cm. 2. Echogenic kidneys consistent with probable medical renal disease. 3. No solid mass or hydronephrosis. - Procedures None Assessment and Plan - Plan 1. 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 status post sigmoid Colectomy with Low anterior resection, Small bowel resection with anastomosis, intraoperative colonoscopy Anal Fistulotomy, by Doctor Natalio Ortega and Doctor Ernesto Montalvo, He was discharged on Post operative day #4, followed by supervisory it specialist Doctor Sisi Ho, his relatives asking for his primary managing team asked for Doctor Ortega and Doctor Ho. Improved his abdominal pain 2. Weakness the patient is not been eating and drinking properly, giving IV fluids and will continue diet as tolerated Bookkeeping Service Sales Agent to follow. Physical Therapy recommended PT at Rehab. 3. DM II on hold Home medicines, patient will continue Regular diet at this time due to hypoglycemia. continue sliding scale at this time with high blood sugar level removed D5 and continued on low 75 ml per hour of IV fluids as per Colon and rectal surgery. 02/25: now improving blood sugar checks, started on ADA diet 1800 cals. 4. Hypertension Better control amlodipine 5 mg daily and clonidine as needed. 5. Iron deficiency anemia by history 6. Hyperlipidemia to continue Home medicines. 7. Chronic pain syndrome continue home pain medicines. 8. Acute Kidney Injury Improving on IV fluids. Kidney Ultrasound 1. Right lower pole renal cyst measuring 1.6 x 1.4 x 1.6 cm. 2. Echogenic kidneys consistent with probable medical renal disease. 3. No solid mass or hydronephrosis. Creatinine 1.49 Improving near to baseline. 9. Hyperkalemia probable artifact due to Hypovolemia, patient dehydrated and with Hypoglycemia will follow with IV fluids started on Dextrose 5% in NS and following closely. given Kayexalate due to that continue elevated even given one dose. today 5.4 DVT prophylaxis with Heparin Code Status: Full code. Discussed Condition With: Patient and Nurse Miss Yoon. Discharge Planning: once cleared by specialists.
[2018-02-25 10:41] LABS: Calcium 8.6 mg/dL (8.5-10.1); Carbon Dioxide 21.8 meq/L (21.0-32.0); Potassium 5.4 meq/L (3.5-5.1)
[2018-02-25] MEDS: Ciprofloxacin 500 MG Tablet PO SCH ×2 (11:22→21:19)
[2018-02-25] MEDS: Sodium Chloride 0.9% 2 ML Flush BID IV.FLUSH SCH ×2 (11:23→21:22)
[2018-02-25] MEDS: amLODIPine 5 MG Tablet PO SCH (11:23)
[2018-02-25] MEDS: Loperamide 2 MG Capsule PO SCH ×3 (11:24→21:18)
--- NOTE | 2018-02-25 16:35 | P.PNWCN ---
Wound Care Nurse Consult Description: Patient seen for follow up of ostomy management and teaching. Communicated with: ANJALI denson and patient Recommendation: 1.Please encrust peristomal skin during appliance changes as follows: Cleanse Peristomal skin with warm water and soft cloths gently and pat dry. Apply stoma powder to peristomal skin and wipe off excess Spay with Cavilon skin barrier film repeat one time. 2.Seal any creases around the stoma that would allow for leaks with rolanda seal. Apply 1 3/[address] ost[address] and hold pressure for 30 to 60 seconds for better adhesion to skin. 3.Change for leaks or every 3 to 5 days. 4. Empty ostomy pouch when 1/3 to 1/2 full. Bowel Diversion Stoma - Bowel Stoma Right Lower Abdomen Stoma Edema: No Stoma Diameter: 29 (~29mm) Stoma Appearance: Beefy Red, Protruding Loop Supporting Haider: No Collection Device: Two-piece, Moldable Wafer Drainage Description: Liquid, Brown Wafer Size: 1 3/4 Moldable 45mm Shazia-Stomal Surrounding Tissue Sensation Description: Burning - Additional Information Additional Information: Patient seen for follow up teaching of ostomy management. Patient is laying in bed and has ostomy appliance is place the is from the skin at 12 o' clock. Patient reports he changed ostomy appliance this morning, and per patient has had a difficult time keeping appliances in place. Explained encrusting procedure in detail with patient. Instructed patient to warm wafer with body heat prior to application. Patient is then to hold pressure on wafer with hand, once wafer has been applied to skin for a minimum of 4 minutes . This should help with better adhesion to skin. Obtained cut to fit Durahesive wafer for patient that 1 3/4 with pouch for patient to try.
--- NOTE | 2018-02-25 18:31 | P.PNONC ---
Subjective Interval history: Patient states that the liquid stool is getting a little bit firmer He is feeling better. He is anxious to go home Objective Vital Signs/Intake & Output: Vital Signs 02/24/18 20:00 02/25/18 00:00 02/25/18 08:00 Temperature 98.1 F 98.3 F 97.7 F Pulse Rate 76 69 76 Respiratory Rate 15 13 17 Blood Pressure 167/77 H 124/60 158/72 H Pulse Oximetry 100 98 99 02/25/18 12:00 Temperature 98.1 F Pulse Rate 96 H Respiratory Rate 18 Blood Pressure 133/60 Pulse Oximetry 99 Intake & Output 02/24/18 02/25/18 02/25/18 18:59 06:59 18:59 Intake Total 1000 / 1000 1280 / 1280 1000 / 1000 Output Total 2049 / 2049 1550 / 1550 Balance -1050 / -1050 -270 / -270 1000 / 1000 Weight 59.3 kg Intake: IV 1000 / 1000 800 / 800 1000 / 1000 NS Inj 1,000 ML @ 75 mls/hr IV. 1000 / 1000 800 / 800 1000 / 1000 CONT .[id number] [facility] Rx#:[id number] Oral 480 / 480 Output: Urine 1200 / 1200 750 / 750 Stool Amount (Stoma) 850 / 850 800 / 800 Right Lower Abdomen 850 / 850 800 / 800 Other: Date of Last Bowel Movement 02/23/18 02/24/18 Result Diagrams: 02/22/18 05:52 02/25/18 09:27 Laboratory Results: Laboratory Results - last 24 hr 02/24/18 02/25/18 02/25/18 19:56 03:10 08:32 Sodium Potassium Chloride Carbon Dioxide Anion Gap BUN Creatinine Estimated GFR POC Glucose 217 H 130 H 143 H Random Glucose Calcium 02/25/18 02/25/18 02/25/18 09:27 13:08 16:50 Sodium 136 Potassium 5.4 H Chloride 109 H Carbon Dioxide 21.8 Anion Gap 5 BUN 15 Creatinine 1.49 H Estimated GFR 47 L POC Glucose 265 H 326 H Random Glucose 174 H Calcium 8.6 Culture Results: Microbiology 02/21/18 11:20 Aerobic Blood Culture - Preliminary Blood - Peripheral No growth in 4 days Anaerobic Blood Culture - Preliminary No growth in 4 days 02/21/18 11:30 Aerobic Blood Culture - Preliminary Blood - Peripheral No growth in 4 days Anaerobic Blood Culture - Preliminary No growth in 4 days 02/21/18 14:35 Urine Culture - Final Clean Catch Urine Enterobacter cloacae Klebsiella pneumoniae Medications: Active Medications Generic Name Dose Route Start Last Admin Trade Name Freq PRN Reason Stop Dose Admin Hydrocodone Bitart/Acetaminophen 1 tab 02/21/18 16:00 02/22/18 22:05 [place] 5/325 PO 1 tab Q4H PRN Administration Pain Scale 1 To 4 Amlodipine Besylate 5 mg 02/24/18 09:45 02/25/18 11:23 Norvasc PO 5 mg DAILY [facility] Administration Atenolol 50 mg 02/22/18 21:00 02/24/18 21:00 Tenormin PO 50 mg HS [facility] Administration Calcium Carbonate 1,000 mg 02/23/18 16:54 02/23/18 17:50 Tums Chew PO 1,000 mg Q6H PRN Administration UPSET STOMACH Chlorhexidine Gluconate 3 pack 02/22/18 04:00 02/25/18 04:47 Chlorhexidine 2% Cloth TOPICAL 02/27/18 03:59 Not Given DAILY@0400 [facility] Ciprofloxacin HCl 500 mg 02/24/18 11:15 02/25/18 11:22 Cipro PO 500 mg Q12HR [facility] Administration Clonidine HCl 0.1 mg 02/23/18 11:32 02/23/18 20:45 Catapres PO 0.1 mg Q6H PRN Administration INCREASE IN BLOOD PRESSURE Heparin Sodium (Porcine) 5,000 units 02/21/18 16:00 02/25/18 15:23 Heparin Inj SQ 5,000 units Q12H [facility] Administration Sodium Chloride 1,000 mls @ 75 mls/hr 02/23/18 13:45 02/25/18 17:23 Ns Inj IV.CONT 75 mls/hr .[id number] [facility] Administration Insulin Aspart 0 unit 02/21/18 17:00 02/25/18 17:22 Novolog Insulin Correctional Sugar Inj SQ 7 unit 08,12,17,21,03 [facility] Administration Protocol Loperamide HCl 4 mg 02/25/18 09:00 02/25/18 15:22 Imodium PO 4 mg Q6H [facility] Administration Ondansetron HCl 4 mg 02/21/18 13:20 02/24/18 13:25 Zofran Inj IV.PUSH 4 mg Q6H PRN Administration NAUSEA OR VOMITING Pravastatin Sodium 20 mg 02/22/18 09:00 02/25/18 11:22 Pravachol PO 20 mg DAILY [facility] Administration Sodium Chloride 2 ml 02/21/18 21:00 02/25/18 11:23 Ns Flush IV.FLUSH Not Given BID [facility] Objective Remarks: Objective Remarks: GENERAL: Older male resting in bed in no acute distress SKIN: Warm and dry. HEAD: Normocephalic. EYES: No scleral icterus. No injection or drainage. NECK: Supple, trachea midline. No JVD or lymphadenopathy. CARDIOVASCULAR: Regular rate and rhythm without murmurs. RESPIRATORY: Breath sounds equal bilaterally. No accessory muscle use. GASTROINTESTINAL: Abdomen soft, nontender. Ileostomy to right lower quadrant with liquid brown stool noted. Stoma pink. EXTREMITIES: No cyanosis, or edema. MUSCULOSKELETAL: Adequate muscle tone. NEUROLOGICAL: No obvious focal deficit. Awake, alert, and oriented x3. Assessment/Plan - Plan 62-year-old male who was recently diagnosed with metastatic colon cancer with liver metastasis. He has a diverting ileostomy. He had a sigmoid colon resection, small bowel resection with anastomosis. He also had anal fistulectomy by Dr. Ortega and Dr. Montalvo. Recommendation is for palliative chemotherapy from our standpoint. He has appointment next week in our office. Unfortunately he developed abdominal pain, poor appetite and was admitted with acute renal failure. His creatinine was 6.56 on admission. Hematology/ oncology was consulted for recommendations. 1. Continue supportive care. The patient will follow up in clinic once discharged. Palliative chemotherapy will be on hold until he has recovered from the acute renal failure. We did review that the palliative chemotherapy side effect would also likely include diarrhea which will need to be monitored closely. Continue to follow kidney function. 02/25/2018 Patient looks somewhat better Hyperkalemia and renal failure both are improving with the hydration and medication. Encourage patient to increase calories and drink more liquids I advised him that I would not be able to give him palliative chemotherapy with high output ileostomy. He had discussed with Dr. Jordan regarding the reversal of the ileostomy. I have also discussed with Dr. Jordan this morning. He mentioned that minimum it will take 6 weeks from the surgery to consider reversal of the ileostomy. Once he get the reversal procedure then we need to wait minimum 3 weeks to start palliative chemotherapy. He understands that he has stage IV colon cancer. Waiting to start palliative chemotherapy for that amount of period would not affect the survival. He has acknowledge the understanding of that. Patient will make follow-up appointment in the office after the reversal of ileostomy surgery.
[2018-02-25 18:40] LABS: Bilirubin,Urine Negative (Negative); Clarity,Urine Clear (Clear); Color,Urine Straw (Yellw/Straw); Glucose,Urine (UA) 500 or Greater mg/dL (Negative); Leukocyte Esterase,Urine Trace (Negative); Mucus,Urine Few /lpf (Occasional); Nitrite,Urine Negative (Negative); Specific Gravity,Urine 1.011 (1.002-1.035)
[2018-02-25] MEDS: Atenolol 50 MG Tablet PO SCH (21:19)
[2018-02-26] MEDS: Loperamide 2 MG Capsule PO SCH ×3 (04:19→17:35)
[2018-02-26] MEDS: Sod Chloride 0.9% Inj 1,000 ML IV.CONT SCH ×2 (04:22→09:10)
[2018-02-26] MEDS: Heparin - SQ 10,000 UNITS/ML Vial SQ SCH ×2 (04:30→17:30)
[2018-02-26] MEDS: Chlorhexidine Gluconate 2% 1 Pack (2 Cloths) TOPICAL SCH (04:30)
[2018-02-26] MEDS: Insulin NovoLOG Aspart Correctional Sugar Inj SQ SCH ×4 (04:30→17:31)
[2018-02-26] MEDS: Ciprofloxacin 500 MG Tablet PO SCH (09:09)
[2018-02-26] MEDS: Sodium Chloride 0.9% 2 ML Flush BID IV.FLUSH SCH (09:10)
[2018-02-26] MEDS: amLODIPine 5 MG Tablet PO SCH (09:10)
--- NOTE | 2018-02-26 11:17 | P.PN ---
Subjective Interval history: This is a pleasant 62 y/o Male with status post colon resection due to malignant neoplasm of the sigmoid colon and colostomy presenting with complaint of discomfort around the stoma and multiple other complaints that include feeling generalized malaise weakness poor appetite loss of weight. Patient's daughter is with him and reports that he has been feeling very weak. Denies fever or chills. No nausea or vomiting. There is no increase of the colostomy output, he has DM II, Hypertension, Iron deficiency anemia, Hyperlipidemia, Chronic pain syndrome. ECG sinus rhythm, Seen in Emergency room in the presence of nurse and ER physician, the patient is stable with chills, no fever, his potassium level 7.6, given Dextrose 50 grams and insulin, also giving Kayexalate IV fluids and following BMP at 1600 hours. 02/22: Seen in intensive care unit, already seen by Colon and rectal surgery technician, improving his condition at this time with his Daughter, Potassium still elevated, recommend to give at least one dose of Kayexalate to improve his Potassium level. not decreasing as supposed with IV fluids, continue high rate of IV fluids as recommended by Doctor Ortega. high ostomy output as per his Primary specialist. 02/23: Seen in his bedroom stable asked for BMP stat and discussed with nurse to get it soon, he was transferred by [place] rectal surgeon to the Medical and surgical floor. 02/24: Stable in his bedroom, no new issues reported, improving condition awaiting for his primary surgeon for discharge. 02/25: Seen in his bedroom, no new issues, reported awaiting final by Colon and Rectal surgery for discharge, has high output through his ostomy area. 02/26: Discussed with Patient and Nurse Yoon as per Doctor Shannon read to discharge on [facility] was discussed with field account manager she has already a Nurse set for him as courtesy by [facility] to be following him for some days he has no insurance for this possibility, will Have BMP this next Sunday written script for this matter continue Ciprofloxacin BID for seven days and Imodium 4 mg by mouth every six hours, follow up with Doctor Ortega in One week. Increased Amlodipine to 10 mg due to that continue Uncontrolled hypertension. Physical Exam Vital signs: Vital Signs 02/25/18 12:00 02/25/18 16:00 02/25/18 20:00 Temperature 98.1 F 98.2 F 97.9 F Pulse Rate 96 H 89 74 Respiratory Rate 18 17 21 Blood Pressure 133/60 146/80 H 161/68 H Pulse Oximetry 99 100 100 02/26/18 00:00 02/26/18 08:00 Temperature 98.3 F 98.3 F Pulse Rate 69 69 Respiratory Rate 21 18 Blood Pressure 134/63 137/65 Pulse Oximetry 98 98 Intake & Output 02/25/18 02/26/18 02/26/18 18:59 06:59 18:59 Intake Total 1000 / 1000 1900 / 1900 Balance 1000 / 1000 1900 / 1900 Weight 59.3 kg Intake: IV 1000 / 1000 1000 / 1000 NS Inj 1,000 ML @ 75 mls/hr IV. 1000 / 1000 1000 / 1000 CONT .[id number] [facility] Rx#:[id number] Oral 900 / 900 Other: # Voids 4 Date of Last Bowel Movement 02/25/18 02/25/18 Narrative: GENERAL: well-developed patient, in no apparent distress. CARDIOVASCULAR: Regular rate and rhythm without murmurs, gallops, or rubs. RESPIRATORY: Clear to auscultation. Breath sounds equal bilaterally. No wheezes , rales, or rhonchi. GASTROINTESTINAL: Abdomen soft, non-tender, nondistended. Ostomy in place. MUSCULOSKELETAL: Extremities without clubbing, cyanosis, or edema. NEURO: Alert & Oriented x4 to person, place, time, situation. Moves all ext x4 Results - Labs CBC & Chem 7: 02/22/18 05:52 02/25/18 09:27 Laboratory Results - last 24 hr 02/25/18 02/25/18 02/25/18 13:08 16:50 17:00 POC Glucose 265 H 326 H Urine Color Straw Urine Clarity Clear Urine pH 5.0 Ur Specific [place] 1.011 Urine Protein 30 H Urine Glucose (UA) 500 or greater Urine Ketones Negative Urine Occult Blood Small H Urine Nitrate Negative Urine Bilirubin Negative Urine Urobilinogen Less than 2 Ur Leukocyte Esterase Trace H Urine RBC 3 Urine WBC 11 H Urine Mucus Few H Micro UA Comment Culture indicated Ur Microscopic Review Not Reportable Urine Culture Comments Culture indicated 02/25/18 02/26/18 02/26/18 21:17 04:21 11:05 POC Glucose 209 H 167 H 266 H Urine Color Urine Clarity Urine pH Ur Specific [place] Urine Protein Urine Glucose (UA) Urine Ketones Urine Occult Blood Urine Nitrate Urine Bilirubin Urine Urobilinogen Ur Leukocyte Esterase Urine RBC Urine WBC Urine Mucus Micro UA Comment Ur Microscopic Review Urine Culture Comments Microbiology 02/21/18 11:20 Blood - Peripheral Aerobic Blood Culture - Final No growth in 5 days 02/21/18 11:20 Blood - Peripheral Anaerobic Blood Culture - Final No growth in 5 days 02/21/18 11:30 Blood - Peripheral Aerobic Blood Culture - Final No growth in 5 days 02/21/18 11:30 Blood - Peripheral Anaerobic Blood Culture - Final No growth in 5 days - Imaging Abdomen/Bladder Ultrasound 02/21/18 14:39 CONCLUSION: 1. Right lower pole renal cyst measuring 1.6 x 1.4 x 1.6 cm. 2. Echogenic kidneys consistent with probable medical renal disease. 3. No solid mass or hydronephrosis. - Procedures None Assessment and Plan - Plan 1. 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 status post sigmoid Colectomy with Low anterior resection, Small bowel resection with anastomosis, intraoperative colonoscopy Anal Fistulotomy, by Doctor Natalio Ortega and Doctor Ernesto Montalvo, He was discharged on Post operative day #4, followed by inventory control specialist Doctor Sisi Ho, his relatives asking for his primary managing team asked for Doctor Ortega and Doctor Ho. seen by Hematology and inventory control specialist, he is not able to give Palliative chemotherapy with high output ileostomy, will take six weeks from the surgery to consider reversal of the ileostomy, then will need at minimum of three weeks to start palliative chemotherapy, He has Stage IV colon cancer. 02/26: As per Doctor Ortega okay to discharge on [facility] was discussed with field account manager she has already a Nurse set for him as courtesy by [facility] to be following him for some days he has no insurance for this possibility, will Have BMP this next Sunday03/01/18 written script for this matter continue Ciprofloxacin BID for seven days and Imodium 4 mg by mouth every six hours, follow up with Doctor Ortega in One week. 2. Weakness the patient is not been eating and drinking properly, giving IV fluids and will continue diet as tolerated Roller Presser Operator to follow. patient now walking with Physical Therapy on the aisle no need for PT as outpatient. 3. DM II on hold Home medicines, patient will continue Regular diet at this time due to hypoglycemia. continue sliding scale at this time with high blood sugar level removed D5 and continued on low 75 ml per hour of IV fluids as per Colon and rectal surgery. 02/25: now improving blood sugar checks, started on ADA diet 1800 cals. continue Home medicines. 4. Hypertension Uncontrolled to continue beta dev and Amlodipine, avoid ILDEFONSO inhibitors due to DAMON 5. Iron deficiency anemia by history 6. Hyperlipidemia to continue Home medicines. 7. Chronic pain syndrome continue home pain medicines. 8. Acute Kidney Injury Improving on IV fluids. Kidney Ultrasound 1. Right lower pole renal cyst measuring 1.6 x 1.4 x 1.6 cm. 2. Echogenic kidneys consistent with probable medical renal disease. 3. No solid mass or hydronephrosis. Creatinine 1.49 Improving near to baseline. 9. Hyperkalemia probable artifact due to Hypovolemia, patient dehydrated and with Hypoglycemia will follow with IV fluids started on Dextrose 5% in NS and following closely. given Kayexalate due to that continue elevated even given one dose. today 5.4 DVT prophylaxis with Heparin Code Status: Full code. Discussed Condition With: patient, and Nurse Karrie. and Pulverizer Feeder. Discharge Planning: Discharge home on [facility] for Wound care and skilled nurse.
--- NOTE | 2018-02-26 12:29 | P.DCO ---
- Home Health Nursing Order: Medical education, Signs/symptoms of disease process, Diabetic education , Medication education-adverse effect, Wound care and dressing changes Instructions: Ileostomy teaching and supplies - Home Health Aide Order: To assist in: Bathing and personal care, chief engineer research and meal prep - Case Management Consult Case Management Consult-Home Health: Yes - Certification I have seen patient Papi Perry on 02/26/18. My clinical findings support the need for the requested home health care services because: Limited mobility due to disease progression, Deconditioned with increased weakness, Limited ability to care for self, Need for psychosocial assistance I certify that my clinical findings support that this patient is homebound because: Post-op weakness, Unsteady gait/balance
--- NOTE | 2018-02-26 14:09 | P.PNCS ---
Subjective Interval history: Reviewed peristomal skin with serious skin maceration and breakdown. Says that ET nursing reviewed again. He cannot go home without HHC for adequate stoma care and teaching. Otherwise OK with me for D/C today. Objective Result Diagrams: 02/22/18 05:52 02/25/18 09:27 Objective Remarks: Abd: benign, stoma ok but peristomal skin with severe breakdown from improper pouching. Assessment and Plan - Plan Stable. Improving Plan: OK to D/C if HHC is set up Needs HHC. He never had HHC on last D/C because of no insurance. BMP on Thursday 03/01.Stat results to me D/C on Cipro for UTI for 7 days D/C on Imodium 4mg PO Q6hrs F/U with me in 1 week. Avoid nephrotoxic meds such as ILDEFONSO inhibitor he was on.
[2018-02-26] MEDS ORDERED: amLODIPine 5 MG Tablet PO ONE (14:21)
--- NOTE | 2018-02-26 16:55 | P.DS ---
Date of admission: 02/21/18 13:11 Primary care physician: UNKNOWN Attending physician on discharge: Foster Kelly Anticipated date of discharge: 02/26/18 Brief History from admission: This is a pleasant 62 y/o Male with status post colon resection due to malignant neoplasm of the sigmoid colon and colostomy presenting with complaint of discomfort around the stoma and multiple other complaints that include feeling generalized malaise weakness poor appetite loss of weight. Patient's daughter is with him and reports that he has been feeling very weak. Denies fever or chills. No nausea or vomiting. There is no increase of the colostomy output, he has DM II, Hypertension, Iron deficiency anemia, Hyperlipidemia, Chronic pain syndrome. ECG sinus rhythm, Seen in Emergency room in the presence of nurse and ER physician, the patient is stable with chills, no fever, his potassium level 7.6, given Dextrose 50 grams and insulin, also giving Kayexalate IV fluids and following BMP at 1600 hours. DS: Diagnosis - Discharge Diagnosis (1) Symptomatic anemia Status: Acute (2) Colonic mass Status: Acute (3) DAMON (acute kidney injury) Status: Acute DS: Summary Hospital Course: This is a pleasant 62 y/o Male with status post colon resection due to malignant neoplasm of the sigmoid colon and colostomy presenting with complaint of discomfort around the stoma and multiple other complaints that include feeling generalized malaise weakness poor appetite loss of weight. Patient's daughter is with him and reports that he has been feeling very weak. Denies fever or chills. No nausea or vomiting. There is no increase of the colostomy output, he has DM II, Hypertension, Iron deficiency anemia, Hyperlipidemia, Chronic pain syndrome. ECG sinus rhythm, Seen in Emergency room in the presence of nurse and ER physician, the patient is stable with chills, no fever, his potassium level 7.6, given Dextrose 50 grams and insulin, also giving Kayexalate IV fluids and following BMP at 1600 hours. 02/22: Seen in intensive care unit, already seen by Colon and rectal consumer loan specialist, improving his condition at this time with his Daughter, Potassium still elevated, recommend to give at least one dose of Kayexalate to improve his Potassium level. not decreasing as supposed with IV fluids, continue high rate of IV fluids as recommended by Doctor Ortega. high ostomy output as per his Primary specialist. 02/23: Seen in his bedroom stable asked for BMP stat and discussed with nurse to get it soon, he was transferred by [place] rectal surgeon to the Medical and surgical floor. 02/24: Stable in his bedroom, no new issues reported, improving condition awaiting for his primary surgeon for discharge. 02/25: Seen in his bedroom, no new issues, reported awaiting final by Colon and Rectal surgery for discharge, has high output through his ostomy area. 02/26: Discussed with Patient and Nurse Karrie as per Doctor Shannon read to discharge on [facility] was discussed with international trade manager she has already a Nurse set for him as courtesy by [facility] to be following him for some days he has no insurance for this possibility, will Have BMP this next Sunday written script for this matter continue Ciprofloxacin BID for seven days and Imodium 4 mg by mouth every six hours, follow up with Doctor Ortega in One week. Increased Amlodipine to 10 mg due to that continue Uncontrolled hypertension. Assessment and Plan - Plan 1. 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 status post sigmoid Colectomy with Low anterior resection, Small bowel resection with anastomosis, intraoperative colonoscopy Anal Fistulotomy, by Doctor Natalio Ortega and Doctor Ernesto Montalvo, He was discharged on Post operative day #4, followed by contracting support specialist Doctor Sisi Ho, his relatives asking for his primary managing team asked for Doctor Ortega and Doctor Ho. seen by Hematology and contracting support specialist, he is not able to give Palliative chemotherapy with high output ileostomy, will take six weeks from the surgery to consider reversal of the ileostomy, then will need at minimum of three weeks to start palliative chemotherapy, He has Stage IV colon cancer. 02/26: As per Doctor Shannon read to discharge on [facility] was discussed with international trade manager she has already a Nurse set for him as courtesy by [facility] to be following him for some days he has no insurance for this possibility, will Have BMP this next Sunday03/01/18 written script for this matter continue Ciprofloxacin BID for seven days and Imodium 4 mg by mouth every six hours, follow up with Doctor Ortega in One week. 2. Weakness the patient is not been eating and drinking properly, giving IV fluids and will continue diet as tolerated Hvac Sales Engineer to follow. patient now walking with Physical Therapy on the aisle no need for PT as outpatient. 3. DM II on hold Home medicines, patient will continue Regular diet at this time due to hypoglycemia. continue sliding scale at this time with high blood sugar level removed D5 and continued on low 75 ml per hour of IV fluids as per Colon and rectal surgery. 02/25: now improving blood sugar checks, started on ADA diet 1800 cals. continue Home medicines. 4. Hypertension Uncontrolled to continue beta dev and Amlodipine, avoid ILDEFONSO inhibitors due to DAMON 5. Iron deficiency anemia by history 6. Hyperlipidemia to continue Home medicines. 7. Chronic pain syndrome continue home pain medicines. 8. Acute Kidney Injury Improving on IV fluids. Kidney Ultrasound 1. Right lower pole renal cyst measuring 1.6 x 1.4 x 1.6 cm. 2. Echogenic kidneys consistent with probable medical renal disease. 3. No solid mass or hydronephrosis. Creatinine 1.49 Improving near to baseline. 9. Hyperkalemia probable artifact due to Hypovolemia, patient dehydrated and with Hypoglycemia will follow with IV fluids started on Dextrose 5% in NS and following closely. given Kayexalate due to that continue elevated even given one dose. today 5.4 DVT prophylaxis with Heparin Code Status: Full code. Discussed Condition With: patient, and Nurse Miss Yoon. and Hims Clerk. Discharge Planning: Discharge home on [facility] for Wound care and skilled nurse. - Time Spent with Patient Total time spent providing and/or coordinating discharge services: Greater than 30 minutes - Quality: VTE Deep Vein Thrombosis/Pulmonary Embolism Present on Admission: No Exam Vital signs: Vital Signs 02/25/18 20:00 02/26/18 00:00 02/26/18 08:00 Temperature 97.9 F 98.3 F 98.3 F Pulse Rate 74 69 69 Respiratory Rate 21 21 18 Blood Pressure 161/68 H 134/63 137/65 Pulse Oximetry 100 98 98 02/26/18 11:59 Temperature 98.3 F Pulse Rate 70 Respiratory Rate 19 Blood Pressure 157/67 H Pulse Oximetry 100 Intake & Output 02/25/18 02/26/18 02/26/18 18:59 06:59 18:59 Intake Total 1000 / 1000 1900 / 1900 Balance 1000 / 1000 1900 / 1900 Weight 59.3 kg Intake: IV 999 / 999 1000 / 1000 NS Inj 1,000 ML @ 75 mls/hr IV. 999 / 999 1000 / 999 CONT .[id number] [facility] Rx#:[id number] Oral 900 / 900 Other: # Voids 4 Date of Last Bowel Movement 02/25/18 02/25/18 Narrative: GENERAL: well-developed patient, in no apparent distress. CARDIOVASCULAR: Regular rate and rhythm without murmurs, gallops, or rubs. RESPIRATORY: Clear to auscultation. Breath sounds equal bilaterally. No wheezes , rales, or rhonchi. GASTROINTESTINAL: Abdomen soft, non-tender, nondistended. Ostomy in place. MUSCULOSKELETAL: Extremities without clubbing, cyanosis, or edema. NEURO: Alert & Oriented x4 to person, place, time, situation. Moves all ext x4 Results Procedures completed during hospitalization: None Labs on day of discharge: Labs from last 24 hours 02/26/18 02/26/18 02/26/18 16:51 11:05 04:21 POC Glucose 195 H 266 H 167 H Urine Color Urine Clarity Urine pH Ur Specific [place] Urine Protein Urine Glucose (UA) Urine Ketones Urine Occult Blood Urine Nitrate Urine Bilirubin Urine Urobilinogen Ur Leukocyte Esterase Urine RBC Urine WBC Urine Mucus Micro UA Comment Ur Microscopic Review Urine Culture Comments 02/25/18 02/25/18 02/25/18 21:17 17:00 16:50 POC Glucose 209 H 326 H Urine Color Straw Urine Clarity Clear Urine pH 5.0 Ur Specific [place] 1.011 Urine Protein 30 H Urine Glucose (UA) 500 or greater Urine Ketones Negative Urine Occult Blood Small H Urine Nitrate Negative Urine Bilirubin Negative Urine Urobilinogen Less than 2 Ur Leukocyte Esterase Trace H Urine RBC 3 Urine WBC 11 H Urine Mucus Few H Micro UA Comment Culture indicated Ur Microscopic Review Not Reportable Urine Culture Comments Culture indicated Preliminary micro results at discharge 02/25/18 17:00 Urine Culture - Preliminary Clean Catch Urine No growth in 24 hours - Impressions ITS Impressions Abdomen/Bladder Ultrasound 02/21/18 14:39 CONCLUSION: 1. Right lower pole renal cyst measuring 1.6 x 1.4 x 1.6 cm. 2. Echogenic kidneys consistent with probable medical renal disease. 3. No solid mass or hydronephrosis. Discharge Plan - Discharge Disposition Patient Disposition: Disch /Home Health Service - Discharge Condition Condition: Good - Discharge Order Discharge Orders: Discharge Order (Routine); Ordered 02/26/18 Ordered By: Foster Kelly Consult Other Clear for Discharge (Routine); Ordered 02/24/18 Ordered By: Ernesto Montalvo - Discharge Details Anticipated Discharge Date: 02/26/18 Discharge Comment: Follow up with Doctor Natalio Ortega in one week. - Physicians Team Primary Care Provider: UNKNOWN, Attending Provider: Foster Kelly Other Providers: Natalio Ortega MD ; Sisi Ho MD
== END 2018-02-26 18:49 | disposition home health service (06) ==
LOC: NEPC 10:22 → NEDA 13:11 → HIMC 19:30 → N07 02-23 12:48
PROVIDERS: ADMIT Internal Medicine; ATTEND Internal Medicine

== ENCOUNTER 2018-03-15 20:00 | Inpatient (IN) ==
[2018-03-15] MEDS ORDERED: Sod Chloride 0.9% Inj 1,000 ML IV.SIG ONE ×3 (20:51→22:31)
[2018-03-15 21:22] LABS: Baso # (Auto) 0.1 th/mm3 (0.0-0.2); Baso % (Auto) 0.9 % (0.0-2.0); Eos # (Auto) 0.5 th/mm3 (0.0-0.4); Hemoglobin 12.3 gm/dL (13.0-17.0); Lymph # (Auto) 1.5 th/mm3 (1.0-4.8); Lymph % (Auto) 14.3 % (9.0-44.0); Mean Corpuscular HGB Conc 33.2 % (32.0-36.0); Mean Corpuscular Hemoglobin 28.3 pg (27.0-34.0); Mean Corpuscular Volume 85.1 fL (80.0-100.0); Mean Platelet Volume 8.8 fL (7.0-11.0); Mono # (Auto) 1.2 th/mm3 (0.0-0.9); Mono % (Auto) 11.6 % (0.0-8.0); Neut # (Auto) 7.1 th/mm3 (1.8-7.7); Neut % (Auto) 68.2 % (16.0-70.0); Platelet Count 436 th/mm3 (150-450); Red Blood Count 4.34 mil/mm3 (4.50-5.90); White Blood Count 10.5 th/mm3 (4.0-11.0)
[2018-03-15 21:32] LABS: Prothrombin Time 10.1 sec (9.8-11.6)
--- NOTE | 2018-03-15 21:47 | CT ---
EXAM DATE: 03/15/2018 9:36 PM EST AGE/SEX: 62 years / Male INDICATIONS: Diarrhea, nausea, and vomiting. Recent colostomy, now with high output. Evaluate for co litis. CLINICAL DATA: This is the patient's initial encounter. Patient reports that signs and symptoms have been present for 2 days and indicates a pain score of 0/10. MEDICAL/SURGICAL HISTORY: Carcinoma, colon. Diabetes. Hypertension. Anal fissure and fistula , chronic kidney disease. Colostomy. RADIATION DOSE: 6.87 CTDI (mGy) COMPARISON: [facility], CT ABDOMEN & PELVIS W CONTRAST, 03/15/2015. C, CT ABDOMEN & PELVIS W CONTRAST , 01/11/2018. C, CT ABDOMEN & PELVIS W CONTRAST, 01/26/2018. . TECHNIQUE: Multiple contiguous axial images were obtained through the abdomen. Images were obtained using multiple row detector helical technique. Using automated exposure control and adjustment of the mA and/or kV according to patient size, radiation dose was kept as low as reasonably achievable to o btain optimal diagnostic quality images. DICOM format image data is available electronically for rev iew and comparison. FINDINGS: Surgical changes of a sigmoid colon resection and rectosigmoid anastomosis noted. No obstruction or a cute inflammatory changes are demonstrated. No recurrent or residual alimentary tract masses are seen . There is a new right lower quadrant ileostomy. Nonspecific distention of the stomach. 3.9 cm low-density lesion of the right hepatic lobe adjacent to the IVC measures slightly larger area noncontrast appearance of the spleen, pancreas, adrenal glands and kidneys within normal limits. No free fluid or free air Lymph node conglomerate in the right lower quadrant mesentery is slightly larger, currently about 3.0 x 5.2 cm in greatest transaxial dimension. One lymph node in particular measuring 2.1 cm on series 2 image 49, is larger and more indurated in the interim. Small amount of ascites has developed within a small right inguinal hernia and within the left side o f the scrotal sac. Visualized lung bases are within normal limits. No acute bony abnormalities are demonstrated. CONCLUSION: 1. Interim distal colectomy and rectosigmoid anastomosis. Intermittent right lower quadrant ileostom y. No obstruction or inflammatory changes are seen. 2. Mesenteric lymph node conglomerate in the right lower quadrant is slightly larger. 3. The metastatic lesion of the right hepatic lobe is slightly larger. 4. Small ascitic fluid has developed in the right inguinal canal and left scrotal sac. Electronically signed by: Natalio Zhang MD 03/15/2018 9:46 PM EST
[2018-03-15 21:59] LABS: Alanine Aminotransferase 122 U/L (12-78); Albumin 3.8 g/dL (3.4-5.0); Alkaline Phosphatase 255 U/L (45-117); Anion Gap 10 meq/L (5-15); Aspartate Aminotransferase 39 U/L (15-37); Blood Urea Nitrogen 92 mg/dL (7-18); Calcium 9.8 mg/dL (8.5-10.1); Chloride 103 meq/L (98-107); Glomerular Filtration Rate 10 mL/min (>89); Glucose,Random 121 mg/dL (74-106); Magnesium 2.5 mg/dL (1.5-2.5); Phosphorus 8.7 mg/dL (2.5-4.9); Sodium 127 meq/L (136-145); Total Protein 9.2 g/dL (6.4-8.2)
[2018-03-15 22:03] LABS: Potassium 6.8 meq/L (3.5-5.1)
--- NOTE | 2018-03-15 22:03 | ED ---
HPI General Chief complaint: Weakness Stated complaint: Weakness Time Seen by Provider: 03/15/18 20:17 Source: patient, family, RN notes reviewed and old records reviewed Mode of arrival: wheelchair History of Present Illness HPI narrative: 62yM presenting with generalized weakness, decreased PO intake, and high ileostomy output. The patient had a sigmoid colectomy with low anterior resection, small bowel resection with anastomosis, and loop ileostomy performed for colon cancer on 01/28. He reports that he's had high ileostomy output since his surgery and is emptying his ostomy 10-12 times per day. He was admitted from 02/21-02/27 for dehydration, acute kidney injury, and hyperkalemia ; he improved with IV hydration and did not require hemodialysis. However, over the past 2-3 days the patient has had decreased PO intake, decreased urination, and reports generalized weakness/ fatigue. Today, he was walking in his kitchen when "my legs gave out from under me" and he lowered himself to the floor. He denies head injury, LOC, or syncopal episode. Colorectal surgeon is Dr. Ortega, oncologist is Dr. Ho. Related Data Home Medications Medication Instructions Recorded Confirmed metformin 500 mg PO BID 12/06/17 03/15/18 atenolol 50 mg PO HS 12/18/17 03/15/18 ferrous sulfate 250 mg PO BID 12/18/17 03/15/18 glimepiride 2 mg PO BID 12/18/17 03/15/18 lovastatin 20 mg PO DAILY 12/18/17 03/15/18 Previous Rx's Medication Instructions Recorded hydrocodone-acetaminophen 1 tab PO Q4H PRN tab 01/31/18 acetaminophen 650 mg PO Q4H PRN tab 02/26/18 amlodipine [Norvasc] 10 mg PO DAILY #60 tab 02/26/18 ciprofloxacin HCl 500 mg PO Q12HR #14 tab 02/26/18 loperamide 4 mg PO Q6H #60 cap 02/26/18 pantoprazole [Protonix] 40 mg PO DAILY #30 tab 02/26/18 sucralfate [Carafate] 1 g PO Q6H #60 tab 02/26/18 Allergies Allergy/AdvReac Type Severity Reaction Status Date / Time No Known Allergies Allergy Verified 02/21/18 10:25 Review of Systems ROS: all other systems reviewed are negative Constitutional Denies fever(s) Cardiovascular Denies chest pain Respiratory Denies cough Gastrointestinal Denies nausea Genitourinary Denies dysuria Musculoskeletal Denies back pain Neurologic Denies confusion Psychiatric Denies confusion PMFSH History History Provided By: Patient Medical History Medical History Anal fissure and fistula (Acute) Diabetes (Acute) High cholesterol (Acute) Hyperlipidemia (Acute) Hypertension (Acute) Malignant tumor of sigmoid colon (Acute) Right foot infection (Acute) Stage 3 chronic kidney disease (Acute) Surgical History Surgical History H/O eye surgery (Acute) H/O foot surgery (Acute) Family History Family History Father Lung cancer Social History Social History Substance History: No History of Abuse Second Hand Smoke Exposure: No Smoking Status: Former smoker Tobacco Type: Cigarettes How Often Do You Have a Drink Containing Alcohol: Never Recent Travel in [place] within the Last 8 Weeks: No Recent Out of Country Travel within the Last 8 Weeks: No Immunization History Tetanus Immunization: <5 Years Exam Const General: no acute distress and frail appearing HENMT Face and sinus: normal facial exam Other: Mucosa dry Eyes General: appearance normal, both eyes and all related structures Chest Chest: normal inspection of the chest Resp Effort & Inspection: normal respiratory effort Auscultation: no rhonchi and no wheezes Cardio Rate: regular rate Rhythm: regular rhythm GI Other: Soft, non-distended, non-tender in all quadrants; RLQ ileostomy present with liquid green output in bag Skin General: no rashes or lesions noted Neuro General: alert, awake, oriented x3 and no focal motor deficits Psych Affect: normal affect Course Initial Documented Vital Signs Temperature 97.9 F 03/15/18 20:02 Pulse Rate 75 03/15/18 20:02 Respiratory Rate 20 03/15/18 20:02 Blood Pressure 116/62 03/15/18 20:02 Pulse Oximetry 98 03/15/18 20:02 Last Documented Vital Signs Temperature 97.9 F 03/15/18 20:02 Pulse Rate 75 03/15/18 22:33 Respiratory Rate 20 03/15/18 22:33 Blood Pressure 116/62 03/15/18 20:02 Pulse Oximetry 98 03/15/18 20:02 Critical Care Time Critical Care Time: Yes Total Critical Care Time: 42 Attestation: Counseling/ Coordination of Care: This patient is critically ill with impairment of one or more vital organ systems with a high probability of imminent or life-threatening deterioration. High-complexity medical decision making was required to support vital organ function and/ or prevent deterioration in the patient's condition. Total critical care time spent is 42 minutes giving full attention to this patient. This includes examining and stabilizing the patient, gathering a history from a source other than the patient (i.e., chart review), formulating a differential diagnosis, ordering and interpreting laboratory tests and EKG, ordering and interpreting radiology tests, discussing the patient's care with other providers (nephrology, early childhood assistant), re-evaluation at frequent intervals, and documentation. Amount of time is separate from teaching, counseling the patient and/or family, and exclusive of procedures. Medical Decision Making MDM Narrative Medical decision making narrative: Assessment: 62yM presenting with generalized weakness and high ileostomy output Plan: EKG and monitor Labs UA IV fluids CT abd/ pelvis Addendum: Patient found to have acute renal failure and hyperkalemia. He has hyperacute but not peaked T waves on his EKG. Case discussed with Dr. Elias ( nephrology), who agrees with aggressive IV hydration and medical management for now; case also discussed with [place]. [place] [facility] [place] explained these results to the patient and his family, who understand and agree. Of note, the patient does not wish to have a Domingo catheter placed and says that he will use a urinal. Medical Screen Exam Complete: Yes Emergency Medical Condition: Yes Differential Diagnosis Differential Diagnosis: Differential diagnosis includes, but is not limited to: dehydration, acute kidney injury, electrolyte abnormality, colitis, UTI, anemia , arrhythmia Lab Data Lab results reviewed: Yes I reviewed the patient's lab results. Result diagrams: 03/15/18 20:59 03/15/18 20:59 Lab Results 03/15/18 03/15/18 03/15/18 Range/Units 20:59 20:59 20:59 WBC 10.5 (4.0-11.0) th/mm3 RBC 4.34 L (4.50-5.90) mil/mm3 Hgb 12.3 L (13.0-17.0) gm/dL Hct 37.0 L (39.0-51.0) % MCV 85.1 (80.0-100.0) fL MCH 28.3 (27.0-34.0) pg MCHC 33.2 (32.0-36.0) % RDW 20.0 H (11.6-17.2) % Plt Count 436 D (150-450) th/mm3 MPV 8.8 (7.0-11.0) fL Neut % (Auto) 68.2 (16.0-70.0) % Lymph % (Auto) 14.3 (9.0-44.0) % [place] % (Auto) 11.6 H (0.0-8.0) % Eos % (Auto) 5.0 H (0.0-4.0) % Baso % (Auto) 0.9 (0.0-2.0) % Neut # (Auto) 7.1 (1.8-7.7) th/mm3 Lymph # (Auto) 1.5 (1.0-4.8) th/mm3 [place] # (Auto) 1.2 H (0.0-0.9) th/mm3 Eos # (Auto) 0.5 H (0.0-0.4) th/mm3 Baso # (Auto) 0.1 (0.0-0.2) th/mm3 WBC Differential . Differential Comment Auto diff final PT 10.1 (9.8-11.6) sec INR 1.0 Ratio Sodium 127 L (136-145) meq/L Potassium 6.8 H* (3.5-5.1) meq/L Chloride 103 (98-107) meq/L Carbon Dioxide 14.0 L (21.0-32.0) meq/L Anion Gap 10 (5-15) meq/L BUN 92 H (7-18) mg/dL Creatinine 5.75 H (0.60-1.30) mg/dL Estimated GFR 10 L (>89) mL/min Random Glucose 121 H (74-106) mg/dL Lactic Acid (0.4-2.0) mmol/L Calcium 9.8 (8.5-10.1) mg/dL Phosphorus 8.7 H (2.5-4.9) mg/dL Magnesium 2.5 (1.5-2.5) mg/dL Total Bilirubin 0.4 (0.2-1.0) mg/dL AST 39 H (15-37) U/L ALT 122 H (12-78) U/L Alkaline Phosphatase 255 H (45-117) U/L Troponin I Less than 0.02 L (0.02-0.05) ng/mL Total Protein 9.2 H (6.4-8.2) g/dL Albumin 3.8 (3.4-5.0) g/dL TSH 4.290 H (0.358-3.740) uIU/mL 03/15/18 Range/Units 20:59 WBC (4.0-11.0) th/mm3 RBC (4.50-5.90) mil/mm3 Hgb (13.0-17.0) gm/dL Hct (39.0-51.0) % MCV (80.0-100.0) fL MCH (27.0-34.0) pg MCHC (32.0-36.0) % RDW (11.6-17.2) % Plt Count (150-450) th/mm3 MPV (7.0-11.0) fL Neut % (Auto) (16.0-70.0) % Lymph % (Auto) (9.0-44.0) % [place] % (Auto) (0.0-8.0) % Eos % (Auto) (0.0-4.0) % Baso % (Auto) (0.0-2.0) % Neut # (Auto) (1.8-7.7) th/mm3 Lymph # (Auto) (1.0-4.8) th/mm3 [place] # (Auto) (0.0-0.9) th/mm3 Eos # (Auto) (0.0-0.4) th/mm3 Baso # (Auto) (0.0-0.2) th/mm3 WBC Differential Differential Comment PT (9.8-11.6) sec INR Ratio Sodium (136-145) meq/L Potassium (3.5-5.1) meq/L Chloride (98-107) meq/L Carbon Dioxide (21.0-32.0) meq/L Anion Gap (5-15) meq/L BUN (7-18) mg/dL Creatinine (0.60-1.30) mg/dL Estimated GFR (>89) mL/min Random Glucose (74-106) mg/dL Lactic Acid 0.9 (0.4-2.0) mmol/L Calcium (8.5-10.1) mg/dL Phosphorus (2.5-4.9) mg/dL Magnesium (1.5-2.5) mg/dL Total Bilirubin (0.2-1.0) mg/dL AST (15-37) U/L ALT (12-78) U/L Alkaline Phosphatase (45-117) U/L Troponin I (0.02-0.05) ng/mL Total Protein (6.4-8.2) g/dL Albumin (3.4-5.0) g/dL TSH (0.358-3.740) uIU/mL Imaging Data Radiologist's impression: Abdomen/Pelvis CT 03/15/18 20:53 CONCLUSION: 1. Interim distal colectomy and rectosigmoid anastomosis. Intermittent right lower quadrant ileostomy. No obstruction or inflammatory changes are seen. 2. Mesenteric lymph node conglomerate in the right lower quadrant is slightly larger. 3. The metastatic lesion of the right hepatic lobe is slightly larger. 4. Small ascitic fluid has developed in the right inguinal canal and left scrotal sac. ECG Data Attestation: I personally reviewed and interpreted this ECG as follows: Interpretation: Rate: 70 BPM Rhythm: Sinus Commiskey: Normal Intervals: Normal intervals, no blocks, QTc 370 ms Q waves: None T waves: Hyperacute in precordial leads, not peaked, no inversions ST segments: No elevations or depressions Impression: Hyperacute T waves, not peaked, no changes as compared to EKG from 01/28/2018. Discharge Plan Discharge Disposition Patient Disposition: ED Admit(ED Internal Use Only) Discharge Condition Condition: Serious Discharge Order Discharge Orders: ED Use Only Admit Order (Routine); Ordered 03/15/18 Ordered By: Martha Davis Discharge Details Diagnosis: Acute hyperkalemia, Acute dehydration, DAMON (acute kidney injury) Physicians Team ED Provider: Martha Davis Primary Care Provider: Ryan Kuhn Attending Provider: Bruce Harden Other Providers: Luly Elias Status ED Status: Admitted Patient
[2018-03-15] MEDS ORDERED: Sodium Polystyrene Sulfonate/Sorbitol Liq 15 GM/60 ML UDC PO ONE (22:04)
[2018-03-15] MEDS ORDERED: Acetaminophen 325 MG Tablet PO PRN (23:03)
[2018-03-15] MEDS ORDERED: Temazepam 15 MG Capsule PO PRN (23:04)
[2018-03-15] MEDS ORDERED: Bisacodyl 10 MG Supp RECTAL PRN (23:04)
--- NOTE | 2018-03-15 23:08 | P.HPCC ---
History of Present Illness Primary Care Physician: Ryan Kuhn MD History of Present Illness: 62 year old male presents with generalized weakness, decreased by mouth intake, and high ileostomy output. The patient had a sigmoid colectomy with low anterior resection, small bowel resection with anastomosis, and loop ileostomy performed for colon cancer on 01/28. He reports that he's had high ileostomy output since his surgery and is emptying his ostomy bag 0-12 times per day. He was admitted from 02/21-02/27 for dehydration, acute kidney injury, and hyperkalemia; he improved with IV hydration and did not require hemodialysis. However, over the past 2-3 days the patient has had decreased by mouth intake, decreased urination, and reports generalized weakness/ fatigue. Today, he was walking in his kitchen when "my legs gave out from under me" and he lowered himself to the floor. He denies head injury, LOC, or syncopal episode. Inpatient Certification: I certify that the inpatient services were ordered in accordance with Medicare regulations governing the order. This includes certification that hospital inpatient services are reasonable and necessary and in the case of services not specified as inpatient-only under 42 CFR 419.22(n), that they are appropriately provided as inpatient services in accordance to with the 2-midnight benchmark under 43 CFR 412.3(e) Estimated Total Length of Stay (Days): 5 Plans for Post Hospital Care: Not yet determined Review of Systems All other systems reviewed negative except as stated [facility] - History History Provided By: Patient - Medical History Medical History: Medical History (Last Reviewed 03/15/18 @ 22:45 by Martha Davis DO) Anal fissure and fistula Diabetes High cholesterol Hyperlipidemia Hypertension Malignant tumor of sigmoid colon Right foot infection Stage 3 chronic kidney disease - Surgical History Surgical History: Surgical History (Last Reviewed 03/15/18 @ 22:45 by Martha Davis DO) H/O eye surgery H/O foot surgery - Family History Family History: Family History (Last Reviewed 03/15/18 @ 22:45 by Martha Davis DO) Father Lung cancer - Tobacco History Second Hand Smoke Exposure: No Tobacco Use In Past 30 Days: No Smoking Status: Former smoker Tobacco Type: Cigarettes - Alcohol History How Often Do You Have a Drink Containing Alcohol: Never - Substance Use History Substance History: No History of Abuse - Travel History Recent Travel in the [place] Within the Last 8 Weeks: No Recent Travel Out of the Country Within the Last 8 Weeks: No - Immunization History Tetanus Immunization: <5 Years Medications and Allergies Active Medications: Active Medications Acetaminophen (Tylenol) 650 mg PO Q4H PRN PRN Reason: Temp > 100.4 Hydrocodone Bitart/Acetaminophen ([place] 5/325) 1 tab PO Q4H PRN PRN Reason: Pain Scale 1 To 4 Ciprofloxacin HCl (Cipro) 500 mg PO Q12HR [facility]A Sodium Bicarbonate 150 meq/ (Sodium Chloride) 1,000 mls @ 150 mls/hr IV.CONT .Q6H40M [facility] Loperamide HCl (Imodium) 4 mg PO Q6H [facility] Non-Formulary Medication (Ferrous Sulfate [Ferrous Sulfate]) 250 mg PO BID [facility] Non-Formulary Medication (Lovastatin [Lovastatin]) 20 mg PO DAILY [facility]A Sodium Chloride (Ns Flush) 2 ml IV.FLUSH PRN PRN PRN Reason: FLUSH AFTER USING IV ACCESS Sucralfate (Carafate) 1 gm PO Q6H [facility] Allergies Allergy/AdvReac Type Severity Reaction Status Date / Time No Known Allergies Allergy Verified 02/21/18 10:25 Home Medications Medication Instructions Recorded Confirmed Type metformin 500 mg PO BID 12/06/17 03/15/18 History atenolol 50 mg PO HS 12/18/17 03/15/18 History ferrous sulfate 250 mg PO BID 12/18/17 03/15/18 History glimepiride 2 mg PO BID 12/18/17 03/15/18 History lovastatin 20 mg PO DAILY 12/18/17 03/15/18 History Results - Labs CBC & Chem 7: 03/16/18 03:37 03/16/18 03:37 Labs: Short CBC 03/15/18 Range/Units 20:59 WBC 10.5 (4.0-11.0) th/mm3 Hgb 12.3 L (13.0-17.0) gm/dL Hct 37.0 L (39.0-51.0) % Plt Count 436 D (150-450) th/mm3 BMP 03/15/18 20:59 Sodium 127 L Potassium 6.8 H* Chloride 103 Carbon Dioxide 14.0 L BUN 92 H Creatinine 5.75 H Calcium 9.8 Cardiac Enzymes 03/15/18 Range/Units 20:59 Troponin I Less than 0.02 L (0.02-0.05) ng/mL Liver Function 03/15/18 Range/Units 20:59 Total Bilirubin 0.4 (0.2-1.0) mg/dL AST 39 H (15-37) U/L ALT 122 H (12-78) U/L Alkaline Phosphatase 255 H (45-117) U/L Albumin 3.8 (3.4-5.0) g/dL - Imaging Impressions Abdomen/Pelvis CT 03/15/18 20:53 CONCLUSION: 1. Interim distal colectomy and rectosigmoid anastomosis. Intermittent right lower quadrant ileostomy. No obstruction or inflammatory changes are seen. 2. Mesenteric lymph node conglomerate in the right lower quadrant is slightly larger. 3. The metastatic lesion of the right hepatic lobe is slightly larger. 4. Small ascitic fluid has developed in the right inguinal canal and left scrotal sac. Exam Vital signs: Vital Signs 03/15/18 20:02 03/15/18 22:05 03/15/18 22:33 Temperature 97.9 F Pulse Rate 75 75 75 Respiratory Rate 20 20 Blood Pressure 116/62 Pulse Oximetry 98 Intake & Output 03/15/18 03/15/18 03/16/18 06:59 18:59 06:59 Weight 70.307 kg - Constitutional no acute distress, obtunded - Routine HEENT Exam Head: Present: normocephalic, atraumatic Eye: Present: EOMI, PERRL, normal accommodation ENT: Present: mucous membranes dry - Routine Neck Exam Present: supple, full ROM. Absent: JVD, carotid bruit - Routine Respiratory Exam Absent: accessory muscle use, rales, wheezes, crackles - Routine Cardiovascular Exam Present: RRR, S1, S2, tachycardia - Routine Abdominal Exam Present: soft, normoactive bowel sounds, ostomy - Routine Extremities Exam Absent: cyanosis, clubbing, edema - Routine Neurological Exam Present: alert, oriented X3, moving all extremities Septic Shock Reassessment Septic shock perfusion: reassessment completed Caprini VTE Risk Assessment Caprini VTE Risk Assessment: Moderate/High Risk (score >= 2) Caprini Risk Assessment Model: Point Value = 1 Point Value = 2 Point Value = 3 Point Value = 5 Age 41-60 Minor surgery BMI > 25 kg/m2 Swollen legs Varicose veins or History of unexplained or recurrent spontaneous Oral contraceptives or hormone replacement Sepsis (< 1 month) Serious lung disease, including pneumonia (< 1 month) Abnormal pulmonary function Acute myocardial infarction Congestive heart failure (< 1 month) History of inflammatory bowel disease Medical patient at bed rest Age 61-74 Arthroscopic surgery Major open surgery (> 45 min) Laparoscopic surgery (> 45 min) Malignancy Confined to bed (> 72 hours) Immobilizing plaster cast Central venous access Age >= 75 History of VTE Family history of VTE Factor V Leiden Prothrombin [id number] Lupus anticoagulant Anticardiolipin antibodies Elevated serum homocysteine Heparin-induced thrombocytopenia Other congenital or acquired thrombophilia Stroke (< 1 month) Elective arthroplasty Hip, pelvis, or leg fracture Acute spinal cord injury (< 1 month) Prophylaxis Regimen: Total Risk Factor Score Risk Level Prophylaxis Regimen 0-1 Low Early ambulation 2 Moderate Order ONE of the following: *Sequential Compression Device (SCD) *Heparin 5000 units SQ BID 3-4 Higher Order ONE of the following medications: *Heparin 5000 units SQ TID *Enoxaparin/Lovenox 40 mg SQ daily (WT < 150 kg, CrCl > 30 mL/min) *Enoxaparin/Lovenox 30 mg SQ daily (WT < 150 kg, CrCl > 10-29 mL/min) *Enoxaparin/Lovenox 30 mg SQ BID (WT < 150 kg, CrCl > 30 mL/min) AND/OR *Sequential Compression Device (SCD) 5 or more Highest Order ONE of the following medications: *Heparin 5000 units SQ TID (Preferred with Epidurals) *Enoxaparin/Lovenox 40 mg SQ daily (WT < 150 kg, CrCl > 30 mL/min) *Enoxaparin/Lovenox 30 mg SQ daily (WT < 150 kg, CrCl > 10-29 mL/min) *Enoxaparin/Lovenox 30 mg SQ BID (WT < 150 kg, CrCl > 30 mL/min) AND *Sequential Compression Device (SCD) Assessment and Plan - Assessment and Plan Plan: Acute on chronic renal failure -Hyperkalemia -Due to dehydration -Aggressive IV hydration -Telemetry in the ICU -Nephrology consultation -Monitor I's and O's -Monitor creatinine levels and electrolytes History of colorectal cancer -Status post surgical resection -Reversal of ileostomy with anastomosis planned next week -Further management per surgeon Diabetes -Insulin sliding scale Hyperlipidemia -Pravastatin Hypertension -Labetalol hydralazine as needed to keep SBP less than 160 -Resume home meds when indicated DVT/GI prophylaxis -Teds, SCDs -Subcu heparin -Pepcid 35 minutes of critical care
--- NOTE | 2018-03-15 23:55 | P.PNCS ---
Subjective Interval history: Pt well known to me. 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 He has a diverting loop ileostomy. He was admitted with severe non oliguric renal failure. Hydrated at that time with 6-7 liters in 12 hrs followed by 4-6 liters over following 12 hrs with eventual improvement of his renal function. On 02/21/18 BUN/Creat was 87/6.56 and K+ was 7.6. After acute resuscitation Dr Vasquez followed pt and as an OP. He was begun on Imodium 4mg Q6HR. I saw him on 03/06 and he felt well with thick Ileostomy outputs on my exam. BMP on following day showed mildly elevated creatinine at 1.9, and BUN moderately elevated. Cautioned pt about adequate solid intake and maintaining hydration and to call with any Nausea or other symptoms of dehydration. His daughter came in to my office at about 9AM today saying that over 2 days he has become weak again and she was instructed to get him to the ER [facility]. Apparently arrived at the ER this evening and was given 3,000cc by EMD. CT was negative. Pt is scheduled for early Ileostomy closure on 03/26/18. Discussed need for aggressive hydration with Dr Bruce Harden, also stopped all standing orders for laxatives and Kayexelate so as not to give him higher Ileostomy outputs and more Na Bicarb losses. Would prefer to treat hyperkalemia with hydration and Glucose and Insulin if needed. I will see pt in AM. [place] [facility] [place] Objective Result Diagrams: 03/15/18 20:59 03/15/18 20:59
[2018-03-16 00:11] LABS: Amorphous Sediment,Urine Rare /hpf; Bilirubin,Urine Negative (Negative); Clarity,Urine Cloudy (Clear); Color,Urine Amber (Yellw/Straw); Glucose,Urine (UA) Negative (Negative); Leukocyte Esterase,Urine Moderate (Negative); Mucus,Urine Few /lpf (Occasional); Nitrite,Urine Negative (Negative); Specific Gravity,Urine 1.016 (1.002-1.035); Squamous Epithelial Cell,Urine 5 /hpf (0-5); Transitional Epi Cells,Urine 1 /hpf
[2018-03-16] MEDS: Sodium Bicarbonate 8.4% Inj 150 MEQ in Sod Chloride 0.9% Inj 850 ML IV.CONT SCH ×2 (00:59→06:33)
[2018-03-16] MEDS: Sucralfate 1 GM Tablet PO SCH ×5 (00:59→23:34)
[2018-03-16] MEDS: Loperamide 2 MG Capsule PO SCH ×5 (00:59→20:56)
[2018-03-16] MEDS: Heparin - SQ 10,000 UNITS/ML Vial SQ SCH ×4 (01:02→23:34)
[2018-03-16] MEDS ORDERED: Chlorhexidine Gluconate 2% 1 Pack (2 Cloths) TOPICAL PRN (04:00)
[2018-03-16 04:03] LABS: Baso % (Auto) 0.5 % (0.0-2.0); Eos # (Auto) 0.4 th/mm3 (0.0-0.4); Eos % (Auto) 4.8 % (0.0-4.0); Hematocrit 32.1 % (39.0-51.0); Hemoglobin 10.7 gm/dL (13.0-17.0); Lymph # (Auto) 1.3 th/mm3 (1.0-4.8); Lymph % (Auto) 16.5 % (9.0-44.0); Mean Corpuscular HGB Conc 33.5 % (32.0-36.0); Mean Corpuscular Hemoglobin 28.3 pg (27.0-34.0); Mean Corpuscular Volume 84.5 fL (80.0-100.0); Mean Platelet Volume 8.3 fL (7.0-11.0); Mono # (Auto) 0.9 th/mm3 (0.0-0.9); Mono % (Auto) 11.5 % (0.0-8.0); Neut # (Auto) 5.3 th/mm3 (1.8-7.7); Neut % (Auto) 66.7 % (16.0-70.0); Platelet Count 310 th/mm3 (150-450); Red Blood Count 3.79 mil/mm3 (4.50-5.90); Red Cell Distribution Width 20.3 % (11.6-17.2)
[2018-03-16 04:11] LABS: Activated Partial Thrombo Time 29.9 sec (23.4-31.7); Prothrombin Time 10.2 sec (9.8-11.6)
[2018-03-16 04:40] LABS: Alanine Aminotransferase 89 U/L (12-78); Alkaline Phosphatase 199 U/L (45-117); Anion Gap 10 meq/L (5-15); Aspartate Aminotransferase 28 U/L (15-37); Blood Urea Nitrogen 83 mg/dL (7-18); Calcium 8.7 mg/dL (8.5-10.1); Carbon Dioxide 13.4 meq/L (21.0-32.0); Chloride 111 meq/L (98-107); Glomerular Filtration Rate 13 mL/min (>89); Glucose,Random 87 mg/dL (74-106); Phosphorus 6.4 mg/dL (2.5-4.9); Sodium 134 meq/L (136-145); Total Protein 7.1 g/dL (6.4-8.2)
[2018-03-16] MEDS: Sod Chloride 0.9% Inj 1,000 ML IV.CONT SCH ×4 (04:40→07:49)
[2018-03-16] MEDS: Chlorhexidine Gluconate 2% 1 Pack (2 Cloths) TOPICAL SCH (04:46)
[2018-03-16] MEDS ORDERED: Dextrose 50% in Water 50 ML Vial IV.PUSH PRN (08:31)
--- NOTE | 2018-03-16 08:36 | P.PNCC ---
Subjective Subjective Remarks/Hospital Course: 62 year old male presents with generalized weakness, decreased by mouth intake, and high ileostomy output. The patient had a sigmoid colectomy with low anterior resection, small bowel resection with anastomosis, and loop ileostomy performed for colon cancer on 01/28. He reports that he's had high ileostomy output since his surgery and is emptying his ostomy bag 0-12 times per day. He was admitted from 02/21-02/27 for dehydration, acute kidney injury, and hyperkalemia; he improved with IV hydration and did not require hemodialysis. However, over the past 2-3 days the patient has had decreased by mouth intake, decreased urination, and reports generalized weakness/ fatigue. Today, he was walking in his kitchen when "my legs gave out from under me" and he lowered himself to the floor. He denies head injury, LOC, or syncopal episode. 03/16 Patient is lying in bed in [facility]> On room air oxygen. Requesting something to drink and eat. Renal function improving with Cr: 4.5 from 5.75 and K 6.0 from 6.8. On Bicarb drip. Given 3L crystalloids on arrival. Objective Vital Signs / I&O: Vital Signs 03/15/18 20:02 03/15/18 22:05 03/15/18 22:33 Temperature 97.9 F Pulse Rate 75 75 75 Respiratory Rate 20 20 Blood Pressure 116/62 Pulse Oximetry 98 03/15/18 23:59 03/16/18 01:20 03/16/18 01:21 Temperature Pulse Rate 100 H 96 H 96 H Respiratory Rate 18 16 11 L Blood Pressure 120/57 L Pulse Oximetry 100 100 100 03/16/18 02:00 03/16/18 03:00 03/16/18 04:00 Temperature Pulse Rate 95 H 92 H 90 Respiratory Rate 22 17 20 Blood Pressure 130/57 L 125/59 L 107/52 L Pulse Oximetry 100 99 100 03/16/18 05:00 03/16/18 06:00 Temperature Pulse Rate 92 H 94 H Respiratory Rate 20 18 Blood Pressure 117/58 L 113/57 L Pulse Oximetry 100 97 Intake & Output 03/15/18 03/16/18 03/16/18 18:59 06:59 18:59 Intake Total 3050 / 3050 1000 / 1000 Output Total 750 / 750 Balance 2300 / 2300 1000 / 1000 Weight 80 kg Intake: IV 3000 / 3000 1000 / 1000 Sodium Bicarbonate 8.4% Inj 150 1000 / 1000 MEQ In NS Inj 850 ML @ 150 mls /hr IV.CONT .[id number] [facility] Rx#: [id number] NS Inj 1,000 ML @ Wide Open IV. 3000 / 3000 SIG BOLUS ONE Rx#:[id number] Oral 50 / 50 Output: Urine 450 / 450 Stool Amount (Stoma) 300 / 300 Right Upper Abdomen 300 / 300 Other: # Voids 1 Date of Last Bowel Movement 03/16/18 Weight On Admission 79.8 kg Result Diagrams: 03/16/18 03:37 03/16/18 11:04 Other Results: Laboratory Results - last 12 hr 03/15/18 03/15/18 03/15/18 20:59 20:59 20:59 WBC 10.5 RBC 4.34 L Hgb 12.3 L Hct 37.0 L MCV 85.1 MCH 28.3 MCHC 33.2 RDW 20.0 H Plt Count 436 D MPV 8.8 Neut % (Auto) 68.2 Lymph % (Auto) 14.3 [place] % (Auto) 11.6 H Eos % (Auto) 5.0 H Baso % (Auto) 0.9 Neut # (Auto) 7.1 Lymph # (Auto) 1.5 [place] # (Auto) 1.2 H Eos # (Auto) 0.5 H Baso # (Auto) 0.1 WBC Differential . Differential Comment Auto diff final PT 10.1 INR 1.0 APTT Sodium 127 L Potassium 6.8 H* Chloride 103 Carbon Dioxide 14.0 L Anion Gap 10 BUN 92 H Creatinine 5.75 H Estimated GFR 10 L Random Glucose 121 H Lactic Acid Calcium 9.8 Phosphorus 8.7 H Magnesium 2.5 Total Bilirubin 0.4 AST 39 H ALT 122 H Alkaline Phosphatase 255 H Troponin I Less than 0.02 L Total Protein 9.2 H Albumin 3.8 TSH 4.290 H Urine Color Urine Clarity Urine pH Ur Specific [place] Urine Protein Urine Glucose (UA) Urine Ketones Urine Occult Blood Urine Nitrate Urine Bilirubin Urine Urobilinogen Ur Leukocyte Esterase Urine RBC Urine WBC Ur Squamous Epith Cells Ur Transition Epith Cell Amorphous Sediment Waxy Casts Urine Mucus Micro UA Comment Ur Microscopic Review Urine Culture Comments Nasal Screen MRSA (PCR) 1203/15/18 03/16/18 20:59 23:38 00:30 WBC RBC Hgb Hct MCV MCH MCHC RDW Plt Count MPV Neut % (Auto) Lymph % (Auto) [place] % (Auto) Eos % (Auto) Baso % (Auto) Neut # (Auto) Lymph # (Auto) [place] # (Auto) Eos # (Auto) Baso # (Auto) WBC Differential Differential Comment PT INR APTT Sodium Potassium Chloride Carbon Dioxide Anion Gap BUN Creatinine Estimated GFR Random Glucose Lactic Acid 0.9 Calcium Phosphorus Magnesium Total Bilirubin AST ALT Alkaline Phosphatase Troponin I Total Protein Albumin TSH Urine Color Aarti Urine Clarity Cloudy H Urine pH 5.0 Ur Specific [place] 1.016 Urine Protein 30 H Urine Glucose (UA) Negative Urine Ketones Negative Urine Occult Blood Small H Urine Nitrate Negative Urine Bilirubin Negative Urine Urobilinogen Less than 2 Ur Leukocyte Esterase Moderate H Urine RBC 4 H Urine WBC 53 H Ur Squamous Epith Cells 5 Ur Transition Epith Cell 1 Amorphous Sediment Rare H Waxy Casts 59 Urine Mucus Few H Micro UA Comment Culture indicated Ur Microscopic Review Not Reportable Urine Culture Comments Culture indicated Nasal Screen MRSA (PCR) Not detected 03/16/18 03/16/18 03/16/18 03:37 03:37 03:37 WBC 8.0 RBC 3.79 L Hgb 10.7 L Hct 32.1 L MCV 84.5 MCH 28.3 MCHC 33.5 RDW 20.3 H Plt Count 310 MPV 8.3 Neut % (Auto) 66.7 Lymph % (Auto) 16.5 [place] % (Auto) 11.5 H Eos % (Auto) 4.8 H Baso % (Auto) 0.5 Neut # (Auto) 5.3 Lymph # (Auto) 1.3 [place] # (Auto) 0.9 Eos # (Auto) 0.4 Baso # (Auto) 0.0 WBC Differential . Differential Comment Auto diff final PT 10.2 INR 1.0 APTT 29.9 Sodium 134 L Potassium 6.0 H D Chloride 111 H D Carbon Dioxide 13.4 L Anion Gap 10 BUN 83 H Creatinine 4.50 H Estimated GFR 13 L Random Glucose 87 Lactic Acid Calcium 8.7 D Phosphorus 6.4 H D Magnesium 2.0 Total Bilirubin 0.3 AST 28 ALT 89 H Alkaline Phosphatase 199 H Troponin I Total Protein 7.1 D Albumin 3.0 L D TSH Urine Color Urine Clarity Urine pH Ur Specific [place] Urine Protein Urine Glucose (UA) Urine Ketones Urine Occult Blood Urine Nitrate Urine Bilirubin Urine Urobilinogen Ur Leukocyte Esterase Urine RBC Urine WBC Ur Squamous Epith Cells Ur Transition Epith Cell Amorphous Sediment Waxy Casts Urine Mucus Micro UA Comment Ur Microscopic Review Urine Culture Comments Nasal Screen MRSA (PCR) Imaging: Abdomen/Pelvis CT 03/15/18 20:53 CONCLUSION: 1. Interim distal colectomy and rectosigmoid anastomosis. Intermittent right lower quadrant ileostomy. No obstruction or inflammatory changes are seen. 2. Mesenteric lymph node conglomerate in the right lower quadrant is slightly larger. 3. The metastatic lesion of the right hepatic lobe is slightly larger. 4. Small ascitic fluid has developed in the right inguinal canal and left scrotal sac. Assessment and Plan - Assessment and Plan Plan: Acute on chronic renal failure Hyperkalemia, hyponatremia Elevated LFT Dehydration History of colorectal cancer DM Hyperlipidemia HTN Anemia UTI Plan Neuro: Awake and alert. Pulm: Oxygen PRN keep sats >92% Bronchodilators CV: Monitor HR and BP keep MAP>65mmHg Given 3L crystalloids, lactic acid 0.9 : Monitor renal function, I/O's, avoid nephrotoxins. Renal function is improving Cr: 4.5 from 5.75 and K 6.0 from 6.8. Will treat hyperkalemia with 8u IV insulin, D50, Ca Change IVF D5W+3amps bicarb@150ml/hr Renal consulted- Dr. Elias CT abd/pelvis: Interim distal colectomy and rectosigmoid anastomosis. Intermittent right lower quadrant ileostomy. No obstruction or inflammatory changes The metastatic lesion of the right hepatic lobe is slightly larger. 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 He has a diverting loop ileostomy. Scheduled for Ileostomy closure on 03/26. CRS is following- Dr. Ortega GI: Start PO diet. Change Pepcid 10mg IVQ12 Monitor LFT's...trending down. ID: Monitor for signs of infections ( Fever, WBC) Place on Rocephin for UTI follow up on urine cx. Endo: SSI with accuchecks. Heme: Monitor CBC DVT/GI prophylaxis -Teds, SCDs -Subcu heparin -Pepcid Level 3
[2018-03-16] MEDS ORDERED: Famotidine PF Inj 20 MG/2 ML Vial IV.PUSH SCH (09:00)
[2018-03-16] MEDS ORDERED: Senna/Docusate Sodium 8.6/50 MG Tablet PO SCH (09:00)
[2018-03-16] MEDS ORDERED: Ciprofloxacin 500 MG Tablet PO SCH (09:00)
[2018-03-16] MEDS ORDERED: Calcium Gluconate Inj 1 GM in Sodium Chlor 0.9% Inj 100 ML IV.SIG ONE (09:00)
[2018-03-16] MEDS: Sodium Bicarbonate 8.4% Inj 150 MEQ in Dextrose 5% in Water Inj 850 ML IV.CONT SCH ×6 (09:08→17:19)
[2018-03-16] MEDS: Ferrous Sulfate 325 MG Tablet PO SCH ×2 (10:37→22:14)
[2018-03-16] MEDS: Famotidine PF Inj 20 MG/2 ML Vial IV.PUSH SCH ×2 (10:38→20:56)
--- NOTE | 2018-03-16 11:42 | MB ---
cc: Natalio Ortega MD, John T MD Iskandar, Alaa MD Jumani,Sisi Reese MD DATE: 03/15/2018 CHIEF COMPLAINT: High output ileostomy with dehydration and nonoliguric renal failure. HISTORY OF PRESENT ILLNESS: This patient is well known to me. He was referred to me with a near obstructing colon carcinoma. He had no insurance and he came into the hospital, and he was partially prepped and underwent sigmoid colectomy with colorectal anastomosis and diverting ileostomy on 01/28/2018 in a semi-emergent manner. The patient did well postoperatively and was discharged from the hospital. Unfortunately, because of no insurance, he had no home healthcare for ileostomy teaching and supplies and became rapidly dehydrated several weeks after going home due to high ileostomy outputs, which is not terribly unusual after this type of surgery. Nevertheless, he was brought into the hospital on 02/21/2018 and we rehydrated him over a 24-hour period with about 12-13 liters of fluid and his renal failure at that time improved rapidly over several days. He went home with almost a normal BUN and creatinine. At that time, he had a lot of debris in his urine from massive dehydration and eventually urine culture showed Enterobacter and Klebsiella. He was discharged on Cipro and took Cipro for 10 days for this. I saw the patient about 10 days ago in my office and on the following day obtained a BMP and a CBC and diff, and at that time he was still mildly dehydrated with a creatinine in the 1.9 range and a BUN in the 40-50 range. He felt well, but still without a very good appetite and was started on Megace at low dose for his appetite. For a short time, he says that he improved and felt as if he was maintaining his hydration. The patient's pathology at the time of his surgery in January showed that he had a single liver metastases right at the dome of the right lobe of the liver and he is in need for chemotherapy for this lesion; however, this cannot be given while he is having these high output ileostomy events because the chemotherapy will cause some degree of diarrhea as well. Therefore, we had him scheduled for closure of his ileostomy on 03/26/2018. We were trying to give him time to improve his nutrition and maintain his hydration prior to doing that surgery. Nevertheless over the past couple of days, apparently the patient got more and more weak and dehydrated and finally on 03/15/2018 in the morning, his daughter came to my office and explained the situation and we had him sent immediately to the emergency room; however, they waited about 12 hours before coming in. He was admitted last night to the [facility] and I was consulted. I spoke with the ER physician and Dr. Harden last night and urged rapid infusion of crystalloid to maintain his nonoliguric renal failure. A CT scan of the abdomen was done and apparently no intravenous contrast was used for that study. Nevertheless, that study was unchanged from previous studies and demonstrated the liver metastasis. The patient has gotten approximately 6 liters of IV fluid since admission. He was given about 3 liters immediately and then his IVs through the night were given at about 500 mL per hour for approximately 6-8 hours, giving him another 3000 mL. The I and O's in the EMR are not totally accurate. Since that time, he has been seen by critical care medicine again this morning, Dr. Abad, who discontinued his Imodium. I talked with Dr. Abad and I will restart his Imodium and also add Lomotil to his regimen as his ileostomy bag is full of liquid output. The patient is nonoliguric and is able to void urine. On admission, his hemoglobin was 12.3 and hematocrit was 37. Upon hydration last time, his hemoglobin was 9.9 and 30.2 so that we know that he is hemoconcentrated at this time. His hemoglobin this morning was 10.7 and 32.1; however, he is still having large outputs from his ileostomy this morning. On admission on 02/21/2018, his electrolytes were sodium 132, potassium 7.6, chloride 101, CO2 of 16.7, BUN of 87, creatinine of 6.56. On this admission, his sodium was 127, his potassium was 6.8, chloride was 103, CO2 was 14 with a BUN of 92 and a creatinine of 5.75. He has improved this morning to a sodium of 134, potassium of 6.0, chloride of 111, total CO2 of 13.4 with BUN of 83 and a creatinine of 4.5. Unfortunately, he was given Kayexalate in the emergency department, which contributed to further diarrhea. I have discontinued that and discontinued all p.r.n. laxative orders so that none are given to this patient with high ileostomy outputs. The high ileostomy output that he is having right now is probably a result of the Kayexalate that was given. I discussed this all last night with Dr. Harden regarding further rapid hydration for this patient and his electrolytes are responding this morning. The patient has no complaints. He says that he does have an appetite for the first time in several weeks and wants to eat food. I will start him on a renal diet. I will also continue his IVs at least during the day at 250 mL an hour since he is still having massive outputs from his ileostomy. I will follow along every couple of hours and repeat a basic metabolic profile at 10 a.m. this morning and probably in the afternoon as well to ascertain his progress. The patient has a lot of debris in his urine; however, it is possible that he does not have a urinary tract infection despite leukocyte esterase and debris in his urine. This was found commonly with massive dehydration. He is getting a dose of Rocephin at this time. I have stopped the Cipro. I am concerned about antibiotic usage in a debilitated patient and developing pseudomembranous colitis. He has no signs of sepsis and no elevated white blood cell count at this time. Past medical history, family history, social history, and review of systems otherwise negative. PHYSICAL EXAMINATION: GENERAL: Well-developed comfortable male in no acute distress at this time. SKIN: Warm and dry. HEENT: Extraocular muscles intact. NECK: Supple. ABDOMEN: Soft, nontender. No masses. Not distended. His ileostomy bag is full with at least 300-500 mL of liquid ileostomy output. RECTAL: Exam was not done. EXTREMITIES: Range of motion within normal limits. NEUROLOGIC: Grossly normal. IMPRESSION: 1. High ileostomy outputs with massive dehydration and nonoliguric renal failure. 2. Status post semi-emergent sigmoid colectomy for carcinoma and hepatic metastasis. PLAN: I will restart his Imodium and add Lomotil to the regimen. I will make sure that no laxatives of any sort even Kayexalate are given as long as his EKG rhythm is stable. If we need to treat his potassium levels, we can give him D50 and insulin to lower his potassium. It seems to be coming down nicely at this time and I do not anticipate having to do that. I would like to limit his antibiotic usage as I am concerned about pseudomembranous colitis. I will move up his ileostomy closure to the middle to end of next week once this renal insufficiency has resolved as the patient cannot tolerate these episodes of dehydration and we are unable to get intravenous fluids at home given the fact that he has no insurance. He does tell me that he has Medicaid now and maybe this is a possibility, but it would probably be safer to close his ileostomy earlier. Natalio Ortega MD JTT/sv , 09:06 AM , 09:23 AM
[2018-03-16] MEDS: Diphenoxylate/Atropine 2.5/0.025 MG Tablet PO SCH ×3 (11:57→23:34)
[2018-03-16 12:02] LABS: Calcium 8.4 mg/dL (8.5-10.1); Carbon Dioxide 18.4 meq/L (21.0-32.0); Potassium 5.6 meq/L (3.5-5.1)
--- NOTE | 2018-03-16 12:26 | P.CONNP ---
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 Patient had nausea and vomiting yesterday as well and did not eat well, today he feels much better and is passing urine. Review of Systems Constitutional: Reports anorexia Eyes: Denies blind spots, Denies blurry vision, Denies bulging eyes, Denies change in vision, Denies double vision, Denies discharge, Denies dry eyes, Denies floaters, Denies irritation, Denies itchy eyes, Denies loss of vision, Denies pain, Denies requires corrective lenses, Denies sensitivity to light, Denies other Ears, Nose, Mouth, and Throat: Denies abnormal hearing, Denies bleeding gums, Denies bad breath, Denies change in voice, Denies dental pain, Denies difficulty swallowing, Denies dizziness, Denies dry mouth, Denies ear discharge , Denies ear pain, Denies facial pain, Denies headache(s), Denies hearing loss, Denies hoarseness, Denies lip swelling, Denies nosebleed, Denies mouth lesions, Denies mouth pain, Denies nasal congestion, Denies nasal discharge, Denies nasal obstruction, Denies nasal trauma, Denies neck lump, Denies neck pain, Denies nose pain, Denies pain with swallowing, Denies poor balance, Denies post nasal drip, Denies ringing in the ears, Denies sinus pain, Denies sinus pressure , Denies sore throat, Denies throat swelling, Denies tongue swelling, Denies other Cardiovascular: Denies chest pain, Denies chest pain at rest, Denies chest pain with activity, Denies excessive sweating, Denies fainting, Denies fast heart rate, Denies foot swelling, Denies generalized swelling, Denies irregular heart rhythm, Denies leg pain with activity, Denies leg sores, Denies leg swelling, Denies lightheadedness, Denies radiating jaw, neck or arm pain, Denies rapid, pounding, or irregular heartbeat, Denies shortness of breath, Denies shortness of breath with activity, Denies shortness of breath when lying down, Denies shortness of breath causing sudden awakening, Denies slow heart rate, Denies other Respiratory: Denies change in phlegm color, Denies chest congestion, Denies cough, Denies coughing up blood, Denies excessive phlegm production, Denies pain on inspiration, Denies pain with cough, Denies shortness of breath, Denies shortness of breath with activity, Denies snoring, Denies stridor, Denies wheezing, Denies other Gastrointestinal: Reports belching, Reports other (Ileostomy) Genitourinary: Reports urinary frequency (Decreased) Musculoskeletal: Reports decreased muscle mass Skin/Breast: Reports other Neurologic: Reports weakness Psychiatric: Denies abnormal sleep pattern, Denies anxiety, Denies behavioral changes, Denies change in appetite, Denies change in sex drive, Denies confusion , Denies depression, Denies difficulty concentrating, Denies hearing things others do not hear, Denies hopelessness, Denies irritability, Denies lack of enjoyment, Denies memory loss, Denies mood swings, Denies panic attacks, Denies paranoia, Denies seeing things others do not see, Denies sensing things others do not sense, Denies tactile hallucinations, Denies thoughts of hurting/killing others, Denies thoughts of hurting/killing yourself, Denies other Endocrine: Denies cold intolerance, Denies excessive sweating, Denies flushing, Denies heat intolerance, Denies increased hunger, Denies increased thirst, Denies increased urination, Denies rapid, pounding, or irregular heartbeat, Denies other PMFSH - History History Provided By: Patient - Medical History Medical History: Medical History (Last Reviewed 03/16/18 @ 12:24 by Luly Elias MD) Anal fissure and fistula Diabetes High cholesterol Hyperlipidemia Hypertension Malignant tumor of sigmoid colon Right foot infection Stage 3 chronic kidney disease - Surgical History Surgical History: Surgical History (Last Reviewed 03/16/18 @ 12:24 by Luly Elias MD) H/O eye surgery H/O foot surgery - Family History Family History: Family History (Last Reviewed 03/16/18 @ 12:24 by Luly Elias MD) Father Lung cancer - Social History I have reviewed the patient's Social History: Yes - Tobacco History Second Hand Smoke Exposure: No Tobacco Use In Past 30 Days: No Smoking Status: Former smoker Tobacco Type: Cigarettes - Alcohol History How Often Do You Have a Drink Containing Alcohol: Never - Substance Use History Substance History: No History of Abuse - Travel History Recent Travel in the [place] Within the Last 8 Weeks: No Recent Travel Out of the Country Within the Last 8 Weeks: No - Immunization History Tetanus Immunization: <5 Years Medications and Allergies Active Medications: Active Medications Acetaminophen (Tylenol) 650 mg PO Q4H PRN PRN Reason: Temp > 100.4 Hydrocodone Bitart/Acetaminophen ([place] 5/325) 1 tab PO Q4H PRN PRN Reason: Pain Scale 1 To 4 Albuterol (Duoneb Neb (Prn)) 1 ampul NEB Q2HR NEB PRN PRN Reason: WHEEZING Chlorhexidine Gluconate (Chlorhexidine 2% Cloth) 3 pack TOPICAL DAILY@0400 CHHAYA Stop: 03/21/18 03:59 Last Admin: 03/16/18 04:46 Dose: 3 pack Chlorhexidine Gluconate (Chlorhexidine 2% Cloth) 3 pack TOPICAL DAILY@0400 PRN PRN Reason: Extra cloth needed Stop: 03/21/18 03:59 Dextrose (D50w Vial) 50 ml IV.PUSH UNSCH PRN PRN Reason: PER HYPOGLYCEMIA PROTOCOL Diphenoxylate HCl/Atropine (Lomotil) 2 tab PO Q6HR [facility] Last Admin: 03/16/18 11:57 Dose: 2 tab Famotidine (Pepcid Pf Inj) 10 mg IV.PUSH Q12HR [facility] Last Admin: 03/16/18 10:38 Dose: Not Given Ferrous Sulfate (Ferosul) 325 mg PO Q12H [facility] Last Admin: 03/16/18 10:37 Dose: 325 mg Glucagon (Glucagon Inj) 1 mg OTHER PRN PRN PRN Reason: for Hypoglycemia Protocol Heparin Sodium (Porcine) (Heparin Inj) 5,000 units SQ Q8H [facility] Last Admin: 03/16/18 08:24 Dose: 5,000 units Sodium Bicarbonate 150 meq/ (Dextrose) 1,000 mls @ 250 mls/hr IV.CONT .Q4H [facility] Last Admin: 03/16/18 09:08 Dose: 250 mls/hr Insulin Human Regular (Novolin R Correctional Sugar Inj) 0 units SQ Q6HR [facility]; Protocol Loperamide HCl (Imodium) 4 mg PO Q6H [facility] Last Admin: 03/16/18 10:37 Dose: 4 mg Ondansetron HCl (Zofran Inj) 4 mg IV.PUSH Q6H PRN PRN Reason: NAUSEA OR VOMITING Last Admin: 03/15/18 23:32 Dose: 4 mg Pravastatin Sodium (Pravachol) 20 mg PO DAILY [facility] Last Admin: 03/16/18 08:25 Dose: 20 mg Sodium Chloride (Ns Flush) 2 ml IV.FLUSH PRN PRN PRN Reason: FLUSH AFTER USING IV ACCESS Sodium Chloride (Ns Flush) 2 ml IV.FLUSH BID [facility] Last Admin: 03/16/18 08:25 Dose: 2 ml Sodium Chloride (Ns Flush) 2 ml IV.FLUSH PRN PRN PRN Reason: FLUSH AFTER USING IV ACCESS Sucralfate (Carafate) 1 gm PO Q6H [facility] Last Admin: 03/16/18 10:37 Dose: 1 gm Temazepam (Restoril) 15 mg PO HS PRN PRN Reason: INSOMNIA Allergies Allergy/AdvReac Type Severity Reaction Status Date / Time No Known Allergies Allergy Verified 02/21/18 10:25 Home Medications Medication Instructions Recorded Confirmed Type metformin 500 mg PO BID 12/06/17 03/15/18 History atenolol 50 mg PO HS 12/18/17 03/15/18 History ferrous sulfate 250 mg PO BID 12/18/17 03/15/18 History glimepiride 2 mg PO BID 12/18/17 03/15/18 History lovastatin 20 mg PO DAILY 12/18/17 03/15/18 History Exam Vital signs: Vital Signs 03/15/18 20:02 03/15/18 22:05 03/15/18 22:33 Temperature 97.9 F Pulse Rate 75 75 75 Respiratory Rate 20 20 Blood Pressure 116/62 Pulse Oximetry 98 03/15/18 23:59 03/16/18 01:20 03/16/18 01:21 Temperature Pulse Rate 100 H 96 H 96 H Respiratory Rate 18 16 11 L Blood Pressure 120/57 L Pulse Oximetry 100 100 100 03/16/18 02:00 03/16/18 03:00 03/16/18 04:00 Temperature Pulse Rate 95 H 92 H 90 Respiratory Rate 22 17 20 Blood Pressure 130/57 L 125/59 L 107/52 L Pulse Oximetry 100 99 100 03/16/18 05:00 03/16/18 06:00 03/16/18 08:00 Temperature 97.7 F Pulse Rate 92 H 94 H 86 Respiratory Rate 20 18 21 Blood Pressure 117/58 L 113/57 L 131/63 Pulse Oximetry 100 97 100 03/16/18 09:00 03/16/18 12:00 Temperature 99.1 F Pulse Rate 79 100 H Respiratory Rate 21 Blood Pressure 162/70 H Pulse Oximetry 100 Intake & Output 03/15/18 03/16/18 03/16/18 18:59 06:59 18:59 Intake Total 3050 / 3050 1110 / 1110 Output Total 750 / 750 Balance 2300 / 2300 1110 / 1110 Weight 80 kg Intake: IV 3000 / 3000 1110 / 1110 Sodium Bicarbonate 8.4% Inj 150 1000 / 1000 MEQ In NS Inj 850 ML @ 150 mls /hr IV.CONT .Q6H40M [facility] Rx#: [id number] Calcium Gluconate Inj 1 GM In 110 / 110 NS Inj 100 ML @ 110 mls/hr IV. SIG ONCE ONE Rx#:[id number] NS Inj 1,000 ML @ Wide Open IV. 3000 / 3000 SIG BOLUS ONE Rx#:[id number] Oral 50 / 50 Output: Urine 450 / 450 Stool Amount (Stoma) 300 / 300 Right Upper Abdomen 300 / 300 Other: # Voids 1 Date of Last Bowel Movement 03/16/18 Weight On Admission 79.8 kg Narrative: GENERAL: Well-nourished, well-developed patient. SKIN: Warm and dry. HEAD: Normocephalic. EYES: No scleral icterus. No injection or drainage. NECK: Supple, trachea midline. No JVD or lymphadenopathy. CARDIOVASCULAR: Regular rate and rhythm without murmurs, gallops, or rubs. RESPIRATORY: Breath sounds equal bilaterally. No accessory muscle use. GASTROINTESTINAL: Abdomen soft, non-tender, nondistended. Ileostomy bag on the right side EXTREMITIES: No edema NEUROLOGICAL: Awake, alert, and oriented x 3. Non-focal. Results - Lab Results 03/17/18 04:43 03/17/18 04:43 Most recent lab results Calcium 8.4 mg/dL (8.5-10.1) L 03/16/18 11:04 Phosphorus 6.4 mg/dL (2.5-4.9) H D 03/16/18 03:37 Magnesium 2.0 mg/dL (1.5-2.5) 03/16/18 03:37 Assessment and Plan - Assessment (1) Colonic mass Code(s): K63.9 - Disease of intestine, unspecified Status: Acute (2) Acute hyperkalemia Code(s): E87.5 - Hyperkalemia Status: Acute (3) Acute dehydration Code(s): E86.0 - Dehydration Status: Acute (4) DAMON (acute kidney injury) Code(s): N17.9 - Acute kidney failure, unspecified Status: Acute - Plan Patient responded well to hydration he is on D5 with 3 A of sodium bicarbonate at 250 cc an hour, creatinine continue to improve with hydration urine output has increased potassium, with treatment it is declining and hyperkalemia is resolving He has severe dehydration due to ileostomy output Patient has been followed by colorectal surgeon and Imodium will be used to slow down ileostomy output Patient has colon cancer and will need chemotherapy Continue to monitor electrolytes
[2018-03-16] MEDS: Insulin NovoLIN Regular Correctional Sugar Inj SQ SCH ×3 (12:52→23:34)
[2018-03-16 14:53] LABS: Bilirubin,Urine Negative (Negative); Clarity,Urine Clear (Clear); Color,Urine Straw (Yellw/Straw); Glucose,Urine (UA) 500 or Greater mg/dL (Negative); Leukocyte Esterase,Urine Negative (Negative); Mucus,Urine Few /lpf (Occasional); Nitrite,Urine Negative (Negative); Specific Gravity,Urine 1.007 (1.002-1.035); Squamous Epithelial Cell,Urine <1 /hpf (0-5)
[2018-03-16 17:02] LABS: Calcium 7.8 mg/dL (8.5-10.1); Carbon Dioxide 18.1 meq/L (21.0-32.0); Potassium 5.7 meq/L (3.5-5.1)
--- NOTE | 2018-03-16 20:47 | ECG ---
Date Performed: 03/15/2018 Time Performed: 20:32:42 PTAGE: 62 years EKG: Sinus rhythm PEAKED T WAVES, WHICH ARE OLD CANNOT EXCLUDE ISCHEMIA OR HYPERKALEMIA NORMAL ECG PREVIOUS TRACING : 02/21/2018 11.30 DOCTOR: Kashmir Cooper Interpretating Date/Time 03/16/2018 20:46:44
--- NOTE | 2018-03-16 20:47 | ECG ---
Date Performed: 03/16/2018 Time Performed: 02:13:16 PTAGE: 62 years EKG: Sinus rhythm Short MS interval PEAKED T WAVES PERSISTS, PERHAPS LESS THAN PRIOR TRACING Clinical correlation is r ecommended Borderline ECG NO PREVIOUS TRACING DOCTOR: Kashmir Cooper Interpretating Date/Time 03/16/2018 20:47:10
[2018-03-16] MEDS: Sodium Bicarbonate 8.4% Inj 150 MEQ in Sodium Chloride 0.45 % Inj 850 ML IV.CONT SCH (20:56)
[2018-03-17] MEDS: Loperamide 2 MG Capsule PO SCH ×4 (02:50→21:01)
[2018-03-17] MEDS: Chlorhexidine Gluconate 2% 1 Pack (2 Cloths) TOPICAL SCH (03:09)
[2018-03-17] MEDS: Sodium Bicarbonate 8.4% Inj 150 MEQ in Sodium Chloride 0.45 % Inj 850 ML IV.CONT SCH (04:22)
[2018-03-17] MEDS: Sucralfate 1 GM Tablet PO SCH ×4 (04:22→23:41)
[2018-03-17] MEDS: Diphenoxylate/Atropine 2.5/0.025 MG Tablet PO SCH ×4 (05:15→23:41)
[2018-03-17 06:08] LABS: Alanine Aminotransferase 54 U/L (12-78); Albumin 2.4 g/dL (3.4-5.0); Alkaline Phosphatase 148 U/L (45-117); Anion Gap 7 meq/L (5-15); Aspartate Aminotransferase 18 U/L (15-37); Blood Urea Nitrogen 45 mg/dL (7-18); Calcium 7.5 mg/dL (8.5-10.1); Carbon Dioxide 31.2 meq/L (21.0-32.0); Chloride 101 meq/L (98-107); Glomerular Filtration Rate 29 mL/min (>89); Glucose,Random 228 mg/dL (74-106); Potassium 4.9 meq/L (3.5-5.1); Sodium 139 meq/L (136-145); Total Protein 5.8 g/dL (6.4-8.2)
[2018-03-17] MEDS: Insulin NovoLIN Regular Correctional Sugar Inj SQ SCH ×4 (06:10→23:41)
[2018-03-17 06:24] LABS: Baso % (Auto) 0.7 % (0.0-2.0); Eos # (Auto) 0.3 th/mm3 (0.0-0.4); Eos % (Auto) 6.3 % (0.0-4.0); Hematocrit 25.7 % (39.0-51.0); Hemoglobin 8.6 gm/dL (13.0-17.0); Lymph # (Auto) 1.2 th/mm3 (1.0-4.8); Lymph % (Auto) 21.6 % (9.0-44.0); Mean Corpuscular HGB Conc 33.6 % (32.0-36.0); Mean Corpuscular Hemoglobin 28.1 pg (27.0-34.0); Mean Corpuscular Volume 83.5 fL (80.0-100.0); Mean Platelet Volume 8.6 fL (7.0-11.0); Mono # (Auto) 0.8 th/mm3 (0.0-0.9); Mono % (Auto) 14.5 % (0.0-8.0); Neut # (Auto) 3.1 th/mm3 (1.8-7.7); Neut % (Auto) 56.9 % (16.0-70.0); Platelet Count 249 th/mm3 (150-450); Red Blood Count 3.08 mil/mm3 (4.50-5.90); Red Cell Distribution Width 20.1 % (11.6-17.2); White Blood Count 5.5 th/mm3 (4.0-11.0)
--- NOTE | 2018-03-17 07:39 | P.PNCC ---
Subjective Subjective Remarks/Hospital Course: 62 year old male presents with generalized weakness, decreased by mouth intake, and high ileostomy output. The patient had a sigmoid colectomy with low anterior resection, small bowel resection with anastomosis, and loop ileostomy performed for colon cancer on 01/28. He reports that he's had high ileostomy output since his surgery and is emptying his ostomy bag 0-12 times per day. He was admitted from 02/21-02/27 for dehydration, acute kidney injury, and hyperkalemia; he improved with IV hydration and did not require hemodialysis. However, over the past 2-3 days the patient has had decreased by mouth intake, decreased urination, and reports generalized weakness/ fatigue. Today, he was walking in his kitchen when "my legs gave out from under me" and he lowered himself to the floor. He denies head injury, LOC, or syncopal episode. 03/16 Patient is lying in bed in [facility]> On room air oxygen. Requesting something to drink and eat. Renal function improving with Cr: 4.5 from 5.75 and K 6.0 from 6.8. On Bicarb drip. Given 3L crystalloids on arrival. 03/17 No events overnight. Awake and alert on room air oxygen. Renal function is improving with Cr: 2.3 from 3.11. On bicarb drip. Objective Vital Signs / I&O: Vital Signs 03/16/18 08:00 03/16/18 09:00 03/16/18 10:00 Temperature 97.7 F Pulse Rate 86 79 101 H Respiratory Rate 21 15 31 H Blood Pressure 131/63 142/65 H 130/84 Pulse Oximetry 100 100 100 03/16/18 11:00 03/16/18 11:21 03/16/18 12:00 Temperature 99.1 F Pulse Rate 99 H 92 H 100 H Respiratory Rate 19 17 21 Blood Pressure 147/65 H 162/70 H Pulse Oximetry 100 100 100 03/16/18 13:00 03/16/18 14:00 03/16/18 15:00 Temperature Pulse Rate 98 H 96 H 96 H Respiratory Rate 20 20 19 Blood Pressure 136/78 136/61 123/56 L Pulse Oximetry 99 100 96 03/16/18 16:00 03/16/18 16:01 03/16/18 17:00 Temperature 99.1 F Pulse Rate 71 69 163 H Respiratory Rate 20 19 29 H Blood Pressure 155/67 H 155/67 H Pulse Oximetry 100 100 94 L 03/16/18 17:17 03/16/18 18:00 03/16/18 18:01 Temperature Pulse Rate 98 H 100 H 100 H Respiratory Rate 18 24 27 H Blood Pressure 102/53 L 150/68 H Pulse Oximetry 100 94 L 95 03/16/18 19:00 03/16/18 20:00 03/16/18 21:00 Temperature 98.8 F Pulse Rate 88 75 81 Respiratory Rate 19 20 20 Blood Pressure 108/53 L 144/64 H Pulse Oximetry 99 100 98 03/16/18 21:01 03/16/18 21:04 03/16/18 22:00 Temperature Pulse Rate 87 88 109 H Respiratory Rate 29 H 25 H 42 H Blood Pressure 134/101 H 130/58 L Pulse Oximetry 100 99 92 L 03/16/18 22:01 03/16/18 22:04 03/16/18 23:00 Temperature Pulse Rate 105 H 65 78 Respiratory Rate 37 H 17 18 Blood Pressure 140/107 H 118/57 L Pulse Oximetry 87 L 99 97 03/16/18 23:01 03/17/18 00:00 03/17/18 01:00 Temperature 99 F Pulse Rate 84 87 76 Respiratory Rate 17 14 16 Blood Pressure 113/57 L 94/61 L 118/56 L Pulse Oximetry 97 98 97 03/17/18 02:00 03/17/18 03:00 03/17/18 04:00 Temperature Pulse Rate 79 86 86 Respiratory Rate 17 13 16 Blood Pressure 121/58 L 123/62 126/58 L Pulse Oximetry 98 99 98 03/17/18 05:00 Temperature Pulse Rate 80 Respiratory Rate 17 Blood Pressure 135/66 Pulse Oximetry 97 Intake & Output 03/16/18 03/17/18 03/17/18 18:59 06:59 18:59 Intake Total 3810 / 3810 3720 / 3720 Output Total 2014 1825 / 1825 Balance 1795 / 1795 1895 / 1895 Weight 84.2 kg Intake: IV 3110 / 3110 3000 / 3000 Sodium Bicarbonate 8.4% Inj 150 2000 / 2000 1000 / 1000 MEQ In D5W Inj 850 ML @ 150 mls/hr IV.CONT .Q6H40M [facility] Rx#: [id number] Sodium Bicarbonate 8.4% Inj 150 1000 / 1000 MEQ In NS Inj 850 ML @ 150 mls /hr IV.CONT .Q6H40M [facility] Rx#: [id number] Sodium Bicarbonate 8.4% Inj 150 1000 / 1000 MEQ In 1/2 Normal Saline Inj 850 ML @ 125 mls/hr IV.CONT . Q8H [facility] Rx#:[id number] Calcium Gluconate Inj 1 GM In 110 / 110 NS Inj 100 ML @ 110 mls/hr IV. SIG ONCE ONE Rx#:[id number] Oral 700 / 700 720 / 720 Output: Urine 1800 / 1800 1375 / 1375 Stool Amount (Stoma) 215 / 215 450 / 450 Right Upper Abdomen 215 / 215 450 / 450 Other: Date of Last Bowel Movement 03/16/18 03/16/18 Result Diagrams: 03/17/18 04:43 03/17/18 10:28 Other Results: Laboratory Results - last 12 hr 03/16/18 03/16/18 03/17/18 19:52 23:03 04:43 WBC 5.5 RBC 3.08 L Hgb 8.6 L D Hct 25.7 L MCV 83.5 MCH 28.1 MCHC 33.6 RDW 20.1 H Plt Count 249 MPV 8.6 Neut % (Auto) 56.9 Lymph % (Auto) 21.6 [place] % (Auto) 14.5 H Eos % (Auto) 6.3 H Baso % (Auto) 0.7 Neut # (Auto) 3.1 Lymph # (Auto) 1.2 [place] # (Auto) 0.8 Eos # (Auto) 0.3 Baso # (Auto) 0.0 WBC Differential . Differential Comment Auto diff final Sodium Potassium Chloride Carbon Dioxide Anion Gap BUN Creatinine Estimated GFR POC Glucose 362 H 181 H Random Glucose Calcium Total Bilirubin AST ALT Alkaline Phosphatase Total Protein Albumin 03/17/18 04:43 WBC RBC Hgb Hct MCV MCH MCHC RDW Plt Count MPV Neut % (Auto) Lymph % (Auto) [place] % (Auto) Eos % (Auto) Baso % (Auto) Neut # (Auto) Lymph # (Auto) [place] # (Auto) Eos # (Auto) Baso # (Auto) WBC Differential Differential Comment Sodium 139 Potassium 4.9 D Chloride 101 Carbon Dioxide 31.2 D Anion Gap 7 BUN 45 H Creatinine 2.30 H Estimated GFR 29 L POC Glucose Random Glucose 228 H Calcium 7.5 L Total Bilirubin 0.4 AST 18 ALT 54 Alkaline Phosphatase 148 H Total Protein 5.8 L D Albumin 2.4 L D Imaging: Abdomen/Pelvis CT 03/15/18 20:53 CONCLUSION: 1. Interim distal colectomy and rectosigmoid anastomosis. Intermittent right lower quadrant ileostomy. No obstruction or inflammatory changes are seen. 2. Mesenteric lymph node conglomerate in the right lower quadrant is slightly larger. 3. The metastatic lesion of the right hepatic lobe is slightly larger. 4. Small ascitic fluid has developed in the right inguinal canal and left scrotal sac. Objective Remarks: GENERAL: Patient is 62 yo lying in bed in NAD. SKIN: Warm and dry. HEAD: Normocephalic. EYES: No scleral icterus. No injection or drainage. NECK: Supple, trachea midline. No JVD or lymphadenopathy. CARDIOVASCULAR: Regular rate and rhythm without murmurs, gallops, or rubs. RESPIRATORY: Breath sounds equal bilaterally. No accessory muscle use. GASTROINTESTINAL: Abdomen soft, non-tender, nondistended. MUSCULOSKELETAL: No cyanosis, or edema. Neuro: Awake and alert. Assessment and Plan - Assessment and Plan Plan: Acute on chronic renal failure Hyperkalemia, hyponatremia Elevated LFT Dehydration History of colorectal cancer DM Hyperlipidemia HTN Anemia UTI Plan Neuro: Awake and alert. Pulm: Oxygen PRN keep sats >92% Bronchodilators CV: Monitor HR and BP keep MAP>65mmHg lactic acid 0.9 : Monitor renal function, I/O's, avoid nephrotoxins. Renal function is improving Cr: 2.3 from 3.11, K 4.9today On 04/10 NS+3amps bicarb @125ml/hr change to NS@100ml/hr Renal is following- Dr. Elias CT abd/pelvis: Interim distal colectomy and rectosigmoid anastomosis. Intermittent right lower quadrant ileostomy. No obstruction or inflammatory changes. The metastatic lesion of the right hepatic lobe is slightly larger. 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 He has a diverting loop ileostomy. For Ileostomy closure next week, CRS is following- Dr. Ortega On Imodium 4mg Q6 GI: on PO diet. Pepcid 10mg IVQ12 Monitor LFT's...trending down. ID: [id number]/ Rocephin and monitor for signs of infections ( Fever, WBC). Afebrile. follow up on urine cx. Endo: SSI with accuchecks. Heme: Monitor CBC DVT/GI prophylaxis -Teds, SCDs -Subcu heparin -Pepcid Will sign off and transfer care to [facility] Level 2
[2018-03-17] MEDS: Heparin - SQ 10,000 UNITS/ML Vial SQ SCH ×3 (08:03→23:41)
[2018-03-17] MEDS: Famotidine PF Inj 20 MG/2 ML Vial IV.PUSH SCH ×2 (08:03→21:01)
--- NOTE | 2018-03-17 08:47 | P.PNCS ---
Subjective Interval history: Much improved with aggressive hydration. Repeat U/A negative as expected since ARF resolving. Objective Result Diagrams: 03/17/18 04:43 03/17/18 04:43 Objective Remarks: Abd: flat,soft,stooling Assessment and Plan - Plan Recommend transfer to floor continue hydration will close Ileostomy early because of severe dehydration episodes; on Sunday or will follow with you
[2018-03-17] MEDS: Ferrous Sulfate 325 MG Tablet PO SCH ×2 (09:16→21:02)
--- NOTE | 2018-03-17 11:08 | P.PNNP ---
Subjective Interval history: Patient feels much better appetite is improved Physical Exam Vital signs: Vital Signs 03/16/18 11:21 03/16/18 12:00 03/16/18 13:00 Temperature 99.1 F Pulse Rate 92 H 100 H 98 H Respiratory Rate 17 21 20 Blood Pressure 147/65 H 162/70 H 136/78 Pulse Oximetry 100 100 99 03/16/18 14:00 03/16/18 15:00 03/16/18 16:00 Temperature 99.1 F Pulse Rate 96 H 96 H 71 Respiratory Rate 20 19 20 Blood Pressure 136/61 123/56 L 155/67 H Pulse Oximetry 100 96 100 03/16/18 16:01 03/16/18 17:00 03/16/18 17:17 Temperature Pulse Rate 69 163 H 98 H Respiratory Rate 19 29 H 18 Blood Pressure 155/67 H 102/53 L Pulse Oximetry 100 94 L 100 03/16/18 18:00 03/16/18 18:01 03/16/18 19:00 Temperature Pulse Rate 100 H 100 H 88 Respiratory Rate 24 27 H 19 Blood Pressure 150/68 H 108/53 L Pulse Oximetry 94 L 95 99 03/16/18 20:00 03/16/18 21:00 03/16/18 21:01 Temperature 98.8 F Pulse Rate 75 81 87 Respiratory Rate 20 20 29 H Blood Pressure 144/64 H 134/101 H Pulse Oximetry 100 98 100 03/16/18 21:04 03/16/18 22:00 03/16/18 22:01 Temperature Pulse Rate 88 109 H 105 H Respiratory Rate 25 H 42 H 37 H Blood Pressure 130/58 L 140/107 H Pulse Oximetry 99 92 L 87 L 03/16/18 22:04 03/16/18 23:00 03/16/18 23:01 Temperature Pulse Rate 65 78 84 Respiratory Rate 17 18 17 Blood Pressure 118/57 L 113/57 L Pulse Oximetry 99 97 97 03/17/18 00:00 03/17/18 01:00 03/17/18 02:00 Temperature 99 F Pulse Rate 87 76 79 Respiratory Rate 14 16 17 Blood Pressure 94/61 L 118/56 L 121/58 L Pulse Oximetry 98 97 98 03/17/18 03:00 03/17/18 04:00 03/17/18 05:00 Temperature Pulse Rate 86 86 80 Respiratory Rate 13 16 17 Blood Pressure 123/62 126/58 L 135/66 Pulse Oximetry 99 98 97 03/17/18 08:00 Temperature 99.0 F Pulse Rate 92 H Respiratory Rate 16 Blood Pressure 157/73 H Pulse Oximetry 99 Intake & Output 03/16/18 03/17/18 03/17/18 18:59 06:59 18:59 Intake Total 3810 / 3810 3720 / 3720 Output Total 2014 1825 / 1825 Balance 1795 / 1795 1895 / 1895 Weight 84.2 kg Intake: IV 3110 / 3110 3000 / 3000 Sodium Bicarbonate 8.4% Inj 150 2000 / 2000 1000 / 1000 MEQ In D5W Inj 850 ML @ 150 mls/hr IV.CONT .Q6H40M [facility] Rx#: [id number] Sodium Bicarbonate 8.4% Inj 150 1000 / 1000 MEQ In NS Inj 850 ML @ 150 mls /hr IV.CONT .Q6H40M [facility] Rx#: [id number] Sodium Bicarbonate 8.4% Inj 150 1000 / 1000 MEQ In 1/2 Normal Saline Inj 850 ML @ 125 mls/hr IV.CONT . Q8H [facility] Rx#:[id number] Calcium Gluconate Inj 1 GM In 110 / 110 NS Inj 100 ML @ 110 mls/hr IV. SIG ONCE ONE Rx#:[id number] Oral 700 / 700 720 / 720 Output: Urine 1800 / 1800 1375 / 1375 Stool Amount (Stoma) 215 / 215 450 / 450 Right Upper Abdomen 215 / 215 450 / 450 Other: Date of Last Bowel Movement 03/16/18 03/16/18 03/16/18 Narrative: GENERAL: Well-nourished, well-developed patient. SKIN: Warm and dry. HEAD: Normocephalic. EYES: No scleral icterus. No injection or drainage. NECK: Supple, trachea midline. No JVD or lymphadenopathy. CARDIOVASCULAR: Regular rate and rhythm without murmurs, gallops, or rubs. RESPIRATORY: Breath sounds equal bilaterally. No accessory muscle use. GASTROINTESTINAL: Abdomen soft, non-tender, nondistended. Ileostomy bag on the right side EXTREMITIES: No edema NEUROLOGICAL: Awake, alert, and oriented x 3. Non-focal. Assessment and Plan - Assessment (1) Colonic mass Code(s): K63.9 - Disease of intestine, unspecified Status: Acute (2) Acute hyperkalemia Code(s): E87.5 - Hyperkalemia Status: Acute (3) Acute dehydration Code(s): E86.0 - Dehydration Status: Acute (4) DAMON (acute kidney injury) Code(s): N17.9 - Acute kidney failure, unspecified Status: Acute - Plan Patient responded well to hydration he is on D5 with 3 A of sodium bicarbonate at 125 cc an hour, creatinine continue to improve with hydration urine output h potassium has declined to normal He has severe dehydration due to ileostomy output Patient has been followed by colorectal surgeon and Imodium will be used to slow down ileostomy output Patient has colon cancer and will need chemotherapy Continue to monitor electrolytes Creatinine 2.3 baseline around 1.2 Reversal of ileostomy plan Nephrology follow-up as needed
[2018-03-17 11:13] LABS: Calcium 8.2 mg/dL (8.5-10.1); Potassium 4.8 meq/L (3.5-5.1)
[2018-03-17] MEDS: Sod Chloride 0.9% Inj 1,000 ML IV.CONT SCH (15:16)
[2018-03-18] MEDS: Loperamide 2 MG Capsule PO SCH ×4 (04:41→20:58)
[2018-03-18] MEDS: Chlorhexidine Gluconate 2% 1 Pack (2 Cloths) TOPICAL SCH (04:41)
[2018-03-18] MEDS: Insulin NovoLIN Regular Correctional Sugar Inj SQ SCH ×4 (05:57→23:12)
[2018-03-18] MEDS: Sod Chloride 0.9% Inj 1,000 ML IV.CONT SCH ×4 (05:57→22:10)
[2018-03-18] MEDS: Sucralfate 1 GM Tablet PO SCH ×4 (05:57→23:10)
[2018-03-18] MEDS: Diphenoxylate/Atropine 2.5/0.025 MG Tablet PO SCH ×4 (05:57→23:48)
[2018-03-18 06:02] LABS: Baso % (Auto) 0.5 % (0.0-2.0); Eos # (Auto) 0.5 th/mm3 (0.0-0.4); Eos % (Auto) 7.3 % (0.0-4.0); Hemoglobin 8.7 gm/dL (13.0-17.0); Lymph # (Auto) 1.2 th/mm3 (1.0-4.8); Lymph % (Auto) 19.2 % (9.0-44.0); Mean Corpuscular HGB Conc 33.5 % (32.0-36.0); Mean Corpuscular Hemoglobin 28.2 pg (27.0-34.0); Mean Platelet Volume 8.3 fL (7.0-11.0); Mono # (Auto) 0.9 th/mm3 (0.0-0.9); Mono % (Auto) 14.1 % (0.0-8.0); Neut # (Auto) 3.7 th/mm3 (1.8-7.7); Neut % (Auto) 58.9 % (16.0-70.0); Platelet Count 238 th/mm3 (150-450); Red Blood Count 3.09 mil/mm3 (4.50-5.90); White Blood Count 6.2 th/mm3 (4.0-11.0)
[2018-03-18 06:33] LABS: Alanine Aminotransferase 43 U/L (12-78); Albumin 2.6 g/dL (3.4-5.0); Alkaline Phosphatase 131 U/L (45-117); Anion Gap 4 meq/L (5-15); Aspartate Aminotransferase 16 U/L (15-37); Blood Urea Nitrogen 23 mg/dL (7-18); Carbon Dioxide 30.1 meq/L (21.0-32.0); Chloride 103 meq/L (98-107); Glomerular Filtration Rate 37 mL/min (>89); Glucose,Random 121 mg/dL (74-106); Potassium 5.1 meq/L (3.5-5.1); Sodium 137 meq/L (136-145); Total Protein 6.1 g/dL (6.4-8.2)
--- NOTE | 2018-03-18 07:42 | P.PNIM ---
Subjective Interval history: f/u; DAMON in no acute distress. resting comfortably with no distress. denies pain. no nausea/vomiting. d/w the RN and no acute issues over night. Physical Exam Vital signs: Vital Signs 03/17/18 07:52 03/17/18 08:00 03/17/18 09:00 Temperature 99.0 F Pulse Rate 88 83 100 H Respiratory Rate 14 17 27 H Blood Pressure 157/73 H 157/73 H Pulse Oximetry 98 97 99 03/17/18 10:00 03/17/18 11:00 03/17/18 12:00 Temperature 99.6 F Pulse Rate 98 H 91 H 70 Respiratory Rate 33 H 30 H 15 Blood Pressure 138/64 Pulse Oximetry 99 100 96 03/17/18 13:00 03/17/18 13:01 03/17/18 14:00 Temperature Pulse Rate 84 93 H 85 Respiratory Rate 19 20 18 Blood Pressure 143/65 H 133/58 L Pulse Oximetry 98 100 97 03/17/18 15:00 03/17/18 16:00 03/17/18 17:00 Temperature 99.1 F Pulse Rate 81 69 77 Respiratory Rate 16 15 21 Blood Pressure 138/64 139/64 137/92 H Pulse Oximetry 98 98 99 03/17/18 18:00 03/17/18 19:00 03/17/18 20:00 Temperature Pulse Rate 90 93 H Respiratory Rate 22 24 Blood Pressure 148/63 H 141/63 H Pulse Oximetry 98 99 99 03/17/18 20:06 03/17/18 21:00 03/17/18 22:00 Temperature 99.3 F Pulse Rate 80 74 77 Respiratory Rate 17 12 16 Blood Pressure 155/71 H 171/74 H 174/77 H Pulse Oximetry 99 98 98 03/17/18 23:00 03/17/18 23:01 03/17/18 23:15 Temperature Pulse Rate 69 71 67 Respiratory Rate 23 23 18 Blood Pressure 195/80 H 176/78 H Pulse Oximetry 99 100 99 03/17/18 23:30 03/17/18 23:45 03/18/18 00:00 Temperature 98.8 F Pulse Rate 64 62 71 Respiratory Rate 2 L 15 20 Blood Pressure 163/74 H 150/77 H 149/71 H Pulse Oximetry 99 100 98 03/18/18 00:15 03/18/18 00:30 03/18/18 00:45 Temperature Pulse Rate 77 90 80 Respiratory Rate 15 16 13 Blood Pressure 149/64 H 147/70 H 149/70 H Pulse Oximetry 97 98 98 03/18/18 01:00 03/18/18 01:15 03/18/18 01:30 Temperature Pulse Rate 78 76 77 Respiratory Rate 13 13 19 Blood Pressure 142/68 H 140/64 131/62 Pulse Oximetry 98 99 98 03/18/18 01:45 03/18/18 02:00 03/18/18 02:24 Temperature Pulse Rate 76 78 80 Respiratory Rate 18 21 13 Blood Pressure 132/63 134/59 L 151/67 H Pulse Oximetry 96 98 99 03/18/18 03:00 03/18/18 04:00 03/18/18 04:32 Temperature 97.9 F Pulse Rate 70 55 L 70 Respiratory Rate 18 47 H 1 L Blood Pressure 155/69 H Pulse Oximetry 95 98 97 Intake & Output 03/17/18 03/18/18 03/18/18 18:59 06:59 18:59 Intake Total 1959 / 1960 1960 / 1959 Output Total 2450 / 2450 1450 / 1450 Balance -490 / -490 510 / 510 Weight 79.8 kg Intake: IV 1000 / 1000 1000 / 1000 NS Inj 1,000 ML @ 100 mls/hr IV 1000 / 1000 .CONT .Q10H CHHAYA Rx#:[id number] Sodium Bicarbonate 8.4% Inj 150 1000 / 1000 MEQ In 1/2 Normal Saline Inj 850 ML @ 125 mls/hr IV.CONT . Q8H [facility]HAYA Rx#:[id number] Oral 960 / 960 960 / 960 Output: Urine 2000 / 2000 1100 / 1100 Stool Amount (Stoma) 450 / 450 350 / 350 Right Upper Abdomen 450 / 450 350 / 350 Other: Date of Last Bowel Movement 03/16/18 03/16/18 - Constitutional no acute distress - Routine Respiratory Exam Present: CTA bilaterally - Routine Cardiovascular Exam Present: RRR - Routine Abdominal Exam Present: soft Comments: ileostomy in place. - Routine Extremities Exam Comments: no pedal edema. - Routine Neurological Exam Present: alert, oriented X3 Results - Labs CBC & Chem 7: 03/18/18 02:10 03/18/18 05:10 Laboratory Results - last 24 hr 03/17/18 03/17/18 03/17/18 10:28 11:19 16:57 WBC RBC Hgb Hct MCV MCH MCHC RDW Plt Count MPV Neut % (Auto) Lymph % (Auto) [place] % (Auto) Eos % (Auto) Baso % (Auto) Neut # (Auto) Lymph # (Auto) [place] # (Auto) Eos # (Auto) Baso # (Auto) WBC Differential Differential Comment Sodium 139 Potassium 4.8 Chloride 102 Carbon Dioxide 33.0 H Anion Gap 4 L BUN 38 H Creatinine 2.25 H Estimated GFR 30 L POC Glucose 242 H 234 H Random Glucose 199 H Calcium 8.2 L Total Bilirubin AST ALT Alkaline Phosphatase Total Protein Albumin 03/17/18 03/18/18 03/18/18 23:07 02:10 05:10 WBC 6.2 RBC 3.09 L Hgb 8.7 L Hct 26.0 L MCV 84.0 MCH 28.2 MCHC 33.5 RDW 20.0 H Plt Count 238 MPV 8.3 Neut % (Auto) 58.9 Lymph % (Auto) 19.2 [place] % (Auto) 14.1 H Eos % (Auto) 7.3 H Baso % (Auto) 0.5 Neut # (Auto) 3.7 Lymph # (Auto) 1.2 [place] # (Auto) 0.9 Eos # (Auto) 0.5 H Baso # (Auto) 0.0 WBC Differential . Differential Comment Auto diff final Sodium 137 Potassium 5.1 Chloride 103 Carbon Dioxide 30.1 Anion Gap 4 L BUN 23 H Creatinine 1.85 H Estimated GFR 37 L POC Glucose 137 H Random Glucose 121 H Calcium 8.0 L Total Bilirubin 0.4 AST 16 ALT 43 Alkaline Phosphatase 131 H Total Protein 6.1 L Albumin 2.6 L 03/18/18 05:39 WBC RBC Hgb Hct MCV MCH MCHC RDW Plt Count MPV Neut % (Auto) Lymph % (Auto) [place] % (Auto) Eos % (Auto) Baso % (Auto) Neut # (Auto) Lymph # (Auto) [place] # (Auto) Eos # (Auto) Baso # (Auto) WBC Differential Differential Comment Sodium Potassium Chloride Carbon Dioxide Anion Gap BUN Creatinine Estimated GFR POC Glucose 129 H Random Glucose Calcium Total Bilirubin AST ALT Alkaline Phosphatase Total Protein Albumin Microbiology 03/15/18 23:38 Clean Catch Urine Urine Culture - Final 10-50,000 cfu/mL mixed jesse (probable contaminants) Assessment and Plan - Plan Acute kidney injury superimposed on chronic renal insufficiency/ dehydration; improving- continue IV fluid- monitor renal function. Nephrology following. Hyperkalemia, hyponatremia ; resolved- will monitor. Elevated LFT; improved; will monitor. History of colorectal cancer- s/p colon resection and ileostomy; colorectal surgery following; possible ileostomy closure this week. DM; continue accu-check with SSI Hyperlipidemia; on statin HTN ; resume Amlodipine- continue to monitor the BP and adjust the regimen as needed. Anemia of chronic disease; continue ferrous sulfate- will monitor H/H. DVT prophylaxis; subq Heparin transfer to floor. Discussed Condition With: the RN.
[2018-03-18] MEDS: amLODIPine 5 MG Tablet PO SCH (08:38)
[2018-03-18] MEDS: Famotidine PF Inj 20 MG/2 ML Vial IV.PUSH SCH ×2 (08:39→20:58)
[2018-03-18] MEDS: Heparin - SQ 10,000 UNITS/ML Vial SQ SCH ×3 (09:30→23:06)
[2018-03-18] MEDS: Ferrous Sulfate 325 MG Tablet PO SCH ×2 (09:30→20:59)
[2018-03-19] MEDS: Chlorhexidine Gluconate 2% 1 Pack (2 Cloths) TOPICAL SCH (03:28)
[2018-03-19] MEDS: Loperamide 2 MG Capsule PO SCH ×3 (03:29→15:41)
[2018-03-19 04:58] LABS: Baso % (Auto) 0.7 % (0.0-2.0); Eos # (Auto) 0.4 th/mm3 (0.0-0.4); Eos % (Auto) 6.3 % (0.0-4.0); Hematocrit 26.9 % (39.0-51.0); Hemoglobin 9.1 gm/dL (13.0-17.0); Lymph # (Auto) 1.3 th/mm3 (1.0-4.8); Lymph % (Auto) 20.1 % (9.0-44.0); Mean Corpuscular HGB Conc 33.9 % (32.0-36.0); Mean Corpuscular Hemoglobin 28.3 pg (27.0-34.0); Mean Corpuscular Volume 83.6 fL (80.0-100.0); Mean Platelet Volume 8.6 fL (7.0-11.0); Mono % (Auto) 15.2 % (0.0-8.0); Neut # (Auto) 3.7 th/mm3 (1.8-7.7); Neut % (Auto) 57.7 % (16.0-70.0); Platelet Count 255 th/mm3 (150-450); Red Blood Count 3.22 mil/mm3 (4.50-5.90); White Blood Count 6.3 th/mm3 (4.0-11.0)
[2018-03-19 05:07] LABS: Albumin 2.5 g/dL (3.4-5.0); Anion Gap 8 meq/L (5-15); Aspartate Aminotransferase 15 U/L (15-37); Blood Urea Nitrogen 15 mg/dL (7-18); Calcium 7.7 mg/dL (8.5-10.1); Carbon Dioxide 24.3 meq/L (21.0-32.0); Chloride 105 meq/L (98-107); Glomerular Filtration Rate 45 mL/min (>89); Glucose,Random 125 mg/dL (74-106); Sodium 137 meq/L (136-145)
[2018-03-19 05:10] LABS: Alanine Aminotransferase 31 U/L (12-78); Alkaline Phosphatase 118 U/L (45-117); Total Protein 6.3 g/dL (6.4-8.2)
[2018-03-19] MEDS: Insulin NovoLIN Regular Correctional Sugar Inj SQ SCH ×3 (05:18→18:39)
[2018-03-19] MEDS: Sod Chloride 0.9% Inj 1,000 ML IV.CONT SCH ×2 (05:48→08:38)
[2018-03-19] MEDS: Diphenoxylate/Atropine 2.5/0.025 MG Tablet PO SCH ×2 (06:00→13:11)
[2018-03-19] MEDS: Sucralfate 1 GM Tablet PO SCH ×3 (06:00→18:39)
[2018-03-19] MEDS: amLODIPine 5 MG Tablet PO SCH (08:39)
[2018-03-19] MEDS: Famotidine PF Inj 20 MG/2 ML Vial IV.PUSH SCH (08:39)
--- NOTE | 2018-03-19 09:32 | P.PNIM ---
Subjective Interval history: f/u; DAMON in no acute distress. look and feels good today. walking in the room. no pain or fever. no new complaints. Physical Exam Vital signs: Last Vital Signs Temp 98.4 F 03/19/18 08:00 Pulse 100 H 03/19/18 08:00 Resp 16 03/19/18 08:00 BP 126/65 03/19/18 08:00 Pulse Ox 98 03/19/18 08:00 Intake & Output 03/17/18 03/18/18 03/19/18 03/20/18 06:59 06:59 06:59 06:59 Intake Total 7530 / 7530 3920 / 3920 2400 / 2400 1000 / 1000 Output Total 3840 / 3840 3900 / 3900 1775 / 1775 Balance 3690 / 3690 20 / 20 625 / 625 1000 / 1000 Weight 84.2 kg 79.8 kg 79.8 kg Constitutional no acute distress Routine Respiratory Exam Present CTA bilaterally Routine Cardiovascular Exam Present RRR Routine Abdominal Exam Present soft Routine Extremities Exam Comments: no pedal edema. Routine Neurological Exam Present alert and oriented X3 Results Labs CBC & Chem 7: 03/19/18 03:56 03/19/18 03:56 Assessment and Plan Plan Acute kidney injury superimposed on chronic renal insufficiency/ dehydration; improving- continue IV fluid- monitor renal function. Nephrology following. Hyperkalemia, hyponatremia ; resolved- will monitor. Elevated LFT; improved; will monitor. History of colorectal cancer- s/p colon resection and ileostomy; colorectal surgery following; possible ileostomy closure this week. DM; continue accu-check with SSI Hyperlipidemia; on statin HTN ; resumed Amlodipine- continue to monitor the BP and adjust the regimen as needed. Anemia of chronic disease; continue ferrous sulfate- will monitor H/H. DVT prophylaxis; subq Heparin
[2018-03-19] MEDS: Ferrous Sulfate 325 MG Tablet PO SCH (12:52)
[2018-03-19] MEDS ORDERED: Bupivacaine 0.5% Inj 50 ML MDV Vial ONE (14:14)
[2018-03-19] MEDS ORDERED: Metoprolol Tartrate 25 MG Tablet PO ONE (15:00)
[2018-03-19] MEDS ORDERED: Chlorhexidine Gluconate 2% 1 Pack (2 Cloths) TOPICAL ONE (15:00)
[2018-03-19] MEDS ORDERED: Sodium Chlor 0.9% Inj 500 ML IV.CONT ONE (15:00)
[2018-03-19] MEDS ORDERED: *Meperidine Inj 25 MG/ML Vial PERIprocedural Use ONLY ONE (16:18)
[2018-03-19] MEDS ORDERED: fentaNYL Citrate Inj 100 MCG/2 ML Ampul ONE (16:22)
[2018-03-19] MEDS ORDERED: *morphine SULFATE 4 MG/ML PERIprocedure ONLY ONE (16:35)
[2018-03-19] MEDS ORDERED: Naloxone Inj 0.4 MG/ML Vial IV.PUSH PRN (16:38)
[2018-03-19] MEDS ORDERED: Morphine Inj 30 MG/30 ML PCA.VIAL PCA PRN (16:38)
[2018-03-19] MEDS ORDERED: Morphine Inj 30 MG/30 ML PCA.VIAL PCA ONE (16:44)
[2018-03-19] MEDS ORDERED: DEXTROSE ONE (17:00)
[2018-03-19] MEDS ORDERED: POTASSIUM CHLORIDE ONE (17:00)
[2018-03-19] MEDS ORDERED: LACTATED RINGERS ONE (17:00)
[2018-03-19] MEDS ORDERED: *Enalaprilat Inj 1.25 MG/ML Vial IV.PUSH ONE ×2 (17:08→17:28)
[2018-03-19] MEDS: Dextrose 5%/Lactated Ringer's 1,000 ML IV.CONT SCH (17:23)
[2018-03-19 17:25] LABS: Baso % (Auto) 0.3 % (0.0-2.0); Eos # (Auto) 0.3 th/mm3 (0.0-0.4); Eos % (Auto) 3.8 % (0.0-4.0); Hematocrit 28.5 % (39.0-51.0); Hemoglobin 9.8 gm/dL (13.0-17.0); Lymph # (Auto) 0.7 th/mm3 (1.0-4.8); Lymph % (Auto) 8.6 % (9.0-44.0); Mean Corpuscular HGB Conc 34.3 % (32.0-36.0); Mean Corpuscular Hemoglobin 29.1 pg (27.0-34.0); Mean Corpuscular Volume 84.9 fL (80.0-100.0); Mean Platelet Volume 7.9 fL (7.0-11.0); Mono # (Auto) 0.5 th/mm3 (0.0-0.9); Mono % (Auto) 6.2 % (0.0-8.0); Neut # (Auto) 6.3 th/mm3 (1.8-7.7); Neut % (Auto) 81.1 % (16.0-70.0); Platelet Count 252 th/mm3 (150-450); Red Blood Count 3.36 mil/mm3 (4.50-5.90); Red Cell Distribution Width 20.2 % (11.6-17.2); White Blood Count 7.7 th/mm3 (4.0-11.0)
[2018-03-19 17:41] LABS: Calcium 8.1 mg/dL (8.5-10.1); Carbon Dioxide 25.1 meq/L (21.0-32.0); Potassium 4.7 meq/L (3.5-5.1)
[2018-03-19] MEDS: ceFAZolin 2 GM Premix Inj 2 GM/50 ML PIGGYBACK IV.SIG SCH (21:12)
[2018-03-20] MEDS: Sucralfate 1 GM Tablet PO SCH ×6 (00:11→23:51)
[2018-03-20] MEDS: Dextrose 5%/Lactated Ringer's 1,000 ML IV.CONT SCH ×4 (00:12→23:51)
[2018-03-20] MEDS: Insulin NovoLIN Regular Correctional Sugar Inj SQ SCH ×4 (00:55→18:07)
[2018-03-20] MEDS: ceFAZolin 2 GM Premix Inj 2 GM/50 ML PIGGYBACK IV.SIG SCH ×2 (05:46→14:36)
[2018-03-20 06:04] LABS: Baso % (Auto) 0.2 % (0.0-2.0); Eos % (Auto) 0.1 % (0.0-4.0); Hematocrit 28.4 % (39.0-51.0); Hemoglobin 9.6 gm/dL (13.0-17.0); Lymph # (Auto) 0.4 th/mm3 (1.0-4.8); Lymph % (Auto) 4.9 % (9.0-44.0); Mean Corpuscular HGB Conc 33.6 % (32.0-36.0); Mean Corpuscular Hemoglobin 28.6 pg (27.0-34.0); Mean Platelet Volume 8.8 fL (7.0-11.0); Mono # (Auto) 0.6 th/mm3 (0.0-0.9); Mono % (Auto) 6.6 % (0.0-8.0); Neut # (Auto) 7.8 th/mm3 (1.8-7.7); Neut % (Auto) 88.2 % (16.0-70.0); Platelet Count 229 th/mm3 (150-450); Red Blood Count 3.34 mil/mm3 (4.50-5.90); Red Cell Distribution Width 19.9 % (11.6-17.2); White Blood Count 8.8 th/mm3 (4.0-11.0)
[2018-03-20] MEDS: Chlorhexidine Gluconate 2% 1 Pack (2 Cloths) TOPICAL SCH (06:27)
[2018-03-20 06:37] LABS: Calcium 8.2 mg/dL (8.5-10.1); Potassium 4.7 meq/L (3.5-5.1)
--- NOTE | 2018-03-20 08:19 | P.PNCS ---
Subjective Colorectal Surgery Post Op Day #: 1 Interval history: Ileostomy closure yesterday, No N or V. Pain controlled without LAUNDRY TECHNICIAN. Has sore on R foot which is chronic and followed as OP by [employer] Dean. Would like wound care to inspect. Objective Result Diagrams: 03/20/18 05:13 03/20/18 05:13 Objective Remarks: Abd: flat,soft,dressing dry.Binder not cut to width as ordered Assessment and Plan - Plan Doing well post Ileostomy closure. Voiding well D/C LAUNDRY TECHNICIAN Decrease IVs Possible D/C tomorrow.
[2018-03-20] MEDS: Pantoprazole Inj 40 MG Vial IV.PUSH SCH (08:58)
[2018-03-20] MEDS: amLODIPine 5 MG Tablet PO SCH (08:58)
--- NOTE | 2018-03-20 09:48 | P.PNIM ---
Subjective Interval history: f/u; DAMON in no acute distress. resting comfortably with no new complaints. Physical Exam Vital signs: Last Vital Signs Temp 98.1 F 03/20/18 08:00 Pulse 83 03/20/18 08:00 Resp 16 03/20/18 08:00 BP 159/75 H 03/20/18 08:00 Pulse Ox 98 03/20/18 08:00 Intake & Output 03/18/18 03/19/18 03/20/18 03/21/18 06:59 06:59 06:59 06:59 Intake Total 3920 / 3920 2400 / 2400 5308 / 5308 1000 / 1000 Output Total 3900 / 3900 1775 / 1775 4430 / 4430 Balance 20 / 20 625 / 625 878 / 878 1000 / 1000 Weight 79.8 kg 79.8 kg 79.6 kg Constitutional no acute distress Routine Respiratory Exam Present CTA bilaterally Routine Cardiovascular Exam Present RRR Routine Abdominal Exam Present soft Routine Extremities Exam Comments: no pedal edema. Routine Neurological Exam Present alert and oriented X3 Results Labs CBC & Chem 7: 03/21/18 06:52 03/21/18 06:52 Procedures Procedures: ileostomy closure. Assessment and Plan Plan Acute kidney injury superimposed on chronic renal insufficiency/ dehydration; improved and stable- - monitor renal function. evaluated by nephrology. Hyperkalemia, hyponatremia ; resolved- will monitor. Elevated LFT; improved; will monitor. History of colorectal cancer- s/p colon resection and ileostomy; now s/p ileostomy closure - colorectal surgery following. DM; continue accu-check with SSI Hyperlipidemia; on statin HTN ; resumed Amlodipine- continue to monitor the BP and adjust the regimen as needed. Anemia of chronic disease; continue ferrous sulfate- will monitor H/H. DVT prophylaxis; subq Heparin
--- NOTE | 2018-03-20 16:44 | P.PNWCN ---
Wound Care Nurse Consult Description: Received wound management consult from Doctor Ortega for chronic sore on R lateral foot. Communicated with: RN Shu Pabon and Doctor Thurman Recommendation: 1.Please cleanse wound to R lateral foot with normal saline or wound cleanser and pat dry. 2.Pack wound loosely with Maxorb II and cover with small bordered gauze. 3.Change dressing every 3 days or as needed if saturated or dislodged. 4. Patient needs to follow up with podiatry Doctor Bebeto. Wound/Pressure Injury - Wound Right lateral foot Wound Assessment: Ongoing Wound Type: Traumatic Wound Is This a Chronic Wound: Yes Requested from Provider a Wound Care Consult: Yes (Patient seen today by Wound care inpatient) Length (cm): 0.6 Width (cm): 0.6 Depth (cm): 0.5 Wound Bed Appearance: [place], Tunneling/Undermining (undermining is circumferential and ~0.7 cm ) Wound Bed Appearance: Wound bed presents with 100% pale pink tissue. Undermining is noted circumferentially at 0.7cm in depth.Periwound presents with hard callus. Surrounding Tissue Temperature: Cool Drainage Description: Serous Drainage Amount: Minimal Drainage Odor: No Odor Dressing Status: Changed Cleansing Solution: Saline Wound Packing Type: Alginate (Maxobr II) Cover Dressing: Bordered gauze Support Dressing: Scrotal Support Wound Dressing Change Date: 03/20/18 Wound Margin Description: Wound margins are well defined, closed, unattached, and present with hard callus. - Additional Information Patient seen on [address] [place] [address] for evaluation of wound management for sore on R lateral foot. Patient has a history of Diabetes and R foot surgery.Patient was being followed by Doctor Tate Roentgenologist, but he admits, he hasn't seen in a while. Removed bordered gauze dressing in place to R lateral foot to reveal wound. Wound presents with 100% pale pink tissue that is moist, hard dry callus to periwound. Wound drainage is minimal and serous without odor. Wound margins are even, closed and unattached.Wound was cleansed with normal saline and patted dry, applied Maxorb II packed loosely to wound bed and covered with bordered gauze dressing. Cavilon skin barrier film was applied before applying adhesive dressing to skin. Full wound description, measurements and wound care recommendations are noted above. Patient tolerated wound assessment and dressing change well.
[2018-03-21] MEDS: Sucralfate 1 GM Tablet PO SCH ×2 (05:48→12:00)
[2018-03-21] MEDS: Insulin NovoLIN Regular Correctional Sugar Inj SQ SCH ×3 (05:48→12:01)
[2018-03-21 07:24] LABS: Baso % (Auto) 0.4 % (0.0-2.0); Eos # (Auto) 0.4 th/mm3 (0.0-0.4); Eos % (Auto) 4.3 % (0.0-4.0); Hematocrit 26.9 % (39.0-51.0); Lymph # (Auto) 1.3 th/mm3 (1.0-4.8); Lymph % (Auto) 15.4 % (9.0-44.0); Mean Corpuscular HGB Conc 33.5 % (32.0-36.0); Mean Corpuscular Hemoglobin 28.4 pg (27.0-34.0); Mean Corpuscular Volume 84.5 fL (80.0-100.0); Mean Platelet Volume 8.4 fL (7.0-11.0); Mono # (Auto) 0.9 th/mm3 (0.0-0.9); Mono % (Auto) 11.1 % (0.0-8.0); Neut # (Auto) 5.9 th/mm3 (1.8-7.7); Neut % (Auto) 68.8 % (16.0-70.0); Platelet Count 261 th/mm3 (150-450); Red Blood Count 3.18 mil/mm3 (4.50-5.90); Red Cell Distribution Width 20.1 % (11.6-17.2); White Blood Count 8.5 th/mm3 (4.0-11.0)
--- NOTE | 2018-03-21 07:28 | P.PNCS ---
Subjective Colorectal Surgery Post Op Day #: 2 Interval history: Doing well. Having BMs. Wants to go home Objective Result Diagrams: 03/21/18 06:52 03/20/18 05:13 Objective Remarks: Abd: flat,soft,wound red from prior Ileostomy irritation. Assessment and Plan - Plan Doing well post Ileostomy closure. D/C today Instructions given
[2018-03-21 08:03] LABS: Carbon Dioxide 25.3 meq/L (21.0-32.0); Potassium 3.7 meq/L (3.5-5.1)
[2018-03-21 08:30] VITALS: BP 170/85; RESP 18
[2018-03-21] MEDS: Pantoprazole Inj 40 MG Vial IV.PUSH SCH (08:50)
[2018-03-21] MEDS: amLODIPine 5 MG Tablet PO SCH (08:50)
[2018-03-21] MEDS: Dextrose 5%/Lactated Ringer's 1,000 ML IV.CONT SCH (08:55)
--- NOTE | 2018-03-21 10:44 | P.DCO ---
Home Health Nursing Order: Wound care and dressing changes and Nursing assessment with vital signs Instructions: 1.Please cleanse wound to R lateral foot with normal saline or wound cleanser and pat dry. 2.Pack wound loosely with Maxorb II and cover with small bordered gauze. 3.Change dressing every 3 days or as needed if saturated or dislodged. Case Management Consult Case Management Consult-Home Health: Yes I have seen patient Papi Perry on 03/21/18. My clinical findings support the need for the requested home health care services because: Limited mobility due to disease progression I certify that my clinical findings support that this patient is homebound because: Post-op weakness
--- NOTE | 2018-03-21 10:49 | P.PNIM ---
Subjective Interval history: f/u; DAMON in no acute distress. had some diarrhea over night but with no abdominal pain, nausea/vomiting. no fever. no other complaints. d/w the RN. Physical Exam Vital signs: Last Vital Signs Temp 98.0 F 03/21/18 08:00 Pulse 97 H 03/21/18 08:00 Resp 18 03/21/18 08:00 BP 170/85 H 03/21/18 08:00 Pulse Ox 98 03/21/18 08:00 Intake & Output 03/19/18 03/20/18 03/21/18 03/22/18 06:59 06:59 06:59 06:59 Intake Total 2400 / 2400 5308 / 5308 3590 / 3590 925 / 925 Output Total 1775 / 1775 4430 / 4430 1570 / 1570 Balance 625 / 625 878 / 878 2019 / 2019 925 / 925 Weight 79.8 kg 79.6 kg 79.1 kg Constitutional no acute distress Routine Respiratory Exam Present CTA bilaterally Routine Cardiovascular Exam Present RRR Routine Abdominal Exam Present soft Routine Extremities Exam Comments: no pedal edema. Routine Skin Exam Comments: wound noted on the right heel. Routine Neurological Exam Present alert and oriented X3 Results Labs CBC & Chem 7: 03/21/18 06:52 03/21/18 06:52 Procedures Procedures: ileostomy closure. Assessment and Plan Plan Acute kidney injury superimposed on chronic renal insufficiency/ dehydration; improved and stable- - evaluated by nephrology. Hyperkalemia, hyponatremia ; resolved- will monitor. Elevated LFT; improved; will monitor. History of colorectal cancer- s/p colon resection and ileostomy; now s/p ileostomy closure - colorectal surgery cleared for discharge. DM; continue accu-check with SSI Hyperlipidemia; on statin HTN ;will resume home meds. Anemia of chronic disease; continue ferrous sulfate- will monitor H/H. right foot wound; f/u with podiatry- [facility] for wound care. DVT prophylaxis; subq Heparin will dc home with f/u by pcp, colorectal surgery and podiatry.
--- NOTE | 2018-03-21 10:51 | P.DS ---
DS: Providers Date of admission: 03/15/18 22:31 Primary care physician: Ryan Kuhn MD Consults: 03/15/18 22:06 Consult to Nephrology Stat Consulting Provider: Luly Elias For STAT consult, spoke directly to:: cayden Does the patient have a [employer] Library Clerk who follows them?: No Preferred Nephrology Price Economist:: Vending Route Servicer Physician Reason for Consultation: acute kidney injury, hyperkalemia Spoke with:: zoie pang verified dr to Date Notified:: 03/15/18 Time Notified:: 22:35 [facility] 03/15/18 22:49 Consult to Colorectal Surgery Routine Consulting Provider: Natalio Ortega Preferred Price Economist:: Natalio Ortega Reason for Consultation: AM consult to Dr. Ortega Notified:: Service Spoke with:: maya Date Notified:: 03/15/18 Time Notified:: 23:06 [facility] 03/17/18 13:20 Consult to Hospitalist Routine Consulting Provider: Veena Bruno Reason for Consultation: medical management. Change attending to ÁLVARO Notified:: Service Spoke with:: EDUARDO Date Notified:: 03/17/18 Time Notified:: 13:29 Ordering Provider: ANTHONY Brief History from admission: 62 year old male presents with generalized weakness, decreased by mouth intake, and high ileostomy output. The patient had a sigmoid colectomy with low anterior resection, small bowel resection with anastomosis, and loop ileostomy performed for colon cancer on 01/28. He reports that he's had high ileostomy output since his surgery and is emptying his ostomy bag 0-12 times per day. He was admitted from 02/21-02/27 for dehydration, acute kidney injury, and hyperkalemia; he improved with IV hydration and did not require hemodialysis. However, over the past 2-3 days the patient has had decreased by mouth intake, decreased urination, and reports generalized weakness/ fatigue. Today, he was walking in his kitchen when "my legs gave out from under me" and he lowered himself to the floor. He denies head injury, LOC, or syncopal episode. DS: Summary Acute kidney injury superimposed on chronic renal insufficiency/ dehydration; improved and stable- - evaluated by nephrology. Hyperkalemia, hyponatremia ; resolved- will monitor. Elevated LFT; improved; will monitor. History of colorectal cancer- s/p colon resection and ileostomy; now s/p ileostomy closure - colorectal surgery cleared for discharge. DM; continue accu-check with SSI Hyperlipidemia; on statin HTN ;will resume home meds. Anemia of chronic disease; continue ferrous sulfate- will monitor H/H. right foot wound; f/u with podiatry- [facility] for wound care. Time Spent with Patient Total time spent providing and/or coordinating discharge services: Exam Narrative Exam Narrative: in no acute distress. on exam, bilateral air entry present on lung exam. abdomen is soft with no tenderness. no pedal edema- right foot covered with clean dressing. Results Procedures completed during hospitalization: ileostomy closure. Pending studies at discharge: Pending at discharge 03/19/18 07:53 Surgical [PTH] Routine Labs on day of discharge: Labs from last 24 hours 03/21/18 03/21/18 03/21/18 06:52 06:52 05:46 WBC 8.5 RBC 3.18 L Hgb 9.0 L Hct 26.9 L MCV 84.5 MCH 28.4 MCHC 33.5 RDW 20.1 H Plt Count 261 MPV 8.4 Neut % (Auto) 68.8 Lymph % (Auto) 15.4 [place] % (Auto) 11.1 H Eos % (Auto) 4.3 H Baso % (Auto) 0.4 Neut # (Auto) 5.9 Lymph # (Auto) 1.3 [place] # (Auto) 0.9 Eos # (Auto) 0.4 Baso # (Auto) 0.0 WBC Differential . Differential Comment Auto diff final Sodium 139 Potassium 3.7 D Chloride 107 Carbon Dioxide 25.3 Anion Gap 7 BUN 10 Creatinine 1.43 H Estimated GFR 50 L POC Glucose 147 H Random Glucose 155 H D Calcium 8.0 L 03/20/18 03/20/18 03/20/18 23:56 17:46 11:17 WBC RBC Hgb Hct MCV MCH MCHC RDW Plt Count MPV Neut % (Auto) Lymph % (Auto) [place] % (Auto) Eos % (Auto) Baso % (Auto) Neut # (Auto) Lymph # (Auto) [place] # (Auto) Eos # (Auto) Baso # (Auto) WBC Differential Differential Comment Sodium Potassium Chloride Carbon Dioxide Anion Gap BUN Creatinine Estimated GFR POC Glucose 227 H 268 H 281 H Random Glucose Calcium Impressions ITS Impressions Abdomen/Pelvis CT 03/15/18 20:53 CONCLUSION: 1. Interim distal colectomy and rectosigmoid anastomosis. Intermittent right lower quadrant ileostomy. No obstruction or inflammatory changes are seen. 2. Mesenteric lymph node conglomerate in the right lower quadrant is slightly larger. 3. The metastatic lesion of the right hepatic lobe is slightly larger. 4. Small ascitic fluid has developed in the right inguinal canal and left scrotal sac. Discharge Plan Discharge Disposition Patient Disposition: W/Home Health Service Discharge Condition Condition: Good Discharge Order Discharge Orders: Discharge Order (Routine); Ordered 03/21/18 Ordered By: Natalio Ortega Discharge Details Anticipated Discharge Date: 03/21/18 Physicians Team ED Provider: Martha Davis Primary Care Provider: Ryan Kuhn Attending Provider: Veena Bruno Other Providers: Luly Elias ; Natalio Ortega Rxs /Orders / Referrals /Forms Prescriptions: Continue metformin 500 mg Tablet 500 mg PO BID RF: 0 hydrocodone-acetaminophen 5-325 mg Tablet 1 tab PO Q4H PRN (Reason: Pain Scale 1 To 4) RF: 0 amlodipine [Norvasc] 5 mg Tablet 10 mg PO DAILY Qty: 60 RF: 0 glimepiride 2 mg Tablet 2 mg PO BID RF: 0 lovastatin 20 mg Tablet 20 mg PO DAILY RF: 0 atenolol 50 mg Tablet 50 mg PO HS RF: 0 ferrous sulfate 250 mg (50 mg iron) tablet extended release 250 mg PO BID RF: 0 Discontinued loperamide 2 mg Capsule 4 mg PO Q6H Qty: 60 RF: 0 ciprofloxacin HCl 500 mg Tablet 500 mg PO Q12HR Qty: 14 RF: 0 acetaminophen 325 mg Tablet 650 mg PO Q4H PRN (Reason: Temp > 100.4) RF: 0 pantoprazole [Protonix] 20 mg Tablet,Delayed Release (Dr/Ec) 40 mg PO DAILY Qty: 30 RF: 0 sucralfate [Carafate] 1 gram Tablet 1 g PO Q6H Qty: 60 RF: 0 Referrals: Natalio Ortega MD [Physician] - 03/29/18 8:45 am (Follow up appt made at the [address], [place] [address] ) Discharge Instructions Patient Printed Instructions: Acute Kidney Injury (DC), Colectomy (DC), Hyperkalemia (DC) Discharge Interventions Interventions: Discharge Planning - Case Management Last Done: 03/21/18 09:07 Status ED Status: Left Department
[2018-03-21 12:32] VITALS: PULSE 100; TEMP 97.8; O2SAT 179
== END 2018-03-21 13:20 | disposition home health service (06) ==
LOC: NEPE 20:00 → NEDA 22:31 → HIMC 03-16 00:05 → N07 03-18 21:40
PROVIDERS: ADMIT Internal Medicine; ATTEND Internal Medicine